=== PATIENT | female | born 1985 | race Caucasian/White ===

== ENCOUNTER 2016-12-19 08:48 | Emergency (ER) | payer MEDICAID ==
[2016-12-19 08:59] VITALS: BP 145/87
[2016-12-19] MEDS ORDERED: ONDANSETRON HCL INJ/PF 4 MG/2 ML SDV IV ONE ×2 (09:32→09:52)
[2016-12-19] MEDS ORDERED: NORMAL SALINE 1000 ML 1,000 ML IV ONE ×2 (09:32→09:47)
--- NOTE | 2016-12-19 09:44 | ER Document Report ---
ED GI/ - General Chief Complaint: Fever Stated Complaint: SIDE PAIN Time seen by provider: 09:44 Mode of Arrival: Ambulatory Information source: Patient Notes: 31 yo female diabetic with bilateral low back pain and dysuria. Thinks she has a kidney infection. No n/v/d. No vaginal discharge. TRAVEL OUTSIDE OF THE [place] IN LAST 30 DAYS: No - Related Data Allergies/Adverse Reactions: No Known Allergies Allergy (Verified 12/19/16 08:56) Past Medical History - General Information source: Patient - Social History Smoking Status: Current Some Day Smoker Chew tobacco use (# tins/day): No Frequency of alcohol use: Occasional Drug Abuse: Marijuana Family History: DM Patient has suicidal ideation: No Patient has homicidal ideation: No Endocrine Medical History: Reports: Hx Diabetes Mellitus Type 1 Renal/ Medical History: Denies: Hx Peritoneal Dialysis Past Surgical History: Reports: Hx Tonsillectomy - Immunizations Hx Diphtheria, Pertussis, Tetanus Vaccination: Yes Review of Systems - Review of Systems Constitutional: See HPI EENT: No symptoms reported Cardiovascular: No symptoms reported Respiratory: No symptoms reported Gastrointestinal: No symptoms reported Genitourinary: See HPI Female Genitourinary: No symptoms reported Musculoskeletal: No symptoms reported Skin: No symptoms reported Hematologic/Lymphatic: No symptoms reported Neurological/Psychological: No symptoms reported Physical Exam - Vital signs Vitals: Temp Pulse Resp BP Pulse Ox 100.5 F H 107 H 22 H 145/87 H 99 12/19/16 08:58 12/19/16 08:58 12/19/16 08:58 12/19/16 08:58 12/19/16 08:58 Interpretation: Tachycardic, Febrile - General General appearance: Alert In distress: None - HEENT Head: Normocephalic, Atraumatic Eyes: Normal Conjunctiva: Normal Pupils: PERRL Pharynx: Normal Neck: Supple. No: Lymphadenopathy - Respiratory Respiratory status: No respiratory distress Chest status: Nontender Breath sounds: Normal Chest palpation: Normal - Cardiovascular Rhythm: Regular Heart sounds: Normal auscultation Murmur: No - Abdominal Inspection: Normal Distension: No distension Bowel sounds: Normal Tenderness: Nontender. No: Tender Organomegaly: No organomegaly - Back Back: Normal, Nontender. No: CVA tenderness - Extremities General upper extremity: Normal inspection, Nontender, Normal color, Normal ROM , Normal temperature General lower extremity: Normal inspection, Nontender, Normal color, Normal ROM , Normal temperature, Normal weight bearing. No: Herber's sign - Neurological Neuro grossly intact: Yes Cognition: Normal Orientation: AAOx4 [place] Coma Scale Eye Opening: Spontaneous [place] Coma Scale Verbal: Oriented Meli Coma Scale Motor: Obeys Commands Meli Coma Scale Total: 15 Speech: Normal Motor strength normal: LUE, RUE, LLE, RLE Sensory: Normal - Psychological Associated symptoms: Normal affect, Normal mood - Skin Skin Temperature: Warm Skin Moisture: Dry Skin Color: Normal Skin irregularity: negative: Rash Course - Re-evaluation Re-evalutation: 12/19/16 11:[address] sanz, pt can go home. she feels better, IV fluid almost done, urine culture is pending. The wbc is 13, slight shift, urine positive for UTI 12/19/16 12:08 no hx stones or obstructive. She had sx of cystitis last week and did not see anyone for it, progressed to dull aching right flank, feeling sick with fever since saturday. - Vital Signs Vital signs: Temp Pulse Resp BP Pulse Ox 98.4 F 107 H 20 145/87 H 99 12/19/16 12:20 12/19/16 08:58 12/19/16 09:15 12/19/16 08:58 12/19/16 08:58 - Laboratory Result Diagrams: 12/19/16 09:45 12/19/16 09:45 Laboratory results interpreted by me: 12/19/16 12/19/16 12/19/16 09:40 09:45 09:45 WBC 13.3 H Seg Neutrophils % 83.2 H Lymphocytes % 5.8 L Absolute Neutrophils 11.1 H Sodium 132.5 L Chloride 96 L Glucose 278 H POC Glucose AST 13 L Alkaline Phosphatase 143 H Urine Protein 30 H Urine Glucose (UA) >=500 H Urine Ketones 80 H Urine Blood SMALL H Urine Nitrite POSITIVE H Ur Leukocyte Esterase TRACE H 12/19/16 11:58 WBC Seg Neutrophils % Lymphocytes % Absolute Neutrophils Sodium Chloride Glucose POC Glucose 167 H AST Alkaline Phosphatase Urine Protein Urine Glucose (UA) Urine Ketones Urine Blood Urine Nitrite Ur Leukocyte Esterase Discharge - Discharge Clinical Impression: Pyelonephritis Diabetes Qualifiers: Diabetes mellitus type: type 1 Diabetes mellitus complication status: with hyperglycemia Qualified Code(s): E10.65 - Type 1 diabetes mellitus with hyperglycemia Fever Qualifiers: Fever type: unspecified Qualified Code(s): R50.9 - Fever, unspecified Condition: Good Disposition: HOME, SELF-CARE Instructions: Acetaminophen, Pyelonephritis ([facility]), Rocephin ([facility]), Fever ([facility]) , Flank Pain ([facility]), Oral Narcotic Medication ([facility]) Additional Instructions: keep close watch on glucoses today to er if vomiting or feel worse urine culture is pending Prescriptions: Ciprofloxacin HCl [Cipro 500 mg Tablet] 500 mg PO BID #20 tablet Oxycodone HCl/Acetaminophen [Percocet 5-325 mg Tablet] 1 - 2 tab PO ASDIR PRN # 10 tablet PRN Reason: Forms: Parent Work Note Referrals: TAM LOPEZ DO [Primary Care Provider] - Follow up tomorrow
[2016-12-19] MEDS ORDERED: ACETAMINOPHEN 325 MG TABLET PO ONE (09:47)
[2016-12-19] MEDS ORDERED: CEFTRIAXONE 1 GM/D5W RTU 50 ML IV ONE (09:52)
[2016-12-19 10:08] LABS: APPEARANCE,URINE CLEAR; BILIRUBIN,URINE NEGATIVE (NEGATIVE); GLUCOSE, URINE >=500 mg/dL (NEGATIVE); KETONES,URINE 80 mg/dL (NEGATIVE); LEUKOCYTE ESTERASE,URINE TRACE (NEGATIVE); NITRITE,URINE POSITIVE (NEGATIVE); PROTEIN,URINE 30 mg/dL (NEGATIVE); URINE SPECIFIC GRAVITY 1.026; UROBILINOGEN,URINE NEGATIVE mg/dL (<2.0)
[2016-12-19 10:20] LABS: ALANINE AMINOTRANSFERASE 16 U/L (9-52); ALBUMIN 3.8 g/dL (3.5-5.0); ALKALINE PHOSPHATASE 143 U/L (38-126); ANION GAP 11 (5-19); ASPARTATE AMINO TRANSFERASE 13 U/L (14-36); BILIRUBIN,TOTAL 0.5 mg/dL (0.2-1.3); BLOOD UREA NITROGEN 9 mg/dL (7-20); CALCIUM 9.2 mg/dL (8.4-10.2); CARBON DIOXIDE 26 mmol/L (22-30); CHLORIDE 96 mmol/L (98-107); GLUCOSE 278 mg/dL (75-110); SODIUM 132.5 mmol/L (137-145); TOTAL PROTEIN 6.4 g/dL (6.3-8.2)
[2016-12-19 10:23] LABS: ABSOLUTE LYMPHOCYTES (AUTO) 0.8 10^3/uL (0.5-4.7); ABSOLUTE MONOCYTES (AUTO) 1.4 10^3/uL (0.1-1.4); ABSOLUTE NEUT (AUTO) 11.1 10^3/uL (1.7-8.2); BASOPHILS % (AUTO) 0.1 % (0-2); EOSINOPHILS % (AUTO) 0.1 % (0-6); HEMATOCRIT 40.7 % (36.0-47.0); HEMOGLOBIN 13.6 g/dL (12.0-15.5); HGB HCT DIFFERENCE 0.1; LYMPHOCYTES % (AUTO) 5.8 % (13-45); MEAN CORPUSCULAR HEMOGLOBIN 30.1 pg (27.0-33.4); MEAN CORPUSCULAR HGB CONC 33.5 g/dL (32.0-36.0); MEAN CORPUSCULAR VOLUME 90 fl (80-97); MONOCYTES % (AUTO) 10.8 % (3-13); RED BLOOD COUNT 4.53 10^6/uL (3.72-5.28); RED CELL DISTRIBUTION WIDTH 12.7 % (11.5-14.0); SEGMENTED NEUTROPHILS % (AUTO) 83.2 % (42-78); WHITE BLOOD COUNT 13.3 10^3/uL (4.0-10.5)
[2016-12-19] MEDS ORDERED: OXYCODONE HCL IR 5 MG TABLET PO ONE (12:08)
== END 2016-12-19 12:45 | disposition home or self-care (01) ==
LOC: ER 08:48
DX: N12 Tubulo-interstitial nephritis, not specified as acute or chronic (principal); E10.65 Type 1 diabetes mellitus with hyperglycemia; M54.5 Low back pain; R30.0 Dysuria; R50.9 Fever, unspecified; R00.0 Tachycardia, unspecified; F17.200 Nicotine dependence, unspecified, uncomplicated
CPT/HCPCS: 99283; 96361; 96375; 96365; 36415; 87040; 87086; 82962; 85025; 87088; 80053; 81001; 87186; J3490 ×2; J2405; J7030; J0696

== ENCOUNTER 2017-01-22 21:57 | Inpatient (IN) | payer MEDICAID ==
[2017-01-22] MEDS ORDERED: NORMAL SALINE 1000 ML 1,000 ML IV ONE ×2 (22:01→23:46)
[2017-01-22 22:36] LABS: HEMATOCRIT 46.3 % (36.0-47.0); HEMOGLOBIN 14.3 g/dL (12.0-15.5); HGB HCT DIFFERENCE -3.4; MEAN CORPUSCULAR HEMOGLOBIN 29.1 pg (27.0-33.4); MEAN CORPUSCULAR HGB CONC 30.9 g/dL (32.0-36.0); MEAN CORPUSCULAR VOLUME 94 fl (80-97); RED BLOOD COUNT 4.93 10^6/uL (3.72-5.28); RED CELL DISTRIBUTION WIDTH 13.6 % (11.5-14.0); WHITE BLOOD COUNT 28.9 10^3/uL (4.0-10.5)
[2017-01-22 22:51] LABS: BASOPHILS % (MANUAL) 0 % (0-2); EOSINOPHILS % (MANUAL) 0 % (0-6); LYMPHOCYTES % (MANUAL) 5 % (13-45); TOTAL CELLS COUNTED 100
[2017-01-22 22:52] LABS: RBC MORPHOLOGY COMMENT NORMO-CYTIC/CHROMIC
[2017-01-22 23:36] LABS: AMORPHOUS SEDIMENT,URINE TRACE /HPF; APPEARANCE,URINE SLIGHTLY-CLOUDY; BILIRUBIN,URINE NEGATIVE (NEGATIVE); GLUCOSE, URINE >=500 mg/dL (NEGATIVE); KETONES,URINE 80 mg/dL (NEGATIVE); LEUKOCYTE ESTERASE,URINE NEGATIVE (NEGATIVE); NITRITE,URINE NEGATIVE (NEGATIVE); PROTEIN,URINE 30 mg/dL (NEGATIVE); URINE SPECIFIC GRAVITY 1.018; UROBILINOGEN,URINE NEGATIVE mg/dL (<2.0)
[2017-01-22 23:44] LABS: ALANINE AMINOTRANSFERASE 33 U/L (9-52); ALBUMIN 4.7 g/dL (3.5-5.0); ALKALINE PHOSPHATASE 150 U/L (38-126); ASPARTATE AMINO TRANSFERASE 20 U/L (14-36); BILIRUBIN,TOTAL 0.7 mg/dL (0.2-1.3); BLOOD UREA NITROGEN 23 mg/dL (7-20); CALCIUM 9.8 mg/dL (8.4-10.2); CHLORIDE 105 mmol/L (98-107); CREATININE RESULT 1.04 mg/dL (0.52-1.25); SODIUM 134.9 mmol/L (137-145); TOTAL PROTEIN 7.5 g/dL (6.3-8.2)
[2017-01-22] MEDS ORDERED: DEXTROSE 40% GEL 15 GM TUBE PO PRN ×2 (23:47)
[2017-01-22] MEDS ORDERED: GLUCAGON,HUMAN RECOMB 1 MG INJ IM PRN (23:47)
[2017-01-22] MEDS ORDERED: NORMAL SALINE 100 ML with INSULIN REGULAR, HUMAN 100 UNIT IV PRN ×2 (23:47)
[2017-01-22] MEDS ORDERED: DEXTROSE 50%-WATER 25 GM/50 ML DISP.SYRIN IV PRN ×2 (23:47)
[2017-01-22 23:59] LABS: POTASSIUM 6.9 mmol/L (3.6-5.0)
[2017-01-23] LABS: CARBON DIOXIDE < 5 mmol/L (22-30); GLUCOSE 519 mg/dL (75-110)
[2017-01-23] MEDS ORDERED: INSULIN REG, HUMAN 100 UNIT/ML 3 ML VIAL (PYX) ONE (00:10)
[2017-01-23] MEDS ORDERED: SODIUM BICARBONATE 8.4% INJ 50 MEQ/50 ML DISP.SYRIN IV ONE (00:19)
--- NOTE | 2017-01-23 00:53 | ER Document Report ---
ED General - General Chief Complaint: High Blood Sugar Stated Complaint: POSSIBLE HIGH BLOOD SUGAR Notes: Patient is a 31-year-old female presents for complaint of possible DKA. Patient says that she never picked up her NovoLog 7030 insulin. She says she ran out on Saturday. She also has regular insulin but has not been using it as prescribed. She's had low vomiting. Patient's mother was called by the patient 's children because she looked unwell. Patient's mother got to her she is very lethargic and called a wants her brother here. Mother says that the patient resides been living with her boyfriend. She says she's been unable to keep a close eye on the patient to make sure that she's been taking her insulin. She' s been in DKA before. This was 2 years ago. Patient denies any recent fevers or infections. She has some abdominal pain. No diarrhea. TRAVEL OUTSIDE OF THE [place] IN LAST 30 DAYS: No - Related Data Allergies/Adverse Reactions: No Known Allergies Allergy (Verified 12/19/16 08:56) Past Medical History - Social History Smoking Status: Current Every Day Smoker Chew tobacco use (# tins/day): No Frequency of alcohol use: Occasional Drug Abuse: None Family History: Reviewed & Not Pertinent, DM Patient has suicidal ideation: No Patient has homicidal ideation: No - Past Medical History Cardiac Medical History: Denies: Hx Heart Attack, Hx Hypertension Neurological Medical History: Denies: Hx Cerebrovascular Accident, Hx Seizures Endocrine Medical History: Reports: Hx Diabetes Mellitus Type 1 Renal/ Medical History: Denies: Hx Peritoneal Dialysis GI Medical History: Denies: Hx Hepatitis, Hx Hiatal Hernia, Hx Ulcer Psychiatric Medical History: Denies: Hx Depression Infectious Medical History: Denies: Hx Hepatitis Past Surgical History: Reports: Hx Tonsillectomy. Denies: Hx Mastectomy, Hx Open Heart Surgery, Hx Pacemaker - Immunizations Hx Diphtheria, Pertussis, Tetanus Vaccination: Yes Review of Systems - Review of Systems Notes: My Normal Review Basic REVIEW OF SYSTEMS: CONSTITUTIONAL : Denies fever, chills, or sweats. Denies recent illness. EENT: Denies eye, ear, throat, or mouth pain or symptoms. Denies nasal or sinus congestion. CARDIOVASCULAR: Denies chest pain. RESPIRATORY: Denies cough, cold, or chest congestion. Denies shortness of breath, difficulty breathing, or wheezing. GASTROINTESTINAL: Some abdominal pain. Vomiting.. Denies constipation. Last BM: GENITOURINARY: Denies difficulty urinating, painful urination, burning, frequency, or blood in urine. MUSCULOSKELETAL: Denies neck or back pain or joint pain or swelling. SKIN: Denies rash or skin lesions. NEUROLOGICAL: Denies altered mental status or loss of consciousness. Denies headache. Denies weakness or paralysis or loss of use of either side. Denies problems with gait or speech. Denies sensory or motor loss. ALL OTHER SYSTEMS REVIEWED AND NEGATIVE. Physical Exam - Vital signs Vitals: Resp Pulse Ox 27 H 100 01/22/17 23:21 01/22/17 23:21 - Notes Notes: General Appearance: Well nourished, alert, cooperative, moderate acute distress , no obvious discomfort. Lethargic. Vitals: reviewed, See vital signs table. Head: no swelling or tenderness to the head Eyes: PERRL, EOMI, Conjuctiva clear Mouth: No decreasd moisture Neck: Supple, no neck tenderness, No thyromegaly Lungs: No wheezing, No rales, No rhonci, No accessory muscle use, good air exchange bilaterally. Kussmal type respirations. Heart: Slightly tachycardic rate, Regular rythm, No murmur, no rub Abdomen: Normal BS, soft, No rigidity, mild diffuse abdominal tenderness, No guarding, no rebound, no abdominal masses, no organomegaly Extremities: strength 5/5 in all extremities, good pulses in all extremities, no swelling or tenderness in the extremities, no edema. Skin: warm, dry, appropriate color, no rash Neuro: speech clear, oriented x 3, , responds appropriately to questions. Patient is somewhat weak pain. She is able answer most questions. No focal neurologic deficits. Course - Re-evaluation Re-evalutation: 01/23/17 02:14 Patient is more awake and alert. She is able to answer questions about difficulty now. Have ordered a repeat BMP. She's had 2 half liters of fluid so far. I will place her on maintenance drip. I spoke with the hospitalist who agrees to admit the patient. Patient will be closely monitored until admitted. Dictation of this chart was performed using voice recognition software; therefore, there may be some unintended grammatical errors. - Vital Signs Vital signs: Temp Pulse Resp BP Pulse Ox 98.5 F 82 25 H 133/67 H 100 01/23/17 00:00 01/22/17 23:42 01/23/17 00:01 01/23/17 00:01 01/23/17 02:29 - Laboratory Result Diagrams: 01/22/17 22:24 01/22/17 23:20 Laboratory results interpreted by me: 01/22/17 01/22/17 01/22/17 22:24 23:05 23:20 WBC 28.9 H MCHC 30.9 L Seg Neuts % (Manual) 95 H Lymphocytes % (Manual) 5 L Monocytes % (Manual) 0 L Abs Neuts (Manual) 27.5 H Abs Monocytes (Manual) 0.0 L Sodium 134.9 L Potassium 6.9 H* Carbon Dioxide < 5 L* BUN 23 H Glucose 519 H* POC Glucose Alkaline Phosphatase 150 H Urine Protein 30 H Urine Glucose (UA) >=500 H Urine Ketones 80 H Urine Blood SMALL H 01/22/17 01/23/17 23:51 01:47 WBC MCHC Seg Neuts % (Manual) Lymphocytes % (Manual) Monocytes % (Manual) Abs Neuts (Manual) Abs Monocytes (Manual) Sodium Potassium Carbon Dioxide BUN Glucose POC Glucose 441 H* 413 H* Alkaline Phosphatase Urine Protein Urine Glucose (UA) Urine Ketones Urine Blood Critical Care Note - Critical Care Note Total time excluding time spent on procedures (mins): 40 Comments: Critical care time for this patient not including time spent on procedures proximal and 40 minutes due to frequent reevaluations and management of blood sugar and acidosis. Discharge - Discharge Clinical Impression: DKA (diabetic ketoacidoses) Qualifiers: Diabetes mellitus type: type 1 Diabetes mellitus complication detail: without coma Qualified Code(s): E10.10 - Type 1 diabetes mellitus with ketoacidosis without coma Disposition: ADMITTED INPATIENT Unit Admitted: ICU
[2017-01-23] MEDS ORDERED: NORMAL SALINE 1000 ML 1,000 ML IV ONE (02:02)
[2017-01-23] MEDS ORDERED: DEXTROSE 50%-WATER 25 GM/50 ML DISP.SYRIN IV PRN ×2 (02:13)
[2017-01-23] MEDS ORDERED: GLUCAGON,HUMAN RECOMB 1 MG INJ IM PRN ×2 (02:13→18:52)
[2017-01-23] MEDS ORDERED: IPRATROPIUM/ALBUTEROL 0.5-2.5 MG/3 ML AMPUL NEB PRN (02:13)
[2017-01-23] MEDS ORDERED: DEXTROSE 40% GEL 15 GM TUBE PO PRN ×3 (02:13→18:52)
[2017-01-23] MEDS ORDERED: ONDANSETRON HCL INJ/PF 4 MG/2 ML SDV IV PRN (02:13)
[2017-01-23] MEDS ORDERED: MAGNESIUM HYDROXIDE SUSP 30 ML UDCUP PO PRN (02:13)
[2017-01-23 02:48] LABS: VENOUS BLOOD HCO3 6.9 mmol/L (20-32); VENOUS BLOOD PCO2 25.1 mmHg (35-63)
[2017-01-23 03:01] LABS: BLOOD UREA NITROGEN 22 mg/dL (7-20); CALCIUM 9.1 mg/dL (8.4-10.2); CHLORIDE 111 mmol/L (98-107); CREATININE RESULT 1.08 mg/dL (0.52-1.25); GLUCOSE 383 mg/dL (75-110); SODIUM 140.2 mmol/L (137-145)
[2017-01-23 03:03] LABS: ANION GAP 24 (5-19); CARBON DIOXIDE 5 mmol/L (22-30)
[2017-01-23 03:04] LABS: VENOUS BLOOD PH 7.06 (7.30-7.42)
[2017-01-23 03:11] LABS: POTASSIUM 5.3 mmol/L (3.6-5.0)
--- NOTE | 2017-01-23 03:48 | PDOC H&P ---
History of Present Illness Admission Date/PCP: 01/23/17 02:26 Patient complains of: Abdominal pain and nausea History of Present Illness: SEAN FELIPE is a 31 year old female with a past history of diabetes, chronic pain and neuropathy. Been her usual state of health until approximately 48 hours prior to presentation with complaints of polyuria polydipsia, uncontrolled blood sugars, unable to eat secondary to nausea. Patient has 4 days without insulin for unclear reasons patient is unable to elaborate as she is obtunded. In the emergency room she's found to have severe diabetic ketoacidosis with a undetectable bicarbonate. She started on IV insulin and IV fluids referred to the hospitalist for admission Past Medical History Cardiac Medical History: Reports: None Denies: Myocardial Infarction, Hypertension Pulmonary Medical History: Reports: None EENT Medical History: Reports: None Neurological Medical History: Reports: Other - Neuropathy worse of the right hand Denies: Seizures Endocrine Medical History: Reports: Diabetes Mellitus Type 1 Renal/ Medical History: Reports: None Malignancy Medical History: Reports: None GI Medical History: Reports: None Denies: Hepatitis, Hiatal Hernia Musculoskeltal Medical History: Reports: None Psychiatric Medical History: Reports: None Denies: Depression Hematology: Denies: Anemia, Sickle Cell Disease Past Surgical History Past Surgical History: Reports: Tonsillectomy Denies: Amputation, Mastectomy, Pacemaker Social History Information Source: Relative Lives with: Family Smoking Status: Current Every Day Smoker Frequency of Alcohol Use: Occasional Drugs: Marijuana Hx Prescription Drug Abuse: No - Advance Directive Resuscitation Status: Full Code Family History Family History: DM Parental Family History Reviewed: Yes Children Family History Reviewed: Yes Sibling(s) Family History Reviewed.: Yes Medication/Allergy Home Medications: Insulin NPH Hum/Reg Insulin Hm [Humulin 70/30 Kwikpen] 36 unit SQ QAM 01/07/16 Insulin NPH Hum/Reg Insulin Hm [Humulin 70/30 Kwikpen] 40 units SQ QHS 01/07/16 Insulin Regular, Human [Novolin R (Reg) Insulin 100 unit/mL] 10 unit SUBCUT MEALS 01/07/16 Comb No.42/Folic Acid [Prena1 Chew Tablet] 1.4 mg PO DAILY 04/02/16 NPH, Human Insulin Isophane [Humulin N (NPH) Insulin 100 unit/mL] 18 unit SUBCUT QAM #0 unit 04/04/16 NPH, Human Insulin Isophane [Humulin N (NPH) Insulin 100 unit/mL] 20 unit SUBCUT QHS #0 unit 04/04/16 Cephalexin Monohydrate [Keflex 500 mg Capsule] 500 mg PO QID #20 capsule Metoclopramide HCl [Reglan] 5 mg PO Q6 #30 tablet 07/17/16 Tramadol HCl [Ultram 50 mg Tablet] 50 mg PO ASDIR PRN #20 tablet 07/17/16 Ciprofloxacin HCl [Cipro 500 mg Tablet] 500 mg PO BID #20 tablet 12/19/16 Oxycodone HCl/Acetaminophen [Percocet 5-325 mg Tablet] 1 - 2 tab PO ASDIR PRN # 10 tablet 12/19/16 Allergies/Adverse Reactions: No Known Allergies Allergy (Verified 12/19/16 08:56) Review of Systems ROS unobtainable: Due to mental status Physical Exam Vital Signs: Temp Pulse Resp BP Pulse Ox 98.5 F 82 25 H 133/67 H 100 01/23/17 00:00 01/22/17 23:42 01/23/17 00:01 01/23/17 00:01 01/23/17 02:29 General appearance: PRESENT: disheveled, severe distress, well-developed, well- nourished Head exam: PRESENT: atraumatic, normocephalic Eye exam: PRESENT: conjunctiva pink, EOMI, PERRLA. ABSENT: scleral icterus Ear exam: PRESENT: normal external ear exam Mouth exam: PRESENT: dry mucosa. ABSENT: laceration, moist, neck supple Teeth exam: ABSENT: dental caries, dental tenderness Neck exam: ABSENT: carotid bruit, JVD, lymphadenopathy, thyromegaly Respiratory exam: PRESENT: clear to auscultation black, tachypnea. ABSENT: rales , rhonchi, wheezes Cardiovascular exam: PRESENT: RRR. ABSENT: diastolic murmur, rubs, systolic murmur Pulses: PRESENT: normal dorsalis pedis pul Vascular exam: PRESENT: normal capillary refill GI/Abdominal exam: PRESENT: normal bowel sounds, soft. ABSENT: distended, guarding, mass, organolmegaly, rebound, tenderness Rectal exam: PRESENT: deferred Extremities exam: PRESENT: full ROM, other - Left third finger with laceration and erythema no exudate. ABSENT: calf tenderness, clubbing, pedal edema Neurological exam: PRESENT: altered, CN II-XII grossly intact. ABSENT: motor sensory deficit Psychiatric exam: PRESENT: appropriate affect, normal mood. ABSENT: homicidal ideation, suicidal ideation Skin exam: PRESENT: dry, other - 1 cm laceration to the right third finger without exudate. ABSENT: cyanosis, rash Results Laboratory Results: 01/23/17 02:39 01/23/17 01/23/17 02:39 02:39 VBG pH 7.06 L* VBG pCO2 25.1 L VBG HCO3 6.9 L VBG Base Excess -22.0 Sodium 140.2 Potassium 5.3 H D Chloride 111 H Carbon Dioxide 5 L* Anion Gap 24 H BUN 22 H Creatinine 1.08 Est GFR ( Amer) > 60 Est GFR (Non-Af Amer) 59 L Glucose 383 H Calcium 9.1 Assessment & Plan - Diagnosis (1) DKA (diabetic ketoacidoses) Qualifiers: Diabetes mellitus type: type 1 Diabetes mellitus complication detail: without coma Qualified Code(s): E10.10 - Type 1 diabetes mellitus with ketoacidosis without coma Is this a current diagnosis for this admission?: YesPlan: IV insulin, IV fluid, electrolyte repletion reevaluation of chemistry every 4 hours and education (2) Hyperkalemia Is this a current diagnosis for this admission?: YesPlan: Reevaluation of chemistry every 4 hours (3) Laceration Is this a current diagnosis for this admission?: YesPlan: Bactroban an observation - Time Time Spent: 50 to 70 Minutes
[2017-01-23] MEDS: NORMAL SALINE 1000 ML 1,000 ML IV SCH ×2 (04:58→07:06)
[2017-01-23] MEDS: HEPARIN SOD (PORCINE) 5,000 UNIT/ML 1 ML SYRINGE SUBCUT SCH ×3 (06:12→21:14)
[2017-01-23 07:59] LABS: ANION GAP 16 (5-19); BLOOD UREA NITROGEN 19 mg/dL (7-20); CARBON DIOXIDE 11 mmol/L (22-30); CHLORIDE 115 mmol/L (98-107); GLUCOSE 197 mg/dL (75-110); POTASSIUM 4.5 mmol/L (3.6-5.0)
[2017-01-23] MEDS: POTASSI CL 20 MEQ/D5-1/2NS 1L 1,000 ML IV PRN ×3 (08:21→16:35)
[2017-01-23] MEDS: DOCUSATE SODIUM 100 MG CAPSULE PO SCH ×2 (10:39→17:07)
[2017-01-23 12:26] LABS: ANION GAP 9 (5-19); BLOOD UREA NITROGEN 17 mg/dL (7-20); CALCIUM 9.2 mg/dL (8.4-10.2); CARBON DIOXIDE 17 mmol/L (22-30); CHLORIDE 113 mmol/L (98-107); CREATININE RESULT 0.84 mg/dL (0.52-1.25); GLUCOSE 215 mg/dL (75-110); POTASSIUM 4.3 mmol/L (3.6-5.0); SODIUM 139.1 mmol/L (137-145)
[2017-01-23] MEDS: NORMAL SALINE 100 ML with INSULIN REGULAR, HUMAN 100 UNIT IV PRN ×2 (15:06)
[2017-01-23 16:05] LABS: BLOOD UREA NITROGEN 15 mg/dL (7-20); CALCIUM 9.2 mg/dL (8.4-10.2); CARBON DIOXIDE 18 mmol/L (22-30); CHLORIDE 113 mmol/L (98-107); CREATININE RESULT 0.74 mg/dL (0.52-1.25); GLUCOSE 212 mg/dL (75-110); POTASSIUM 4.3 mmol/L (3.6-5.0); SODIUM 139.1 mmol/L (137-145)
[2017-01-23 16:06] LABS: ANION GAP 8 (5-19)
[2017-01-23] MEDS ORDERED: INSULIN REGULAR SQ SCH (18:00)
[2017-01-23] MEDS ORDERED: INSULIN ISOPHANE SQ SCH (18:00)
[2017-01-23] MEDS ORDERED: HUM INSULIN NPH/REG INSULIN HM 100 UNIT/1 ML 3 ML SUBCUT ONE ×2 (18:30)
[2017-01-23] MEDS ORDERED: DEXTROSE 50%-WATER SYRINGE 25 GM/50 ML DOSE IV PRN (18:52)
[2017-01-23] MEDS ORDERED: DEXTROSE 40% GEL 15 GM TUBE X 2 PO PRN (18:52)
[2017-01-23] MEDS ORDERED: DEXTROSE 50%-WATER SYRINGE 12.5 GM/25 ML DOSE IV PRN (18:52)
[2017-01-23] MEDS: INSULIN LISPRO 100 UNIT/ML 3 ML VIAL SUBCUT PRN ×2 (19:03→20:16)
[2017-01-23 19:56] LABS: ANION GAP 7 (5-19); BLOOD UREA NITROGEN 12 mg/dL (7-20); CALCIUM 9.2 mg/dL (8.4-10.2); CARBON DIOXIDE 17 mmol/L (22-30); CHLORIDE 114 mmol/L (98-107); CREATININE RESULT 0.73 mg/dL (0.52-1.25); GLUCOSE 169 mg/dL (75-110); POTASSIUM 3.9 mmol/L (3.6-5.0); SODIUM 138.2 mmol/L (137-145)
--- NOTE | 2017-01-23 19:58 | PDOC PROGRESS REPORT ---
Subjective Progress Note for:: 01/23/17 Subjective:: Patient arousable but lethargic when I see her. Her mother is present for interview. Mother reports that she's not taken her insulin for several days and had the flu. Physical Exam Vital Signs: Temp Pulse Resp BP Pulse Ox 99.1 F 82 17 127/75 H 100 01/23/17 07:08 01/22/17 23:42 01/23/17 09:01 01/23/17 09:01 01/23/17 09:01 Exam: General: Lethargic, no acute respiratory distress HEENT: AT/NC, PERRL, oropharynx is moist, pink, no scleral icterus, no conjunctival injection Neck: No JVD, trachea midline Chest: Clear to auscultation bilaterally, no wheezes rhonchi or rales CV: Regular rate and rhythm, normal S1 and S2, no murmur, rub, or gallop Abdomen: Soft, nontender to palpation, nondistended, active bowel sounds; no rebound, rigidity, or guarding Extremities: No cyanosis, clubbing or edema Neuro: Moves all extremities, grossly intact Results Laboratory Results: 01/23/17 07:32 01/23/17 01/23/17 01/23/17 02:39 02:39 07:32 VBG pH 7.06 L* VBG pCO2 25.1 L VBG HCO3 6.9 L VBG Base Excess -22.0 Sodium 140.2 142.0 Potassium 5.3 H D 4.5 Chloride 111 H 115 H Carbon Dioxide 5 L* 11 L Anion Gap 24 H 16 BUN 22 H 19 Creatinine 1.08 0.90 Est GFR ( Amer) > 60 > 60 Est GFR (Non-Af Amer) 59 L > 60 Glucose 383 H 197 H Calcium 9.1 9.0 Assessment & Plan - Diagnosis (1) DKA (diabetic ketoacidoses) Qualifiers: Diabetes mellitus type: type 1 Diabetes mellitus complication detail: without coma Qualified Code(s): E10.10 - Type 1 diabetes mellitus with ketoacidosis without coma Is this a current diagnosis for this admission?: YesPlan: We'll continue patient on protocol for DKA. Continued every 4 hour BMPs and hourly Accu-Cheks. - Time Time Spent with patient: 15-24 minutes Medications reviewed and adjusted accordingly: Yes Anticipated discharge: Home Within: within 48 hours
[2017-01-23] MEDS: ACETAMINOPHEN 325 MG TABLET PO PRN (20:31)
[2017-01-23] MEDS: NORMAL SALINE 1000 ML 1,000 ML IV PRN (21:15)
[2017-01-24 00:03] LABS: ANION GAP 11 (5-19); BLOOD UREA NITROGEN 10 mg/dL (7-20); CALCIUM 9.1 mg/dL (8.4-10.2); CARBON DIOXIDE 16 mmol/L (22-30); CHLORIDE 112 mmol/L (98-107); CREATININE RESULT 0.62 mg/dL (0.52-1.25); GLUCOSE 160 mg/dL (75-110); SODIUM 139.1 mmol/L (137-145)
[2017-01-24] MEDS: NORMAL SALINE 1000 ML 1,000 ML IV PRN ×3 (04:03→13:29)
[2017-01-24 04:04] LABS: ANION GAP 14 (5-19); BLOOD UREA NITROGEN 10 mg/dL (7-20); CALCIUM 8.6 mg/dL (8.4-10.2); CARBON DIOXIDE 12 mmol/L (22-30); CHLORIDE 110 mmol/L (98-107); CREATININE RESULT 0.58 mg/dL (0.52-1.25); GLUCOSE 292 mg/dL (75-110); SODIUM 136.4 mmol/L (137-145)
[2017-01-24] MEDS: HEPARIN SOD (PORCINE) 5,000 UNIT/ML 1 ML SYRINGE SUBCUT SCH ×3 (05:17→22:51)
[2017-01-24] MEDS ORDERED: HUM INSULIN NPH/REG INSULIN HM 100 UNIT/1 ML 3 ML SUBCUT SCH (07:00)
[2017-01-24] MEDS ORDERED: NORMAL SALINE 100 ML with INSULIN REGULAR, HUMAN 100 UNIT IV PRN ×2 (07:19)
[2017-01-24 07:27] LABS: ABSOLUTE LYMPHOCYTES (AUTO) 1.4 10^3/uL (0.5-4.7); ABSOLUTE MONOCYTES (AUTO) 0.8 10^3/uL (0.1-1.4); ABSOLUTE NEUT (AUTO) 17.6 10^3/uL (1.7-8.2); BASOPHILS % (AUTO) 0.2 % (0-2); EOSINOPHILS % (AUTO) 0.1 % (0-6); HEMATOCRIT 41.5 % (36.0-47.0); HEMOGLOBIN 13.4 g/dL (12.0-15.5); HGB HCT DIFFERENCE -1.3; MEAN CORPUSCULAR HEMOGLOBIN 29.3 pg (27.0-33.4); MEAN CORPUSCULAR HGB CONC 32.3 g/dL (32.0-36.0); MEAN CORPUSCULAR VOLUME 91 fl (80-97); MONOCYTES % (AUTO) 4.2 % (3-13); RED BLOOD COUNT 4.58 10^6/uL (3.72-5.28); RED CELL DISTRIBUTION WIDTH 13.3 % (11.5-14.0); SEGMENTED NEUTROPHILS % (AUTO) 88.5 % (42-78); WHITE BLOOD COUNT 19.9 10^3/uL (4.0-10.5)
[2017-01-24] MEDS: INSULIN LISPRO 100 UNIT/ML 3 ML VIAL SUBCUT PRN ×3 (07:43→18:48)
[2017-01-24 07:49] LABS: ANION GAP 18 (5-19); BLOOD UREA NITROGEN 10 mg/dL (7-20); CALCIUM 8.9 mg/dL (8.4-10.2); CARBON DIOXIDE 11 mmol/L (22-30); CHLORIDE 107 mmol/L (98-107); CREATININE RESULT 0.62 mg/dL (0.52-1.25); GLUCOSE 394 mg/dL (75-110); POTASSIUM 4.4 mmol/L (3.6-5.0); SODIUM 136.3 mmol/L (137-145)
[2017-01-24] MEDS: DOCUSATE SODIUM 100 MG CAPSULE PO SCH ×2 (09:24→17:31)
[2017-01-24] MEDS: ACETAMINOPHEN 325 MG TABLET PO PRN ×2 (09:28→15:48)
[2017-01-24 12:30] LABS: ANION GAP 10 (5-19); BLOOD UREA NITROGEN 9 mg/dL (7-20); CALCIUM 8.9 mg/dL (8.4-10.2); CARBON DIOXIDE 18 mmol/L (22-30); CHLORIDE 111 mmol/L (98-107); CREATININE RESULT 0.54 mg/dL (0.52-1.25); GLUCOSE 199 mg/dL (75-110); POTASSIUM 3.7 mmol/L (3.6-5.0); SODIUM 138.8 mmol/L (137-145)
[2017-01-24] MEDS: NORMAL SALINE 100 ML with INSULIN REGULAR, HUMAN 100 UNIT IV PRN ×2 (14:32)
--- NOTE | 2017-01-24 14:41 | PDOC PROGRESS REPORT ---
Subjective Progress Note for:: 01/24/17 Subjective:: Patient reports she's feeling much better. Patient reported prior to admission she was on an antibiotic for kidney infection. She reports that she had her finger infected and was on clindamycin. She denied any diarrhea. She reports her children have been ill. In general she reports just noncompliance with her insulin regimen not getting nearly as many shots that she was supposed to. She reports disliking being on 7030 which she has been on since and preferred Lantus. Transition patient to Lantus. Patient denies chest pain, shortness of breath, abdominal pain, nausea, vomiting , fevers, chills, diarrhea, constipation, headache, new onset weakness. Physical Exam Vital Signs: Temp Pulse Resp BP Pulse Ox 98.5 F 76 16 123/81 100 01/24/17 11:28 01/24/17 11:28 01/24/17 11:28 01/24/17 11:28 01/24/17 11:28 Intake & Output 01/23/17 01/24/17 01/25/17 06:59 06:59 06:59 Intake Total 3957 Balance 3957 Weight 66.2 kg Exam: General: Awake alert and oriented x3, no acute respiratory distress HEENT: AT/NC, PERRL, EOMI, oropharynx is moist, pink, no scleral icterus, no conjunctival injection Neck: No JVD, trachea midline Chest: Clear to auscultation bilaterally, no wheezes rhonchi or rales CV: Regular rate and rhythm, normal S1 and S2, no murmur, rub, or gallop Abdomen: Soft, nontender to palpation, nondistended, active bowel sounds; no rebound, rigidity, or guarding Extremities: No cyanosis, clubbing or edema Neuro: Cranial nerves II through XII are grossly intact without focal deficits; awake alert and oriented x3 Psych: Normal mood and affect Results Laboratory Results: 01/24/17 07:19 01/24/17 11:55 01/23/17 01/23/17 01/23/17 15:18 18:50 23:19 WBC RBC Hgb Hct MCV MCH MCHC RDW Plt Count Seg Neutrophils % Lymphocytes % Monocytes % Eosinophils % Basophils % Absolute Neutrophils Absolute Lymphocytes Absolute Monocytes Absolute Eosinophils Absolute Basophils Sodium 139.1 138.2 139.1 Potassium 4.3 3.9 4.0 Chloride 113 H 114 H 112 H Carbon Dioxide 18 L 17 L 16 L Anion Gap 8 7 11 BUN 15 12 10 Creatinine 0.74 0.73 0.62 Est GFR ( Amer) > 60 > 60 > 60 Est GFR (Non-Af Amer) > 60 > 60 > 60 Glucose 212 H 169 H 160 H Calcium 9.2 9.2 9.1 01/24/17 01/24/17 01/24/17 03:21 07:19 07:19 WBC 19.9 H RBC 4.58 Hgb 13.4 Hct 41.5 MCV 91 MCH 29.3 MCHC 32.3 RDW 13.3 Plt Count 233 Seg Neutrophils % 88.5 H Lymphocytes % 7.0 L Monocytes % 4.2 Eosinophils % 0.1 Basophils % 0.2 Absolute Neutrophils 17.6 H Absolute Lymphocytes 1.4 Absolute Monocytes 0.8 Absolute Eosinophils 0.0 Absolute Basophils 0.0 Sodium 136.4 L 136.3 L Potassium 4.0 4.4 Chloride 110 H 107 Carbon Dioxide 12 L 11 L Anion Gap 14 18 BUN 10 10 Creatinine 0.58 0.62 Est GFR ( Amer) > 60 > 60 Est GFR (Non-Af Amer) > 60 > 60 Glucose 292 H 394 H Calcium 8.6 8.9 01/24/17 11:55 WBC RBC Hgb Hct MCV MCH MCHC RDW Plt Count Seg Neutrophils % Lymphocytes % Monocytes % Eosinophils % Basophils % Absolute Neutrophils Absolute Lymphocytes Absolute Monocytes Absolute Eosinophils Absolute Basophils Sodium 138.8 Potassium 3.7 Chloride 111 H Carbon Dioxide 18 L Anion Gap 10 BUN 9 Creatinine 0.54 Est GFR ( Amer) > 60 Est GFR (Non-Af Amer) > 60 Glucose 199 H Calcium 8.9 Assessment & Plan - Diagnosis (1) DKA (diabetic ketoacidoses) Qualifiers: Diabetes mellitus type: type 1 Diabetes mellitus complication detail: without coma Qualified Code(s): E10.10 - Type 1 diabetes mellitus with ketoacidosis without coma Is this a current diagnosis for this admission?: YesPlan: Patient unsuccessfully transitioned yesterday. Patient apparently was taking double the amount of 7030 was listed on her pharmacy sheet. Will reinitiate patient on insulin drip and continue BMPs every 4 hours. Patient still appears to be quite soundly dehydrated. Secondary to noncompliance. (2) Medical non-compliance Is this a current diagnosis for this admission?: YesPlan: Patient reports medical noncompliance. Will restart patient on Lantus as this may improve her overall compliance. Long-term consequences of diabetes were discussed with this patient including loss of vision, early heart disease, stroke, vasculopathy, kidney failure including dialysis, and loss of limbs. Patient verbalized understanding. (3) Laceration Is this a current diagnosis for this admission?: YesPlan: We'll place bacitracin and bandage. At this time does not appear to be infected but will monitor for any worsening symptoms. (4) GERD (gastroesophageal reflux disease) Qualifiers: Esophagitis presence: without esophagitis Qualified Code(s): K21.9 - Gastro-esophageal reflux disease without esophagitis Is this a current diagnosis for this admission?: YesPlan: Pepcid (5) Type 1 diabetes mellitus Qualifiers: Qualified Code(s): E10.9 - Type 1 diabetes mellitus without complications Is this a current diagnosis for this admission?: Yes (6) Full code status Is this a current diagnosis for this admission?: Yes - Time Critical Time spent with patient: 25-34 minutes Medications reviewed and adjusted accordingly: Yes Within: within 24 hours
[2017-01-24 15:47] LABS: ANION GAP 9 (5-19); BLOOD UREA NITROGEN 9 mg/dL (7-20); CALCIUM 9.3 mg/dL (8.4-10.2); CARBON DIOXIDE 23 mmol/L (22-30); CHLORIDE 108 mmol/L (98-107); CREATININE RESULT 0.59 mg/dL (0.52-1.25); GLUCOSE 123 mg/dL (75-110); POTASSIUM 3.5 mmol/L (3.6-5.0); SODIUM 140.1 mmol/L (137-145)
[2017-01-24] MEDS ORDERED: DEXTROSE 5%-1/2 NORMAL SALINE 1,000 ML IV PRN (15:47)
[2017-01-24 17:20] LABS: APPEARANCE,URINE CLEAR; BILIRUBIN,URINE NEGATIVE (NEGATIVE); GLUCOSE, URINE NEGATIVE (NEGATIVE); KETONES,URINE NEGATIVE (NEGATIVE); LEUKOCYTE ESTERASE,URINE NEGATIVE (NEGATIVE); NITRITE,URINE NEGATIVE (NEGATIVE); PROTEIN,URINE NEGATIVE (NEGATIVE); URINE SPECIFIC GRAVITY 1.003; UROBILINOGEN,URINE NEGATIVE mg/dL (<2.0)
[2017-01-24] MEDS: BACITRACIN ZINC OINTMENT 15 GM TP SCH (17:31)
[2017-01-24] MEDS ORDERED: BENZOCAINE/MENTHOL SORE THROAT LOZENGE BUCCAL PRN (17:42)
[2017-01-24] MEDS ORDERED: TRAMADOL HCL 50 MG TABLET PO PRN (17:43)
[2017-01-24] MEDS ORDERED: GABAPENTIN 100 MG CAPSULE PO ONE (17:43)
[2017-01-24] MEDS ORDERED: INSULIN GLARGINE,HUM.REC.ANLOG 1,000 UNIT/10 ML UNIT SUBCUT ONE (17:44)
[2017-01-24 19:42] LABS: ANION GAP 10 (5-19); BLOOD UREA NITROGEN 8 mg/dL (7-20); CALCIUM 9.2 mg/dL (8.4-10.2); CARBON DIOXIDE 22 mmol/L (22-30); CHLORIDE 107 mmol/L (98-107); CREATININE RESULT 0.71 mg/dL (0.52-1.25); GLUCOSE 189 mg/dL (75-110); POTASSIUM 3.8 mmol/L (3.6-5.0); SODIUM 139.1 mmol/L (137-145)
[2017-01-24] MEDS: GABAPENTIN 100 MG CAPSULE PO SCH (22:50)
[2017-01-24] MEDS ORDERED: FLUTICASONE NASAL SPRAY 50 MCG/SPRY 120 SPRAY/16 GM NASL SCH (23:30)
[2017-01-24 23:47] LABS: ANION GAP 8 (5-19); BLOOD UREA NITROGEN 9 mg/dL (7-20); CALCIUM 9.4 mg/dL (8.4-10.2); CARBON DIOXIDE 26 mmol/L (22-30); CHLORIDE 103 mmol/L (98-107); CREATININE RESULT 0.74 mg/dL (0.52-1.25); GLUCOSE 221 mg/dL (75-110); POTASSIUM 3.9 mmol/L (3.6-5.0); SODIUM 136.8 mmol/L (137-145)
[2017-01-24] MEDS ORDERED: FLUTICASONE NASAL SPRAY 50 MCG/SPRY 120 SPRAY/16 GM ONE (23:51)
[2017-01-25 03:57] LABS: ANION GAP 8 (5-19); BLOOD UREA NITROGEN 11 mg/dL (7-20); CALCIUM 8.9 mg/dL (8.4-10.2); CARBON DIOXIDE 25 mmol/L (22-30); CHLORIDE 102 mmol/L (98-107); CREATININE RESULT 0.55 mg/dL (0.52-1.25); GLUCOSE 246 mg/dL (75-110); POTASSIUM 3.7 mmol/L (3.6-5.0); SODIUM 134.9 mmol/L (137-145)
[2017-01-25 05:26] LABS: ABSOLUTE BASOPHILS # (AUTO) 0.1 10^3/uL (0.0-0.2); ABSOLUTE EOSINOPHILS # (AUTO) 0.1 10^3/uL (0.0-0.6); ABSOLUTE LYMPHOCYTES (AUTO) 2.6 10^3/uL (0.5-4.7); ABSOLUTE MONOCYTES (AUTO) 0.8 10^3/uL (0.1-1.4); ABSOLUTE NEUT (AUTO) 6.8 10^3/uL (1.7-8.2); BASOPHILS % (AUTO) 0.8 % (0-2); EOSINOPHILS % (AUTO) 1.1 % (0-6); HEMATOCRIT 37.8 % (36.0-47.0); HEMOGLOBIN 12.8 g/dL (12.0-15.5); HGB HCT DIFFERENCE 0.6; LYMPHOCYTES % (AUTO) 24.8 % (13-45); MEAN CORPUSCULAR HEMOGLOBIN 29.3 pg (27.0-33.4); MEAN CORPUSCULAR HGB CONC 33.9 g/dL (32.0-36.0); MONOCYTES % (AUTO) 7.4 % (3-13); RED BLOOD COUNT 4.38 10^6/uL (3.72-5.28); RED CELL DISTRIBUTION WIDTH 12.9 % (11.5-14.0); SEGMENTED NEUTROPHILS % (AUTO) 65.9 % (42-78); WHITE BLOOD COUNT 10.4 10^3/uL (4.0-10.5)
[2017-01-25 05:42] LABS: ANION GAP 8 (5-19); BLOOD UREA NITROGEN 9 mg/dL (7-20); CARBON DIOXIDE 24 mmol/L (22-30); CHLORIDE 103 mmol/L (98-107); CREATININE RESULT 0.49 mg/dL (0.52-1.25); GLUCOSE 193 mg/dL (75-110); POTASSIUM 3.6 mmol/L (3.6-5.0); SODIUM 134.6 mmol/L (137-145)
[2017-01-25 05:43] LABS: MEAN CORPUSCULAR VOLUME 86 fl (80-97)
[2017-01-25] MEDS: INSULIN LISPRO 100 UNIT/ML 3 ML VIAL SUBCUT PRN ×2 (06:41→11:02)
[2017-01-25] MEDS: GABAPENTIN 100 MG CAPSULE PO SCH (06:41)
[2017-01-25] MEDS: HEPARIN SOD (PORCINE) 5,000 UNIT/ML 1 ML SYRINGE SUBCUT SCH (06:43)
[2017-01-25 08:51] LABS: FREE T3 4.14 pg/mL (2.77-5.27)
[2017-01-25] MEDS: BACITRACIN ZINC OINTMENT 15 GM TP SCH (09:24)
[2017-01-25] MEDS: DOCUSATE SODIUM 100 MG CAPSULE PO SCH (09:26)
[2017-01-25] MEDS ORDERED: INSULIN GLARGINE,HUM.REC.ANLOG 1,000 UNIT/10 ML UNIT SUBCUT ONE (11:00)
[2017-01-25 11:27] VITALS: BP 121/84
--- NOTE | 2017-01-25 18:36 | PDOC DISCHARGE SUMMARY ---
General - Admit/Disc Date/PCP Admission Date/Primary Care Provider: 01/23/17 02:13 Discharge Date: 01/25/17 - Discharge Diagnosis (1) DKA (diabetic ketoacidoses) Is this a current diagnosis for this admission?: Yes (2) Medical non-compliance Is this a current diagnosis for this admission?: Yes (3) Laceration Is this a current diagnosis for this admission?: Yes (4) GERD (gastroesophageal reflux disease) Is this a current diagnosis for this admission?: Yes (5) Type 1 diabetes mellitus Is this a current diagnosis for this admission?: Yes (6) Full code status Is this a current diagnosis for this admission?: Yes - Additional Information Resuscitation Status: Full Code Discharge Diet: Diabetic Discharge Activity: Activity As Tolerated, Balance Activity w/Rest Home Medications: Insulin Aspart [Novolog Flexpen] 0 units SQ .PERSLIDINGSCALE 01/23/17 Insulin Aspart [Novolog Flexpen] 5 units SQ MEALSHS 01/23/17 Pnv No.115/Iron Fumarate/FA [ 19 Chewable Tablet] 1 tab PO DAILY Bacitracin Zinc [Bacitracin Oint 15 gm] 1 applic TP BID #1 tube 01/25/17 Gabapentin [Neurontin 100 mg Capsule] 100 mg PO Q8 #90 capsule 01/25/17 Insulin Glargine,Hum.rec.anlog [Lantus Solostar] 10 unit SQ QAM #1 ml 01/25/17 Insulin Glargine,Hum.rec.anlog [Lantus Solostar] 40 unit SQ QHS #1 ml 01/25/17 Pen Needle, Diabetic [Pen Needle] 1 each ASDIR PRN #1 dis.needle 01/25/17 History of Present Illness History of Present Illness: SEAN FELIPE is a 31 year old female with a past history of diabetes, chronic pain and neuropathy. Been her usual state of health until approximately 48 hours prior to presentation with complaints of polyuria polydipsia, uncontrolled blood sugars, unable to eat secondary to nausea. Patient has 4 days without insulin for unclear reasons patient is unable to elaborate as she is obtunded. In the emergency room she's found to have severe diabetic ketoacidosis with a undetectable bicarbonate. She started on IV insulin and IV fluids referred to the hospitalist for admission Hospital Course Hospital Course: Patient was able to close Quickly but her acidosis likely time. Patient was initially crossed over, but eventually had a small relapse and required being placed on insulin drip again. At this time, patient reported that she normally did not take 7030 insulin, but was placed on this during her . Patient wanted to switch back to Lantus and patient was accommodated with easy transition. Patient also complained of neuropathy in her hands and was started on Neurontin 100 mg by mouth 3 times a day with good results. Patient was advised strongly to follow-up with endocrinology and an appointment was made for her prior to discharge. Patient was also advised of the long-term consequences of her diabetes mellitus uncontrolled including heart disease, cerebrovascular disease, ESRD, loss of limb. Patient verbalized understanding and questions were answered to the best of my ability. Physical Exam Vital Signs: Temp Pulse Resp BP Pulse Ox 98.0 F 66 16 121/84 100 01/25/17 11:25 01/25/17 11:25 01/25/17 11:25 01/25/17 11:25 01/25/17 11:25 Intake & Output 01/24/17 01/25/17 01/26/17 06:59 06:59 06:59 Intake Total 3957 5716 Output Total 400 Balance 3957 5316 Weight 66.2 kg 67.7 kg Exam: General: Awake alert and oriented x3, no acute respiratory distress HEENT: AT/NC, PERRL, EOMI, oropharynx is moist, pink, no scleral icterus, no conjunctival injection Neck: No JVD, trachea midline Chest: Clear to auscultation bilaterally, no wheezes rhonchi or rales CV: Regular rate and rhythm, normal S1 and S2, no murmur, rub, or gallop Abdomen: Soft, nontender to palpation, nondistended, active bowel sounds; no rebound, rigidity, or guarding Extremities: No cyanosis, clubbing or edema Neuro: Cranial nerves II through XII are grossly intact without focal deficits; awake alert and orientedx3 Psych: Normal mood and affect Results Laboratory Results: 01/25/17 05:12 01/25/17 05:12 01/24/17 01/24/17 01/24/17 15:19 15:19 19:05 WBC RBC Hgb Hct MCV MCH MCHC RDW Plt Count Seg Neutrophils % Lymphocytes % Monocytes % Eosinophils % Basophils % Absolute Neutrophils Absolute Lymphocytes Absolute Monocytes Absolute Eosinophils Absolute Basophils Sodium 139.1 Potassium 3.8 Chloride 107 Carbon Dioxide 22 Anion Gap 10 BUN 8 Creatinine 0.71 Est GFR ( Amer) > 60 Est GFR (Non-Af Amer) > 60 Glucose 189 H Calcium 9.2 Vitamin B12 > 1000.0 H TSH 0.34 L Free T4 Free T3 pg/mL 01/24/17 01/25/17 01/25/17 23:20 03:18 03:18 WBC Cancelled RBC Cancelled Hgb Cancelled Hct Cancelled MCV Cancelled MCH Cancelled MCHC Cancelled RDW Cancelled Plt Count Cancelled Seg Neutrophils % Cancelled Lymphocytes % Cancelled Monocytes % Cancelled Eosinophils % Cancelled Basophils % Cancelled Absolute Neutrophils Cancelled Absolute Lymphocytes Cancelled Absolute Monocytes Cancelled Absolute Eosinophils Cancelled Absolute Basophils Cancelled Sodium 136.8 L 134.9 L Potassium 3.9 3.7 Chloride 103 102 Carbon Dioxide 26 25 Anion Gap 8 8 BUN 9 11 Creatinine 0.74 0.55 Est GFR ( Amer) > 60 > 60 Est GFR (Non-Af Amer) > 60 > 60 Glucose 221 H 246 H Calcium 9.4 8.9 Vitamin B12 TSH Free T4 Free T3 pg/mL 01/25/17 01/25/17 01/25/17 05:12 05:12 05:12 WBC 10.4 RBC 4.38 Hgb 12.8 Hct 37.8 MCV 86 D MCH 29.3 MCHC 33.9 RDW 12.9 Plt Count 195 Seg Neutrophils % 65.9 Lymphocytes % 24.8 Monocytes % 7.4 Eosinophils % 1.1 Basophils % 0.8 Absolute Neutrophils 6.8 Absolute Lymphocytes 2.6 Absolute Monocytes 0.8 Absolute Eosinophils 0.1 Absolute Basophils 0.1 Sodium 134.6 L Potassium 3.6 Chloride 103 Carbon Dioxide 24 Anion Gap 8 BUN 9 Creatinine 0.49 L Est GFR ( Amer) > 60 Est GFR (Non-Af Amer) > 60 Glucose 193 H Calcium 9.0 Vitamin B12 TSH Free T4 1.16 Free T3 pg/mL 4.14 01/24/17 16:56 Clean Catch Midstream Urine Culture - Final Group B Beta Streptococcus Qualifiers PATEINT BEING DISCHARGED WITH ANY OF THE FOLLOWING DIAGNOSIS?: No Plan Time Spent: Less than 30 Minutes
== END 2017-01-25 13:01 | disposition home or self-care (01) | DRG 639 ==
LOC: ER 21:57 → EH 01-23 02:13 → UNDOADMIN 01-23 02:26 → EH 01-23 02:26 → 3W 01-23 14:40
PROVIDERS: ADMIT Internal Medicine; ATTEND Internal Medicine
PROC: 3E0F73Z Introduction of Anti-inflammatory into Respiratory Tract, Via Natural or Artificial Opening (ICD-10-PCS; principal; 2017-01-23)
DX: E10.10 Type 1 diabetes mellitus with ketoacidosis without coma (principal); K21.9 Gastro-esophageal reflux disease without esophagitis; G89.29 Other chronic pain; B95.1 Streptococcus, group B, as the cause of diseases classified elsewhere; F17.210 Nicotine dependence, cigarettes, uncomplicated; E87.5 Hyperkalemia; T14.8 Other injury of unspecified body region; X58.XXXA Exposure to other specified factors, initial encounter; E10.40 Type 1 diabetes mellitus with diabetic neuropathy, unspecified; Z91.14 Patient's other noncompliance with medication regimen; Z79.4 Long term (current) use of insulin; Z79.899 Other long term (current) drug therapy; Z83.3 Family history of diabetes mellitus
CPT/HCPCS: 36415; 80048; 80053; 81001; 82607; 82803; 82962; 83036; 84439; 84443; 84481; 84703; 85025; 87086; 87088; 96361; 96374; 99291; J1644; J1815; J3480; J3490; J7030

== ENCOUNTER 2017-06-18 15:24 | Emergency (ER) | payer MEDICAID ==
[2017-06-18 15:32] VITALS: BP 122/79
== END 2017-06-18 16:07 | disposition left against medical advice (07) ==
LOC: ER 15:24
DX: Z53.21 Procedure and treatment not carried out due to patient leaving prior to being seen by health care provider (principal)

== ENCOUNTER 2017-06-18 18:35 | Emergency (ER) | payer SELFPAY ==
[2017-06-18] MEDS ORDERED: NORMAL SALINE 1000 ML 1,000 ML IV PRN (18:56)
[2017-06-18] MEDS ORDERED: AMPICILLIN SOD/SULBACTAM 3 GM VIAL IV ONE (18:56)
--- NOTE | 2017-06-18 18:59 | ER Document Report ---
ED Medical Screen (RME) - General Chief Complaint: Hand Pain Stated Complaint: FINGER PAIN Time Seen by Provider: 06/18/17 18:55 Notes: Patient states she has had 4 days of swelling to her right index finger. The only known injury is she occasionally will use this finger to check her blood glucose. She states she has had excessive weakness and has been sleeping more than usual the last several days. TRAVEL OUTSIDE OF THE [place] IN LAST 30 DAYS: No - Related Data Allergies/Adverse Reactions: No Known Allergies Allergy (Verified 06/18/17 15:28) Past Medical History - Social History Frequency of alcohol use: None Drug Abuse: Marijuana - Past Medical History Cardiac Medical History: Denies: Hx Heart Attack, Hx Hypertension Neurological Medical History: Denies: Hx Cerebrovascular Accident, Hx Seizures Endocrine Medical History: Reports: Hx Diabetes Mellitus Type 1 Renal/ Medical History: Denies: Hx Peritoneal Dialysis GI Medical History: Denies: Hx Hepatitis, Hx Hiatal Hernia, Hx Ulcer Psychiatric Medical History: Denies: Hx Depression Infectious Medical History: Denies: Hx Hepatitis Past Surgical History: Reports: Hx Tonsillectomy. Denies: Hx Mastectomy, Hx Open Heart Surgery, Hx Pacemaker - Immunizations Hx Diphtheria, Pertussis, Tetanus Vaccination: Yes Physical Exam - Vital signs Vitals: Temp Pulse BP Pulse Ox 98.5 F 97 142/97 H 100 06/18/17 18:47 06/18/17 18:47 06/18/17 18:47 06/18/17 18:47 Course - Vital Signs Vital signs: Temp Pulse Resp BP Pulse Ox 98.5 F 97 142/97 H 100 06/18/17 18:47 06/18/17 18:47 06/18/17 18:47 06/18/17 18:47
--- NOTE | 2017-06-18 19:48 | RADIOLOGY REPORT (SQ) ---
EXAM DESCRIPTION: HAND RIGHT 3 VIEWS COMPLETED DATE/TIME: 06/18/2017 7:39 pm REASON FOR STUDY: hand pain/swelling COMPARISON: None. EXAM PARAMETERS: NUMBER OF VIEWS: Three views. TECHNIQUE: AP, lateral and oblique radiographic images acquired of the right hand. LIMITATIONS: None. FINDINGS: MINERALIZATION: Normal. BONES: No acute fracture or dislocation. No worrisome bone lesions. JOINTS: No effusions. SOFT TISSUES: No soft tissue swelling. No foreign body. OTHER: No other significant finding. IMPRESSION: NEGATIVE STUDY OF THE RIGHT HAND. NO RADIOGRAPHIC EVIDENCE OF ACUTE INJURY. TECHNICAL DOCUMENTATION: JOB ID: [id number] [employer]- All Rights Reserved
[2017-06-18 19:49] LABS: ABSOLUTE BASOPHILS # (AUTO) 0.1 10^3/uL (0.0-0.2); ABSOLUTE EOSINOPHILS # (AUTO) 0.1 10^3/uL (0.0-0.6); ABSOLUTE LYMPHOCYTES (AUTO) 1.8 10^3/uL (0.5-4.7); ABSOLUTE MONOCYTES (AUTO) 0.6 10^3/uL (0.1-1.4); ABSOLUTE NEUT (AUTO) 6.1 10^3/uL (1.7-8.2); BASOPHILS % (AUTO) 0.6 % (0-2); EOSINOPHILS % (AUTO) 0.7 % (0-6); HEMATOCRIT 41.9 % (36.0-47.0); HEMOGLOBIN 14.1 g/dL (12.0-15.5); HGB HCT DIFFERENCE 0.4; LYMPHOCYTES % (AUTO) 20.7 % (13-45); MEAN CORPUSCULAR HGB CONC 33.6 g/dL (32.0-36.0); MEAN CORPUSCULAR VOLUME 92 fl (80-97); MONOCYTES % (AUTO) 6.8 % (3-13); RED BLOOD COUNT 4.55 10^6/uL (3.72-5.28); RED CELL DISTRIBUTION WIDTH 13.5 % (11.5-14.0); SEGMENTED NEUTROPHILS % (AUTO) 71.2 % (42-78); WHITE BLOOD COUNT 8.5 10^3/uL (4.0-10.5)
[2017-06-18 20:09] LABS: ALANINE AMINOTRANSFERASE 29 U/L (9-52); ALBUMIN 3.9 g/dL (3.5-5.0); ALKALINE PHOSPHATASE 195 U/L (38-126); ANION GAP 12 (5-19); ASPARTATE AMINO TRANSFERASE 20 U/L (14-36); BILIRUBIN,DIRECT 0.3 mg/dL (0.0-0.4); BILIRUBIN,TOTAL 0.3 mg/dL (0.2-1.3); BLOOD UREA NITROGEN 18 mg/dL (7-20); CALCIUM 9.4 mg/dL (8.4-10.2); CARBON DIOXIDE 26 mmol/L (22-30); CHLORIDE 95 mmol/L (98-107); CREATININE RESULT 0.62 mg/dL (0.52-1.25); POTASSIUM 5.2 mmol/L (3.6-5.0); SODIUM 132.5 mmol/L (137-145); TOTAL PROTEIN 6.5 g/dL (6.3-8.2)
[2017-06-18 20:19] LABS: GLUCOSE 495 mg/dL (75-110)
--- NOTE | 2017-06-18 21:12 | ER Document Report ---
ED Hand/Wrist Injury - General Mode of Arrival: Ambulatory Information source: Patient TRAVEL OUTSIDE OF THE [place] IN LAST 30 DAYS: No <PRAFUL STEINER - Last Filed: 06/18/17 21:44> <RITCHIE BOYCE - Last Filed: 06/18/17 23:05> - General Chief Complaint: Hand Pain Stated Complaint: FINGER PAIN Time Seen by Provider: 06/18/17 18:55 Notes: Patient is a 31 female that presents to the emergency department today with complaints of right index finger tip pain/swelling. Patient states that she pricks her finger to check her blood sugar daily but she has not noticed anything that could have bit her. (PRAFUL STEINER) - Related Data Allergies/Adverse Reactions: No Known Allergies Allergy (Verified 06/18/17 15:28) Past Medical History - General Information source: Patient - Social History Smoking Status: Current Every Day Smoker Cigarette use (# per day): Yes Frequency of alcohol use: None Drug Abuse: Marijuana Lives with: Family Family History: Reviewed & Not Pertinent, DM Endocrine Medical History: Reports: Hx Diabetes Mellitus Type 1 Past Surgical History: Reports: Hx Tonsillectomy - Immunizations Hx Diphtheria, Pertussis, Tetanus Vaccination: Yes <PRAFUL STEINER - Last Filed: 06/18/17 21:44> Review of Systems - Review of Systems Constitutional: No symptoms reported EENT: No symptoms reported Cardiovascular: No symptoms reported Respiratory: No symptoms reported Gastrointestinal: No symptoms reported Genitourinary: No symptoms reported Female Genitourinary: No symptoms reported Musculoskeletal: See HPI, Other - right index finger pain Skin: No symptoms reported Hematologic/Lymphatic: No symptoms reported Neurological/Psychological: No symptoms reported -: Yes All other systems reviewed and negative <PRAFUL STEINER - Last Filed: 06/18/17 21:44> Physical Exam <PRAFUL STEINER - Last Filed: 06/18/17 21:44> <RITCHIE BOYCE - Last Filed: 06/18/17 23:05> - Vital signs Vitals: Temp Pulse BP Pulse Ox 98.5 F 97 142/97 H 100 06/18/17 18:47 06/18/17 18:47 06/18/17 18:47 06/18/17 18:47 - Notes Notes: Physical Exam: General: Alert, appears well. HEENT: Normocephalic. Atraumatic. PERRL. Extraocular movements intact. Oropharynx clear. Neck: Supple. Non-tender. Respiratory: No respiratory distress. Clear and equal breath sounds bilaterally. Cardiovascular: Regular rate and rhythm. Abdominal: Normal Inspection. Non-tender. No distension. Normal Bowel Sounds. Back: Non-tender. No deformity or step off. Extremities: Moves all four extremities. Upper extremities: Swelling and tenderness with palpation to right index distal phalanx. Tenderness with palpation without fluctuance. Able to flex/extend finger without difficulty. Lower extremities: Normal inspection. No edema. Normal ROM. Neurological: Normal cognition. AAOx4. Normal speech. Psychological: Normal affect. Normal Mood. Skin: Warm. Dry. Normal color. (PRAFUL STEINER) Course - Laboratory Result Diagrams: 06/18/17 19:30 06/18/17 19:30 <PRAFUL STEINER - Last Filed: 06/18/17 21:44> - Laboratory Result Diagrams: 06/18/17 19:30 06/18/17 19:30 - Diagnostic Test Radiology reviewed: Reports reviewed <RITCHIE BOYCE - Last Filed: 06/18/17 23:05> - Re-evaluation Re-evalutation: 06/18/17 23:04 Patient presents with hyperglycemia and an infection of her right index finger which is her dominant hand. Patient with nothing drainable. I have incised it with a needle and there is no purulent discharge. Concerning for falling but has not come to ahead. Patient states that her blood sugars been running high at home because she is under a lot of stress. Patient is able to flex and extend her finger without difficulty. I recommended that she be admitted but she does not want to be and would like to go home. Patient has been given ampicillin IV here. She will be discharged home with doxycycline. Patient is to return tomorrow for wound reevaluation. Understands and agrees with this plan. Blood sugar is down to 37 after fluids. Patient understands and agrees with plan. She is stable at this time for discharge and is to return immediately if she has any worsening or concerning symptoms. (RITCHIE BOYCE) - Vital Signs Vital signs: Temp Pulse Resp BP Pulse Ox 98.1 F 88 18 112/78 98 06/18/17 22:55 06/18/17 22:55 06/18/17 22:55 06/18/17 22:55 06/18/17 22:55 - Laboratory Laboratory results interpreted by me: 06/18/17 06/18/17 19:30 22:07 Sodium 132.5 L Potassium 5.2 H Chloride 95 L Glucose 495 H* POC Glucose 237 H Alkaline Phosphatase 195 H Discharge <PRAFUL STEINER - Last Filed: 06/18/17 21:44> <RITCHIE BOYCE - Last Filed: 06/18/17 23:05> - Discharge Clinical Impression: Infected finger Diabetes mellitus with hyperglycemia Qualifiers: Diabetes mellitus type: other specified (including REGGIE) Diabetes mellitus custodial insulin use: with custodial use Qualified Code(s): E13.65 - Other specified diabetes mellitus with hyperglycemia; Z79.4 - termite control representative (current) use of insulin Condition: Stable Disposition: HOME, SELF-CARE Instructions: Cellulitis ([facility]), Hyperglycemia ([facility]) Additional Instructions: Please return within 24-48 hours for a reevaluation of your finger. Prescriptions: Doxycycline Hyclate 100 mg PO BID #28 capsule Oxycodone HCl/Acetaminophen [Percocet 5-325 mg Tablet] 1 - 2 tab PO Q4H PRN #15 tablet PRN Reason: Scribe Attestation: 06/18/17 23:05 I personally performed the services described in the documentation, reviewed and edited the documentation which was dictated to the scribe in my presence, and it accurately records my words and actions. (RITCHIE BOYCE) Scribe Documentation - Scribe Written by Avelino:: Avelino Albrecht, 06/18/2017 2150 acting as scribe for :: Lillian <PRAFUL STEINER - Last Filed: 06/18/17 21:44>
[2017-06-18] MEDS ORDERED: HYDROCODONE/ACETAMINOPHEN 5-325 MG 6 TAB/DSPK PO PRN (22:31)
[2017-06-18] MEDS ORDERED: ONDANSETRON ODT 4 MG TAB (6 TAB/DSPK) PO PRN (22:31)
[2017-06-18] MEDS ORDERED: MORPHINE SULFATE 10 MG/ML INJ IV ONE (22:31)
[2017-06-18 22:56] VITALS: BP 112/78
== END 2017-06-18 22:55 | disposition home or self-care (01) ==
LOC: ER 18:35
DX: L08.9 Local infection of the skin and subcutaneous tissue, unspecified (principal); F17.210 Nicotine dependence, cigarettes, uncomplicated; E13.65 Other specified diabetes mellitus with hyperglycemia; Z79.4 Long term (current) use of insulin; M79.641 Pain in right hand
CPT/HCPCS: 99284; 96375; 96365; 36415; 82962; 85025; 80053; 73130; J0295; J2270; J7030

== ENCOUNTER 2017-06-20 14:44 | Emergency (ER) | payer SELFPAY ==
--- NOTE | 2017-06-20 15:43 | ER Document Report ---
ED Extremity Problem, Upper - General Chief Complaint: Hand Swelling Stated Complaint: RIGHT FINGER PAIN Time Seen by Provider: 06/20/17 15:21 Mode of Arrival: Ambulatory Information source: Patient Notes: 10-year-old female presents to ED for tightness in her right index finger. She states she was here several days ago and was seen by the doctor and sent home with a prescription for doxycycline which she states she cannot afford. She states she has not taken any antibiotics and the finger is feeling much better. She says that she doctor with some Epsom salt with a plan and removed a lot of drainage and the finger does not hurt at this time. She is a diabetic. TRAVEL OUTSIDE OF THE [place] IN LAST 30 DAYS: No - HPI Patient complains to provider of: Other - Right index finger Onset: Other - 2 Days ago Recent injury: No Quality of pain: No pain Pain Level: Denies Context: Other - cellulitis Associated symptoms: None Exacerbated by: Nothing Relieved by: Nothing Similar symptoms previously: Yes Recently seen / treated by doctor: Yes - Related Data Allergies/Adverse Reactions: No Known Allergies Allergy (Verified 06/20/17 15:00) Past Medical History - General Information source: Patient - Social History Smoking Status: Current Every Day Smoker Cigarette use (# per day): Yes Frequency of alcohol use: None Drug Abuse: Marijuana Lives with: Family Family History: Reviewed & Not Pertinent, DM Patient has suicidal ideation: No Patient has homicidal ideation: No - Past Medical History Cardiac Medical History: Reports: None Pulmonary Medical History: Reports: None EENT Medical History: Reports: None Neurological Medical History: Reports: None Endocrine Medical History: Reports: Hx Diabetes Mellitus Type 1 Renal/ Medical History: Reports: None Malignancy Medical History: Reports: None GI Medical History: Reports: None Musculoskeltal Medical History: Reports None Skin Medical History: Reports Hx Cellulitis Psychiatric Medical History: Reports: None Traumatic Medical History: Reports: None Infectious Medical History: Reports: None Past Surgical History: Reports: Hx Tonsillectomy - Immunizations Hx Diphtheria, Pertussis, Tetanus Vaccination: Yes Review of Systems - Review of Systems Constitutional: No symptoms reported EENT: No symptoms reported Cardiovascular: No symptoms reported Respiratory: No symptoms reported Gastrointestinal: No symptoms reported Genitourinary: No symptoms reported Female Genitourinary: No symptoms reported Musculoskeletal: Other - right index finger swelling no longer painful Skin: No symptoms reported Hematologic/Lymphatic: No symptoms reported Neurological/Psychological: No symptoms reported Physical Exam - Vital signs Vitals: Temp Pulse Resp BP Pulse Ox 98.6 F 86 20 142/102 H 98 06/20/17 15:00 06/20/17 15:00 06/20/17 15:00 06/20/17 15:00 06/20/17 15:00 Interpretation: Normal - General General appearance: Appears well, Alert - HEENT Head: Normocephalic, Atraumatic Eyes: Normal Pupils: PERRL - Respiratory Respiratory status: No respiratory distress Chest status: Nontender Breath sounds: Normal Chest palpation: Normal - Cardiovascular Rhythm: Regular Heart sounds: Normal auscultation Murmur: No - Abdominal Inspection: Normal Distension: No distension Bowel sounds: Normal Tenderness: Nontender Organomegaly: No organomegaly - Back Back: Normal, Nontender - Extremities General upper extremity: Nontender, Normal color, Normal temperature General lower extremity: Normal inspection, Nontender, Normal color, Normal ROM , Normal temperature, Normal weight bearing. No: Herber's sign Hand: Nontender, No evidence of human bite, No evidence of FB, Swelling. No: Tender - Finger is no longer tender after she soaked it in Epsom salt then poked it with a needle and a lot of pus came out today. - Neurological Neuro grossly intact: Yes Cognition: Normal Orientation: AAOx4 [place] Coma Scale Eye Opening: Spontaneous Meli Coma Scale Verbal: Oriented Meli Coma Scale Motor: Obeys Commands [place] Coma Scale Total: 15 Speech: Normal Motor strength normal: LUE, RUE, LLE, RLE Sensory: Normal - Psychological Associated symptoms: Normal affect, Normal mood - Skin Skin Temperature: Warm Skin Moisture: Dry Skin Color: Normal Course - Re-evaluation Re-evalutation: 06/20/17 23:[address] Snyder in a few days ago. She came over and examined the finger and stated the patient definitely needed to be put on antibiotics since the patient has not filled her prescription due to she states that she could not afford the doxycycline. Patient was given a prescription for Keflex and Bactrim. - Vital Signs Vital signs: Temp Pulse Resp BP Pulse Ox 98.6 F 86 20 144/96 H 98 06/20/17 15:00 06/20/17 15:00 06/20/17 15:00 06/20/17 15:02 06/20/17 15:00 Discharge - Discharge Clinical Impression: Infected finger Condition: Stable Disposition: HOME, SELF-CARE Instructions: Family Physicians / Practices Additional Instructions: CELLULITIS: You have an infection of your skin and underlying soft tissues called cellulitis. This is due to bacteria, which can enter through any break in the skin, or even through an irritated hair follicle. Untreated, cellulitis will usually worsen. Antibiotics are required. Usually, warm packs or warm soaks, and elevation of the infected area are recommended. You should start getting better within 24 to 36 hours. Most infections respond quickly to the right medication. Follow-up care is important, however, to check for abscess (boil) formation, unsuspected foreign body, or resistant infection. If you develop fever, chills, or if the area of infection is becoming rapidly more swollen or painful, call the doctor at once. TRIMETHOPRIM-SULFA: You have been given a prescription for trimethoprim-sulfa (TMS, Septra, Bactrim). This is a combination antibiotic of the sulfa class, often used for urinary tract infections, middle ear infections, bronchitis, shigella intestinal infection, and Pneumocystis pneumonia. TMS is usually well-tolerated. Occasional side effects include nausea and decreased appetite. Septra is not recommended for infants less than two months of age. Do not take this medication if you have experienced severe side effects or allergy to sulfa medicine. You should stop this medicine at once and contact your physician if you develop any rash, joint pain, shortness of breath, bruising, or jaundice ( yellow color in the skin), or if you develop any other new or unusual symptoms. Cephalexin The antibiotic you've been prescribed is a member of the cephalosporin class. This type of antibiotic covers a wide variety of infections, including those of the skin, lungs, and urinary tract. It's useful for staph infections. This antibiotic is slightly similar to the penicillin family. In rare cases , a person who is allergic to penicillin will also be allergic to this medication. If you have had a severe allergic reaction to penicillin, and have not taken this antibiotic since that time, notify your doctor. Antibiotics which cover many germs ("broad spectrum" antibiotics) are more likely to cause diarrhea or "yeast" infections. Women prone to vaginal yeast problems may suffer an attack after taking this antibiotic. In infants, oral thrush (white spots "stuck" on the cheek) or yeast diaper rash may result. See your doctor if these problems occur. Call at once if you develop itching, hives , shortness of breath, or lightheadedness. Epsom Salt Soaks Soak the wound area in a container of warm epsom salt water. If you can't get the wound area into a bucket or dixon, use a folded towel soaked in the epsom salt solution and apply to the area. Use clean hot tap water (about the temperature of a very warm bath), mixing in about one (1) teaspoon for every pint of water. Two gallon --> 16 teaspoons Epsom Salts One gallon --> 8 teaspoons Epsom Salts Two quarts --> 4 teaspoons Epsom Salts One quart --> 2 teaspoons Epsom Salts Soak the wound for about 20 minutes while gently moving it around in the water. Repeat this four (4) times a day. FOLLOW-UP CARE: If you have been referred to a physician for follow-up care, call the physician s office for an appointment as you were instructed or within the next two days. If you experience worsening or a significant change in your symptoms, notify the physician immediately or return to the Emergency Department at any time for re-evaluation. Prescriptions: Cephalexin Monohydrate [Keflex 500 mg Capsule] 500 mg PO QID #20 capsule Sulfamethoxazole/Trimethoprim [Septra-Ds 800-160 mg Tablet] 1 tab PO BID #20 tablet Forms: Elevated Blood Pressure Referrals: TAM LOPEZ DO [Primary Care Provider] - Follow up as needed
[2017-06-20 15:45] VITALS: BP 144/96
== END 2017-06-20 15:59 | disposition home or self-care (01) ==
LOC: ER 14:44
DX: L08.9 Local infection of the skin and subcutaneous tissue, unspecified (principal); T36.4X6A Underdosing of tetracyclines, initial encounter; Z91.120 Patient's intentional underdosing of medication regimen due to financial hardship; Z91.14 Patient's other noncompliance with medication regimen; E10.9 Type 1 diabetes mellitus without complications; F17.210 Nicotine dependence, cigarettes, uncomplicated
CPT/HCPCS: 99283

== ENCOUNTER 2017-07-17 07:46 | Inpatient (IN) | payer SELFPAY ==
--- NOTE | 2017-07-17 08:30 | ER Document Report ---
ED Blood Sugar Problem <MIRNATAMMY - Last Filed: 07/17/17 11:42> - General Mode of Arrival: Ambulatory Information source: Patient TRAVEL OUTSIDE OF THE [place] IN LAST 30 DAYS: No <PRAFUL STEINER - Last Filed: 07/17/17 12:15> - General Chief Complaint: High Blood Sugar Stated Complaint: NAUSEA,VOMITING Time Seen by Provider: 07/17/17 08:12 Notes: Patient is a 31-year-old female who presents to the emergency department today with complaints of nausea and vomiting. According to EMS, the patient was difficult to arouse on scene and she is still difficult to arouse here. According to EMS, the patient used methamphetamine yesterday. History is limited secondary to the patient's level of responsiveness. (PRAFUL STEINER) - Related Data Allergies/Adverse Reactions: No Known Allergies Allergy (Verified 06/20/17 15:00) Home Medications: Current Home Medications Insulin Aspart [Novolog Flexpen] 5 units SQ AC 07/17/17 [History] Insulin Glargine,Hum.rec.anlog [Lantus Solostar] 40 units SQ QHS 07/17/17 [ History] Past Medical History - General Information source: Patient - Social History Smoking Status: Never Smoker Cigarette use (# per day): No Frequency of alcohol use: None Drug Abuse: None Lives with: Family Family History: Reviewed & Not Pertinent, DM Endocrine Medical History: Reports: Hx Diabetes Mellitus Type 1 Skin Medical History: Reports Hx Cellulitis Past Surgical History: Reports: Hx Tonsillectomy - Immunizations Hx Diphtheria, Pertussis, Tetanus Vaccination: Yes <PRAFUL STEINER - Last Filed: 07/17/17 12:15> Review of Systems - Review of Systems -: Yes ROS unobtainable due to patient's medical condition <PRAFUL STEINER - Last Filed: 07/17/17 12:15> Physical Exam - Vital signs Interpretation: Normal - General General appearance: Unresponsive - minimally responsive to noxious stimuli, Other - ketone odors on breath - HEENT Head: Normocephalic, Atraumatic Eyes: Other Pupils: PERRL - small, reactive - Respiratory Respiratory status: Tachypnea Breath sounds: Normal Chest palpation: Normal - Cardiovascular Rhythm: Regular Heart sounds: Normal auscultation Murmur: No - Abdominal Inspection: Normal Distension: No distension Bowel sounds: Normal Tenderness: Nontender Organomegaly: No organomegaly - Back Back: Normal, Nontender - Extremities General upper extremity: Normal inspection, Normal ROM. No: Edema General lower extremity: Normal inspection, Normal ROM. No: Edema - Neurological Cognition: Other - minimally responsive to noxious stimuli Meli Coma Scale Eye Opening: To Voice Meli Coma Scale Verbal: Confused [place] Coma Scale Motor: Localizes to Pain [place] Coma Scale Total: 12 - Psychological Associated symptoms: Normal affect, Normal mood - Skin Skin Temperature: Warm Skin Moisture: Dry Skin Color: Normal <PRAFUL STEINER - Last Filed: 07/17/17 12:15> - Vital signs Vitals: Temp Resp BP Pulse Ox 98.1 F 17 124/77 97 07/17/17 08:03 07/17/17 08:03 07/17/17 08:03 07/17/17 08:03 Course - Laboratory Result Diagrams: 07/17/17 08:09 07/17/17 08:09 - EKG Interpretation by Ar EKG shows normal: Sinus rhythm, Coleridge, Intervals, QRS Complexes, ST-T Waves Rate: Normal - 82 Rhythm: NSR - Consults Dr. [place] Time consulted: 10:40 Consulted provider: will come to ER - IMCU admit <TAMMY BRADLEY - Last Filed: 07/17/17 11:42> - Laboratory Result Diagrams: 07/17/17 08:09 07/17/17 08:09 <PRAFUL STEINER - Last Filed: 07/17/17 12:15> - Vital Signs Vital signs: Temp Pulse Resp BP Pulse Ox 98.1 F 22 H 126/90 H 100 07/17/17 08:03 07/17/17 12:01 07/17/17 12:00 07/17/17 12:01 - Laboratory Laboratory results interpreted by ny: 07/17/17 07/17/17 07/17/17 08:07 08:09 08:09 WBC 25.6 H MCHC 31.9 L RDW 14.3 H Seg Neuts % (Manual) 91 H Lymphocytes % (Manual) 4 L Abs Neuts (Manual) 23.3 H VBG pH VBG HCO3 Potassium 5.7 H Carbon Dioxide 6 L* Anion Gap 31 H BUN 21 H Glucose 570 H* POC Glucose 478 H* Magnesium 2.4 H Direct Bilirubin 0.6 H Alkaline Phosphatase 242 H Urine Glucose (UA) Urine Ketones 07/17/17 07/17/17 07/17/17 09:05 10:21 11:20 WBC MCHC RDW Seg Neuts % (Manual) Lymphocytes % (Manual) Abs Neuts (Manual) VBG pH 6.93 L* VBG HCO3 7.3 L Potassium Carbon Dioxide Anion Gap BUN Glucose POC Glucose 412 H* Magnesium Direct Bilirubin Alkaline Phosphatase Urine Glucose (UA) >=500 H Urine Ketones 80 H 07/17/17 11:28 WBC MCHC RDW Seg Neuts % (Manual) Lymphocytes % (Manual) Abs Neuts (Manual) VBG pH VBG HCO3 Potassium Carbon Dioxide Anion Gap BUN Glucose POC Glucose 337 H Magnesium Direct Bilirubin Alkaline Phosphatase Urine Glucose (UA) Urine Ketones Critical Care Note - Critical Care Note Total time excluding time spent on procedures (mins): 35 <TAMMY BRADLEY - Last Filed: 07/17/17 11:42> Discharge - Discharge Admitting Provider: Hospitalist Unit Admitted: IMCU <TAMMY BRADLEY - Last Filed: 07/17/17 11:42> <PRAFUL STEINER - Last Filed: 07/17/17 12:15> - Discharge Clinical Impression: Hyperglycemia due to type 1 diabetes mellitus, Methamphetamine abuse Diabetic ketoacidosis associated with type 1 diabetes mellitus Qualifiers: Diabetes mellitus complication detail: without coma Qualified Code(s): E10.10 - Type 1 diabetes mellitus with ketoacidosis without coma Condition: Fair Disposition: ADMITTED INPATIENT Scribe Attestation: 07/17/17 11:42 I personally performed the services described in the documentation, reviewed and edited the documentation which was dictated to the scribe in my presence, and it accurately records my words and actions. (TAMMY BRADLEY) Scribe Documentation - Scribe Written by Avelino:: Avelino Albrecht, 07/17/2017 0841 acting as scribe for :: Mirna <PRAFUL STEINER - Last Filed: 07/17/17 12:15>
[2017-07-17] MEDS ORDERED: INSULIN REG, HUMAN 100 UNIT/ML 3 ML VIAL (PYX) IV ONE (08:31)
[2017-07-17] MEDS: NORMAL SALINE 1000 ML 1,000 ML IV PRN ×2 (08:44→08:45)
[2017-07-17 08:52] LABS: ALANINE AMINOTRANSFERASE 29 U/L (9-52); ALBUMIN 4.6 g/dL (3.5-5.0); ALKALINE PHOSPHATASE 242 U/L (38-126); ASPARTATE AMINO TRANSFERASE 21 U/L (14-36); BILIRUBIN,DIRECT 0.6 mg/dL (0.0-0.4); BILIRUBIN,TOTAL 0.6 mg/dL (0.2-1.3); BLOOD UREA NITROGEN 21 mg/dL (7-20); CALCIUM 9.8 mg/dL (8.4-10.2); CHLORIDE 103 mmol/L (98-107); CREATINE KINASE 48 U/L (30-135); CREATININE RESULT 1.04 mg/dL (0.52-1.25); MAGNESIUM 2.4 mg/dL (1.6-2.3); POTASSIUM 5.7 mmol/L (3.6-5.0); SODIUM 139.7 mmol/L (137-145)
[2017-07-17 08:55] LABS: HEMATOCRIT 46.4 % (36.0-47.0); HEMOGLOBIN 14.8 g/dL (12.0-15.5); MEAN CORPUSCULAR HEMOGLOBIN 30.2 pg (27.0-33.4); MEAN CORPUSCULAR HGB CONC 31.9 g/dL (32.0-36.0); MEAN CORPUSCULAR VOLUME 95 fl (80-97); RED BLOOD COUNT 4.89 10^6/uL (3.72-5.28); RED CELL DISTRIBUTION WIDTH 14.3 % (11.5-14.0); WHITE BLOOD COUNT 25.6 10^3/uL (4.0-10.5)
[2017-07-17 08:57] LABS: TOTAL PROTEIN 7.1 g/dL (6.3-8.2)
[2017-07-17 09:01] LABS: BASOPHILS % (MANUAL) 0 % (0-2); EOSINOPHILS % (MANUAL) 0 % (0-6); LYMPHOCYTES % (MANUAL) 4 % (13-45); PLATELET CLUMPS PRESENT; TOTAL CELLS COUNTED 100; TOXIC GRANULATION SLIGHT; TOXIC VACUOLATION PRESENT
[2017-07-17 09:02] LABS: POLYCHROMASIA SLIGHT
[2017-07-17 09:26] LABS: APPEARANCE,URINE CLEAR; BILIRUBIN,URINE NEGATIVE (NEGATIVE); GLUCOSE, URINE >=500 mg/dL (NEGATIVE); KETONES,URINE 80 mg/dL (NEGATIVE); LEUKOCYTE ESTERASE,URINE NEGATIVE (NEGATIVE); NITRITE,URINE NEGATIVE (NEGATIVE); PROTEIN,URINE NEGATIVE (NEGATIVE); URINE SPECIFIC GRAVITY 1.023; UROBILINOGEN,URINE NEGATIVE mg/dL (<2.0)
[2017-07-17 09:47] LABS: ANION GAP 31 (5-19); GLUCOSE 570 mg/dL (75-110)
[2017-07-17 09:48] LABS: CARBON DIOXIDE 6 mmol/L (22-30)
[2017-07-17 09:54] LABS: URINE BARBITURATES SCREEN NEGATIVE; URINE METHADONE SCREEN NEGATIVE; URINE OPIATES LOW NEGATIVE; URINE PHENCYCLIDINE SCREEN NEGATIVE
[2017-07-17] MEDS ORDERED: ONDANSETRON HCL INJ/PF 4 MG/2 ML SDV IV ONE (10:46)
[2017-07-17] MEDS ORDERED: NORMAL SALINE 1000 ML 1,000 ML IV ONE (10:48)
[2017-07-17 11:30] LABS: VENOUS BLOOD BASE EXCESS -24.6 mmol/L; VENOUS BLOOD HCO3 7.3 mmol/L (20-32); VENOUS BLOOD PCO2 35.3 mmHg (35-63)
[2017-07-17 11:32] LABS: VENOUS BLOOD PH 6.93 (7.30-7.42)
[2017-07-17] MEDS ORDERED: ACETAMINOPHEN 325 MG TABLET PO PRN (11:49)
[2017-07-17] MEDS ORDERED: DEXTROSE 50%-WATER 25 GM/50 ML DISP.SYRIN IV PRN ×4 (11:49→12:04)
[2017-07-17] MEDS ORDERED: NORMAL SALINE 1000 ML 1,000 ML IV PRN (11:49)
[2017-07-17] MEDS ORDERED: GLUCAGON,HUMAN RECOMB 1 MG INJ IM PRN ×2 (11:49→12:04)
[2017-07-17] MEDS ORDERED: DEXTROSE 40% GEL 15 GM TUBE PO PRN ×4 (11:49→12:04)
[2017-07-17] MEDS ORDERED: ONDANSETRON HCL INJ/PF 4 MG/2 ML SDV IV PRN (11:49)
[2017-07-17] MEDS ORDERED: PROMETHAZINE HCL INJ 25 MG/1 ML VIAL IV PRN (11:49)
[2017-07-17] MEDS ORDERED: NORMAL SALINE 100 ML with INSULIN REGULAR, HUMAN 100 UNIT IV PRN ×2 (12:04)
[2017-07-17 12:52] LABS: BLOOD UREA NITROGEN 17 mg/dL (7-20); CALCIUM 8.3 mg/dL (8.4-10.2); CHLORIDE 117 mmol/L (98-107); CREATININE RESULT 0.79 mg/dL (0.52-1.25); GLUCOSE 256 mg/dL (75-110); POTASSIUM 4.8 mmol/L (3.6-5.0); SODIUM 146.5 mmol/L (137-145)
[2017-07-17 13:14] LABS: CARBON DIOXIDE 6 mmol/L (22-30)
[2017-07-17 16:17] LABS: MAGNESIUM 2.1 mg/dL (1.6-2.3); PHOSPHORUS 3.3 mg/dL (2.5-4.5)
[2017-07-17 16:28] LABS: BLOOD UREA NITROGEN 15 mg/dL (7-20); CALCIUM 8.6 mg/dL (8.4-10.2); CHLORIDE 117 mmol/L (98-107); CREATININE RESULT 0.73 mg/dL (0.52-1.25); GLUCOSE 197 mg/dL (75-110)
[2017-07-17 16:40] LABS: SODIUM 143.8 mmol/L (137-145)
[2017-07-17 16:41] LABS: ANION GAP 20 (5-19)
[2017-07-17 16:44] LABS: CARBON DIOXIDE 7 mmol/L (22-30)
[2017-07-17] MEDS: DEXTROSE 5%-1/2 NORMAL SALINE 1,000 ML IV PRN (17:00)
[2017-07-17] MEDS ORDERED: DEXTROSE 5%-WATER 1000 ML 1,000 ML with SODIUM BICARBONATE 50 MEQ IV PRN ×2 (17:00)
--- NOTE | 2017-07-17 19:27 | PDOC H&P ---
History of Present Illness Admission Date/PCP: 07/17/17 11:49 Unknown Patient complains of: Vomiting and not feeling well History of Present Illness: SEAN FELIPE is a 31 year old female presents with vomiting and not feeling well 2 days. History is given to me per patient's mother. Patient is not wanting to speak at this time. Patient was apparently doing well until yesterday where she started with vomiting and not feeling well. Patient has a history of type 1 diabetes chronic pain and neuropathy. Patient also has a history of substance abuse. The ED patient was found to have a white count of 25,000 and a pH of 6.93 bicarb of 7.3 her blood glucose was 478 and her anion gap was not reportable. Patient was started on insulin drip in the ED and the hospitalist was called for admission and management of patient's DKA. Past Medical History Cardiac Medical History: Denies: Myocardial Infarction, Hypertension Neurological Medical History: Denies: Seizures Endocrine Medical History: Reports: Diabetes Mellitus Type 1 GI Medical History: Denies: Hepatitis, Hiatal Hernia Psychiatric Medical History: Denies: Depression Hematology: Denies: Anemia, Sickle Cell Disease Past Surgical History Past Surgical History: Reports: Tonsillectomy Denies: Amputation, Mastectomy, Pacemaker Social History Lives with: Family Smoking Status: Current Some Day Smoker Frequency of Alcohol Use: Occasional Hx Recreational Drug Use: Yes Drugs: Marijuana, Methadone, Other - amphetamines Hx Prescription Drug Abuse: No - Advance Directive Resuscitation Status: Full Code Family History Family History: Reviewed & Not Pertinent, DM Parental Family History Reviewed: No Children Family History Reviewed: No Sibling(s) Family History Reviewed.: No Medication/Allergy Home Medications: Insulin Aspart [Novolog Flexpen] 5 units SQ AC 07/17/17 Insulin Glargine,Hum.rec.anlog [Lantus Solostar] 40 units SQ QHS 07/17/17 Allergies/Adverse Reactions: No Known Allergies Allergy (Verified 06/20/17 15:00) Review of Systems ROS unobtainable: Due to mental status Physical Exam Vital Signs: Temp Pulse Resp BP Pulse Ox 99.3 F 97 18 116/66 99 07/17/17 15:36 07/17/17 15:36 07/17/17 15:36 07/17/17 15:36 07/17/17 15:36 Intake & Output 07/16/17 07/17/17 07/18/17 06:59 06:59 06:59 Output Total 1200 Balance -1200 Results Laboratory Results: 07/17/17 16:00 07/17/17 07/17/17 07/17/17 12:22 16:00 16:00 Sodium 146.5 H 143.8 Cancelled Potassium 4.8 5.0 Cancelled Chloride 117 H 117 H Cancelled Carbon Dioxide 6 L* 7 L* Cancelled Anion Gap Not Reportable 20 H Cancelled BUN 17 15 Cancelled Creatinine 0.79 0.73 Cancelled Est GFR ( Amer) > 60 > 60 Cancelled Est GFR (Non-Af Amer) > 60 > 60 Cancelled Glucose 256 H 197 H Cancelled Calcium 8.3 L 8.6 Cancelled Phosphorus 3.3 Magnesium 2.1 Assessment & Plan - Diagnosis (1) Diabetic ketoacidosis associated with type 1 diabetes mellitus Qualifiers: Diabetes mellitus complication detail: without coma Qualified Code(s): E10.10 - Type 1 diabetes mellitus with ketoacidosis without coma Is this a current diagnosis for this admission?: Yes Plan: She is on insulin GTT. anion gap is undetectable. Will continue with serial Chem-7's until anion gap is closed. She is also on a bicarb drip for her acidosis pH of 6.93. (2) Methamphetamine abuse Plan: Patient is more awake alert will student counsellor patient on cessation of methamphetamine abuse. (3) Hyperkalemia Plan: The due to dehydration however patient is likely to become hypokalemic while receiving insulin. Will monitor potassium levels. (4) Leukocytosis Qualifiers: Leukocytosis type: leukemoid reaction Qualified Code(s): D72.823 - Leukemoid reaction Is this a current diagnosis for this admission?: Yes Plan: Is mostly reactive due to her DKA. However infection is being ruled out with UA urine culture and blood culture. Has no obvious signs of infection. Will repeat CBC in the morning. - Time Time Spent: 30 to 50 Minutes Medications reviewed and adjusted accordingly: Yes Anticipated discharge: Home Within: within 48 hours - Plan Summary Plan Summary: She requires close monitoring for her DKA. Patient is currently on insulin and bicarb drip.
--- NOTE | 2017-07-17 19:49 | EKG REPORT ---
SEVERITY:- NORMAL ECG - SINUS RHYTHM : Confirmed by: David Wells MD 17-Jul-2017 19:48:46
[2017-07-17 21:10] LABS: ANION GAP 15 (5-19); BLOOD UREA NITROGEN 14 mg/dL (7-20); CALCIUM 8.9 mg/dL (8.4-10.2); CARBON DIOXIDE 14 mmol/L (22-30); CHLORIDE 114 mmol/L (98-107); GLUCOSE 140 mg/dL (75-110); MAGNESIUM 2.1 mg/dL (1.6-2.3); PHOSPHORUS 2.9 mg/dL (2.5-4.5); POTASSIUM 4.4 mmol/L (3.6-5.0); SODIUM 143.2 mmol/L (137-145)
[2017-07-17] MEDS: PANTOPRAZOLE SODIUM 40 MG VIAL IV SCH (21:55)
[2017-07-18 00:58] LABS: ANION GAP 12 (5-19); BLOOD UREA NITROGEN 14 mg/dL (7-20); CALCIUM 9.2 mg/dL (8.4-10.2); CARBON DIOXIDE 14 mmol/L (22-30); CHLORIDE 116 mmol/L (98-107); CREATININE RESULT 0.63 mg/dL (0.52-1.25); GLUCOSE 100 mg/dL (75-110); PHOSPHORUS 3.1 mg/dL (2.5-4.5); POTASSIUM 3.9 mmol/L (3.6-5.0); SODIUM 142.2 mmol/L (137-145)
[2017-07-18] MEDS ORDERED: RINGERS SOLUTION,LACTATED 1,000 ML IV PRN (01:25)
[2017-07-18] MEDS ORDERED: POTASSI CL 20 MEQ/50 ML RIDER 20 MEQ/50 ML RTUPB IV ONE (01:25)
[2017-07-18 04:21] LABS: ABSOLUTE BASOPHILS # (AUTO) 0.1 10^3/uL (0.0-0.2); ABSOLUTE LYMPHOCYTES (AUTO) 1.9 10^3/uL (0.5-4.7); ABSOLUTE NEUT (AUTO) 9.4 10^3/uL (1.7-8.2); BASOPHILS % (AUTO) 1.1 % (0-2); EOSINOPHILS % (AUTO) 0.1 % (0-6); HEMATOCRIT 39.7 % (36.0-47.0); HEMOGLOBIN 13.2 g/dL (12.0-15.5); HGB HCT DIFFERENCE -0.1; LYMPHOCYTES % (AUTO) 15.4 % (13-45); MEAN CORPUSCULAR HEMOGLOBIN 30.6 pg (27.0-33.4); MEAN CORPUSCULAR HGB CONC 33.3 g/dL (32.0-36.0); MEAN CORPUSCULAR VOLUME 92 fl (80-97); RED BLOOD COUNT 4.32 10^6/uL (3.72-5.28); RED CELL DISTRIBUTION WIDTH 13.6 % (11.5-14.0); SEGMENTED NEUTROPHILS % (AUTO) 75.4 % (42-78); WHITE BLOOD COUNT 12.5 10^3/uL (4.0-10.5)
[2017-07-18 04:42] LABS: ANION GAP 16 (5-19); BLOOD UREA NITROGEN 13 mg/dL (7-20); CALCIUM 8.8 mg/dL (8.4-10.2); CARBON DIOXIDE 14 mmol/L (22-30); CHLORIDE 109 mmol/L (98-107); CREATININE RESULT 0.66 mg/dL (0.52-1.25); GLUCOSE 205 mg/dL (75-110); MAGNESIUM 1.9 mg/dL (1.6-2.3); SODIUM 139.4 mmol/L (137-145)
[2017-07-18] MEDS: DEXTROSE 5%-1/2 NORMAL SALINE 1,000 ML IV PRN (05:45)
[2017-07-18] MEDS ORDERED: (PENDING PHARMACY ID) (Insulin Aspart [Novolog Flexpen] 5 UNITS) SQ SCH (08:00)
[2017-07-18 09:12] LABS: ANION GAP 7 (5-19); BLOOD UREA NITROGEN 11 mg/dL (7-20); CALCIUM 8.7 mg/dL (8.4-10.2); CARBON DIOXIDE 19 mmol/L (22-30); CHLORIDE 112 mmol/L (98-107); CREATININE RESULT 0.52 mg/dL (0.52-1.25); GLUCOSE 169 mg/dL (75-110); POTASSIUM 3.8 mmol/L (3.6-5.0); SODIUM 137.5 mmol/L (137-145)
[2017-07-18] MEDS: ENOXAPARIN SODIUM INJ 40 MG/0.4 ML DISP.SYRIN SUBCUT SCH (09:50)
[2017-07-18] MEDS: PANTOPRAZOLE SODIUM 40 MG VIAL IV SCH ×2 (09:50→23:02)
[2017-07-18] MEDS ORDERED: PROMETHAZINE HCL INJ 25 MG/1 ML VIAL IV PRN (10:00)
[2017-07-18] MEDS ORDERED: ONDANSETRON HCL INJ/PF 4 MG/2 ML SDV IV PRN (10:00)
[2017-07-18] MEDS ORDERED: INSULIN LISPRO 100 UNIT/ML 3 ML VIAL SUBCUT SCH ×2 (11:00→16:00)
[2017-07-18] MEDS: NORMAL SALINE 1000 ML 1,000 ML IV PRN (12:41)
[2017-07-18] MEDS: INSULIN LISPRO 100 UNIT/ML 3 ML VIAL SUBCUT SCH ×2 (13:10→17:15)
[2017-07-18] MEDS ORDERED: INSULIN LISPRO 100 UNIT/ML 3 ML VIAL SUBCUT PRN (13:37)
[2017-07-18 14:59] LABS: ANION GAP 15 (5-19); BLOOD UREA NITROGEN 10 mg/dL (7-20); CALCIUM 8.7 mg/dL (8.4-10.2); CARBON DIOXIDE 15 mmol/L (22-30); CHLORIDE 105 mmol/L (98-107); CREATININE RESULT 0.63 mg/dL (0.52-1.25); GLUCOSE 325 mg/dL (75-110); POTASSIUM 3.9 mmol/L (3.6-5.0); SODIUM 134.9 mmol/L (137-145)
[2017-07-18] MEDS: INSULIN LISPRO 100 UNIT/ML 3 ML VIAL SUBCUT PRN ×2 (17:15→23:01)
[2017-07-18] MEDS ORDERED: NYSTATIN 500000 UNIT/5 ML UDCUP PO SCH (18:00)
[2017-07-18] MEDS: NYSTATIN 500000 UNIT/5 ML UDCUP PO SCH (18:10)
[2017-07-18 19:27] LABS: ANION GAP 12 (5-19); BLOOD UREA NITROGEN 9 mg/dL (7-20); CALCIUM 8.7 mg/dL (8.4-10.2); CARBON DIOXIDE 17 mmol/L (22-30); CHLORIDE 107 mmol/L (98-107); CREATININE RESULT 0.57 mg/dL (0.52-1.25); GLUCOSE 219 mg/dL (75-110); POTASSIUM 3.7 mmol/L (3.6-5.0); SODIUM 135.8 mmol/L (137-145)
--- NOTE | 2017-07-18 20:51 | PDOC PROGRESS REPORT ---
Subjective Progress Note for:: 07/18/17 Subjective:: Patient lying in bed and not very interactive. Mother states that patient complains of throat pain. Patient not cooperative with physical examination. Patient off insulin drip since this morning and is eating. Patient is no longer having any vomiting. Physical Exam Vital Signs: Temp Pulse Resp BP Pulse Ox 98.6 F 80 12 120/81 100 07/18/17 15:36 07/18/17 15:36 07/18/17 15:36 07/18/17 15:36 07/18/17 15:36 Intake & Output 07/17/17 07/18/17 07/19/17 06:59 06:59 06:59 Intake Total 1498 1558 Output Total 2800 1180 Balance -1302 378 Weight 63.5 kg General appearance: PRESENT: no acute distress. ABSENT: cooperative Head exam: PRESENT: normocephalic Mouth exam: PRESENT: moist Respiratory exam: PRESENT: clear to auscultation black Cardiovascular exam: PRESENT: RRR GI/Abdominal exam: PRESENT: normal bowel sounds, soft. ABSENT: tenderness Extremities exam: ABSENT: pedal edema Results Laboratory Results: 07/18/17 03:54 07/18/17 18:45 07/17/17 07/17/17 07/18/17 16:00 20:35 00:35 WBC RBC Hgb Hct MCV MCH MCHC RDW Plt Count Seg Neutrophils % Lymphocytes % Monocytes % Eosinophils % Basophils % Absolute Neutrophils Absolute Lymphocytes Absolute Monocytes Absolute Eosinophils Absolute Basophils Sodium 143.2 142.2 Potassium 4.4 3.9 Chloride 114 H 116 H Carbon Dioxide 14 L 14 L Anion Gap 15 12 BUN 14 14 Creatinine 0.70 0.63 Est GFR ( Amer) > 60 > 60 Est GFR (Non-Af Amer) > 60 > 60 Glucose 140 H 100 Calcium 8.9 9.2 Phosphorus 2.9 3.1 Magnesium 2.1 2.0 Serum HCG, Qual NEGATIVE 07/18/17 07/18/17 07/18/17 03:54 03:54 08:19 WBC 12.5 H RBC 4.32 Hgb 13.2 Hct 39.7 MCV 92 MCH 30.6 MCHC 33.3 RDW 13.6 Plt Count 240 Seg Neutrophils % 75.4 Lymphocytes % 15.4 Monocytes % 8.0 Eosinophils % 0.1 Basophils % 1.1 Absolute Neutrophils 9.4 H Absolute Lymphocytes 1.9 Absolute Monocytes 1.0 Absolute Eosinophils 0.0 Absolute Basophils 0.1 Sodium 139.4 137.5 Potassium 4.0 3.8 Chloride 109 H 112 H Carbon Dioxide 14 L 19 L Anion Gap 16 7 BUN 13 11 Creatinine 0.66 0.52 Est GFR ( Amer) > 60 > 60 Est GFR (Non-Af Amer) > 60 > 60 Glucose 205 H 169 H Calcium 8.8 8.7 Phosphorus 3.0 Magnesium 1.9 Serum HCG, Qual 07/18/17 07/18/17 14:25 18:45 WBC RBC Hgb Hct MCV MCH MCHC RDW Plt Count Seg Neutrophils % Lymphocytes % Monocytes % Eosinophils % Basophils % Absolute Neutrophils Absolute Lymphocytes Absolute Monocytes Absolute Eosinophils Absolute Basophils Sodium 134.9 L 135.8 L Potassium 3.9 3.7 Chloride 105 107 Carbon Dioxide 15 L 17 L Anion Gap 15 12 BUN 10 9 Creatinine 0.63 0.57 Est GFR ( Amer) > 60 > 60 Est GFR (Non-Af Amer) > 60 > 60 Glucose 325 H 219 H Calcium 8.7 8.7 Phosphorus Magnesium Serum HCG, Qual Assessment & Plan - Diagnosis (1) Diabetic ketoacidosis associated with type 1 diabetes mellitus Qualifiers: Diabetes mellitus complication detail: without coma Qualified Code(s): E10.10 - Type 1 diabetes mellitus with ketoacidosis without coma Is this a current diagnosis for this admission?: Yes Plan: Patient last significantly improved this morning. Patient is no longer on insulin drip. Now on subcutaneous insulin home doses along with sliding scale. Patient tolerating p.o. (2) Methamphetamine abuse Plan: Will counselor aide patient on cessation of substance abuse as this may be resulting in neglect and appropriate treatment of her condition (3) Hyperkalemia Plan: Resolved (4) Leukocytosis Qualifiers: Leukocytosis type: leukemoid reaction Qualified Code(s): D72.823 - Leukemoid reaction Is this a current diagnosis for this admission?: Yes Plan: Is mostly reactive due to her DKA. Resolved. (5) Throat pain Is this a current diagnosis for this admission?: Yes Plan: Patient no longer has tonsils however patient may have candidal esophagitis due to poorly controlled diabetes. Will start patient on oral nystatin. - Time Time Spent with patient: Less than 15 minutes Anticipated discharge: Home Within: within 48 hours - The patient is improved. Patient should be able to go home within the next day or so.
[2017-07-18] MEDS ORDERED: INSULIN GLARGINE,HUM.REC.ANLOG 300 UNIT/3 ML INSULN.PEN SUBCUT SCH (22:00)
[2017-07-18 23:03] LABS: ANION GAP 12 (5-19); BLOOD UREA NITROGEN 9 mg/dL (7-20); CALCIUM 8.9 mg/dL (8.4-10.2); CARBON DIOXIDE 17 mmol/L (22-30); CHLORIDE 105 mmol/L (98-107); CREATININE RESULT 0.58 mg/dL (0.52-1.25); GLUCOSE 273 mg/dL (75-110); POTASSIUM 3.8 mmol/L (3.6-5.0); SODIUM 134.1 mmol/L (137-145)
[2017-07-19] MEDS: NYSTATIN 500000 UNIT/5 ML UDCUP PO SCH ×5 (00:54→23:57)
[2017-07-19 02:58] LABS: ANION GAP 17 (5-19); BLOOD UREA NITROGEN 12 mg/dL (7-20); CARBON DIOXIDE 14 mmol/L (22-30); CHLORIDE 103 mmol/L (98-107); CREATININE RESULT 0.63 mg/dL (0.52-1.25); POTASSIUM 4.2 mmol/L (3.6-5.0); SODIUM 133.8 mmol/L (137-145)
[2017-07-19 03:05] LABS: GLUCOSE 412 mg/dL (75-110)
[2017-07-19] MEDS: NORMAL SALINE 1000 ML 1,000 ML IV PRN ×2 (03:59→23:57)
[2017-07-19] MEDS ORDERED: INSULIN LISPRO 100 UNIT/ML 3 ML VIAL SUBCUT ONE (05:00)
[2017-07-19 07:30] LABS: ANION GAP 18 (5-19); BLOOD UREA NITROGEN 11 mg/dL (7-20); CALCIUM 8.8 mg/dL (8.4-10.2); CARBON DIOXIDE 12 mmol/L (22-30); CHLORIDE 104 mmol/L (98-107); CREATININE RESULT 0.64 mg/dL (0.52-1.25); GLUCOSE 359 mg/dL (75-110); POTASSIUM 4.1 mmol/L (3.6-5.0); SODIUM 134.4 mmol/L (137-145)
[2017-07-19] MEDS: INSULIN LISPRO 100 UNIT/ML 3 ML VIAL SUBCUT SCH ×3 (07:49→18:36)
[2017-07-19] MEDS: INSULIN LISPRO 100 UNIT/ML 3 ML VIAL SUBCUT PRN ×4 (07:49→21:32)
[2017-07-19] MEDS: ENOXAPARIN SODIUM INJ 40 MG/0.4 ML DISP.SYRIN SUBCUT SCH (09:33)
[2017-07-19] MEDS: PANTOPRAZOLE SODIUM 40 MG VIAL IV SCH ×2 (09:33→21:26)
[2017-07-19 11:14] LABS: ANION GAP 11 (5-19); BLOOD UREA NITROGEN 11 mg/dL (7-20); CALCIUM 8.8 mg/dL (8.4-10.2); CARBON DIOXIDE 19 mmol/L (22-30); CHLORIDE 105 mmol/L (98-107); CREATININE RESULT 0.52 mg/dL (0.52-1.25); GLUCOSE 259 mg/dL (75-110); POTASSIUM 3.6 mmol/L (3.6-5.0); SODIUM 134.8 mmol/L (137-145)
[2017-07-19 15:27] LABS: ANION GAP 9 (5-19); BLOOD UREA NITROGEN 11 mg/dL (7-20); CALCIUM 8.6 mg/dL (8.4-10.2); CARBON DIOXIDE 23 mmol/L (22-30); CHLORIDE 103 mmol/L (98-107); CREATININE RESULT 0.63 mg/dL (0.52-1.25); GLUCOSE 215 mg/dL (75-110); POTASSIUM 3.8 mmol/L (3.6-5.0); SODIUM 134.8 mmol/L (137-145)
--- NOTE | 2017-07-19 19:30 | PDOC PROGRESS REPORT ---
Subjective Progress Note for:: 07/19/17 Subjective:: This is a follow-up visit for DKA. The patient expresses concern for still having a Rivero catheter. I requested that she wait until I could see her and determine why she had the Rivero catheter placed. However the patient insisted that it be removed. Patient advocate was called and the catheter ultimately was removed. By the time I saw the patient, she had no complaints and was glad that the Rivero catheter was out. She tells me that it was placed because she was unconscious when she was first found. She says that she had a urinary output of approximately 100 mL at the time Rivero catheter was taken out. She denies any chest pain or shortness of breath. Her blood sugars have ranged between 203 100 today. She states that she usually takes Lantus 30 twice a day. She is not sure if she has enough medications at home. She states she got busy with going back to school and the hospital and possible daily life and mismanaged her diabetes. Physical Exam Vital Signs: Temp Pulse Resp BP Pulse Ox 98.9 F 75 14 111/73 100 07/19/17 17:31 07/19/17 18:51 07/19/17 17:31 07/19/17 17:31 07/19/17 17:31 Intake & Output 07/18/17 07/19/17 07/20/17 06:59 06:59 06:59 Intake Total 1498 3838 1700 Output Total 2800 4680 4000 Balance -1302 -842 -2300 Weight 63.5 kg 66.5 kg GENERAL: This is a well-developed well-nourished appearing white female resting in bed currently in no acute distress. HEART: Regular rate and rhythm. No murmurs, rubs or gallops. LUNGS: Clear to auscultation bilaterally with equal rise and fall of the chest. ABDOMEN: Soft, nontender, nondistended with normoactive bowel sounds EXTREMETIES: No clubbing, cyanosis or edema. 2+ peripheral pulses bilaterally. NEURO: Awake, alert and oriented 3. Cranial nerves II through XII are grossly intact. Results Laboratory Results: 07/18/17 03:54 07/18/17 07/18/17 07/19/17 18:45 22:35 02:30 Sodium 135.8 L 134.1 L 133.8 L Potassium 3.7 3.8 4.2 Chloride 107 105 103 Carbon Dioxide 17 L 17 L 14 L Anion Gap 12 12 17 BUN 9 9 12 Creatinine 0.57 0.58 0.63 Est GFR ( Amer) > 60 > 60 > 60 Est GFR (Non-Af Amer) > 60 > 60 > 60 Glucose 219 H 273 H 412 H* Calcium 8.7 8.9 9.0 07/19/17 07/19/17 07/19/17 06:44 10:36 14:42 Sodium 134.4 L 134.8 L 134.8 L Potassium 4.1 3.6 3.8 Chloride 104 105 103 Carbon Dioxide 12 L 19 L 23 Anion Gap 18 11 9 BUN 11 11 11 Creatinine 0.64 0.52 0.63 Est GFR ( Amer) > 60 > 60 > 60 Est GFR (Non-Af Amer) > 60 > 60 > 60 Glucose 359 H 259 H 215 H Calcium 8.8 8.8 8.6 Assessment & Plan - Diagnosis (1) Diabetic ketoacidosis associated with type 1 diabetes mellitus Qualifiers: Diabetes mellitus complication detail: without coma Qualified Code(s): E10.10 - Type 1 diabetes mellitus with ketoacidosis without coma Is this a current diagnosis for this admission?: Yes Plan: The patient's anionic gap is closed. Her blood sugars are ranging between 200- 300 with the average at around 260. She is currently on Lantus 40 units nightly with sliding scale insulin and 5 units at mealtime. She is usually on Lantus 30 twice daily at home. The pharmacy, however, have verified that it is 40 nightly. Because of her elevated hemoglobin A1c and elevated blood sugars, the patient has required an additional 25 units of insulin in the last 24 hours. Therefore I am going to increase her Lantus to 50 units. Hemoglobin A1c was 10. The patient used to follow with an net finisher but no longer does. Dr. Wing her primary care physician follows with her. We will try and obtain a follow-up appointment with him for next week. (4) Leukocytosis Qualifiers: Leukocytosis type: leukemoid reaction Qualified Code(s): D72.823 - Leukemoid reaction Is this a current diagnosis for this admission?: Yes Plan: This is likely secondary to volume contraction and is already gone down to 12. Repeat in the morning. At this point in time I do not detect any signs or symptoms of infection. (5) Hyperkalemia Plan: Secondary to DKA. Resolved and replaced. - Time Time Spent with patient: 25-34 minutes - Inpatient Certification Medical Necessity: Need Close Monitoring Due to Risk of Patient Decompensation
[2017-07-19] MEDS ORDERED: INSULIN GLARGINE,HUM.REC.ANLOG 300 UNIT/3 ML INSULN.PEN SUBCUT SCH (22:00)
[2017-07-20] MEDS: NYSTATIN 500000 UNIT/5 ML UDCUP PO SCH ×2 (05:12→12:16)
[2017-07-20 05:58] LABS: ABSOLUTE BASOPHILS # (AUTO) 0.1 10^3/uL (0.0-0.2); ABSOLUTE EOSINOPHILS # (AUTO) 0.1 10^3/uL (0.0-0.6); ABSOLUTE LYMPHOCYTES (AUTO) 2.3 10^3/uL (0.5-4.7); ABSOLUTE MONOCYTES (AUTO) 0.5 10^3/uL (0.1-1.4); ABSOLUTE NEUT (AUTO) 2.7 10^3/uL (1.7-8.2); EOSINOPHILS % (AUTO) 1.1 % (0-6); HEMATOCRIT 34.7 % (36.0-47.0); HEMOGLOBIN 11.7 g/dL (12.0-15.5); HGB HCT DIFFERENCE 0.4; LYMPHOCYTES % (AUTO) 40.7 % (13-45); MEAN CORPUSCULAR HEMOGLOBIN 30.3 pg (27.0-33.4); MEAN CORPUSCULAR HGB CONC 33.7 g/dL (32.0-36.0); MEAN CORPUSCULAR VOLUME 90 fl (80-97); MONOCYTES % (AUTO) 9.8 % (3-13); RED BLOOD COUNT 3.86 10^6/uL (3.72-5.28); RED CELL DISTRIBUTION WIDTH 12.9 % (11.5-14.0); SEGMENTED NEUTROPHILS % (AUTO) 47.4 % (42-78); WHITE BLOOD COUNT 5.6 10^3/uL (4.0-10.5)
[2017-07-20 06:17] LABS: ANION GAP 8 (5-19); BLOOD UREA NITROGEN 13 mg/dL (7-20); CARBON DIOXIDE 29 mmol/L (22-30); CHLORIDE 102 mmol/L (98-107); CREATININE RESULT 0.52 mg/dL (0.52-1.25); GLUCOSE 154 mg/dL (75-110); MAGNESIUM 1.7 mg/dL (1.6-2.3); POTASSIUM 3.3 mmol/L (3.6-5.0); SODIUM 138.7 mmol/L (137-145)
[2017-07-20] MEDS: INSULIN LISPRO 100 UNIT/ML 3 ML VIAL SUBCUT PRN ×2 (08:22→12:16)
[2017-07-20] MEDS: INSULIN LISPRO 100 UNIT/ML 3 ML VIAL SUBCUT SCH ×2 (08:24→12:15)
[2017-07-20] MEDS: PANTOPRAZOLE SODIUM 40 MG VIAL IV SCH (09:28)
[2017-07-20] MEDS: ENOXAPARIN SODIUM INJ 40 MG/0.4 ML DISP.SYRIN SUBCUT SCH (09:30)
[2017-07-20] MEDS ORDERED: POTASSI CL 20 MEQ/50 ML RIDER 20 MEQ/50 ML RTUPB IV ONE (10:45)
--- NOTE | 2017-07-20 11:32 | PDOC DISCHARGE SUMMARY ---
General - Admit/Disc Date/PCP Admission Date/Primary Care Provider: 07/17/17 11:49 Discharge Date: 07/20/17 - Discharge Diagnosis (1) Diabetic ketoacidosis associated with type 1 diabetes mellitus Is this a current diagnosis for this admission?: Yes Summary: Resolved. Her new regimen will include Lantus 50 units nightly along with 5 units of regular insulin before meals. The patient was advised to take her insulin pen home with her from the hospital. Prescription for insulin pen and regular insulin was also given. She will need to follow with Dr. Wing as an outpatient. We have scheduled her appointment for 05 August. (2) Methamphetamine abuse Summary: Cessation is advised. (3) Medical non-compliance Summary: Patient was encouraged to take her medicines as prescribed. Although she mentioned that she had been on twice daily dosing of Lantus, I decided to keep her at daily dosing for better compliance. (4) Leukocytosis Is this a current diagnosis for this admission?: Yes Summary: Resolved with treatment of her DKA and hydration. (5) Hyperkalemia Summary: Resolved with treatment of DKA. - Additional Information Resuscitation Status: Full Code Home Medications: Insulin Aspart [Novolog Flexpen] 5 units SQ AC #100 ml 07/20/17 Insulin Glargine,Hum.rec.anlog [Lantus Insulin 100 Unit/mL] 50 unit SUBCUT QHS # 1 insuln.pen 07/20/17 History of Present Illness History of Present Illness: HPI as per admitting physician: Patient complains of: Vomiting and not feeling well History of Present Illness: SEAN FELIPE is a 31 year old female presents with vomiting and not feeling well 2 days. History is given to me per patient's mother. Patient is not wanting to speak at this time. Patient was apparently doing well until yesterday where she started with vomiting and not feeling well. Patient has a history of type 1 diabetes chronic pain and neuropathy. Patient also has a history of substance abuse. The ED patient was found to have a white count of 25,000 and a pH of 6.93 bicarb of 7.3 her blood glucose was 478 and her anion gap was not reportable. Patient was started on insulin drip in the ED and the hospitalist was called for admission and management of patient's DKA. Hospital Course Hospital Course: Patient was admitted to the hospital and started on an insulin drip. Her pH at the time of admission was 6.6. She was found to have leukocytosis as well as hyperkalemia. This is due to the underlying DKA and hemoconcentration. These things conditions resolved with treatment of her DKA. She had an anion gap. Her gap eventually closed and the patient was transitioned off of the insulin drip to subcu insulin. Her blood sugars continue to remain elevated. Initially Lantus was started at 40 units nightly along with mealtime insulin sliding scale insulin. Based on her numbers her Lantus was increased to 50 units nightly with continuation of sliding scale insulin 5 units at mealtime. The patient's blood sugars seem to do much better with this and the plan is to discharge her on this regimen. I believe she has a follow-up appointment with Dr. Wing on the . The patient is stable and ready for discharge. Physical Exam Vital Signs: Temp Pulse Resp BP Pulse Ox 98.9 F 70 14 121/83 100 07/20/17 08:20 07/20/17 08:20 07/20/17 08:20 07/20/17 08:20 07/20/17 08:20 Intake & Output 07/19/17 07/20/17 07/21/17 06:59 06:59 06:59 Intake Total 3838 4362 Output Total 4680 4000 Balance -842 362 Weight 66.5 kg 64 kg GENERAL: This is a well-developed well-nourished appearing white female resting in bed in the prone position currently in no acute distress. HEART: Regular rate and rhythm. No murmurs, rubs or gallops. LUNGS: Clear to auscultation bilaterally with equal rise and fall of the chest. ABDOMEN: Non-distended EXTREMETIES: No clubbing, cyanosis or edema. 2+ peripheral pulses bilaterally. NEURO: Awake, alert and oriented 3. Speech is fluent Results Laboratory Results: 07/20/17 05:50 07/20/17 05:50 07/19/17 07/19/17 07/19/17 10:36 14:42 18:35 WBC RBC Hgb Hct MCV MCH MCHC RDW Plt Count Seg Neutrophils % Lymphocytes % Monocytes % Eosinophils % Basophils % Absolute Neutrophils Absolute Lymphocytes Absolute Monocytes Absolute Eosinophils Absolute Basophils Sodium 134.8 L 134.8 L Cancelled Potassium 3.6 3.8 Cancelled Chloride 105 103 Cancelled Carbon Dioxide 19 L 23 Cancelled Anion Gap 11 9 Cancelled BUN 11 11 Cancelled Creatinine 0.52 0.63 Cancelled Est GFR ( Amer) > 60 > 60 Cancelled Est GFR (Non-Af Amer) > 60 > 60 Cancelled Glucose 259 H 215 H Cancelled Calcium 8.8 8.6 Cancelled Magnesium 07/20/17 07/20/17 05:50 05:50 WBC 5.6 RBC 3.86 Hgb 11.7 L Hct 34.7 L MCV 90 MCH 30.3 MCHC 33.7 RDW 12.9 Plt Count 182 Seg Neutrophils % 47.4 Lymphocytes % 40.7 Monocytes % 9.8 Eosinophils % 1.1 Basophils % 1.0 Absolute Neutrophils 2.7 Absolute Lymphocytes 2.3 Absolute Monocytes 0.5 Absolute Eosinophils 0.1 Absolute Basophils 0.1 Sodium 138.7 Potassium 3.3 L Chloride 102 Carbon Dioxide 29 Anion Gap 8 BUN 13 Creatinine 0.52 Est GFR ( Amer) > 60 Est GFR (Non-Af Amer) > 60 Glucose 154 H Calcium 9.0 Magnesium 1.7 Qualifiers PATEINT BEING DISCHARGED WITH ANY OF THE FOLLOWING DIAGNOSIS?: No Plan Time Spent: Less than 30 Minutes
[2017-07-20 12:58] VITALS: BP 131/81
== END 2017-07-20 13:58 | disposition home or self-care (01) | DRG 639 ==
LOC: ER 07:46 → EH 10:56 → UNDOADMIN 10:56 → EH 11:49 → 3W 13:56
DX: E10.10 Type 1 diabetes mellitus with ketoacidosis without coma (principal); F15.10 Other stimulant abuse, uncomplicated; E87.5 Hyperkalemia; G89.29 Other chronic pain; E10.40 Type 1 diabetes mellitus with diabetic neuropathy, unspecified; R07.0 Pain in throat; D72.823 Leukemoid reaction; Z53.29 Procedure and treatment not carried out because of patient's decision for other reasons; Z91.19 Patient's noncompliance with other medical treatment and regimen; Z87.891 Personal history of nicotine dependence; Z79.4 Long term (current) use of insulin; Z83.3 Family history of diabetes mellitus
CPT/HCPCS: 36415; 51702; 80048; 80053; 80307; 81001; 82550; 82803; 82962; 83036; 83735; 84100; 84484; 84703; 85025; 87040; 93005; 93010; 99291; J1650; J1815; J2405; J3480; J3490; J7030; J7060; J7120; S0164

== ENCOUNTER 2017-08-07 19:06 | Emergency (ER) | payer SELFPAY ==
[2017-08-07] MEDS ORDERED: RINGERS SOLUTION,LACTATED 2,000 ML IV ONE (19:52)
--- NOTE | 2017-08-07 20:18 | ER Document Report ---
ED General - General Chief Complaint: High Blood Sugar Stated Complaint: POSSIBLE HIGH BLOOD SUGAR Time Seen by Provider: 08/07/17 19:51 Notes: Patient is a 31-year-old female with a past medical history of type 1 insulin- dependent diabetes who presents with hyperglycemia, generalized fatigue and polyuria and polydipsia for the past 3 days that she ran out of her insulin. Patient states that she does not have access her insulin due to running out of it and being off of insurance. States she has no current ability to obtain insulin for the foreseeable future but is currently working on a reapplication of Medicaid. Patient has been a diabetic ketoacidosis twice in the past 12 months. She denies any localized infectious symptoms, chest pain, shortness of breath headache or neck pain. Nothing improves or worsens her symptoms. States this feels identical to when she has had diabetic ketoacidosis in the past. TRAVEL OUTSIDE OF THE [place] IN LAST 30 DAYS: No - Related Data Allergies/Adverse Reactions: No Known Allergies Allergy (Verified 08/07/17 19:17) Past Medical History - General Information source: Patient - Social History Smoking Status: Never Smoker Frequency of alcohol use: Occasional Drug Abuse: Methamphetamine Family History: Reviewed & Not Pertinent, DM - Past Medical History Cardiac Medical History: Denies: Hx Heart Attack, Hx Hypertension Neurological Medical History: Denies: Hx Cerebrovascular Accident, Hx Seizures Endocrine Medical History: Reports: Hx Diabetes Mellitus Type 1 Renal/ Medical History: Denies: Hx Peritoneal Dialysis GI Medical History: Denies: Hx Hepatitis, Hx Hiatal Hernia, Hx Ulcer Skin Medical History: Reports Hx Cellulitis Psychiatric Medical History: Denies: Hx Depression Infectious Medical History: Denies: Hx Hepatitis Past Surgical History: Reports: Hx Tonsillectomy. Denies: Hx Mastectomy, Hx Open Heart Surgery, Hx Pacemaker - Immunizations Hx Diphtheria, Pertussis, Tetanus Vaccination: Yes Review of Systems - Review of Systems Notes: Constitutional: Negative for fever. HENT: Negative for sore throat. Eyes: Negative for visual changes. Cardiovascular: Negative for chest pain. Respiratory: Negative for shortness of breath. Gastrointestinal: Negative for abdominal pain, vomiting or diarrhea. Genitourinary: Negative for dysuria. Musculoskeletal: Negative for back pain. Skin: Negative for rash. Neurological: Negative for headaches, weakness or numbness. 10 point ROS negative except as marked above and in HPI. Physical Exam - Vital signs Vitals: Temp Pulse Resp BP Pulse Ox 98.9 F 72 20 124/69 100 08/07/17 19:17 08/07/17 19:17 08/07/17 19:17 08/07/17 19:17 08/07/17 19:17 Interpretation: Normal Notes: PHYSICAL EXAMINATION: GENERAL: Somewhat lethargic but no acute distress HEAD: Atraumatic, normocephalic. EYES: Pupils equal round and reactive to light, extraocular movements intact, sclera anicteric, conjunctiva are normal. ENT: nares patent, oropharynx clear without exudates. Moderately dry mucous membranes. NECK: Normal range of motion, supple without lymphadenopathy LUNGS: Breath sounds clear to auscultation bilaterally and equal. No wheezes rales or rhonchi. HEART: Regular rate and rhythm without murmurs ABDOMEN: Soft, nontender, normoactive bowel sounds. No guarding, no rebound. No masses appreciated. EXTREMITIES: Normal range of motion, no pitting or edema. No cyanosis. NEUROLOGICAL: No focal neurological deficits. Moves all extremities spontaneously and on command. PSYCH: Normal mood, normal affect. SKIN: Warm, Dry, normal turgor, no rashes or lesions noted.0 Course - Re-evaluation Re-evalutation: 08/07/17 20:17 Patient presents lethargic, obviously dehydrated on examination, but in no acute distress. She has type 1 insulin-dependent diabetic and has not had her insulin for 3 days due to lack of insurance. She denies any obvious triggers other than noncompliance. Will proceed with IV hydration started with 2 L of lactated Ringer's, obtain laboratories to evaluate for a probability of diabetic ketoacidosis, place the patient on cardiac rehabilitation program director, and continue to reassess frequently. 08/07/17 21:50 Laboratories show hyperglycemia without evidence of acute diabetic ketoacidosis. However, patient has no access to insulin as an outpatient. I have discussed with the hospitalist who agrees that there is no acute indication for admission to the hospital that patient will obviously require her insulin as an outpatient. She will therefore remain in the emergency department tonight. I have placed her on insulin sliding scale protocol and given an additional 10 units of IV insulin bolus now. A regular diet has been ordered for her and she will be continued on oral fluids as she is ready received a full 2 L of IV fluids. I have also requested a basic metabolic panel to be rechecked in the morning. Social work and discharge planning consultation is been placed. 08/08/17 03:21 Patient's blood sugar has normalized. She has tolerated oral intake. She is stable for discharge after social work consultation - Vital Signs Vital signs: Temp Pulse Resp BP Pulse Ox 98.9 F 72 14 124/69 100 08/07/17 19:17 08/07/17 19:17 08/08/17 02:00 08/07/17 19:17 08/08/17 02:00 - Laboratory Result Diagrams: 08/07/17 20:45 08/07/17 20:45 Laboratory results interpreted by me: 08/07/17 08/07/17 08/08/17 20:45 20:45 02:06 Sodium 129.0 L Chloride 97 L BUN 24 H Glucose 536 H* POC Glucose 183 H Hemoglobin A1c % 10.4 H Discharge - Discharge Clinical Impression: Hyperglycemia, Hyperglycemia due to type 1 diabetes mellitus, Medical non- compliance Condition: Stable Disposition: HOME, SELF-CARE Additional Instructions: You need to followup urgently with your primary care doctor as your blood sugars were dangerously high today. You did not have any evidence of a dangerous condition associated with these blood sugars at this time. However, it is very important that you get your blood sugars under control. Please take all of your medications exactly as directed. You should avoid foods that are high in carbohydrates and sugary foods. It is critical that you regain access to Medicaid as soon as possible so that you have your lifesaving insulin. Please return to emergency department immediately if you develop weakness, persistent vomiting, confusion, or any other symptoms that are concerning to you. Referrals: TAM LOPEZ DO [Primary Care Provider] - Follow up as needed
[2017-08-07 21:12] LABS: ABSOLUTE BASOPHILS # (AUTO) 0.1 10^3/uL (0.0-0.2); ABSOLUTE EOSINOPHILS # (AUTO) 0.1 10^3/uL (0.0-0.6); ABSOLUTE LYMPHOCYTES (AUTO) 2.6 10^3/uL (0.5-4.7); ABSOLUTE MONOCYTES (AUTO) 0.5 10^3/uL (0.1-1.4); ABSOLUTE NEUT (AUTO) 6.5 10^3/uL (1.7-8.2); BASOPHILS % (AUTO) 0.6 % (0-2); HEMOGLOBIN 13.1 g/dL (12.0-15.5); HGB HCT DIFFERENCE 0.3; LYMPHOCYTES % (AUTO) 26.4 % (13-45); MEAN CORPUSCULAR HEMOGLOBIN 30.5 pg (27.0-33.4); MEAN CORPUSCULAR HGB CONC 33.5 g/dL (32.0-36.0); MEAN CORPUSCULAR VOLUME 91 fl (80-97); MONOCYTES % (AUTO) 5.6 % (3-13); RED BLOOD COUNT 4.29 10^6/uL (3.72-5.28); RED CELL DISTRIBUTION WIDTH 13.8 % (11.5-14.0); SEGMENTED NEUTROPHILS % (AUTO) 66.4 % (42-78); WHITE BLOOD COUNT 9.8 10^3/uL (4.0-10.5)
[2017-08-07 21:17] LABS: VENOUS BLOOD BASE EXCESS -2.6 mmol/L; VENOUS BLOOD HCO3 22.8 mmol/L (20-32); VENOUS BLOOD PCO2 41.6 mmHg (35-63); VENOUS BLOOD PH 7.36 (7.30-7.42)
[2017-08-07 21:33] LABS: ANION GAP 10 (5-19); BLOOD UREA NITROGEN 24 mg/dL (7-20); CALCIUM 8.9 mg/dL (8.4-10.2); CARBON DIOXIDE 22 mmol/L (22-30); CHLORIDE 97 mmol/L (98-107); CREATININE RESULT 0.64 mg/dL (0.52-1.25); POTASSIUM 4.5 mmol/L (3.6-5.0)
[2017-08-07 21:48] LABS: GLUCOSE 536 mg/dL (75-110)
[2017-08-07] MEDS ORDERED: INSULIN REG, HUMAN 100 UNIT/ML 3 ML VIAL (PYX) IV ONE (21:51)
[2017-08-07] MEDS ORDERED: POTASSI CL 20 MEQ/50 ML RIDER 20 MEQ/50 ML RTUPB IV ONE (21:51)
[2017-08-07] MEDS ORDERED: DEXTROSE 40% GEL 15 GM TUBE PO PRN ×2 (22:05)
[2017-08-07] MEDS ORDERED: INSULIN REG, HUMAN 100 UNIT/ML 3 ML VIAL (PYX) SUBCUT PRN (22:05)
[2017-08-07] MEDS ORDERED: GLUCAGON,HUMAN RECOMB 1 MG INJ IM PRN (22:05)
[2017-08-07] MEDS ORDERED: DEXTROSE 50%-WATER 25 GM/50 ML DISP.SYRIN IV PRN ×2 (22:05)
[2017-08-08 06:31] LABS: ANION GAP 8 (5-19); BLOOD UREA NITROGEN 14 mg/dL (7-20); CALCIUM 8.9 mg/dL (8.4-10.2); CARBON DIOXIDE 21 mmol/L (22-30); CHLORIDE 105 mmol/L (98-107); CREATININE RESULT 0.53 mg/dL (0.52-1.25); GLUCOSE 287 mg/dL (75-110); POTASSIUM 4.6 mmol/L (3.6-5.0); SODIUM 133.9 mmol/L (137-145)
[2017-08-08 10:14] VITALS: BP 135/79
== END 2017-08-08 10:10 | disposition home or self-care (01) ==
LOC: ER 19:06
DX: E10.65 Type 1 diabetes mellitus with hyperglycemia (principal); T38.3X6A Underdosing of insulin and oral hypoglycemic [antidiabetic] drugs, initial encounter; Z91.120 Patient's intentional underdosing of medication regimen due to financial hardship; E86.0 Dehydration
CPT/HCPCS: 99283; 96365; 36415; 82962; 84703; 85025; 80048; 83036; 82803; J1815; J7120

== ENCOUNTER 2017-08-18 17:53 | Emergency (ER) | payer SELFPAY ==
[2017-08-18] MEDS ORDERED: MORPHINE SULFATE 10 MG/ML INJ IM ONE (18:16)
[2017-08-18] MEDS ORDERED: DIPHENHYDRAMINE HCL 50 MG/ML VIAL IM ONE (18:16)
--- NOTE | 2017-08-18 18:16 | ER Document Report ---
ED Skin Rash/Insect Bite/Abscs - General Mode of Arrival: Ambulatory Information source: Patient TRAVEL OUTSIDE OF THE [place] IN LAST 30 DAYS: No - General Chief Complaint: Abscess Stated Complaint: ABSCESS/BUTTOCK AREA Time Seen by Provider: 08/18/17 18:09 Notes: Patient is a 31-year-old female who presents to the emergency department today with complaints of an abscess on her upper buttock. Patient states she has had this for around 3 days and it has progressively been getting larger and more painful. Patient states it hurts when she sits down. Patient is a type I diabetic. Patient states her sugars have been running higher than normal recently because she has not had her long-acting insulin. Patient states she filled a prescription today for her long-acting insulin. (PRAFUL STEINER) - Related Data Allergies/Adverse Reactions: No Known Allergies Allergy (Verified 08/18/17 17:57) Past Medical History - General Information source: Patient - Social History Smoking Status: Never Smoker Cigarette use (# per day): No Frequency of alcohol use: None Drug Abuse: None Family History: Reviewed & Not Pertinent, DM Endocrine Medical History: Reports: Hx Diabetes Mellitus Type 1 Skin Medical History: Reports Hx Cellulitis Past Surgical History: Reports: Hx Tonsillectomy - Immunizations Hx Diphtheria, Pertussis, Tetanus Vaccination: Yes Review of Systems - Review of Systems Constitutional: No symptoms reported EENT: No symptoms reported Cardiovascular: No symptoms reported Respiratory: No symptoms reported Gastrointestinal: No symptoms reported Genitourinary: No symptoms reported Female Genitourinary: No symptoms reported Musculoskeletal: No symptoms reported Skin: See HPI, Other - abscess to buttock Hematologic/Lymphatic: No symptoms reported Neurological/Psychological: No symptoms reported -: Yes All other systems reviewed and negative Physical Exam - Vital signs Interpretation: Normal - General General appearance: Appears well, Alert - HEENT Head: Normocephalic, Atraumatic Eyes: Normal Pupils: PERRL - Respiratory Respiratory status: No respiratory distress Chest status: Nontender Breath sounds: Normal Chest palpation: Normal - Cardiovascular Rhythm: Regular Heart sounds: Normal auscultation Murmur: No - Abdominal Inspection: Normal Distension: No distension Bowel sounds: Normal Tenderness: Nontender Organomegaly: No organomegaly - Back Back: Normal, Nontender - Extremities General upper extremity: Normal inspection, Normal ROM. No: Edema General lower extremity: Normal inspection, Normal ROM. No: Edema - Neurological Neuro grossly intact: Yes Cognition: Normal Orientation: AAOx4 [place] Coma Scale Eye Opening: Spontaneous Meli Coma Scale Verbal: Oriented Meli Coma Scale Motor: Obeys Commands [place] Coma Scale Total: 15 Speech: Normal - Psychological Associated symptoms: Normal affect, Normal mood - Skin Skin Temperature: Warm Skin Moisture: Dry Skin Color: Normal - Vital signs Vitals: Temp Pulse Resp BP Pulse Ox 98.2 F 101 H 18 136/90 H 98 08/18/17 17:58 08/18/17 17:58 08/18/17 17:58 08/18/17 17:58 08/18/17 17:58 - Skin Notes: Pointing abscess to the upper right gluteal cleft. Area is exquisitely tender with palpation. (PRAFUL STEINER) - Vital Signs Vital signs: Temp Pulse Resp BP Pulse Ox 98.2 F 101 H 18 136/90 H 98 08/18/17 17:58 10 17:58 08/18/17 17:58 08/18/17 17:58 08/18/17 17:58 Discharge - Discharge Clinical Impression: Abscess of buttock, right Condition: Stable Disposition: HOME, SELF-CARE Additional Instructions: Abscess: You have an abscess (boil). This a pus-forming infection, usually due to staph. Some boils may be left to drain on their own, but most require lancing. From the time the tender lump first appears, it may be three or four days before the abscess is ready to pete. Local heat and rest help at this stage of treatment. An antibiotic may prevent spread of the infection. Once the abscess is opened, packing may be placed into it. This is done so pus is not sealed inside by premature closure of the cavity. The packing will be removed at your follow-up visit or you may be advised to remove it yourself at home. Sometimes this packing must be replaced a few times during healing. The wound will heal with surprisingly little scar. Depending on the size and location of an abscess, healing can take one to four weeks. You may shower and wash the area around the incision site two or three times a day. Antibiotics may be prescribed, but are usually not necessary after an abscess has been drained. If you develop fever, chilling, worsening pain, or increasing swelling in the area, call the doctor or return immediately. TAKE THE MEDICATION PRESCRIBED. REMOVE THE PACKING ON SATURDAY. PROBE THE WOUND WITH Q-TIPS DIPPED IN PEROXIDE FREQUENTLY TO PREVENT THE WOUND FROM CLOSING. SOAK IN WARM WATER. FOLLOW UP WITH YOUR DOCTOR THIS WEEK FOR RECHECK. RETURN TO THE EMERGENCY ROOM IF ANY NEW OR WORSENING SYMPTOMS. Prescriptions: Oxycodone HCl/Acetaminophen [Percocet 5-325 mg Tablet] 1 - 2 tab PO ASDIR PRN # 15 tablet PRN Reason: Sulfamethoxazole/Trimethoprim [Bactrim Ds Tablet] 2 tab PO BID #28 tablet Referrals: TAM LOPEZ DO [Primary Care Provider] - Follow up in 3-5 days Melissaibpallavi Attestation: 08/18/17 19:42 I personally performed the services described in the documentation, reviewed and edited the documentation which was dictated to the scribe in my presence, and it accurately records my words and actions. (TAMMY BRADLEY) Scribe Documentation - Scribe Written by Avelino:: Avelino Albrecht, 08/18/2017 190 acting as scribe for :: Kylee
[2017-08-18] MEDS ORDERED: SULFAMETHOXAZOLE/TRIMETHOPRIM 800-160 MG TABLET PO ONE (18:17)
[2017-08-18] MEDS ORDERED: LIDOCAINE 1% INJ-PF (10 MG/ML) 30 ML SDV INJ ONE (18:17)
[2017-08-18] MEDS ORDERED: FENTANYL CITRATE INJ/PF 100 MCG/2 ML AMPUL IM ONE (18:26)
[2017-08-18 19:53] VITALS: BP 106/81
== END 2017-08-18 19:55 | disposition home or self-care (01) ==
LOC: ER 17:53
DX: L02.31 Cutaneous abscess of buttock (principal); E10.9 Type 1 diabetes mellitus without complications; Z79.4 Long term (current) use of insulin
CPT/HCPCS: 99282; 96372; 87070; 87205; 87075; 87077; 87186; J1200; J3010; J3490

== ENCOUNTER 2018-04-07 16:43 | Inpatient (IN) | payer MEDICAID ==
[2018-04-07] MEDS ORDERED: NORMAL SALINE 1000 ML 1,000 ML IV ONE (17:20)
--- NOTE | 2018-04-07 17:22 | ER Document Report ---
ED Medical Screen (RME) - General Chief Complaint: High Blood Sugar Stated Complaint: BLOOD SUGAR PROBLEMS Time Seen by Provider: 04/07/18 17:17 Mode of Arrival: Wheelchair Information source: Patient Notes: 32-year-old female who is quite drowsy upon arrival presents by EMS for not feeling well patient has not been taking her insulin as prescribed for the past few days blood sugar was 309 prior to arrival Patient not answering questions appropriately wheeled directly to room 18 I have greeted and performed a rapid initial assessment of this patient. A comprehensive ED assessment and evaluation of the patient, analysis of test results and completion of the medical decision making process will be conducted by additional ED providers. PHYSICAL EXAMINATION: GENERAL: Patient is quite drowsy HEAD: Atraumatic, normocephalic. EYES: Pupils equal round extraocular movements intact, conjunctiva are normal. ENT: Nares patent NECK: Normal range of motion LUNGS: No respiratory distress Musculoskeletal: Normal range of motion NEUROLOGICAL: Patient not speaking unless stimulated SKIN: Warm, Dry, normal turgor, no rashes or lesions noted. TRAVEL OUTSIDE OF THE [place] IN LAST 30 DAYS: No - Related Data Allergies/Adverse Reactions: No Known Allergies Allergy (Verified 04/07/18 16:44) Past Medical History - Past Medical History Cardiac Medical History: Denies: Hx Heart Attack, Hx Hypertension Neurological Medical History: Denies: Hx Cerebrovascular Accident, Hx Seizures Endocrine Medical History: Reports: Hx Diabetes Mellitus Type 1 Renal/ Medical History: Denies: Hx Peritoneal Dialysis GI Medical History: Denies: Hx Hepatitis, Hx Hiatal Hernia, Hx Ulcer Skin Medical History: Reports Hx Cellulitis Psychiatric Medical History: Denies: Hx Depression Infectious Medical History: Denies: Hx Hepatitis Past Surgical History: Reports: Hx Tonsillectomy. Denies: Hx Mastectomy, Hx Open Heart Surgery, Hx Pacemaker - Immunizations Hx Diphtheria, Pertussis, Tetanus Vaccination: Yes Physical Exam - Vital signs Vitals: Temp Pulse Resp BP Pulse Ox 97.7 F 73 16 143/94 H 100 04/07/18 16:52 04/07/18 16:52 04/07/18 16:52 04/07/18 16:52 04/07/18 16:52 Course - Vital Signs Vital signs: Temp Pulse Resp BP Pulse Ox 97.7 F 73 16 143/94 H 100 04/07/18 16:52 04/07/18 16:52 04/07/18 16:52 04/07/18 16:52 04/07/18 16:52
[2018-04-07] MEDS ORDERED: RINGERS SOLUTION,LACTATED 1,000 ML IV PRN (17:23)
--- NOTE | 2018-04-07 17:24 | ER Document Report ---
ED General - General Mode of Arrival: Wheelchair TRAVEL OUTSIDE OF THE [place] IN LAST 30 DAYS: No <BROOKLYN RINCON - Last Filed: 04/07/18 22:21> <THERON DESHPANDE - Last Filed: 04/07/18 22:22> - General Chief Complaint: High Blood Sugar Stated Complaint: BLOOD SUGAR PROBLEMS Time Seen by Provider: 04/07/18 17:17 Notes: Patient is a 32 year old female with Type 1 diabetes and a history of DKA presents to the emergency department via EMS complaining of general malaise and stating she believes she is in DKA. At bedside patient is very sluggish and only reports nausea, vomiting and diaphoresis. Patient states her blood sugar has been in the 300s the last few days and further states she is unable to take her insulin due to not being able to afford it. Patient denies taking any other medications or recent sunburns. EMS recorded a blood sugar of 309 prior to arrival to the emergency department. (BROOKLYN RINCON) - Related Data Allergies/Adverse Reactions: No Known Allergies Allergy (Verified 04/07/18 16:44) Past Medical History - General Information source: Patient - Social History Smoking Status: Current Every Day Smoker Cigarette use (# per day): Yes Chew tobacco use (# tins/day): No Smoking Education Provided: No Frequency of alcohol use: Social Drug Abuse: Methamphetamine Family History: Reviewed & Not Pertinent, DM Endocrine Medical History: Reports: Hx Diabetes Mellitus Type 1 Skin Medical History: Reports Hx Cellulitis Past Surgical History: Reports: Hx Tonsillectomy - Immunizations Hx Diphtheria, Pertussis, Tetanus Vaccination: Yes <BROOKLYN RINCON - Last Filed: 04/07/18 22:21> Review of Systems - Review of Systems Constitutional: See HPI, Diaphoresis EENT: No symptoms reported Cardiovascular: No symptoms reported Respiratory: No symptoms reported Gastrointestinal: See HPI, Nausea, Vomiting Genitourinary: No symptoms reported Female Genitourinary: No symptoms reported Musculoskeletal: No symptoms reported Skin: No symptoms reported Hematologic/Lymphatic: No symptoms reported Neurological/Psychological: No symptoms reported -: Yes All other systems reviewed and negative <BROOKLYN RINCON - Last Filed: 04/07/18 22:21> Physical Exam <BROOKLYN RINCON - Last Filed: 04/07/18 22:21> <THERON DESHPANDE - Last Filed: 04/07/18 22:22> - Vital signs Vitals: Temp Pulse Resp BP Pulse Ox 97.7 F 73 16 143/94 H 100 04/07/18 16:52 04/07/18 16:52 04/07/18 16:52 04/07/18 16:52 04/07/18 16:52 - Notes Notes: GENERAL: Somnolent, able to stand out of wheel chair and get into bed without difficulty. Diaphoretic. HEAD: Normocephalic, atraumatic. EYES: Pupils equal, round, and reactive to light. Extraocular movements intact. ENT: Dry mucous membranes. NECK: Full range of motion. Supple. Trachea midline. LUNGS: Clear to auscultation bilaterally, no wheezes, rales, or rhonchi. No respiratory distress. HEART: Regular rate and rhythm. No murmurs, gallops, or rubs. ABDOMEN: Soft, not tender to palpation. No guarding, rigidity or rebound. Non- distended. Bowel sounds present in all 4 quadrants. EXTREMITIES: Moves all 4 extremities spontaneously. Dorsalis pedis pulses strong bilaterally. Upper legs flushed bilaterally, lower legs mottled bilaterally. NEUROLOGICAL: Somnolent. PSYCH: Normal affect, normal mood. SKIN: Flushed. Feet cold. (BROOKLYN RINCON) Course - Laboratory Result Diagrams: 04/07/18 17:36 04/07/18 21:35 <BROOKLYN RINCON - Last Filed: 04/07/18 22:21> - Laboratory Result Diagrams: 04/07/18 17:36 04/07/18 21:35 <THERON DESHPANDE - Last Filed: 04/07/18 22:22> - Vital Signs Vital signs: Temp Pulse Resp BP Pulse Ox 98.8 F 73 15 120/67 100 04/07/18 21:55 04/07/18 16:52 04/07/18 22:01 04/07/18 22:01 04/07/18 22:01 - Laboratory Laboratory results interpreted by me: 04/07/18 04/07/18 04/07/18 17:23 17:36 17:39 WBC 16.7 H Seg Neutrophils % 79.2 H Lymphocytes % 12.3 L Absolute Neutrophils 13.2 H Carbonic Acid ABG pH ABG pCO2 ABG pO2 ABG HCO3 ABG Total CO2 ABG O2 Saturation VBG pCO2 22.7 L VBG HCO3 11.0 L Sodium Carbon Dioxide BUN Glucose POC Glucose 296 H Calcium AST Total Protein Albumin Urine Protein Urine Glucose (UA) Urine Ketones Urine Blood 04/07/18 04/07/18 04/07/18 17:39 17:55 18:15 WBC Seg Neutrophils % Lymphocytes % Absolute Neutrophils Carbonic Acid 0.62 L ABG pH 7.31 L ABG pCO2 20.5 L* ABG pO2 124.4 H ABG HCO3 10.0 L ABG Total CO2 10.7 L ABG O2 Saturation 98.3 H VBG pCO2 VBG HCO3 Sodium 134.9 L Carbon Dioxide 17 L BUN 24 H Glucose 261 H POC Glucose Calcium 8.1 L AST 55 H Total Protein 5.8 L Albumin 3.3 L Urine Protein 30 H Urine Glucose (UA) >=500 H Urine Ketones 80 H Urine Blood SMALL H 04/07/18 20:49 WBC Seg Neutrophils % Lymphocytes % Absolute Neutrophils Carbonic Acid ABG pH ABG pCO2 ABG pO2 ABG HCO3 ABG Total CO2 ABG O2 Saturation VBG pCO2 VBG HCO3 Sodium Carbon Dioxide BUN Glucose POC Glucose 211 H Calcium AST Total Protein Albumin Urine Protein Urine Glucose (UA) Urine Ketones Urine Blood Critical Care Note - Critical Care Note Total time excluding time spent on procedures (mins): 45 <THERON DESHPANDE - Last Filed: 04/07/18 22:22> Discharge <BROOKLYN RINCON - Last Filed: 04/07/18 22:21> - Discharge Admitting Provider: [facility] Unit Admitted: [facility] <THERON DESHPANDE - Last Filed: 04/07/18 22:22> - Discharge Clinical Impression: Diabetic ketoacidosis associated with type 1 diabetes mellitus Qualifiers: Diabetes mellitus complication detail: without coma Qualified Code(s): E10.10 - Type 1 diabetes mellitus with ketoacidosis without coma Leukocytosis Qualifiers: Leukocytosis type: unspecified Qualified Code(s): D72.829 - Elevated white blood cell count, unspecified Condition: Serious Disposition: ADMITTED INPATIENT Scribe Attestation: 04/07/18 22:22 I personally performed the services described in the documentation, reviewed and edited the documentation which was dictated to the scribe in my presence, and it accurately records my words and actions. (THERON DESHPANDE) Scribe Documentation - Scribe Written by Avelino:: Avelino Kilpatrick, 04/07/2018 17:44 acting as scribe for :: Andressa <BROOKLYN RINCON - Last Filed: 04/07/18 22:21>
[2018-04-07 17:45] LABS: ABSOLUTE BASOPHILS # (AUTO) 0.1 10^3/uL (0.0-0.2); ABSOLUTE LYMPHOCYTES (AUTO) 2.1 10^3/uL (0.5-4.7); ABSOLUTE MONOCYTES (AUTO) 1.3 10^3/uL (0.1-1.4); ABSOLUTE NEUT (AUTO) 13.2 10^3/uL (1.7-8.2); BASOPHILS % (AUTO) 0.8 % (0-2); HEMOGLOBIN 14.8 g/dL (12.0-15.5); LYMPHOCYTES % (AUTO) 12.3 % (13-45); MEAN CORPUSCULAR HEMOGLOBIN 30.5 pg (27.0-33.4); MEAN CORPUSCULAR VOLUME 92 fl (80-97); MONOCYTES % (AUTO) 7.7 % (3-13); PLATELET COUNT 357 10^3/uL (150-450); RED BLOOD COUNT 4.87 10^6/uL (3.72-5.28); RED CELL DISTRIBUTION WIDTH 13.6 % (11.5-14.0); SEGMENTED NEUTROPHILS % (AUTO) 79.2 % (42-78); TOTAL CELLS COUNTED % (AUTO) 100 %; WHITE BLOOD COUNT 16.7 10^3/uL (4.0-10.5)
[2018-04-07 17:50] LABS: VENOUS BLOOD BASE EXCESS -13.2 mmol/L; VENOUS BLOOD PCO2 22.7 mmHg (35-63); VENOUS BLOOD PH 7.3 (7.30-7.42)
[2018-04-07 18:27] LABS: ARTERIAL BLOOD BASE EXCESS -13.7 mmol/L; ARTERIAL BLOOD FIO2 ROOMAIR; ARTERIAL BLOOD H2CO3 0.62 mmol/L (1.05-1.35); ARTERIAL BLOOD O2 SATURATION 98.3 % (94-98); ARTERIAL BLOOD PH 7.31 (7.35-7.45); ARTERIAL BLOOD PO2 124.4 mmHg (80-100); ARTERIAL BLOOD TOTAL CO2 10.7 mmol/L (21-25)
[2018-04-07 18:30] LABS: ARTERIAL BLOOD PCO2 20.5 mmHg (35-45)
[2018-04-07 18:36] LABS: APPEARANCE,URINE CLEAR; BILIRUBIN,URINE NEGATIVE (NEGATIVE); COLOR,URINE YELLOW; GLUCOSE, URINE >=500 mg/dL (NEGATIVE); KETONES,URINE 80 mg/dL (NEGATIVE); LEUKOCYTE ESTERASE,URINE NEGATIVE (NEGATIVE); NITRITE,URINE NEGATIVE (NEGATIVE); PROTEIN,URINE 30 mg/dL (NEGATIVE); URINE SPECIFIC GRAVITY 1.025; UROBILINOGEN,URINE NEGATIVE mg/dL (<2.0)
[2018-04-07 18:44] LABS: ALANINE AMINOTRANSFERASE 28 U/L (9-52); ALBUMIN 3.3 g/dL (3.5-5.0); ALKALINE PHOSPHATASE 96 U/L (38-126); ANION GAP 15 (5-19); ASPARTATE AMINO TRANSFERASE 55 U/L (14-36); BILIRUBIN,DIRECT 0.4 mg/dL (0.0-0.4); BILIRUBIN,TOTAL 0.7 mg/dL (0.2-1.3); BLOOD UREA NITROGEN 24 mg/dL (7-20); CALCIUM 8.1 mg/dL (8.4-10.2); CARBON DIOXIDE 17 mmol/L (22-30); CHLORIDE 103 mmol/L (98-107); GLUCOSE 261 mg/dL (75-110); POTASSIUM 4.6 mmol/L (3.6-5.0); SODIUM 134.9 mmol/L (137-145); TOTAL PROTEIN 5.8 g/dL (6.3-8.2)
[2018-04-07 18:46] LABS: ALCOHOL < 10 mg/dL (NONE DETECTED)
[2018-04-07] MEDS ORDERED: DEXTROSE 50%-WATER 25 GM/50 ML DISP.SYRIN IV PRN ×2 (18:47)
[2018-04-07] MEDS ORDERED: NORMAL SALINE 100 ML with INSULIN REGULAR, HUMAN 100 UNIT IV PRN ×2 (18:47)
[2018-04-07] MEDS ORDERED: GLUCAGON,HUMAN RECOMB 1 MG INJ IM PRN (18:47)
[2018-04-07] MEDS ORDERED: DEXTROSE 40% GEL 15 GM TUBE PO PRN ×2 (18:47)
[2018-04-07 18:51] LABS: URINE AMPHETAMINES SCREEN UNCONFIRMED POSITIVE; URINE BARBITURATES SCREEN NEGATIVE; URINE BENZODIAZEPINES SCREEN NEGATIVE; URINE COCAINE SCREEN NEGATIVE; URINE MARIJUANA (THC) SCREEN UNCONFIRMED POSITIVE; URINE METHADONE SCREEN NEGATIVE; URINE PHENCYCLIDINE SCREEN NEGATIVE
[2018-04-07 19:06] LABS: LIPASE 34.7 U/L (23-300)
[2018-04-07] MEDS ORDERED: INSULIN REG, HUMAN 100 UNIT/ML 3 ML VIAL (PYX) ONE (19:32)
[2018-04-07] MEDS ORDERED: ACETAMINOPHEN 325 MG TABLET PO PRN (20:25)
[2018-04-07] MEDS ORDERED: ONDANSETRON HCL INJ/PF 4 MG/2 ML SDV IV PRN (20:25)
[2018-04-07] MEDS ORDERED: IPRATROPIUM/ALBUTEROL 0.5-2.5 MG/3 ML AMPUL NEB PRN (20:25)
[2018-04-07] MEDS: NORMAL SALINE 1000 ML 1,000 ML IV PRN (20:52)
[2018-04-07] MEDS: HEPARIN SOD (PORCINE) 5,000 UNIT/ML 1 ML SYRINGE SUBCUT SCH (20:52)
[2018-04-07 21:30] LABS: CREATINE KINASE MB 0.87 ng/mL (<4.55); TROPONIN I < 0.012 ng/mL
[2018-04-07] MEDS ORDERED: NALOXONE HCL INJ/PF 0.4 MG/1 ML SDV ONE (21:53)
[2018-04-07] MEDS ORDERED: NALOXONE HCL INJ/PF 0.4 MG/1 ML SDV IV ONE (21:53)
[2018-04-07 22:05] LABS: ANION GAP 11 (5-19); BLOOD UREA NITROGEN 20 mg/dL (7-20); CALCIUM 8.5 mg/dL (8.4-10.2); CARBON DIOXIDE 18 mmol/L (22-30); CHLORIDE 107 mmol/L (98-107); CREATINE KINASE 26 U/L (30-135); GLUCOSE 201 mg/dL (75-110); SODIUM 135.5 mmol/L (137-145)
--- NOTE | 2018-04-07 22:29 | EKG REPORT ---
SEVERITY:- BORDERLINE ECG - SINUS RHYTHM BORDERLINE T ABNORMALITIES, ANT-LAT LEADS : Confirmed by: Aldo Patino 07-Apr-2018 22:28:02
[2018-04-07] MEDS ORDERED: PHOSPHORUS #1 250 MG TABLET PO ONE (22:30)
[2018-04-08] MEDS ORDERED: INSULIN GLARGINE,HUM.REC.ANLOG 300 UNIT/3 ML INSULN.PEN SUBCUT ONE (01:00)
[2018-04-08] MEDS: NORMAL SALINE 1000 ML 1,000 ML IV PRN (01:09)
[2018-04-08] MEDS ORDERED: INSULIN LISPRO 100 UNIT/ML 3 ML VIAL SUBCUT PRN (01:15)
[2018-04-08 03:35] LABS: ABSOLUTE BASOPHILS # (AUTO) 0.1 10^3/uL (0.0-0.2); ABSOLUTE LYMPHOCYTES (AUTO) 3.5 10^3/uL (0.5-4.7); ABSOLUTE MONOCYTES (AUTO) 0.8 10^3/uL (0.1-1.4); ABSOLUTE NEUT (AUTO) 5.8 10^3/uL (1.7-8.2); BASOPHILS % (AUTO) 0.8 % (0-2); EOSINOPHILS % (AUTO) 0.3 % (0-6); HEMATOCRIT 38.2 % (36.0-47.0); LYMPHOCYTES % (AUTO) 33.7 % (13-45); MEAN CORPUSCULAR HEMOGLOBIN 29.8 pg (27.0-33.4); MEAN CORPUSCULAR HGB CONC 33.3 g/dL (32.0-36.0); MEAN CORPUSCULAR VOLUME 89 fl (80-97); MONOCYTES % (AUTO) 8.2 % (3-13); PLATELET COUNT 245 10^3/uL (150-450); RED BLOOD COUNT 4.27 10^6/uL (3.72-5.28); RED CELL DISTRIBUTION WIDTH 13.6 % (11.5-14.0); TOTAL CELLS COUNTED % (AUTO) 100 %; WHITE BLOOD COUNT 10.2 10^3/uL (4.0-10.5)
[2018-04-08 03:36] LABS: HEMOGLOBIN 12.7 g/dL (12.0-15.5)
[2018-04-08 03:44] LABS: ANION GAP 10 (5-19); BLOOD UREA NITROGEN 19 mg/dL (7-20); CALCIUM 8.2 mg/dL (8.4-10.2); CARBON DIOXIDE 20 mmol/L (22-30); CHLORIDE 110 mmol/L (98-107); GLUCOSE 120 mg/dL (75-110); POTASSIUM 3.8 mmol/L (3.6-5.0); SODIUM 140.4 mmol/L (137-145)
[2018-04-08] MEDS ORDERED: POTASSIUM CHLORIDE 10 MEQ TABLET.SA PO ONE (04:13)
--- NOTE | 2018-04-08 04:19 | PDOC H&P ---
History of Present Illness Admission Date/PCP: 04/07/18 21:26 Patient complains of: Nausea and hyperglycemia History of Present Illness: SEAN FELIPE is a 32 year old female with a history of insulin-dependent diabetes and polysubstance abuse. Patient presents with 12 hours of uncontrolled blood sugar developing nausea and abdominal discomfort prompting evaluation emergency room where she is found to have a metabolic acidosis with ketonuria. She is also appearing acutely intoxicated with sedative, urine toxicology positive for amphetamine and marijuana. She started on lactated Ringer's and insulin and referred to the hospitalist for admission. Patient is uncooperative with exam or history Past Medical History Cardiac Medical History: Denies: Myocardial Infarction, Hypertension Neurological Medical History: Denies: Seizures Endocrine Medical History: Reports: Diabetes Mellitus Type 1 GI Medical History: Denies: Hepatitis, Hiatal Hernia Psychiatric Medical History: Reports: Substance Abuse Denies: Depression Hematology: Denies: Anemia, Sickle Cell Disease Past Surgical History Past Surgical History: Reports: Tonsillectomy Denies: Amputation, Mastectomy, Pacemaker Social History Information Source: Patient, COUNTS INCLUDE 234 BEDS AT THE [facility] Records Smoking Status: Current Every Day Smoker Frequency of Alcohol Use: Social Hx Recreational Drug Use: Yes Drugs: Marijuana, Other Hx Prescription Drug Abuse: No - Advance Directive Resuscitation Status: Full Code Family History Family History: DM Parental Family History Reviewed: Yes Children Family History Reviewed: Yes Sibling(s) Family History Reviewed.: Yes Medication/Allergy Home Medications: Insulin Aspart [Novolog Flexpen] 5 units SQ AC #100 ml 07/20/17 Insulin Glargine,Hum.rec.anlog [Lantus Insulin 100 Unit/mL] 50 unit SUBCUT QHS # 1 insuln.pen 07/20/17 Oxycodone HCl/Acetaminophen [Percocet 5-325 mg Tablet] 1 - 2 tab PO ASDIR PRN # 15 tablet 08/18/17 Sulfamethoxazole/Trimethoprim [Bactrim Ds Tablet] 2 tab PO BID #28 tablet Allergies/Adverse Reactions: No Known Allergies Allergy (Verified 04/07/18 16:44) Review of Systems Constitutional: ABSENT: chills, fever(s), headache(s), weight gain, weight loss Eyes: ABSENT: visual disturbances Ears: ABSENT: hearing changes Cardiovascular: ABSENT: chest pain, dyspnea on exertion, edema, orthropnea, palpitations Respiratory: ABSENT: cough, hemoptysis Gastrointestinal: ABSENT: abdominal pain, constipation, diarrhea, hematemesis, hematochezia, nausea, vomiting Genitourinary: ABSENT: dysuria, hematuria Musculoskeletal: ABSENT: joint swelling Integumentary: ABSENT: rash, wounds Neurological: ABSENT: abnormal gait, abnormal speech, confusion, dizziness, focal weakness, syncope Psychiatric: ABSENT: anxiety, depression, homidical ideation, suicidal ideation Endocrine: ABSENT: cold intolerance, heat intolerance, polydipsia, polyuria Hematologic/Lymphatic: ABSENT: easy bleeding, easy bruising Physical Exam Vital Signs: Temp Pulse Resp BP Pulse Ox 98.2 F 91 20 119/72 98 04/08/18 00:16 04/08/18 02:00 04/08/18 00:16 04/08/18 00:16 04/08/18 00:16 Intake & Output 04/06/18 04/07/18 04/08/18 11:59 11:59 11:59 Intake Total 0 Output Total 0 Balance 0 Weight 62.1 kg General appearance: PRESENT: disheveled, mild distress, thin. ABSENT: cooperative Head exam: PRESENT: atraumatic, normocephalic Eye exam: PRESENT: conjunctiva pink, EOMI, PERRLA. ABSENT: scleral icterus Ear exam: PRESENT: normal external ear exam Mouth exam: PRESENT: dry mucosa. ABSENT: laceration Neck exam: ABSENT: carotid bruit, JVD, lymphadenopathy, thyromegaly Respiratory exam: PRESENT: clear to auscultation black, tachypnea. ABSENT: rales , rhonchi, wheezes Cardiovascular exam: PRESENT: RRR. ABSENT: diastolic murmur, rubs, systolic murmur Pulses: PRESENT: normal dorsalis pedis pul Vascular exam: PRESENT: normal capillary refill GI/Abdominal exam: PRESENT: normal bowel sounds, soft. ABSENT: distended, guarding, mass, organolmegaly, rebound, tenderness Rectal exam: PRESENT: deferred Extremities exam: PRESENT: full ROM. ABSENT: calf tenderness, clubbing, pedal edema Neurological exam: PRESENT: alert, awake, oriented to person, oriented to place , oriented to situation, CN II-XII grossly intact. ABSENT: motor sensory deficit Psychiatric exam: PRESENT: flat affect, unusual affect Skin exam: PRESENT: dry, intact, warm. ABSENT: cyanosis, rash Results Laboratory Results: 04/08/18 03:20 04/08/18 03:20 04/07/18 04/08/18 04/08/18 21:35 03:20 03:20 WBC 10.2 RBC 4.27 Hgb 12.7 D Hct 38.2 MCV 89 MCH 29.8 MCHC 33.3 RDW 13.6 Plt Count 245 Seg Neutrophils % 57.0 Lymphocytes % 33.7 Monocytes % 8.2 Eosinophils % 0.3 Basophils % 0.8 Absolute Neutrophils 5.8 Absolute Lymphocytes 3.5 Absolute Monocytes 0.8 Absolute Eosinophils 0.0 Absolute Basophils 0.1 Sodium 135.5 L 140.4 Potassium 4.0 3.8 Chloride 107 110 H Carbon Dioxide 18 L 20 L Anion Gap 11 10 BUN 20 19 Creatinine 0.57 0.52 Est GFR ( Amer) > 60 > 60 Est GFR (Non-Af Amer) > 60 > 60 Glucose 201 H 120 H Calcium 8.5 8.2 L Phosphorus 2.0 L Magnesium 1.8 04/07/18 21:35 Creatine Kinase 26 L Assessment & Plan - Diagnosis (1) Diabetic ketoacidosis associated with type 1 diabetes mellitus Qualifiers: Diabetes mellitus complication detail: without coma Qualified Code(s): E10.10 - Type 1 diabetes mellitus with ketoacidosis without coma Is this a current diagnosis for this admission?: Yes Plan: Diabetic ketoacidosis patient has had some degree of polyuria polydipsia with nausea and uncontrolled hyperglycemia with supporting labs. Patient will receive IV fluids IV insulin serial chemistries every 6 hours for evaluation for electrolyte repletion. Continued evaluation for underlying cause if not found Patient will require diabetic education and consideration of mental health evaluation. (2) Polysubstance abuse Is this a current diagnosis for this admission?: Yes Plan: Education and supportive care - Time Time Spent: 30 to 50 Minutes - Inpatient Certification Medical Necessity: Need Close Monitoring Due to Risk of Patient Decompensation
[2018-04-08] MEDS: HEPARIN SOD (PORCINE) 5,000 UNIT/ML 1 ML SYRINGE SUBCUT SCH ×2 (05:21→14:47)
[2018-04-08] MEDS: PHOSPHORUS #1 250 MG TABLET PO SCH ×2 (05:22→13:00)
[2018-04-08 10:29] LABS: ANION GAP 9 (5-19); BLOOD UREA NITROGEN 18 mg/dL (7-20); CALCIUM 8.4 mg/dL (8.4-10.2); CARBON DIOXIDE 21 mmol/L (22-30); CHLORIDE 109 mmol/L (98-107); GLUCOSE 133 mg/dL (75-110); SODIUM 138.8 mmol/L (137-145)
[2018-04-08] MEDS: INSULIN LISPRO 100 UNIT/ML 3 ML VIAL SUBCUT SCH ×3 (10:33→16:56)
--- NOTE | 2018-04-08 11:44 | PDOC DISCHARGE SUMMARY ---
General - Admit/Disc Date/PCP Admission Date/Primary Care Provider: 04/07/18 21:26 Dr Wing Discharge Date: 04/08/18 - Additional Information Resuscitation Status: Full Code Discharge Diet: Diabetic Discharge Activity: Activity As Tolerated Home Medications: Insulin Aspart [Novolog Flexpen] 5 units SQ AC #100 ml 07/20/17 Insulin Glargine,Hum.rec.anlog [Lantus Insulin 100 Unit/mL] 50 unit SUBCUT QHS # 1 insuln.pen 07/20/17 History of Present Illness Patient complains of: nausea abdominal discomfort History of Present Illness: SEAN FELIPE is a 32 year old female with a history of insulin-dependent diabetes and polysubstance abuse. Patient presents with 12 hours of uncontrolled blood sugar developing nausea and abdominal discomfort prompting evaluation emergency room where she is found to have a metabolic acidosis with ketonuria. She is also appearing acutely intoxicated with sedative, urine toxicology positive for amphetamine and marijuana. She started on lactated Ringer's and insulin and referred to the hospitalist for admission. Patient is uncooperative with exam or history Hospital Course Hospital Course: 1 ketoacidosis Patient's was hydrated Insulin drip was given When reevaluated around noon time patient has no metabolic acidosis She is hemodynamically stable And her glucose is 133 She is tolerating a diet Patient will resume prior home regimen prior to discharge 04/08/18 09:30 Sodium 138.8 Potassium 4.0 Chloride 109 H Carbon Dioxide 21 L BUN 18 Creatinine 0.48 L Glucose 133 H 2 polysubstance abuse Patient states it is recreational 04/07/18 18:15 Ur Amphetamines Screen UNCONFIRMED POSITIVE U Marijuana (THC) Screen UNCONFIRMED POSITIVE Physical Exam Vital Signs: Temp Pulse Resp BP Pulse Ox 98.3 F 79 16 115/70 100 04/08/18 07:10 04/08/18 08:45 04/08/18 08:45 04/08/18 07:10 04/08/18 08:45 Intake & Output 04/07/18 04/08/18 04/09/18 00:59 00:59 00:59 Intake Total 0 480 Output Total 0 700 Balance 0 -220 Weight 62.1 kg 63.6 kg General appearance: PRESENT: no acute distress, well-developed, well-nourished Head exam: PRESENT: atraumatic, normocephalic Eye exam: PRESENT: conjunctiva pink, EOMI, PERRLA. ABSENT: scleral icterus Ear exam: PRESENT: normal external ear exam Mouth exam: PRESENT: moist, tongue midline Neck exam: ABSENT: carotid bruit, JVD, lymphadenopathy, thyromegaly Respiratory exam: PRESENT: clear to auscultation black. ABSENT: rales, rhonchi, wheezes Cardiovascular exam: PRESENT: RRR. ABSENT: diastolic murmur, rubs, systolic murmur Pulses: PRESENT: normal dorsalis pedis pul Vascular exam: PRESENT: normal capillary refill GI/Abdominal exam: PRESENT: normal bowel sounds, soft. ABSENT: distended, guarding, mass, organolmegaly, rebound, tenderness Rectal exam: PRESENT: deferred Extremities exam: PRESENT: full ROM. ABSENT: calf tenderness, clubbing, pedal edema Neurological exam: PRESENT: alert, awake, oriented to person, oriented to place , oriented to time, oriented to situation, CN II-XII grossly intact. ABSENT: motor sensory deficit Psychiatric exam: PRESENT: appropriate affect, normal mood. ABSENT: homicidal ideation, suicidal ideation Skin exam: PRESENT: dry, intact, warm. ABSENT: cyanosis, rash Results Laboratory Results: 04/08/18 03:20 04/08/18 09:30 04/07/18 04/08/18 04/08/18 21:35 03:20 03:20 WBC 10.2 RBC 4.27 Hgb 12.7 D Hct 38.2 MCV 89 MCH 29.8 MCHC 33.3 RDW 13.6 Plt Count 245 Seg Neutrophils % 57.0 Lymphocytes % 33.7 Monocytes % 8.2 Eosinophils % 0.3 Basophils % 0.8 Absolute Neutrophils 5.8 Absolute Lymphocytes 3.5 Absolute Monocytes 0.8 Absolute Eosinophils 0.0 Absolute Basophils 0.1 Sodium 135.5 L 140.4 Potassium 4.0 3.8 Chloride 107 110 H Carbon Dioxide 18 L 20 L Anion Gap 11 10 BUN 20 19 Creatinine 0.57 0.52 Est GFR ( Amer) > 60 > 60 Est GFR (Non-Af Amer) > 60 > 60 Glucose 201 H 120 H Calcium 8.5 8.2 L Phosphorus 2.0 L Magnesium 1.8 04/08/18 09:30 WBC RBC Hgb Hct MCV MCH MCHC RDW Plt Count Seg Neutrophils % Lymphocytes % Monocytes % Eosinophils % Basophils % Absolute Neutrophils Absolute Lymphocytes Absolute Monocytes Absolute Eosinophils Absolute Basophils Sodium 138.8 Potassium 4.0 Chloride 109 H Carbon Dioxide 21 L Anion Gap 9 BUN 18 Creatinine 0.48 L Est GFR ( Amer) > 60 Est GFR (Non-Af Amer) > 60 Glucose 133 H Calcium 8.4 Phosphorus Magnesium 04/07/18 21:35 Creatine Kinase 26 L Qualifiers - * PATIENT BEING DISCHARGED WITH ANY OF THE FOLLOWING DIAGNOSIS: No Plan Discharge Plan: Patient will be discharged home with her mother She is to resume her prior insulin regimen Follow-up with Dr. Wing in the week time Patient was advised to avoid drugs Time Spent: Greater than 30 Minutes
[2018-04-08 12:10] VITALS: BP 122/71
[2018-04-08 16:15] LABS: ANION GAP 6 (5-19); BLOOD UREA NITROGEN 18 mg/dL (7-20); CALCIUM 8.3 mg/dL (8.4-10.2); CARBON DIOXIDE 27 mmol/L (22-30); CHLORIDE 104 mmol/L (98-107); GLUCOSE 238 mg/dL (75-110); POTASSIUM 3.8 mmol/L (3.6-5.0); SODIUM 137.1 mmol/L (137-145)
[2018-04-08] MEDS ORDERED: INSULIN GLARGINE,HUM.REC.ANLOG 300 UNIT/3 ML INSULN.PEN SUBCUT SCH (22:00)
== END 2018-04-08 16:35 | disposition home or self-care (01) | DRG 639 ==
LOC: ER 16:43 → EH 21:26 → 3W 22:39
PROVIDERS: ADMIT Internal Medicine; ATTEND Internal Medicine
DX: E10.10 Type 1 diabetes mellitus with ketoacidosis without coma (principal); I10 Essential (primary) hypertension; F15.129 Other stimulant abuse with intoxication, unspecified; F17.200 Nicotine dependence, unspecified, uncomplicated; F12.129 Cannabis abuse with intoxication, unspecified; F17.210 Nicotine dependence, cigarettes, uncomplicated; Z79.4 Long term (current) use of insulin; Z83.3 Family history of diabetes mellitus
CPT/HCPCS: 36415; 36600; 51701; 80048; 80053; 80307; 81001; 81025; 82550; 82553; 82803; 82962; 83036; 83690; 83735; 84100; 84484; 85025; 93005; 93010; 96360; 99291; J1644; J1815; J2310; J7030; J7120

== ENCOUNTER 2018-04-28 08:46 | Inpatient (IN) | payer MEDICAID ==
[2018-04-28] MEDS ORDERED: NORMAL SALINE 1000 ML 1,000 ML IV ONE (08:58)
[2018-04-28] MEDS ORDERED: INSULIN REG, HUMAN 100 UNIT/ML 3 ML VIAL (PYX) IV ONE (09:06)
--- NOTE | 2018-04-28 09:11 | ER Document Report ---
ED General - General Chief Complaint: High Blood Sugar Stated Complaint: BLOOD SUGAR PROBLEMS Mode of Arrival: Medic Information source: Patient TRAVEL OUTSIDE OF THE [place] IN LAST 30 DAYS: No - HPI Notes: 32-year-old female with a past medical history of diabetes type 1 and polysubstance abuse presents to the ED for complaints of polydipsia via EMS with a blood sugar of over 600. Patient takes Lantus and NovoLog, states she has been out of her medication, states she did not her prescription because she "lost the paper script the last time I was here". Patient states she has not had anything to eat patient [place] her [place]. Patient also reports she has had what she thinks is a UTI , started taking oral Bactrim 5 days ago. Patient is alert and responsive however she reports she is "very thirsty". Denies fevers, chills, chest pain, palpitations, blurred vision, double vision, loss of vision, speech changes, LH , dizziness, syncope,wheezing, ST, URI, neck pain, weakness, bowel or bladder dysfunction, saddle anesthesia, numbness or tingling in bilateral upper or lower extremities equally, muscle paralysis, weakness in bilateral upper or lower extremities equally or rash. Denies IV drug use. - Related Data Allergies/Adverse Reactions: No Known Allergies Allergy (Verified 04/28/18 09:09) Past Medical History - General Information source: Patient, Emergency Med Personnel, [facility] Records - Social History Smoking Status: Never Smoker Family History: Reviewed & Not Pertinent, DM - Past Medical History Cardiac Medical History: Denies: Hx Heart Attack, Hx Hypertension Neurological Medical History: Denies: Hx Cerebrovascular Accident, Hx Seizures Endocrine Medical History: Reports: Hx Diabetes Mellitus Type 1 Renal/ Medical History: Denies: Hx Peritoneal Dialysis GI Medical History: Denies: Hx Hepatitis, Hx Hiatal Hernia, Hx Ulcer Skin Medical History: Reports Hx Cellulitis Psychiatric Medical History: Denies: Hx Depression Infectious Medical History: Denies: Hx Hepatitis Past Surgical History: Reports: Hx Tonsillectomy. Denies: Hx Mastectomy, Hx Open Heart Surgery, Hx Pacemaker - Immunizations Hx Diphtheria, Pertussis, Tetanus Vaccination: Yes Review of Systems - Review of Systems Constitutional: See HPI EENT: See HPI Cardiovascular: No symptoms reported Respiratory: See HPI Gastrointestinal: No symptoms reported Genitourinary: See HPI Female Genitourinary: No symptoms reported Musculoskeletal: No symptoms reported Skin: No symptoms reported Hematologic/Lymphatic: No symptoms reported Neurological/Psychological: See HPI Physical Exam - Vital signs Vitals: Resp BP Pulse Ox 13 121/55 L 100 04/28/18 08:57 04/28/18 08:57 04/28/18 08:57 - Notes Notes: PHYSICAL EXAMINATION: GENERAL: acutely ill-appearing, well-nourished and in no mild distress. HEAD: Atraumatic, normocephalic. EYES: Pupils equal round and reactive to light, extraocular movements intact, conjunctiva are normal. ENT: Nares patent, oropharynx clear without exudates. Dry mucous membranes. NECK: Normal range of motion, supple without lymphadenopathy LUNGS: Breath sounds clear to auscultation bilaterally and equal. No wheezes rales or rhonchi. HEART: Sinus tachycardia regula rhythm without murmurs ABDOMEN: Soft, nontender, nondistended abdomen. No guarding, no rebound. No masses appreciated. Female : deferred Musculoskeletal: Normal range of motion, no pitting or edema. No cyanosis. NEUROLOGICAL: awake, somnolent, alert to surroundings when spoken to moving extremities passively. PSYCH: Normal mood, normal affect. SKIN: Warm, Dry, normal turgor, no rashes or lesions noted. Course - Re-evaluation Re-evalutation: 04/28/18 17:45 32-year-old female who is type I diabetic DKA with a blood glucose of 725, potassium of 6.7 in metabolic acidosis. Leukocytosis of 28 versus is likely reactive. Patient given 2 L of fluid, given sodium bicarbonate, calcium gluconate for hyperkalemia, cardiac enzymes negative. EKG shows tachycardia, no STEMI. Urinalysis shows ketones, hematuria with glucose. Also 10 units of insulin, then placed on a patient placed on insulin drip per protocol with Accu- Cheks hourly. drug screen was negative. Chest x-ray negative for any acute findings. Discussed pertinent clinical, laboratory and diagnostic findings with hospitalist, Dr. Alexandre Lew, at 11:15 for DKA without coma as well as hyperkalemia, will admit on hospitalist service to the intermediate medical care unit. potassium did normalize at 5.0 after repeat CMP after medications. All questions and concerns answered by this provider by patient. Patient verbalized understanding of plan of care to be admitted. - Vital Signs Vital signs: Temp Pulse Resp BP Pulse Ox 99.1 F 86 18 124/70 100 04/28/18 17:13 04/28/18 17:13 04/28/18 17:13 04/28/18 17:13 04/28/18 17:13 - Laboratory Result Diagrams: 04/28/18 09:58 04/28/18 16:10 Laboratory results interpreted by me: 04/28/18 04/28/18 04/28/18 08:10 09:41 09:58 WBC MCHC RDW Plt Count Seg Neuts % (Manual) Band Neutrophils % Lymphocytes % (Manual) Monocytes % (Manual) Abs Neuts (Manual) VBG pH VBG pCO2 VBG HCO3 Sodium Potassium 6.7 H* Chloride 92 L Carbon Dioxide 5 L* Anion Gap 42 H BUN 31 H Creatinine 1.29 H Est GFR ( Amer) 58 L Est GFR (Non-Af Amer) 48 L Glucose 725 H* POC Glucose Lactic Acid 3.5 H Calcium 10.6 H Alkaline Phosphatase 232 H Urine Glucose (UA) >=500 H Urine Ketones 80 H Urine Blood SMALL H 04/28/18 04/28/18 04/28/18 09:58 09:58 11:25 WBC 28.2 H MCHC 31.4 L RDW 14.3 H Plt Count 544 H Seg Neuts % (Manual) 85 H Band Neutrophils % 2 L Lymphocytes % (Manual) 11 L Monocytes % (Manual) 2 L Abs Neuts (Manual) 24.5 H VBG pH 6.91 L* VBG pCO2 31.5 L VBG HCO3 6.1 L Sodium 145.6 H Potassium 5.3 H D Chloride 111 H Carbon Dioxide 7 L* Anion Gap 28 H BUN 26 H Creatinine Est GFR ( Amer) Est GFR (Non-Af Amer) Glucose 507 H* POC Glucose Lactic Acid Calcium Alkaline Phosphatase Urine Glucose (UA) Urine Ketones Urine Blood 04/28/18 11:25 WBC MCHC RDW Plt Count Seg Neuts % (Manual) Band Neutrophils % Lymphocytes % (Manual) Monocytes % (Manual) Abs Neuts (Manual) VBG pH VBG pCO2 VBG HCO3 Sodium Potassium Chloride Carbon Dioxide Anion Gap BUN Creatinine Est GFR ( Amer) Est GFR (Non-Af Amer) Glucose POC Glucose 534 H* Lactic Acid Calcium Alkaline Phosphatase Urine Glucose (UA) Urine Ketones Urine Blood Discharge - Discharge Clinical Impression: DKA (diabetic ketoacidoses), Hyperkalemia, Hyperglycemia due to type 1 diabetes mellitus Condition: Good Disposition: ADMITTED INPATIENT Admitting Provider: Hospitalist - Dr. Alexandre Lew Unit Admitted: [facility]
[2018-04-28 09:34] LABS: ALANINE AMINOTRANSFERASE 23 U/L (9-52); ALBUMIN 4.4 g/dL (3.5-5.0); ALKALINE PHOSPHATASE 232 U/L (38-126); ASPARTATE AMINO TRANSFERASE 20 U/L (14-36); BILIRUBIN,DIRECT 0.4 mg/dL (0.0-0.4); BILIRUBIN,TOTAL 0.4 mg/dL (0.2-1.3); BLOOD UREA NITROGEN 31 mg/dL (7-20); CALCIUM 10.6 mg/dL (8.4-10.2); CHLORIDE 92 mmol/L (98-107); TOTAL PROTEIN 7.5 g/dL (6.3-8.2)
[2018-04-28 09:38] LABS: SODIUM 139.1 mmol/L (137-145)
[2018-04-28 09:44] LABS: ANION GAP 42 (5-19)
[2018-04-28] MEDS: NORMAL SALINE 1000 ML 1,000 ML IV PRN ×5 (09:45→19:01)
[2018-04-28 09:49] LABS: CARBON DIOXIDE 5 mmol/L (22-30); POTASSIUM 6.7 mmol/L (3.6-5.0)
[2018-04-28] MEDS ORDERED: SODIUM BICARBONATE 4.2% INJ (2.5 MEQ/5 ML) VIAL INJ ONE (09:50)
[2018-04-28] MEDS ORDERED: SODIUM POLYSTYRENE SULFONATE 15 GM/60 ML PO ONE (09:52)
[2018-04-28] MEDS ORDERED: NORMAL SALINE 100 ML with INSULIN REGULAR, HUMAN 100 UNIT IV PRN ×4 (09:54→12:01)
[2018-04-28 10:03] LABS: GLUCOSE 725 mg/dL (75-110)
[2018-04-28 10:04] LABS: APPEARANCE,URINE CLEAR; BILIRUBIN,URINE NEGATIVE (NEGATIVE); COLOR,URINE STRAW; GLUCOSE, URINE >=500 mg/dL (NEGATIVE); KETONES,URINE 80 mg/dL (NEGATIVE); LEUKOCYTE ESTERASE,URINE NEGATIVE (NEGATIVE); NITRITE,URINE NEGATIVE (NEGATIVE); PROTEIN,URINE NEGATIVE (NEGATIVE); URINE SPECIFIC GRAVITY 1.016; UROBILINOGEN,URINE NEGATIVE mg/dL (<2.0)
[2018-04-28] MEDS ORDERED: CALCIUM GLUCONATE 1000 MG/10 ML INJ IV ONE (10:05)
--- NOTE | 2018-04-28 10:11 | RADIOLOGY REPORT (SQ) ---
EXAM DESCRIPTION: CHEST SINGLE VIEW COMPLETED DATE/TIME: 04/28/2018 10:03 am REASON FOR STUDY: hyperglycemia COMPARISON: 07/02/2015 EXAM PARAMETERS: NUMBER OF VIEWS: One view. TECHNIQUE: Single frontal radiographic view of the chest acquired. RADIATION DOSE: NA LIMITATIONS: None. FINDINGS: LUNGS AND PLEURA: No opacities, masses or pneumothorax. No pleural effusion. MEDIASTINUM AND HILAR STRUCTURES: No masses. Contour normal. HEART AND VASCULAR STRUCTURES: Heart normal in size. Normal vasculature. BONES: No acute findings. HARDWARE: None in the chest. OTHER: No other significant finding. IMPRESSION: 1 No significant interval changes since the prior examination dated 07/02/2015. No acute findings. TECHNICAL DOCUMENTATION: JOB ID: [id number] [employer]- All Rights Reserved Reading location - IP/workstation name: [email or web address]
[2018-04-28 10:18] LABS: URINE AMPHETAMINES SCREEN NEGATIVE; URINE BARBITURATES SCREEN NEGATIVE; URINE BENZODIAZEPINES SCREEN NEGATIVE; URINE COCAINE SCREEN NEGATIVE; URINE MARIJUANA (THC) SCREEN NEGATIVE; URINE METHADONE SCREEN NEGATIVE; URINE PHENCYCLIDINE SCREEN NEGATIVE
[2018-04-28 10:19] LABS: HEMATOCRIT 40.9 % (36.0-47.0); HEMOGLOBIN 12.8 g/dL (12.0-15.5); MEAN CORPUSCULAR HEMOGLOBIN 29.6 pg (27.0-33.4); MEAN CORPUSCULAR HGB CONC 31.4 g/dL (32.0-36.0); PLATELET COUNT 544 10^3/uL (150-450); RED BLOOD COUNT 4.34 10^6/uL (3.72-5.28); RED CELL DISTRIBUTION WIDTH 14.3 % (11.5-14.0); WHITE BLOOD COUNT 28.2 10^3/uL (4.0-10.5)
[2018-04-28 10:21] LABS: VENOUS BLOOD HCO3 6.1 mmol/L (20-32); VENOUS BLOOD PCO2 31.5 mmHg (35-63)
[2018-04-28 10:23] LABS: MEAN CORPUSCULAR VOLUME 94 fl (80-97)
[2018-04-28 10:28] LABS: VENOUS BLOOD PH 6.91 (7.30-7.42)
[2018-04-28] MEDS ORDERED: INSULIN REG, HUMAN 100 UNIT/ML 3 ML VIAL (PYX) ONE (10:31)
[2018-04-28 10:38] LABS: ABSOLUTE LYMPHOCYTES# (MANUAL) 3.1 10^3/uL (0.5-4.7); ABSOLUTE MONOCYTES # (MANUAL) 0.6 10^3/uL (0.1-1.4); ABSOLUTE NEUTROPHILS# (MANUAL) 24.5 10^3/uL (1.7-8.2); BAND NEUTROPHILS % (MANUAL) 2 % (3-5); BASOPHILS % (MANUAL) 0 % (0-2); EOSINOPHILS % (MANUAL) 0 % (0-6); LYMPHOCYTES % (MANUAL) 11 % (13-45); MONOCYTES % (MANUAL) 2 % (3-13); SEGMENTED NEUTROPHILS % (MAN) 85 % (42-78); TOTAL CELLS COUNTED 100
[2018-04-28 10:40] LABS: BURR CELLS 2+; PLATELET COMMENT INCREASED; POIKILOCYTOSIS 2+
[2018-04-28] MEDS ORDERED: SODIUM BICARBONATE 8.4% INJ 50 MEQ/50 ML DISP.SYRIN IV ONE (11:00)
[2018-04-28] MEDS ORDERED: ONDANSETRON HCL INJ/PF 4 MG/2 ML SDV IV PRN (11:56)
[2018-04-28] MEDS ORDERED: DEXTROSE 50%-WATER 25 GM/50 ML DISP.SYRIN IV PRN ×2 (12:01)
[2018-04-28] MEDS ORDERED: GLUCAGON,HUMAN RECOMB 1 MG INJ IM PRN (12:01)
[2018-04-28] MEDS ORDERED: DEXTROSE 40% GEL 15 GM TUBE PO PRN ×2 (12:01)
[2018-04-28 12:04] LABS: BLOOD UREA NITROGEN 26 mg/dL (7-20); CALCIUM 9.4 mg/dL (8.4-10.2); CHLORIDE 111 mmol/L (98-107)
[2018-04-28] MEDS ORDERED: HYDRALAZINE HCL INJ/PF 20 MG/1 ML SDV IV PRN (12:08)
[2018-04-28 12:11] LABS: SODIUM 145.6 mmol/L (137-145)
[2018-04-28 12:12] LABS: ANION GAP 28 (5-19)
[2018-04-28 12:15] LABS: CARBON DIOXIDE 7 mmol/L (22-30); GLUCOSE 507 mg/dL (75-110)
[2018-04-28 12:16] LABS: POTASSIUM 5.3 mmol/L (3.6-5.0)
--- NOTE | 2018-04-28 15:38 | EKG REPORT ---
SEVERITY:- OTHERWISE NORMAL ECG - SINUS TACHYCARDIA : Confirmed by: Lisette Arellano MD 28-Apr-2018 15:37:45
[2018-04-28 16:43] LABS: ALBUMIN 3.5 g/dL (3.5-5.0); BLOOD UREA NITROGEN 20 mg/dL (7-20); GLUCOSE 305 mg/dL (75-110); PHOSPHORUS 3.1 mg/dL (2.5-4.5)
[2018-04-28 16:48] LABS: CARBON DIOXIDE 11 mmol/L (22-30); CHLORIDE 113 mmol/L (98-107); SODIUM 145.2 mmol/L (137-145)
[2018-04-28 17:02] LABS: ANION GAP 21 (5-19)
[2018-04-28] MEDS ORDERED: PIPERACILLIN/TAZOBACTAM 3.375 GM VIAL IV SCH (19:45)
[2018-04-28 20:21] LABS: ANION GAP 15 (5-19); BLOOD UREA NITROGEN 18 mg/dL (7-20); CALCIUM 8.8 mg/dL (8.4-10.2); CARBON DIOXIDE 16 mmol/L (22-30); CHLORIDE 113 mmol/L (98-107); GLUCOSE 256 mg/dL (75-110); POTASSIUM 4.6 mmol/L (3.6-5.0); SODIUM 143.9 mmol/L (137-145)
[2018-04-28] MEDS: PIPERACILLIN SODIUM/TAZOBACTAM 3.375 GM in NORMAL SALINE 100 ML IV SCH (21:27)
[2018-04-29] MEDS ORDERED: INSULIN GLARGINE,HUM.REC.ANLOG 300 UNIT/3 ML INSULN.PEN SUBCUT ONE ×2 (00:30→00:43)
[2018-04-29] MEDS: DEXTROSE 5%-1/2 NORMAL SALINE 1,000 ML IV PRN ×2 (00:39→06:19)
[2018-04-29 01:09] LABS: ANION GAP 10 (5-19); BLOOD UREA NITROGEN 17 mg/dL (7-20); CALCIUM 8.9 mg/dL (8.4-10.2); CARBON DIOXIDE 19 mmol/L (22-30); CHLORIDE 114 mmol/L (98-107); GLUCOSE 76 mg/dL (75-110); POTASSIUM 4.3 mmol/L (3.6-5.0); SODIUM 142.7 mmol/L (137-145)
[2018-04-29] MEDS: PIPERACILLIN SODIUM/TAZOBACTAM 3.375 GM in NORMAL SALINE 100 ML IV SCH ×4 (03:20→21:39)
[2018-04-29 07:30] LABS: HEMATOCRIT 34.6 % (36.0-47.0); HEMOGLOBIN 11.3 g/dL (12.0-15.5); MEAN CORPUSCULAR HGB CONC 32.7 g/dL (32.0-36.0); PLATELET COUNT 422 10^3/uL (150-450); RED BLOOD COUNT 3.91 10^6/uL (3.72-5.28); RED CELL DISTRIBUTION WIDTH 13.9 % (11.5-14.0); WHITE BLOOD COUNT 14.3 10^3/uL (4.0-10.5)
[2018-04-29 07:31] LABS: ANION GAP 12 (5-19); BLOOD UREA NITROGEN 15 mg/dL (7-20); CALCIUM 8.5 mg/dL (8.4-10.2); CARBON DIOXIDE 17 mmol/L (22-30); CHLORIDE 109 mmol/L (98-107); GLUCOSE 329 mg/dL (75-110); POTASSIUM 4.3 mmol/L (3.6-5.0); SODIUM 138.1 mmol/L (137-145)
[2018-04-29 08:31] LABS: MEAN CORPUSCULAR VOLUME 89 fl (80-97)
[2018-04-29] MEDS: INSULIN LISPRO 100 UNIT/ML 3 ML VIAL SUBCUT PRN ×4 (08:39→21:39)
[2018-04-29 08:55] LABS: ABSOLUTE LYMPHOCYTES# (MANUAL) 1.6 10^3/uL (0.5-4.7); ABSOLUTE NEUTROPHILS# (MANUAL) 11.7 10^3/uL (1.7-8.2); BASOPHILS % (MANUAL) 0 % (0-2); EOSINOPHILS % (MANUAL) 0 % (0-6); LYMPHOCYTES % (MANUAL) 11 % (13-45); METAMYELOCYTES % (MANUAL) 1 % (0); MONOCYTES % (MANUAL) 7 % (3-13); SEGMENTED NEUTROPHILS % (MAN) 81 % (42-78); TOTAL CELLS COUNTED 100
[2018-04-29 08:56] LABS: OVALOCYTES 1+; PLATELET COMMENT ADEQUATE; POIKILOCYTOSIS 1+
[2018-04-29] MEDS: INSULIN LISPRO 100 UNIT/ML 3 ML VIAL SUBCUT SCH (16:08)
[2018-04-29] MEDS: INSULIN GLARGINE,HUM.REC.ANLOG 1,000 UNIT/10 ML UNIT SUBCUT SCH (17:42)
[2018-04-29] MEDS ORDERED: INSULIN GLARGINE,HUM.REC.ANLOG 1,000 UNIT/10 ML UNIT SUBCUT SCH (18:00)
[2018-04-29] MEDS: ACETAMINOPHEN 325 MG TABLET PO PRN (22:22)
--- NOTE | 2018-04-29 23:58 | PDOC PROGRESS REPORT ---
Subjective Progress Note for:: 04/29/18 Subjective:: SEAN FELIPE is a 32 year old female with PMH of polysubstance abuse, and DM admiting to not taking her insulin therapy at home due to running out. Presented in DKA, and has been subq insulin converted. Continue to titrate insulin dosing. Clinically she is improving with possible d/c tomorrow. Reason For Visit: DKA Physical Exam Vital Signs: Temp Pulse Resp BP Pulse Ox 99.2 F 86 16 105/65 98 04/29/18 19:48 04/29/18 19:48 04/29/18 19:48 04/29/18 19:48 04/29/18 19:48 Intake & Output 04/28/18 04/29/18 04/30/18 06:59 06:59 06:59 Intake Total 2950 896 Output Total 800 2700 Balance 2150 -1804 Weight 61.9 kg General appearance: PRESENT: no acute distress, mild distress Head exam: PRESENT: atraumatic, normocephalic Eye exam: PRESENT: EOMI, PERRLA Ear exam: PRESENT: normal external ear exam. ABSENT: drainage Mouth exam: PRESENT: moist, neck supple Throat exam: ABSENT: tonsillar erythema, tonsillar exudate Neck exam: ABSENT: meningismus, tenderness Respiratory exam: ABSENT: rales, rhonchi, wheezes Cardiovascular exam: PRESENT: RRR, +S1, +S2 Pulses: PRESENT: normal radial pulses, normal dorsalis pedis pul Vascular exam: PRESENT: normal capillary refill. ABSENT: pallor GI/Abdominal exam: PRESENT: normal bowel sounds, soft. ABSENT: rigid Extremities exam: ABSENT: calf tenderness, joint swelling Musculoskeletal exam: PRESENT: full ROM. ABSENT: ambulatory Neurological exam: PRESENT: alert, oriented to person, oriented to place, oriented to time Psychiatric exam: ABSENT: agitated, anxious Focused psych exam: ABSENT: delusional, paranoid Skin exam: PRESENT: normal color. ABSENT: dry, pallor Results Laboratory Results: 04/29/18 06:12 04/29/18 06:12 04/29/18 04/29/18 04/29/18 00:32 06:12 06:12 WBC 14.3 H RBC 3.91 Hgb 11.3 L Hct 34.6 L MCV 89 D MCH 29.0 MCHC 32.7 RDW 13.9 Plt Count 422 Seg Neutrophils % Not Reportable Lymphocytes % Not Reportable Monocytes % Not Reportable Eosinophils % Not Reportable Basophils % Not Reportable Absolute Neutrophils Not Reportable Absolute Lymphocytes Not Reportable Absolute Monocytes Not Reportable Absolute Eosinophils Not Reportable Absolute Basophils Not Reportable Sodium 142.7 138.1 Potassium 4.3 4.3 Chloride 114 H 109 H Carbon Dioxide 19 L 17 L Anion Gap 10 12 BUN 17 15 Creatinine 0.59 0.69 Est GFR ( Amer) > 60 > 60 Est GFR (Non-Af Amer) > 60 > 60 Glucose 76 329 H Calcium 8.9 8.5 Magnesium 1.8 Impressions: Chest X-Ray 04/28/18 09:05 IMPRESSION: 1 No significant interval changes since the prior examination dated 07/02/2015. No acute findings. Assessment & Plan - Diagnosis (1) DKA (diabetic ketoacidoses) Qualifiers: Diabetes mellitus type: type 1 Is this a current diagnosis for this admission?: Yes Plan: converted to subq insulin overnight. uncontroled BS this AM. d/c IVF with D5W. will titrate long acting and short acting insulins, continue DM diet. (2) Hyperglycemia due to type 1 diabetes mellitus Is this a current diagnosis for this admission?: Yes Plan: continue insulin per above (3) Hyperkalemia Is this a current diagnosis for this admission?: Yes Plan: resolved (4) GERD (gastroesophageal reflux disease) Qualifiers: Esophagitis presence: without esophagitis Qualified Code(s): K21.9 - Gastro -esophageal reflux disease without esophagitis Is this a current diagnosis for this admission?: Yes Plan: continue current medications (5) Leukocytosis Qualifiers: Leukocytosis type: unspecified Qualified Code(s): D72.829 - Elevated white blood cell count, unspecified Is this a current diagnosis for this admission?: Yes Plan: improving with DKA treatment. also described urinary symptoms, possible UTI, continue IV Zosyn - Time Time Spent with patient: 15-24 minutes - Inpatient Certification I certify that my determination is in accordance with my understanding of Medicare's requirements for reasonable and necessary INPATIENT services [42 CFR 412.3e].: Yes Medical Necessity: Need Close Monitoring Due to Risk of Patient Decompensation
[2018-04-30] MEDS: PIPERACILLIN SODIUM/TAZOBACTAM 3.375 GM in NORMAL SALINE 100 ML IV SCH ×4 (03:39→21:27)
[2018-04-30 05:21] LABS: HEMATOCRIT 32.3 % (36.0-47.0); MEAN CORPUSCULAR HEMOGLOBIN 29.6 pg (27.0-33.4); MEAN CORPUSCULAR HGB CONC 33.9 g/dL (32.0-36.0); MEAN CORPUSCULAR VOLUME 87 fl (80-97); PLATELET COUNT 367 10^3/uL (150-450); RED CELL DISTRIBUTION WIDTH 13.8 % (11.5-14.0); WHITE BLOOD COUNT 9.8 10^3/uL (4.0-10.5)
[2018-04-30 05:44] LABS: ALBUMIN 2.4 g/dL (3.5-5.0); BLOOD UREA NITROGEN 12 mg/dL (7-20); CALCIUM 8.3 mg/dL (8.4-10.2); CHLORIDE 103 mmol/L (98-107); GLUCOSE 261 mg/dL (75-110); PHOSPHORUS 2.3 mg/dL (2.5-4.5); POTASSIUM 3.4 mmol/L (3.6-5.0); SODIUM 139.3 mmol/L (137-145)
[2018-04-30 05:53] LABS: ANION GAP 7 (5-19)
[2018-04-30 05:57] LABS: CARBON DIOXIDE 29 mmol/L (22-30)
[2018-04-30] MEDS ORDERED: POTASSIUM CHLORIDE 10 MEQ CAPSULE.ER PO ONE (09:00)
[2018-04-30] MEDS ORDERED: PHOSPHORUS #1 250 MG TABLET PO ONE (09:00)
[2018-04-30] MEDS: INSULIN LISPRO 100 UNIT/ML 3 ML VIAL SUBCUT PRN ×4 (09:16→22:45)
[2018-04-30] MEDS: INSULIN GLARGINE,HUM.REC.ANLOG 1,000 UNIT/10 ML UNIT SUBCUT SCH ×2 (09:16→17:48)
[2018-04-30] MEDS: INSULIN LISPRO 100 UNIT/ML 3 ML VIAL SUBCUT SCH ×3 (09:16→16:27)
--- NOTE | 2018-04-30 09:32 | PDOC H&P ---
History of Present Illness Admission Date/PCP: 04/28/18 11:58 TAM LOPEZ DO Patient complains of: lethargy, elevated blood sugar History of Present Illness: SEAN FELIPE is a 32 year old female with PMH of polysubstance abuse, and DM admiting to not taking her insulin therapy at home. BS was 787, Bicarb was 5, and anion gap of 28. Patient was given a 10 unit shot in the ED, and started on IV insulin infusion. She was lethargic, but oriented x3 on exam. No focal deficits. Elevated Leukocytosis to 28. UA was not consistent with UTI. CXR is clear without any acute cardiopulmonary process. Blood cultures taken and pending at present. Patient will be continued on IV insulin infusion at present. Basic metabolic panels will be ordered every 6 hours. Will be continued on IV fluids support and 150 cc/h of normal saline. Patient was given 2800 cc in bolus fluid support in the ED. Patient was also noted to have hyperkalemia with a potassium of 6.7, treated with sodium bicarbonate and calcium gluconate in the ED. We will monitor his potassium level. Past Medical History Medical History: Other - Polysubstance abuse history Cardiac Medical History: Denies: Myocardial Infarction, Hypertension Neurological Medical History: Denies: Seizures Endocrine Medical History: Reports: Diabetes Mellitus Type 1 GI Medical History: Denies: Hepatitis, Hiatal Hernia Psychiatric Medical History: Denies: Depression Hematology: Denies: Anemia, Sickle Cell Disease Past Surgical History Past Surgical History: Reports: Tonsillectomy Denies: Amputation, Mastectomy, Pacemaker Social History Smoking Status: Current Some Day Smoker - Describes occasional/social smoking. Frequency of Alcohol Use: Social Amount of Alcoholic Beverages Per Day: Describes 3-4 drinks socially. Hx Recreational Drug Use: Yes Drugs: Marijuana, Other Hx Prescription Drug Abuse: No Family History Family History: DM, Other - Mother described as an asthmatic, father had hepatitis C Parental Family History Reviewed: Yes Children Family History Reviewed: No Sibling(s) Family History Reviewed.: No Medication/Allergy Home Medications: Insulin Aspart [Novolog Flexpen] 0 units SQ .PERSLIDINGSCALE 04/28/18 Insulin Glargine,Hum.rec.anlog [Lantus Solostar] 50 units SQ QHS 04/28/18 Allergies/Adverse Reactions: No Known Allergies Allergy (Verified 04/28/18 09:09) Review of Systems Constitutional: PRESENT: fatigue. ABSENT: chills, fever(s) Eyes: ABSENT: visual disturbances Ears: ABSENT: hearing changes Nose, Mouth, and Throat: ABSENT: headache(s), mouth pain Cardiovascular: ABSENT: chest pain, edema Gastrointestinal: ABSENT: abdominal pain, diarrhea Genitourinary: ABSENT: dysuria Musculoskeletal: ABSENT: deformity, joint swelling Integumentary: ABSENT: diaphoresis, lesions Neurological: ABSENT: frequent falls, numbness Psychiatric: ABSENT: anxiety, hallucinations Endocrine: ABSENT: cold intolerance, heat intolerance Hematologic/Lymphatic: ABSENT: easy bruising, lymphadenopathy Physical Exam Vital Signs: Temp Pulse Resp BP Pulse Ox 99.1 F 86 18 124/70 100 04/28/18 17:13 04/28/18 17:13 04/28/18 17:13 04/28/18 17:13 04/28/18 17:13 Intake & Output 04/27/18 04/28/18 04/29/18 06:59 06:59 06:59 Intake Total 320 Balance 320 Weight 58.7 kg General appearance: PRESENT: mild distress, thin Head exam: PRESENT: atraumatic, normocephalic Eye exam: PRESENT: EOMI, PERRLA Ear exam: PRESENT: normal external ear exam. ABSENT: drainage Mouth exam: PRESENT: moist, neck supple Throat exam: ABSENT: tonsillar erythema, tonsillar exudate Neck exam: PRESENT: full ROM. ABSENT: JVD Respiratory exam: ABSENT: rales, rhonchi, wheezes Cardiovascular exam: PRESENT: RRR, +S1, +S2. ABSENT: rubs Vascular exam: PRESENT: normal capillary refill. ABSENT: pallor GI/Abdominal exam: PRESENT: normal bowel sounds, soft. ABSENT: rigid Neurological exam: PRESENT: altered, oriented to person, oriented to place, oriented to time, CN II-XII grossly intact, other - Lethargic, altered mentation overall. Psychiatric exam: ABSENT: agitated, anxious Focused psych exam: ABSENT: delusional, paranoid Skin exam: PRESENT: normal color. ABSENT: mottled, warm Results Laboratory Results: 04/28/18 16:10 04/28/18 04/28/18 13:55 16:10 Sodium 145.2 H Potassium 5.0 Chloride 113 H Carbon Dioxide 11 L Anion Gap 21 H BUN 20 Creatinine 0.72 Est GFR ( Amer) > 60 Est GFR (Non-Af Amer) > 60 Glucose 305 H Lactic Acid 2.3 H Calcium 9.0 Phosphorus 3.1 Albumin 3.5 Impressions: Chest X-Ray 04/28/18 09:05 IMPRESSION: 1 No significant interval changes since the prior examination dated 07/02/2015. No acute findings. Assessment & Plan - Diagnosis (1) DKA (diabetic ketoacidoses) Qualifiers: Diabetes mellitus type: type 1 Is this a current diagnosis for this admission?: Yes Plan: Continue IV insulin infusion, continue IV normal saline fluid at 150 cc/h. Check A1C. Continue repeat BMP approximately every 6 hours. Will hold on subcu conversion until likely tomorrow, after patient's anion gap has improved. Patient will need significant reeducation given her insulin noncompliance. Will remain n.p.o. at present. (2) Hyperglycemia due to type 1 diabetes mellitus Is this a current diagnosis for this admission?: Yes Plan: Please see the above instructions. (3) Hyperkalemia Is this a current diagnosis for this admission?: Yes Plan: Patient was given sodium bicarbonate treatment, insulin treatment, and calcium gluconate in the ED. Repeat potassium level was showing improvement. Will q. 6 hour monitor anion gap and potassium. A new IV fluid support with normal saline. (4) GERD (gastroesophageal reflux disease) Qualifiers: Esophagitis presence: without esophagitis Qualified Code(s): K21.9 - Gastro -esophageal reflux disease without esophagitis Is this a current diagnosis for this admission?: Yes Plan: We will give pantoprazole (5) Leukocytosis Qualifiers: Leukocytosis type: unspecified Qualified Code(s): D72.829 - Elevated white blood cell count, unspecified Is this a current diagnosis for this admission?: Yes Plan: Unclear if this is all a stress response/demargination. UA was not consistent with urinary tract infection. Chest x-ray was not consistent with any acute cardiopulmonary process. Given patient's lethargy and her limited airway protection noted on exam and the risk for aspiration pneumonia, will empirically start IV Zosyn, and drawing blood cultures 2 at present. (6) Polysubstance abuse Is this a current diagnosis for this admission?: Yes Plan: Patient has a history of polysubstance abuse including marijuana and methamphetamine use. Will check Drug screen now. - Time Time Spent: 30 to 50 Minutes - Inpatient Certification I certify that my determination is in accordance with my understanding of Medicare's requirements for reasonable and necessary INPATIENT services [42 CFR 412.3e].: Yes Medical Necessity: Need Close Monitoring Due to Risk of Patient Decompensation - Plan Summary Plan Summary: inpatient status needed for supportive care at present. Continue IV insulin infusion.
[2018-04-30] MEDS: IBUPROFEN 600 MG TABLET PO PRN ×2 (10:51→21:34)
[2018-04-30] MEDS: PHOSPHORUS #1 250 MG TABLET PO SCH (16:29)
--- NOTE | 2018-04-30 18:27 | PDOC PROGRESS REPORT ---
Subjective Progress Note for:: 04/30/18 Subjective:: SEAN FELIPE is a 32 year old female with PMH of polysubstance abuse, and DM admiting to not taking her insulin therapy at home due to running out. She presented in DKA, and has has been treated with some insulin and clinically improved. Blood cultures are growing E. coli. Denies fever or chills at this time, no nausea vomiting, no chest pain or shortness of breath or palpitations. Reason For Visit: DKA Physical Exam Vital Signs: Temp Pulse Resp BP Pulse Ox 98.9 F 75 16 105/62 100 04/30/18 14:50 04/30/18 14:50 04/30/18 14:50 04/30/18 14:50 04/30/18 14:50 Intake & Output 04/29/18 04/30/18 05/01/18 06:59 06:59 06:59 Intake Total 2950 2756 1875 Output Total 800 2700 2700 Balance 2150 56 -825 Weight 61.9 kg 63.3 kg GENERAL: Well-developed, no acute distress HEENT: Normocephalic/atraumatic NECK supple, no JVD CARDIOVASCULAR: RRR, normal S1-S2 LUNGS: CTA bilaterally ABDOMEN: Soft, NT, NL bowel sounds EXTREMITIES: No edema, clubbing, cyanosis NEUROLOGICAL: Alert, oriented x 3, nonfocal Results Laboratory Results: 04/30/18 04:54 04/30/18 04:54 04/30/18 04/30/18 04:54 04:54 WBC 9.8 RBC 3.70 L Hgb 11.0 L Hct 32.3 L MCV 87 MCH 29.6 MCHC 33.9 RDW 13.8 Plt Count 367 Sodium 139.3 Potassium 3.4 L Chloride 103 Carbon Dioxide 29 D Anion Gap 7 BUN 12 Creatinine 0.55 Est GFR ( Amer) > 60 Est GFR (Non-Af Amer) > 60 Glucose 261 H Calcium 8.3 L Phosphorus 2.3 L Albumin 2.4 L Impressions: Chest X-Ray 04/28/18 09:05 IMPRESSION: 1 No significant interval changes since the prior examination dated 07/02/2015. No acute findings. Assessment & Plan - Plan Summary Plan Summary: (1) DKA (diabetic ketoacidoses) Qualifiers: Diabetes mellitus type: type 1 Is this a current diagnosis for this admission?: Yes Plan: converted to subq insulin. Continue to adjust insulin. (2) Hyperglycemia due to type 1 diabetes mellitus Is this a current diagnosis for this admission?: Yes Plan: continue insulin per above (3) Hyperkalemia Is this a current diagnosis for this admission?: Yes Plan: resolved (4) GERD (gastroesophageal reflux disease) Qualifiers: Esophagitis presence: without esophagitis Qualified Code(s): K21.9 - Gastro -esophageal reflux disease without esophagitis Is this a current diagnosis for this admission?: Yes Plan: continue current medications (5) bacteremia, suspected UTI, and leukocytosis Qualifiers: Leukocytosis type: unspecified Qualified Code(s): D72.829 - Elevated white blood cell count, unspecified Is this a current diagnosis for this admission?: Yes Plan: improving with DKA treatment. also described urinary symptoms, possible UTI, continue IV Zosyn Recheck blood cultures.
[2018-05-01] MEDS: PIPERACILLIN SODIUM/TAZOBACTAM 3.375 GM in NORMAL SALINE 100 ML IV SCH ×4 (03:08→21:38)
[2018-05-01 05:07] LABS: ABSOLUTE EOSINOPHILS # (AUTO) 0.1 10^3/uL (0.0-0.6); ABSOLUTE LYMPHOCYTES (AUTO) 2.7 10^3/uL (0.5-4.7); ABSOLUTE MONOCYTES (AUTO) 0.5 10^3/uL (0.1-1.4); ABSOLUTE NEUT (AUTO) 3.4 10^3/uL (1.7-8.2); BASOPHILS % (AUTO) 0.3 % (0-2); EOSINOPHILS % (AUTO) 1.1 % (0-6); HEMATOCRIT 32.5 % (36.0-47.0); MEAN CORPUSCULAR HEMOGLOBIN 29.5 pg (27.0-33.4); MEAN CORPUSCULAR HGB CONC 33.7 g/dL (32.0-36.0); MEAN CORPUSCULAR VOLUME 88 fl (80-97); MONOCYTES % (AUTO) 7.6 % (3-13); PLATELET COUNT 340 10^3/uL (150-450); RED BLOOD COUNT 3.71 10^6/uL (3.72-5.28); RED CELL DISTRIBUTION WIDTH 13.7 % (11.5-14.0); TOTAL CELLS COUNTED % (AUTO) 100 %; WHITE BLOOD COUNT 6.7 10^3/uL (4.0-10.5)
[2018-05-01 05:26] LABS: ANION GAP 8 (5-19); BLOOD UREA NITROGEN 13 mg/dL (7-20); CALCIUM 9.1 mg/dL (8.4-10.2); CARBON DIOXIDE 30 mmol/L (22-30); CHLORIDE 101 mmol/L (98-107); GLUCOSE 377 mg/dL (75-110); SODIUM 138.7 mmol/L (137-145)
[2018-05-01] MEDS: INSULIN LISPRO 100 UNIT/ML 3 ML VIAL SUBCUT SCH ×3 (08:26→16:52)
[2018-05-01] MEDS: INSULIN GLARGINE,HUM.REC.ANLOG 1,000 UNIT/10 ML UNIT SUBCUT SCH ×2 (08:26→16:52)
[2018-05-01] MEDS: INSULIN LISPRO 100 UNIT/ML 3 ML VIAL SUBCUT PRN ×4 (08:26→22:24)
[2018-05-01] MEDS: PHOSPHORUS #1 250 MG TABLET PO SCH ×2 (08:30→16:53)
[2018-05-01] MEDS: ACETAMINOPHEN 325 MG TABLET PO PRN (08:41)
[2018-05-01] MEDS ORDERED: HYDROXYZINE PAMOATE 25 MG CAPSULE PO PRN (12:17)
--- NOTE | 2018-05-01 18:44 | PDOC PROGRESS REPORT ---
Subjective Progress Note for:: 05/01/18 Subjective:: SEAN FELIPE is a 32 year old female with PMH of polysubstance abuse, and DM admiting to not taking her insulin therapy at home due to running out. She presented in DKA, and has has been treated with some insulin and clinically improved. Blood cultures are growing E. coli sensitive to Zosyn. Denies fever or chills at this time, no nausea vomiting, no chest pain or shortness of breath or palpitations. Repeat blood cultures done and result pending. Reason For Visit: DKA Physical Exam Vital Signs: Temp Pulse Resp BP Pulse Ox 98.0 F 83 18 148/101 H 100 05/01/18 11:34 05/01/18 13:53 05/01/18 11:34 05/01/18 11:34 05/01/18 11:34 Intake & Output 04/30/18 05/01/18 05/02/18 06:59 06:59 06:59 Intake Total 2756 2579 3767 Output Total 2700 Balance 56 2579 3767 Weight 63.3 kg 62.6 kg GENERAL: Well-developed, no acute distress HEENT: Normocephalic/atraumatic NECK supple, no JVD CARDIOVASCULAR: RRR, normal S1-S2 LUNGS: CTA bilaterally ABDOMEN: Soft, NT, NL bowel sounds EXTREMITIES: No edema, clubbing, cyanosis NEUROLOGICAL: Alert, oriented x 3, nonfocal Results Laboratory Results: 05/01/18 04:37 05/01/18 04:37 05/01/18 05/01/18 04:37 04:37 WBC 6.7 RBC 3.71 L Hgb 11.0 L Hct 32.5 L MCV 88 MCH 29.5 MCHC 33.7 RDW 13.7 Plt Count 340 Seg Neutrophils % 51.0 Lymphocytes % 40.0 Monocytes % 7.6 Eosinophils % 1.1 Basophils % 0.3 Absolute Neutrophils 3.4 Absolute Lymphocytes 2.7 Absolute Monocytes 0.5 Absolute Eosinophils 0.1 Absolute Basophils 0.0 Sodium 138.7 Potassium 4.0 Chloride 101 Carbon Dioxide 30 Anion Gap 8 BUN 13 Creatinine 0.55 Est GFR ( Amer) > 60 Est GFR (Non-Af Amer) > 60 Glucose 377 H Calcium 9.1 Impressions: Chest X-Ray 04/28/18 09:05 IMPRESSION: 1 No significant interval changes since the prior examination dated 07/02/2015. No acute findings. Assessment & Plan - Plan Summary Plan Summary: (1) DKA (diabetic ketoacidoses) Qualifiers: Diabetes mellitus type: type 1 Is this a current diagnosis for this admission?: Yes Plan: converted to subq insulin. Continue to adjust insulin. Patient uses Lantus 50 units nightly at home and 7 units before meals She is not very compliant with diet restriction he had a hospital (2) Hyperglycemia due to type 1 diabetes mellitus Is this a current diagnosis for this admission?: Yes Plan: continue insulin per above (3) Hyperkalemia Is this a current diagnosis for this admission?: Yes Plan: resolved (4) GERD (gastroesophageal reflux disease) Qualifiers: Esophagitis presence: without esophagitis Qualified Code(s): K21.9 - Gastro -esophageal reflux disease without esophagitis Is this a current diagnosis for this admission?: Yes Plan: continue current medications (5) bacteremia likely secondary to UTI, leukocytosis Qualifiers: Leukocytosis type: unspecified Qualified Code(s): D72.829 - Elevated white blood cell count, unspecified Is this a current diagnosis for this admission?: Yes Plan: improving with DKA treatment. also described urinary symptoms, possible UTI, continue IV Zosyn Follow-up repeat blood culture results. Patient can likely be discharged home o in a.m. n p.o. antibiotics for 2 additional weeks if repeat blood cultures negative.
[2018-05-02] MEDS: PIPERACILLIN SODIUM/TAZOBACTAM 3.375 GM in NORMAL SALINE 100 ML IV SCH (03:50)
[2018-05-02] MEDS: PHOSPHORUS #1 250 MG TABLET PO SCH (08:04)
[2018-05-02] MEDS: INSULIN LISPRO 100 UNIT/ML 3 ML VIAL SUBCUT PRN (08:04)
[2018-05-02] MEDS: INSULIN LISPRO 100 UNIT/ML 3 ML VIAL SUBCUT SCH (08:04)
--- NOTE | 2018-05-02 09:25 | PDOC DISCHARGE SUMMARY ---
General - Admit/Disc Date/PCP Admission Date/Primary Care Provider: 04/28/18 11:58 TAM LOPEZ, Discharge Date: 05/02/18 - Discharge Diagnosis (1) DKA (diabetic ketoacidoses) Is this a current diagnosis for this admission?: Yes (2) Hyperkalemia Is this a current diagnosis for this admission?: Yes (4) GERD (gastroesophageal reflux disease) Is this a current diagnosis for this admission?: Yes - Additional Information Resuscitation Status: Full Code Discharge Diet: Diabetic Discharge Activity: Activity As Tolerated, Balance Activity w/Rest Prescriptions: Cefuroxime Axetil [Ceftin 500 mg Tablet] 500 mg PO Q12 #20 tablet Fluconazole [Diflucan] 150 mg PO DAILY #5 tablet Home Medications: Insulin Aspart [Novolog Flexpen] 0 units SQ .PERSLIDINGSCALE 04/28/18 Insulin Glargine,Hum.rec.anlog [Lantus Solostar] 50 units SQ QHS 04/28/18 Acetaminophen [Tylenol 325 mg Tablet] 650 mg PO Q4HP PRN tablet 05/02/18 Cefuroxime Axetil [Ceftin 500 mg Tablet] 500 mg PO Q12 #20 tablet 05/02/18 Fluconazole [Diflucan] 150 mg PO DAILY #5 tablet 05/02/18 History of Present Illness History of Present Illness: SEAN FELIPE is a 32 year old female with PMH of polysubstance abuse, and DM admiting to not taking her insulin therapy at home. BS was 787, Bicarb was 5, and anion gap of 28. Patient was given a 10 unit shot in the ED, and started on IV insulin infusion. She was lethargic, but oriented x3 on exam. No focal deficits. Elevated Leukocytosis to 28. UA was not consistent with UTI. CXR is clear without any acute cardiopulmonary process. Blood cultures taken and pending at present. Patient will be continued on IV insulin infusion at present. Basic metabolic panels will be ordered every 6 hours. Will be continued on IV fluids support and 150 cc/h of normal saline. Patient was given 2800 cc in bolus fluid support in the ED. Patient was also noted to have hyperkalemia with a potassium of 6.7, treated with sodium bicarbonate and calcium gluconate in the ED. We will monitor her potassium level Hospital Course Hospital Course: . Patient was admitted to [facility] on telemetry. She was started on IV insulin. Her anion gap eventually closed. She was started on a diabetic diet. Her acidosis resolved. She discontinued on IV broad-spectrum antibiotics. 1 out of 2 blood cultures grew gram-negative rods. This later grew out eschericia coli. Urinalysis had only shown a small amount of blood. She was having her menstrual period. Repeat blood cultures were negative. She will be continued on antibiotic coverage for a total 14 days. She was transitioned to oral Ceftin. Today she feels well. She is back on her normal dose of Lantus. She is ready for discharge home. She will follow-up within the next week with her primary care provider. Physical Exam Vital Signs: Temp Pulse Resp BP Pulse Ox 97.7 F 67 18 97/70 L 100 05/02/18 04:00 05/02/18 07:00 05/02/18 04:00 05/02/18 04:00 05/02/18 04:00 Intake & Output 05/01/18 05/02/18 05/03/18 06:59 06:59 06:59 Intake Total 2579 4617 Balance 2579 4617 Weight 62.6 kg 63.7 kg General appearance: PRESENT: no acute distress, well-developed, well-nourished Head exam: PRESENT: atraumatic, normocephalic Eye exam: PRESENT: conjunctiva pink, EOMI, PERRLA. ABSENT: scleral icterus Ear exam: PRESENT: normal external ear exam Mouth exam: PRESENT: moist, tongue midline Neck exam: ABSENT: carotid bruit, JVD, lymphadenopathy, thyromegaly Respiratory exam: PRESENT: clear to auscultation black. ABSENT: rales, rhonchi, wheezes Cardiovascular exam: PRESENT: RRR. ABSENT: diastolic murmur, rubs, systolic murmur Pulses: PRESENT: normal dorsalis pedis pul Vascular exam: PRESENT: normal capillary refill GI/Abdominal exam: PRESENT: normal bowel sounds, soft. ABSENT: distended, guarding, mass, organolmegaly, rebound, tenderness Rectal exam: PRESENT: deferred Extremities exam: PRESENT: full ROM. ABSENT: calf tenderness, clubbing, pedal edema Neurological exam: PRESENT: alert, awake, oriented to person, oriented to place , oriented to time, oriented to situation, CN II-XII grossly intact. ABSENT: motor sensory deficit Psychiatric exam: PRESENT: appropriate affect, normal mood. ABSENT: homicidal ideation, suicidal ideation Skin exam: PRESENT: dry - candidiasis between fingers and toes, rash, warm Results Laboratory Results: 05/01/18 04:37 05/01/18 04:37 Impressions: Chest X-Ray 04/28/18 09:05 IMPRESSION: 1 No significant interval changes since the prior examination dated 07/02/2015. No acute findings. Qualifiers - * PATIENT BEING DISCHARGED WITH ANY OF THE FOLLOWING DIAGNOSIS: No Plan Discharge Plan: Home Time Spent: Less than 30 Minutes
[2018-05-02 09:37] VITALS: BP 122/88
[2018-05-02] MEDS ORDERED: INSULIN GLARGINE,HUM.REC.ANLOG 1,000 UNIT/10 ML UNIT SUBCUT SCH (10:00)
[2018-05-02] MEDS ORDERED: CEFUROXIME 500 MG TABLET PO SCH (10:00)
== END 2018-05-02 09:50 | disposition home or self-care (01) | DRG 638 ==
LOC: ER 08:46 → EH 11:58 → 3W 17:04
PROVIDERS: ADMIT Internal Medicine; ATTEND Internal Medicine
DX: E10.10 Type 1 diabetes mellitus with ketoacidosis without coma (principal); R78.81 Bacteremia; T38.3X6A Underdosing of insulin and oral hypoglycemic [antidiabetic] drugs, initial encounter; E87.5 Hyperkalemia; K21.9 Gastro-esophageal reflux disease without esophagitis; F17.200 Nicotine dependence, unspecified, uncomplicated; B96.20 Unspecified Escherichia coli [E. coli] as the cause of diseases classified elsewhere; D72.829 Elevated white blood cell count, unspecified; Z79.4 Long term (current) use of insulin; Z83.3 Family history of diabetes mellitus; Z84.89 Family history of other specified conditions; Z86.59 Personal history of other mental and behavioral disorders; Z91.138 Patient's unintentional underdosing of medication regimen for other reason
CPT/HCPCS: 36415; 71045; 80048; 80053; 80069; 80307; 81001; 82803; 82962; 83036; 83605; 83735; 84702; 85025; 85027; 87040; 87077; 87186; 93005; 93010; 96361; 96374; 99285; J0610; J1815; J2543; J3490; J7030

== ENCOUNTER 2018-06-06 10:04 | Inpatient (IN) | payer MEDICAID ==
[2018-06-06] MEDS ORDERED: INSULIN REG, HUMAN 100 UNIT/ML 3 ML VIAL (PYX) IV ONE (10:24)
--- NOTE | 2018-06-06 10:26 | ER Document Report ---
ED Medical Screen (RME) - General Chief Complaint: High Blood Sugar Stated Complaint: BLOOD SUGAR Time Seen by Provider: 06/06/18 10:22 Notes: 32 years old female with type 1 diabetes on insulin, Humalog and Lantus, did not take her Lantus last night. Last night sugar was 370, woke up this morning generally weak and tired general malaise. Checked her sugar it was 360. Denies any fever chills denies any headache. But nauseous and vomited a few times. Denies any diarrhea. Denies any dysuria frequency urgency. Denies any drug abuse. TRAVEL OUTSIDE OF THE [place] IN LAST 30 DAYS: No - Related Data Allergies/Adverse Reactions: No Known Allergies Allergy (Verified 06/06/18 10:16) Past Medical History - Past Medical History Cardiac Medical History: Denies: Hx Heart Attack, Hx Hypertension Neurological Medical History: Denies: Hx Cerebrovascular Accident, Hx Seizures Endocrine Medical History: Reports: Hx Diabetes Mellitus Type 1 Renal/ Medical History: Denies: Hx Peritoneal Dialysis GI Medical History: Denies: Hx Hepatitis, Hx Hiatal Hernia, Hx Ulcer Skin Medical History: Reports Hx Cellulitis Psychiatric Medical History: Denies: Hx Depression Infectious Medical History: Denies: Hx Hepatitis Past Surgical History: Reports: Hx Tonsillectomy. Denies: Hx Mastectomy, Hx Open Heart Surgery, Hx Pacemaker - Immunizations Hx Diphtheria, Pertussis, Tetanus Vaccination: Yes Physical Exam - Vital signs Vitals: Temp Pulse Resp BP Pulse Ox 97.7 F 84 24 H 121/71 99 06/06/18 10:08 06/06/18 10:08 06/06/18 10:08 06/06/18 10:08 06/06/18 10:08 Course - Vital Signs Vital signs: Temp Pulse Resp BP Pulse Ox 97.7 F 84 24 H 121/71 99 06/06/18 10:08 06/06/18 10:08 06/06/18 10:08 06/06/18 10:08 06/06/18 10:08 Doctor's Discharge - Discharge Referrals: TAM LOPEZ DO [Primary Care Provider] - Follow up as needed
[2018-06-06] MEDS ORDERED: PROCHLORPERAZINE EDISYLATE INJ 10 MG/2 ML VIAL IM ONE (10:31)
[2018-06-06] MEDS ORDERED: NORMAL SALINE 1000 ML 1,000 ML IV ONE (10:53)
[2018-06-06 11:01] LABS: VENOUS BLOOD HCO3 9.6 mmol/L (20-32); VENOUS BLOOD PCO2 31.7 mmHg (35-63)
[2018-06-06 11:02] LABS: ABSOLUTE LYMPHOCYTES (AUTO) 1.8 10^3/uL (0.5-4.7); ABSOLUTE MONOCYTES (AUTO) 0.4 10^3/uL (0.1-1.4); ABSOLUTE NEUT (AUTO) 12.8 10^3/uL (1.7-8.2); BASOPHILS % (AUTO) 0.3 % (0-2); EOSINOPHILS % (AUTO) 0.1 % (0-6); HEMATOCRIT 46.5 % (36.0-47.0); HEMOGLOBIN 14.9 g/dL (12.0-15.5); LYMPHOCYTES % (AUTO) 11.8 % (13-45); MEAN CORPUSCULAR HEMOGLOBIN 29.1 pg (27.0-33.4); MEAN CORPUSCULAR VOLUME 91 fl (80-97); MONOCYTES % (AUTO) 2.5 % (3-13); PLATELET COUNT 411 10^3/uL (150-450); RED BLOOD COUNT 5.11 10^6/uL (3.72-5.28); RED CELL DISTRIBUTION WIDTH 15.1 % (11.5-14.0); SEGMENTED NEUTROPHILS % (AUTO) 85.3 % (42-78); TOTAL CELLS COUNTED % (AUTO) 100 %
--- NOTE | 2018-06-06 11:03 | ER Document Report ---
ED Blood Sugar Problem - General Chief Complaint: High Blood Sugar Stated Complaint: BLOOD SUGAR Time Seen by Provider: 06/06/18 10:22 Notes: 32-year-old female patient emergency department for hyperglycemia. Patient thinks that she is in DKA. History of type 1 diabetes. Noncompliance. Does smoke. Does drink alcohol. States that she is under a lot of stress recently. Has been vomiting all day yesterday and today. Daughter states that she has not taken any of her insulin and has been eating a lot of "carbs". TRAVEL OUTSIDE OF THE [place] IN LAST 30 DAYS: No - HPI Onset: Yesterday Onset/Duration: Sudden, Worse Quality of pain: No pain Severity: Moderate Associated symptoms: Fruity breath, Nausea, Vomiting Similar symptoms previously: Yes Recently seen / treated by doctor: No - Related Data Allergies/Adverse Reactions: No Known Allergies Allergy (Verified 06/06/18 10:16) Past Medical History - General Information source: Patient - Social History Smoking Status: Current Some Day Smoker Cigarette use (# per day): Yes Chew tobacco use (# tins/day): No Frequency of alcohol use: None Drug Abuse: Marijuana Lives with: Family Family History: DM, Other - Mother described as an asthmatic, father had hepatitis C Patient has suicidal ideation: No Patient has homicidal ideation: No - Past Medical History Cardiac Medical History: Denies: Hx Heart Attack, Hx Hypertension Neurological Medical History: Denies: Hx Cerebrovascular Accident, Hx Seizures Endocrine Medical History: Reports: Hx Diabetes Mellitus Type 1 Renal/ Medical History: Denies: Hx Peritoneal Dialysis GI Medical History: Reports: Hx Gastroesophageal Reflux Disease. Denies: Hx Hepatitis, Hx Hiatal Hernia, Hx Ulcer Skin Medical History: Reports Hx Cellulitis Psychiatric Medical History: Denies: Hx Depression Infectious Medical History: Denies: Hx Hepatitis Past Surgical History: Reports: Hx Tonsillectomy. Denies: Hx Mastectomy, Hx Open Heart Surgery, Hx Pacemaker - Immunizations Hx Diphtheria, Pertussis, Tetanus Vaccination: Yes Review of Systems - Review of Systems Constitutional: Malaise, Weakness. denies: Fever EENT: denies: Double vision, Difficulty swallowing, Mouth pain Cardiovascular: denies: Chest pain, Palpitations, Heart racing Respiratory: denies: Cough, Hurts to breathe, Short of breath Gastrointestinal: Abdominal pain, Nausea, Vomiting. denies: Diarrhea Genitourinary: denies: Burning, Dysuria, Discharge Female Genitourinary: denies: , Vaginal discharge, Vaginal odor Musculoskeletal: denies: Back pain, Joint pain, Muscle pain Skin: denies: Change in color, Dryness, Lesions, Lumps, Rash Hematologic/Lymphatic: denies: Anemia, Blood clots, Easy bleeding, Easy bruising Neurological/Psychological: denies: Confusion, Weakness, Numbness Physical Exam - Vital signs Vitals: Temp Pulse Resp BP Pulse Ox 97.7 F 84 24 H 121/71 99 06/06/18 10:08 06/06/18 10:08 06/06/18 10:08 06/06/18 10:08 06/06/18 10:08 Interpretation: Normal - Notes Notes: Strong smell of ketones on her breath - General General appearance: Appears well, Alert - HEENT Head: Normocephalic, Atraumatic Eyes: Normal Pupils: PERRL Mucous membranes: Dry - Respiratory Respiratory status: Tachypnea Chest status: Nontender Breath sounds: Normal Chest palpation: Normal - Cardiovascular Rhythm: Regular Heart sounds: Normal auscultation Murmur: No - Abdominal Inspection: Normal Distension: No distension Bowel sounds: Normal Tenderness: Nontender Organomegaly: No organomegaly - Back Back: Normal, Nontender - Extremities General upper extremity: Normal inspection, Nontender, Normal color, Normal ROM , Normal temperature General lower extremity: Normal inspection, Nontender, Normal color, Normal ROM , Normal temperature, Normal weight bearing. No: Herber's sign - Neurological Neuro grossly intact: Yes Cognition: Normal Orientation: AAOx4 [place] Coma Scale Eye Opening: Spontaneous Meli Coma Scale Verbal: Oriented Meli Coma Scale Motor: Obeys Commands Meli Coma Scale Total: 15 Speech: Normal Motor strength normal: LUE, RUE, LLE, RLE Sensory: Normal - Psychological Associated symptoms: Normal affect, Normal mood - Skin Skin Temperature: Warm Skin Moisture: Dry Skin Color: Normal Course - Re-evaluation Re-evalutation: 06/06/18 11:55 Patient with strong smell of ketones on breath. Obvious DKA with pH is 7.1 on blood sugar 435. Insulin fluids given at triage. Nausea medicine given at triage. Patient resting comfortably at this time. Will place on insulin for admission at this time. - Vital Signs Vital signs: Temp Pulse Resp BP Pulse Ox 97.7 F 84 24 H 121/71 99 06/06/18 10:08 06/06/18 10:08 06/06/18 10:08 06/06/18 10:08 06/06/18 10:08 - Laboratory Result Diagrams: 06/06/18 10:40 06/06/18 10:40 Laboratory results interpreted by me: 06/06/18 06/06/18 06/06/18 10:09 10:40 10:40 WBC 15.0 H RDW 15.1 H Seg Neutrophils % 85.3 H Lymphocytes % 11.8 L Monocytes % 2.5 L Absolute Neutrophils 12.8 H VBG pH VBG pCO2 VBG HCO3 Sodium 135.2 L Potassium 5.5 H Carbon Dioxide 9 L* Anion Gap 27 H Glucose 435 H* POC Glucose 391 H Alkaline Phosphatase 171 H 06/06/18 10:40 WBC RDW Seg Neutrophils % Lymphocytes % Monocytes % Absolute Neutrophils VBG pH 7.10 L* VBG pCO2 31.7 L VBG HCO3 9.6 L Sodium Potassium Carbon Dioxide Anion Gap Glucose POC Glucose Alkaline Phosphatase Critical Care Note - Critical Care Note Total time excluding time spent on procedures (mins): 35 Comments: Metabolic emergency, acidosis, hyperglycemia, consultation with specialists Discharge - Discharge Clinical Impression: DKA, type 1 Qualifiers: Diabetes mellitus complication detail: without coma Qualified Code(s): E10.10 - Type 1 diabetes mellitus with ketoacidosis without coma Condition: Good Disposition: ADMITTED INPATIENT Admitting Provider: Hospitalist - [facility] Unit Admitted: [facility] Referrals: TAM LOPEZ DO [Primary Care Provider] - Follow up as needed
[2018-06-06 11:09] LABS: VENOUS BLOOD PH 7.1 (7.30-7.42)
[2018-06-06 11:21] LABS: ALANINE AMINOTRANSFERASE 26 U/L (9-52); ALBUMIN 4.5 g/dL (3.5-5.0); ALKALINE PHOSPHATASE 171 U/L (38-126); ASPARTATE AMINO TRANSFERASE 18 U/L (14-36); BILIRUBIN,DIRECT 0.4 mg/dL (0.0-0.4); BILIRUBIN,TOTAL 0.8 mg/dL (0.2-1.3); BLOOD UREA NITROGEN 16 mg/dL (7-20); CALCIUM 10.1 mg/dL (8.4-10.2); POTASSIUM 5.5 mmol/L (3.6-5.0); TOTAL PROTEIN 7.7 g/dL (6.3-8.2)
[2018-06-06 11:26] LABS: CHLORIDE 99 mmol/L (98-107); SODIUM 135.2 mmol/L (137-145)
[2018-06-06 11:31] LABS: ANION GAP 27 (5-19)
[2018-06-06 11:33] LABS: GLUCOSE 435 mg/dL (75-110)
[2018-06-06 11:34] LABS: CARBON DIOXIDE 9 mmol/L (22-30)
[2018-06-06] MEDS ORDERED: ACETAMINOPHEN 325 MG TABLET PO PRN (12:08)
[2018-06-06] MEDS ORDERED: IPRATROPIUM/ALBUTEROL 0.5-2.5 MG/3 ML AMPUL NEB PRN (12:08)
[2018-06-06] MEDS ORDERED: MAGNESIUM HYDROXIDE SUSP 30 ML UDCUP PO PRN (12:08)
[2018-06-06] MEDS ORDERED: OXYCODONE-ACETAMINOPHEN 5-325 MG TABLET PO PRN (12:08)
[2018-06-06] MEDS ORDERED: TEMAZEPAM 15 MG CAPSULE PO PRN (12:08)
[2018-06-06] MEDS ORDERED: ONDANSETRON HCL INJ/PF 4 MG/2 ML SDV IV PRN (12:08)
[2018-06-06] MEDS ORDERED: DEXTROSE 50%-WATER 25 GM/50 ML DISP.SYRIN IV PRN ×2 (12:15)
[2018-06-06] MEDS ORDERED: GLUCAGON,HUMAN RECOMB 1 MG INJ IM PRN (12:15)
[2018-06-06] MEDS ORDERED: NORMAL SALINE 100 ML with INSULIN REGULAR, HUMAN 100 UNIT IV PRN ×2 (12:15)
[2018-06-06] MEDS ORDERED: DEXTROSE 40% GEL 15 GM TUBE PO PRN ×2 (12:15)
[2018-06-06] MEDS ORDERED: INSULIN REG, HUMAN 100 UNIT/ML 3 ML VIAL (PYX) ONE (12:53)
[2018-06-06] MEDS: NORMAL SALINE 1000 ML 1,000 ML IV PRN ×2 (12:58→20:02)
--- NOTE | 2018-06-06 16:41 | PDOC H&P ---
History of Present Illness Admission Date/PCP: 06/06/18 12:36 TAM LOPEZ DO Patient complains of: Elevated blood sugar as well as nausea and vomiting History of Present Illness: SEAN FELIPE is a 32 year old female Patient presents to emergency room with elevated blood sugar. She has a history of type 1 diabetes mellitus and she is also noncompliant. Please note most of the history is obtained from the chart as patient was sleeping and her daughter who was at the bedside was unable to give me much history. Daughter states that her mother has been under a lot of stress and has not taken any insulin and has been eating a lot of carbs. She was found to be acidotic in the emergency room with a pH of 7.1 and a blood sugar of 435 and an anion gap of 27. Patient is been admitted for diabetic ketoacidosis with aggressive fluid hydration as well as intravenous insulin. Past Medical History Cardiac Medical History: Denies: Myocardial Infarction, Hypertension Neurological Medical History: Denies: Seizures Endocrine Medical History: Reports: Diabetes Mellitus Type 1 GI Medical History: Reports: Gastroesophageal Reflux Disease Denies: Hepatitis, Hiatal Hernia Psychiatric Medical History: Denies: Depression Hematology: Denies: Anemia, Sickle Cell Disease Past Surgical History Past Surgical History: Reports: Tonsillectomy Denies: Amputation, Mastectomy, Pacemaker Social History Lives with: Family Smoking Status: Current Some Day Smoker Frequency of Alcohol Use: Social Hx Recreational Drug Use: Yes Drugs: Marijuana, Other Hx Prescription Drug Abuse: No - Advance Directive Resuscitation Status: Full Code Family History Family History: DM, Other - Mother described as an asthmatic, father had hepatitis C Parental Family History Reviewed: Yes Children Family History Reviewed: Yes Sibling(s) Family History Reviewed.: Yes Medication/Allergy Home Medications: RX: Insulin Aspart [Novolog Flexpen] 0 units SQ ACHS MDD 100 UNITS 04/28/18 RX: Insulin Glargine,Hum.rec.anlog [Lantus Solostar] 40 units SQ QHS 04/28/18 Insulin Aspart [Novolog Flexpen] 7 unit SUBCUT AC MDD 100 UNITS 06/06/18 Allergies/Adverse Reactions: No Known Allergies Allergy (Verified 06/06/18 12:56) Review of Systems All systems: reviewed and no additional remarkable complaints except as stated Physical Exam Vital Signs: Temp Pulse Resp BP Pulse Ox 98.6 F 85 16 113/64 100 06/06/18 16:06 07/27/18 16:06 06/06/18 16:06 06/06/18 16:06 06/06/18 16:06 Intake & Output 06/05/18 06/06/18 06/07/18 06:59 06:59 06:59 Intake Total 14 Balance 14 Weight 61.9 kg General appearance: PRESENT: no acute distress, thin Head exam: PRESENT: atraumatic Eye exam: PRESENT: conjunctiva pink, EOMI, PERRLA. ABSENT: scleral icterus Cardiovascular exam: PRESENT: RRR, +S1, +S2 Pulses: PRESENT: normal dorsalis pedis pul GI/Abdominal exam: PRESENT: normal bowel sounds, soft. ABSENT: distended, guarding, mass, organolmegaly, rebound, tenderness Rectal exam: PRESENT: deferred Musculoskeletal exam: PRESENT: ambulatory, full ROM Neurological exam: PRESENT: other - sleeping but easily arousable Results Laboratory Results: 06/06/18 10:40 06/06/18 10:40 MCV 91 fl (80-97) 06/06/18 10:40 MCH 29.1 pg (27.0-33.4) 06/06/18 10:40 MCHC 32.0 g/dL (32.0-36.0) 06/06/18 10:40 RDW 15.1 % (11.5-14.0) H 06/06/18 10:40 Seg Neutrophils % 85.3 % (42-78) H 06/06/18 10:40 Lymphocytes % 11.8 % (13-45) L 06/06/18 10:40 Monocytes % 2.5 % (3-13) L 06/06/18 10:40 Eosinophils % 0.1 % (0-6) 06/06/18 10:40 Basophils % 0.3 % (0-2) 06/06/18 10:40 Absolute Neutrophils 12.8 10^3/uL (1.7-8.2) H 06/06/18 10:40 Absolute Lymphocytes 1.8 10^3/uL (0.5-4.7) 06/06/18 10:40 Absolute Monocytes 0.4 10^3/uL (0.1-1.4) 06/06/18 10:40 Absolute Eosinophils 0.0 10^3/uL (0.0-0.6) 06/06/18 10:40 Absolute Basophils 0.0 10^3/uL (0.0-0.2) 06/06/18 10:40 VBG pH 7.10 (7.30-7.42) L* 06/06/18 10:40 VBG pCO2 31.7 mmHg (35-63) L 06/06/18 10:40 VBG HCO3 9.6 mmol/L (20-32) L 06/06/18 10:40 VBG Base Excess -19.0 mmol/L 06/06/18 10:40 Chloride 99 mmol/L (98-107) 06/06/18 10:40 Carbon Dioxide 9 mmol/L (22-30) L* 06/06/18 10:40 Anion Gap 27 (5-19) H 06/06/18 10:40 Est GFR ( Amer) > 60 (>60) 06/06/18 10:40 Est GFR (Non-Af Amer) > 60 (>60) 06/06/18 10:40 Glucose 435 mg/dL (75-110) H* 06/06/18 10:40 Calcium 10.1 mg/dL (8.4-10.2) 06/06/18 10:40 Total Bilirubin 0.8 mg/dL (0.2-1.3) 06/06/18 10:40 AST 18 U/L (14-36) 06/06/18 10:40 ALT 26 U/L (9-52) 06/06/18 10:40 Alkaline Phosphatase 171 U/L (38-126) H 06/06/18 10:40 Total Protein 7.7 g/dL (6.3-8.2) 06/06/18 10:40 Albumin 4.5 g/dL (3.5-5.0) 06/06/18 10:40 06/06/18 10:40 Troponin I < 0.012 Assessment & Plan - Diagnosis (1) DKA, type 1 Qualifiers: Diabetes mellitus complication detail: without coma Qualified Code(s): E10.10 - Type 1 diabetes mellitus with ketoacidosis without coma Is this a current diagnosis for this admission?: Yes Plan: IV fluids, IV insulin and reinforcement of need to be compliant with medications - Time Time Spent: 30 to 50 Minutes Medications reviewed and adjusted accordingly: Yes Anticipated discharge: Home Within: within 48 hours - Inpatient Certification Based on my medical assessment, after consideration of the patient's comorbidities, presenting symptoms, or acuity I expect that the services needed warrant INPATIENT care.: Yes Medical Necessity: Need Close Monitoring Due to Risk of Patient Decompensation, Risk of Complication if Not Cared For in Hospital, Risk of Diagnosis Which Will Require Inpatient Eval/Care/Monitoring
[2018-06-06 18:00] LABS: ANION GAP 18 (5-19); BLOOD UREA NITROGEN 14 mg/dL (7-20); CARBON DIOXIDE 12 mmol/L (22-30); CHLORIDE 106 mmol/L (98-107); GLUCOSE 179 mg/dL (75-110); POTASSIUM 4.7 mmol/L (3.6-5.0); SODIUM 136.3 mmol/L (137-145)
[2018-06-06 21:15] LABS: ARTERIAL BLOOD BASE EXCESS -5.5 mmol/L; ARTERIAL BLOOD H2CO3 1.04 mmol/L (1.05-1.35); ARTERIAL BLOOD O2 SATURATION 97.4 % (94-98); ARTERIAL BLOOD PCO2 34.4 mmHg (35-45); ARTERIAL BLOOD PH 7.36 (7.35-7.45); ARTERIAL BLOOD TOTAL CO2 20.1 mmol/L (21-25)
[2018-06-06 21:16] LABS: ARTERIAL BLOOD FIO2 ROOM AIR
[2018-06-06 21:39] LABS: ANION GAP 11 (5-19); BLOOD UREA NITROGEN 14 mg/dL (7-20); CALCIUM 8.9 mg/dL (8.4-10.2); CARBON DIOXIDE 18 mmol/L (22-30); CHLORIDE 107 mmol/L (98-107); GLUCOSE 138 mg/dL (75-110); POTASSIUM 3.9 mmol/L (3.6-5.0); SODIUM 136.1 mmol/L (137-145)
[2018-06-07] MEDS ORDERED: DEXTROSE 40% GEL 15 GM TUBE PO PRN (00:05)
[2018-06-07] MEDS ORDERED: DEXTROSE 50%-WATER SYRINGE 25 GM/50 ML DOSE IV PRN (00:05)
[2018-06-07] MEDS ORDERED: DEXTROSE 50%-WATER SYRINGE 12.5 GM/25 ML DOSE IV PRN (00:05)
[2018-06-07] MEDS ORDERED: DEXTROSE 40% GEL 15 GM TUBE X 2 PO PRN (00:05)
[2018-06-07] MEDS ORDERED: GLUCAGON,HUMAN RECOMB 1 MG INJ IM PRN (00:05)
[2018-06-07] MEDS ORDERED: INSULIN GLARGINE,HUM.REC.ANLOG 1,000 UNIT/10 ML UNIT SUBCUT ONE (00:15)
[2018-06-07 00:32] LABS: APPEARANCE,URINE SLIGHTLY-CLOUDY; BILIRUBIN,URINE NEGATIVE (NEGATIVE); COLOR,URINE YELLOW; GLUCOSE, URINE >=500 mg/dL (NEGATIVE); KETONES,URINE 80 mg/dL (NEGATIVE); LEUKOCYTE ESTERASE,URINE NEGATIVE (NEGATIVE); NITRITE,URINE NEGATIVE (NEGATIVE); PROTEIN,URINE NEGATIVE (NEGATIVE); URINE SPECIFIC GRAVITY 1.008; UROBILINOGEN,URINE NEGATIVE mg/dL (<2.0)
[2018-06-07 00:45] LABS: URINE AMPHETAMINES SCREEN NEGATIVE; URINE BARBITURATES SCREEN NEGATIVE; URINE BENZODIAZEPINES SCREEN NEGATIVE; URINE COCAINE SCREEN NEGATIVE; URINE METHADONE SCREEN NEGATIVE; URINE PHENCYCLIDINE SCREEN NEGATIVE
[2018-06-07 00:50] LABS: URINE MARIJUANA (THC) SCREEN UNCONFIRMED POSITIVE
[2018-06-07 01:33] LABS: ANION GAP 12 (5-19); BLOOD UREA NITROGEN 14 mg/dL (7-20); CALCIUM 8.8 mg/dL (8.4-10.2); CARBON DIOXIDE 15 mmol/L (22-30); CHLORIDE 108 mmol/L (98-107); GLUCOSE 182 mg/dL (75-110); POTASSIUM 4.3 mmol/L (3.6-5.0); SODIUM 134.7 mmol/L (137-145)
[2018-06-07] MEDS: INSULIN LISPRO 100 UNIT/ML 3 ML VIAL SUBCUT PRN ×3 (02:14→13:21)
[2018-06-07] MEDS: NORMAL SALINE 1000 ML 1,000 ML IV PRN (04:23)
[2018-06-07 05:29] LABS: HEMATOCRIT 39.1 % (36.0-47.0); HEMOGLOBIN 12.9 g/dL (12.0-15.5); MEAN CORPUSCULAR HEMOGLOBIN 29.1 pg (27.0-33.4); MEAN CORPUSCULAR VOLUME 88 fl (80-97); PLATELET COUNT 255 10^3/uL (150-450); RED BLOOD COUNT 4.43 10^6/uL (3.72-5.28); RED CELL DISTRIBUTION WIDTH 14.9 % (11.5-14.0); WHITE BLOOD COUNT 8.6 10^3/uL (4.0-10.5)
[2018-06-07 05:50] LABS: ANION GAP 13 (5-19); BLOOD UREA NITROGEN 16 mg/dL (7-20); CALCIUM 8.8 mg/dL (8.4-10.2); CARBON DIOXIDE 16 mmol/L (22-30); CHLORIDE 109 mmol/L (98-107); GLUCOSE 204 mg/dL (75-110); POTASSIUM 4.2 mmol/L (3.6-5.0); SODIUM 138.3 mmol/L (137-145)
[2018-06-07] MEDS ORDERED: LANSOPRAZOLE 30 MG TAB.RAP.DR PO SCH (06:00)
[2018-06-07] MEDS ORDERED: ENOXAPARIN SODIUM INJ 40 MG/0.4 ML DISP.SYRIN SUBCUT SCH (10:00)
[2018-06-07] MEDS ORDERED: INSULIN LISPRO 100 UNIT/ML 3 ML VIAL SUBCUT ONE (13:30)
[2018-06-07 14:10] VITALS: BP 116/73
--- NOTE | 2018-06-07 14:54 | PDOC PROGRESS REPORT ---
Subjective Progress Note for:: 06/07/18 Reason For Visit: DKA Physical Exam Vital Signs: Temp Pulse Resp BP Pulse Ox 97.9 F 62 16 94/57 L 100 06/07/18 08:03 06/07/18 08:35 06/07/18 08:35 06/07/18 08:03 06/07/18 08:35 Intake & Output 06/06/18 06/07/18 06/08/18 06:59 06:59 06:59 Intake Total 2544 Balance 2544 Weight 64.1 kg General appearance: PRESENT: no acute distress, well-developed, well-nourished Head exam: PRESENT: atraumatic, normocephalic Eye exam: PRESENT: conjunctiva pink, EOMI, PERRLA. ABSENT: scleral icterus Ear exam: PRESENT: normal external ear exam Mouth exam: PRESENT: moist, tongue midline Neck exam: ABSENT: carotid bruit, JVD, lymphadenopathy, thyromegaly Respiratory exam: PRESENT: clear to auscultation black. ABSENT: rales, rhonchi, wheezes Cardiovascular exam: PRESENT: RRR. ABSENT: diastolic murmur, rubs, systolic murmur Pulses: PRESENT: normal dorsalis pedis pul Vascular exam: PRESENT: normal capillary refill GI/Abdominal exam: PRESENT: normal bowel sounds, soft. ABSENT: distended, guarding, mass, organolmegaly, rebound, tenderness Rectal exam: PRESENT: deferred Extremities exam: PRESENT: full ROM. ABSENT: calf tenderness, clubbing, pedal edema Neurological exam: PRESENT: alert, awake, oriented to person, oriented to place , oriented to time, oriented to situation, CN II-XII grossly intact. ABSENT: motor sensory deficit Psychiatric exam: PRESENT: appropriate affect, normal mood. ABSENT: homicidal ideation, suicidal ideation Skin exam: PRESENT: dry, intact, warm. ABSENT: cyanosis, rash Results Laboratory Results: 06/07/18 04:54 06/07/18 04:54 06/06/18 06/06/18 06/06/18 17:23 21:00 21:13 WBC RBC Hgb Hct MCV MCH MCHC RDW Plt Count Carbonic Acid 1.04 L HCO3/H2CO3 Ratio 18:1 ABG pH 7.36 ABG pCO2 34.4 L ABG pO2 100.0 ABG HCO3 19.0 L ABG O2 Saturation 97.4 ABG Base Excess -5.5 FiO2 ROOM AIR Sodium 136.3 L 136.1 L Potassium 4.7 3.9 Chloride 106 107 Carbon Dioxide 12 L 18 L Anion Gap 18 11 BUN 14 14 Creatinine 0.63 0.63 Est GFR ( Amer) > 60 > 60 Est GFR (Non-Af Amer) > 60 > 60 Glucose 179 H 138 H Calcium 9.0 8.9 Urine Color Urine Appearance Urine pH Ur Specific [place] Urine Protein Urine Glucose (UA) Urine Ketones Urine Blood Urine Nitrite Ur Leukocyte Esterase Urine WBC (Auto) 06/07/18 06/07/18 06/07/18 00:05 01:05 04:54 WBC 8.6 RBC 4.43 Hgb 12.9 Hct 39.1 MCV 88 MCH 29.1 MCHC 33.0 RDW 14.9 H Plt Count 255 Carbonic Acid HCO3/H2CO3 Ratio ABG pH ABG pCO2 ABG pO2 ABG HCO3 ABG O2 Saturation ABG Base Excess FiO2 Sodium 134.7 L Potassium 4.3 Chloride 108 H Carbon Dioxide 15 L Anion Gap 12 BUN 14 Creatinine 0.60 Est GFR ( Amer) > 60 Est GFR (Non-Af Amer) > 60 Glucose 182 H Calcium 8.8 Urine Color YELLOW Urine Appearance SLIGHTLY-CLOUDY Urine pH 5.0 Ur Specific [place] 1.008 Urine Protein NEGATIVE Urine Glucose (UA) >=500 H Urine Ketones 80 H Urine Blood NEGATIVE Urine Nitrite NEGATIVE Ur Leukocyte Esterase NEGATIVE Urine WBC (Auto) 2 06/07/18 04:54 WBC RBC Hgb Hct MCV MCH MCHC RDW Plt Count Carbonic Acid HCO3/H2CO3 Ratio ABG pH ABG pCO2 ABG pO2 ABG HCO3 ABG O2 Saturation ABG Base Excess FiO2 Sodium 138.3 Potassium 4.2 Chloride 109 H Carbon Dioxide 16 L Anion Gap 13 BUN 16 Creatinine 0.59 Est GFR ( Amer) > 60 Est GFR (Non-Af Amer) > 60 Glucose 204 H Calcium 8.8 Urine Color Urine Appearance Urine pH Ur Specific [place] Urine Protein Urine Glucose (UA) Urine Ketones Urine Blood Urine Nitrite Ur Leukocyte Esterase Urine WBC (Auto) Assessment & Plan - Diagnosis (1) DKA, type 1 Qualifiers: Diabetes mellitus complication detail: without coma Qualified Code(s): E10.10 - Type 1 diabetes mellitus with ketoacidosis without coma Is this a current diagnosis for this admission?: Yes Plan: DKA has resolved though still acidotic. Will give fluids and start on her [place] Insulin Hope to dc in am if remain stable - Time Time Spent with patient: 15-24 minutes Medications reviewed and adjusted accordingly: Yes Anticipated discharge: Home Within: within 24 hours - Inpatient Certification Based on my medical assessment, after consideration of the patient's comorbidities, presenting symptoms, or acuity I expect that the services needed warrant INPATIENT care.: Yes Medical Necessity: Need Close Monitoring Due to Risk of Patient Decompensation, Need For IV Fluids
[2018-06-07] MEDS ORDERED: INSULIN LISPRO 100 UNIT/ML 3 ML VIAL SUBCUT SCH ×2 (16:00)
--- NOTE | 2018-06-07 18:08 | PDOC DISCHARGE SUMMARY ---
General - Admit/Disc Date/PCP Admission Date/Primary Care Provider: 06/06/18 12:36 TAM JESSICADO Discharge Date: 06/07/18 - Discharge Diagnosis (1) DKA, type 1 Is this a current diagnosis for this admission?: Yes - Additional Information Resuscitation Status: Full Code Home Medications: Insulin Aspart [Novolog Flexpen] 0 units SQ ACHS MDD 100 UNITS 04/28/18 Insulin Glargine,Hum.rec.anlog [Lantus Solostar] 40 units SQ QHS 04/28/18 Insulin Aspart [Novolog Flexpen] 7 unit SUBCUT AC MDD 100 UNITS 06/06/18 History of Present Illness History of Present Illness: SEAN FELIPE is a 32 year old female Patient presents to emergency room with elevated blood sugar. She has a history of type 1 diabetes mellitus and she is also noncompliant. Please note most of the history is obtained from the chart as patient was sleeping and her daughter who was at the bedside was unable to give me much history. Daughter states that her mother has been under a lot of stress and has not taken any insulin and has been eating a lot of carbs. She was found to be acidotic in the emergency room with a pH of 7.1 and a blood sugar of 435 and an anion gap of 27. Patient is been admitted for diabetic ketoacidosis with aggressive fluid hydration as well as intravenous insulin. Hospital Course Hospital Course: Patient was treated for DKA and she improved. She however was still acidotic and needed further inpatient management. Patient decided to sign out AMA prior to completing her treatment. Physical Exam Vital Signs: Temp Pulse Resp BP Pulse Ox 98.0 F 71 16 116/73 100 06/07/18 11:16 06/07/18 11:16 06/07/18 11:16 06/07/18 11:16 06/07/18 11:16 Intake & Output 06/06/18 06/07/18 06/08/18 06:59 06:59 06:59 Intake Total 2544 695 Balance 2544 695 Weight 64.1 kg General appearance: PRESENT: no acute distress, well-developed, well-nourished Head exam: PRESENT: atraumatic, normocephalic Eye exam: PRESENT: conjunctiva pink, EOMI, PERRLA. ABSENT: scleral icterus Ear exam: PRESENT: normal external ear exam Mouth exam: PRESENT: moist, tongue midline Neck exam: ABSENT: carotid bruit, JVD, lymphadenopathy, thyromegaly Respiratory exam: PRESENT: clear to auscultation black. ABSENT: rales, rhonchi, wheezes Cardiovascular exam: PRESENT: RRR. ABSENT: diastolic murmur, rubs, systolic murmur Pulses: PRESENT: normal dorsalis pedis pul Vascular exam: PRESENT: normal capillary refill GI/Abdominal exam: PRESENT: normal bowel sounds, soft. ABSENT: distended, guarding, mass, organolmegaly, rebound, tenderness Rectal exam: PRESENT: deferred Extremities exam: PRESENT: full ROM. ABSENT: calf tenderness, clubbing, pedal edema Neurological exam: PRESENT: alert, awake, oriented to person, oriented to place , oriented to time, oriented to situation, CN II-XII grossly intact. ABSENT: motor sensory deficit Psychiatric exam: PRESENT: appropriate affect, normal mood. ABSENT: homicidal ideation, suicidal ideation Skin exam: PRESENT: dry, intact, warm. ABSENT: cyanosis, rash Results Laboratory Results: 06/07/18 04:54 06/07/18 04:54 06/06/18 06/06/18 06/06/18 17:23 21:00 21:13 WBC RBC Hgb Hct MCV MCH MCHC RDW Plt Count Carbonic Acid 1.04 L HCO3/H2CO3 Ratio 18:1 ABG pH 7.36 ABG pCO2 34.4 L ABG pO2 100.0 ABG HCO3 19.0 L ABG O2 Saturation 97.4 ABG Base Excess -5.5 FiO2 ROOM AIR Sodium 136.3 L 136.1 L Potassium 4.7 3.9 Chloride 106 107 Carbon Dioxide 12 L 18 L Anion Gap 18 11 BUN 14 14 Creatinine 0.63 0.63 Est GFR ( Amer) > 60 > 60 Est GFR (Non-Af Amer) > 60 > 60 Glucose 179 H 138 H Calcium 9.0 8.9 Urine Color Urine Appearance Urine pH Ur Specific [place] Urine Protein Urine Glucose (UA) Urine Ketones Urine Blood Urine Nitrite Ur Leukocyte Esterase Urine WBC (Auto) 06/07/18 06/07/18 06/07/18 00:05 01:05 04:54 WBC 8.6 RBC 4.43 Hgb 12.9 Hct 39.1 MCV 88 MCH 29.1 MCHC 33.0 RDW 14.9 H Plt Count 255 Carbonic Acid HCO3/H2CO3 Ratio ABG pH ABG pCO2 ABG pO2 ABG HCO3 ABG O2 Saturation ABG Base Excess FiO2 Sodium 134.7 L Potassium 4.3 Chloride 108 H Carbon Dioxide 15 L Anion Gap 12 BUN 14 Creatinine 0.60 Est GFR ( Amer) > 60 Est GFR (Non-Af Amer) > 60 Glucose 182 H Calcium 8.8 Urine Color YELLOW Urine Appearance SLIGHTLY-CLOUDY Urine pH 5.0 Ur Specific [place] 1.008 Urine Protein NEGATIVE Urine Glucose (UA) >=500 H Urine Ketones 80 H Urine Blood NEGATIVE Urine Nitrite NEGATIVE Ur Leukocyte Esterase NEGATIVE Urine WBC (Auto) 2 06/07/18 04:54 WBC RBC Hgb Hct MCV MCH MCHC RDW Plt Count Carbonic Acid HCO3/H2CO3 Ratio ABG pH ABG pCO2 ABG pO2 ABG HCO3 ABG O2 Saturation ABG Base Excess FiO2 Sodium 138.3 Potassium 4.2 Chloride 109 H Carbon Dioxide 16 L Anion Gap 13 BUN 16 Creatinine 0.59 Est GFR ( Amer) > 60 Est GFR (Non-Af Amer) > 60 Glucose 204 H Calcium 8.8 Urine Color Urine Appearance Urine pH Ur Specific [place] Urine Protein Urine Glucose (UA) Urine Ketones Urine Blood Urine Nitrite Ur Leukocyte Esterase Urine WBC (Auto) Qualifiers - * PATIENT BEING DISCHARGED WITH ANY OF THE FOLLOWING DIAGNOSIS: No Plan Time Spent: Less than 30 Minutes
[2018-06-07] MEDS ORDERED: INSULIN GLARGINE,HUM.REC.ANLOG 300 UNIT/3 ML INSULN.PEN SUBCUT SCH ×2 (22:00)
== END 2018-06-07 16:45 | disposition left against medical advice (07) | DRG 639 ==
LOC: ER 10:04 → EH 12:36 → 3W 14:19
PROVIDERS: ADMIT Internal Medicine; ATTEND Internal Medicine
PROC: 3E0F73Z Introduction of Anti-inflammatory into Respiratory Tract, Via Natural or Artificial Opening (ICD-10-PCS; principal; 2018-06-06)
DX: E10.10 Type 1 diabetes mellitus with ketoacidosis without coma (principal); K21.9 Gastro-esophageal reflux disease without esophagitis; F17.210 Nicotine dependence, cigarettes, uncomplicated; Z91.19 Patient's noncompliance with other medical treatment and regimen; Z83.3 Family history of diabetes mellitus; Z82.5 Family history of asthma and other chronic lower respiratory diseases; Z84.89 Family history of other specified conditions; Z79.4 Long term (current) use of insulin
CPT/HCPCS: 36415; 36600; 80048; 80053; 80307; 81001; 81025; 82010; 82803; 82962; 84484; 85025; 85027; 96360; 96361; 96372; 99291; J0780; J1815; J7030

== ENCOUNTER 2018-06-28 14:02 | Inpatient (IN) | payer MEDICAID ==
[2018-06-28] MEDS ORDERED: NORMAL SALINE 1000 ML 1,000 ML IV ONE (14:23)
[2018-06-28] MEDS ORDERED: KETOROLAC TROMETHAMINE INJ/PF 30 MG/1 ML SDV IV ONE (14:44)
[2018-06-28] MEDS ORDERED: ONDANSETRON HCL INJ/PF 4 MG/2 ML SDV IV ONE (14:44)
--- NOTE | 2018-06-28 14:45 | ER Document Report ---
ED General - General Mode of Arrival: Ambulatory Information source: Patient TRAVEL OUTSIDE OF THE [place] IN LAST 30 DAYS: No <BROOKLYN RINCON - Last Filed: 06/28/18 21:54> <THERON DESHPANDE - Last Filed: 06/28/18 21:54> - General Chief Complaint: High Blood Sugar Stated Complaint: PAIN ALL OVER Time Seen by Provider: 06/28/18 14:22 Notes: Patient is a 32 year old female with diabetes and a history of DKA presents to the emergency department complaining of vomiting and possibly being in DKA. Patient states she has been vomiting for the last 2-3 days and has not had her long acting insulin in a long time further stating she she has been unable to pay for it. During the interview, patient randomly yells and complains of nipple pain. She also complains of a headache and heartburn. She states her current symptoms of headache and vomiting are similar to her previous episodes of DKA. (BROOKLYN RINCON) - Related Data Allergies/Adverse Reactions: No Known Allergies Allergy (Verified 06/28/18 14:03) Past Medical History - General Information source: Patient - Social History Smoking Status: Current Every Day Smoker Cigarette use (# per day): Yes Chew tobacco use (# tins/day): No Smoking Education Provided: No Frequency of alcohol use: Social Family History: DM, Other - Mother described as an asthmatic, father had hepatitis C Endocrine Medical History: Reports: Hx Diabetes Mellitus Type 1 GI Medical History: Reports: Hx Gastroesophageal Reflux Disease Skin Medical History: Reports Hx Cellulitis Past Surgical History: Reports: Hx Tonsillectomy - Immunizations Hx Diphtheria, Pertussis, Tetanus Vaccination: Yes <BROOKLYN RINCON - Last Filed: 06/28/18 21:54> Review of Systems - Review of Systems Constitutional: No symptoms reported EENT: No symptoms reported Cardiovascular: No symptoms reported Respiratory: No symptoms reported Gastrointestinal: See HPI, Vomiting Genitourinary: No symptoms reported Female Genitourinary: No symptoms reported Musculoskeletal: See HPI Skin: No symptoms reported Hematologic/Lymphatic: No symptoms reported Neurological/Psychological: No symptoms reported -: Yes All other systems reviewed and negative <BROOKLYN RINCON - Last Filed: 06/28/18 21:54> Physical Exam <BROOKLYN RINCON - Last Filed: 06/28/18 21:54> <THERON DESHPANDE - Last Filed: 06/28/18 21:54> - Vital signs Vitals: Temp Pulse Resp BP Pulse Ox 98.0 F 83 18 127/68 H 100 06/28/18 14:16 06/28/18 14:16 06/28/18 14:16 06/28/18 14:16 06/28/18 14:16 - Notes Notes: GENERAL: Appears uncomfortable. Moaning and writhing in bed initially then becomes somewhat subdued. HEAD: Normocephalic, atraumatic. EYES: Pupils equal, round, and reactive to light. Extraocular movements intact. ENT: Oral mucosa moist, tongue midline. NECK: Full range of motion. Supple. Trachea midline. LUNGS: Clear to auscultation bilaterally, no wheezes, rales, or rhonchi. No respiratory distress. HEART: Regular rate and rhythm. No murmurs, gallops, or rubs. ABDOMEN: Soft, epigastric tenderness to palpation. Non-distended. Bowel sounds present in all 4 quadrants. EXTREMITIES: Moves all 4 extremities spontaneously. No edema, radial and dorsalis pedis pulses 2/4 bilaterally. No cyanosis. NEUROLOGICAL: Alert and oriented x3. Normal speech. PSYCH: intermittently agitated then cooperative. SKIN: Warm, dry, normal turgor. No rashes or lesions noted. (BROOKLYN RINCON) Course - Laboratory Result Diagrams: 06/28/18 15:07 06/28/18 20:09 <BROOKLYN RINCON - Last Filed: 06/28/18 21:54> - Laboratory Result Diagrams: 06/28/18 15:07 06/28/18 20:09 <THERON DESHPANDE - Last Filed: 06/28/18 21:54> - Re-evaluation Re-evalutation: 06/28/18 16:07 Patient smells of ketones, is intermittently sleepy and then completely oriented. Complains of pain in her nipples as well as a headache, states this happens every time she has DKA. Patient does have a markedly leukocytosis at 27.3, no source for infection at this time, venous blood gas shows a pH of 6.93 , chemistries show elevated potassium at 6.6 which is being treated with albuterol, calcium gluconate, insulin and bicarb, there is some renal failure with a BUN of 24 and creatinine 1.47, CO2 is undetectable, glucose is elevated 640, insulin drip has been started, test is negative, alcohol level is undetectable. EKG shows some peaked T waves but no QRS widening. Patient was discussed with Dr. Knapp from the hospitalist service who agrees to admit the patient to her service in the ICU. (THERON DESHPANDE) - Vital Signs Vital signs: Temp Pulse Resp BP Pulse Ox 99.6 F 99 16 121/71 100 06/28/18 19:50 06/28/18 18:39 06/28/18 18:39 06/28/18 18:39 06/28/18 18:39 - Laboratory Laboratory results interpreted by me: 06/28/18 06/28/18 06/28/18 15:07 15:07 15:07 WBC 27.3 H Hct 48.6 H MCHC 30.3 L RDW 16.4 H Seg Neuts % (Manual) 86 H Lymphocytes % (Manual) 10 L Monocytes % (Manual) 2 L Metamyelocytes % 1 H Abs Neuts (Manual) 23.8 H Abs Basophils (Manual) 0.3 H VBG pH 6.93 L* VBG pCO2 27.3 L VBG HCO3 5.6 L Potassium 6.6 H* Carbon Dioxide < 5 L* BUN 24 H Creatinine 1.47 H Est GFR ( Amer) 50 L Est GFR (Non-Af Amer) 41 L Glucose 640 H* Alkaline Phosphatase 188 H Total Protein 8.3 H Albumin 5.2 H - EKG Interpretation by Me Additional EKG results interpreted by me: 06/28/18 16:08 EKG shows sinus rhythm at a rate of 90, normal axis, normal intervals, no ST segment elevations or depressions, no T-wave inversions, somewhat peaked T waves are noted per my interpretation. (THERON DESHPANDE) Critical Care Note - Critical Care Note Total time excluding time spent on procedures (mins): 45 <THERON DESHPANDE - Last Filed: 06/28/18 21:54> Discharge <BROOKLYN RINCON - Last Filed: 06/28/18 21:54> - Discharge Admitting Provider: Hospitalist - Ra Unit Admitted: ICU <THERON DESHPANDE - Last Filed: 06/28/18 21:54> - Discharge Clinical Impression: Diabetic ketoacidosis associated with type 1 diabetes mellitus Qualifiers: Diabetes mellitus complication detail: with coma Qualified Code(s): E10.11 - Type 1 diabetes mellitus with ketoacidosis with coma Leukocytosis Qualifiers: Leukocytosis type: unspecified Qualified Code(s): D72.829 - Elevated white blood cell count, unspecified Condition: Critical Disposition: ADMITTED INPATIENT Scribe Attestation: 06/28/18 21:54 I personally performed the services described in the documentation, reviewed and edited the documentation which was dictated to the scribe in my presence, and it accurately records my words and actions. (THERON DESHPANDE) Scribe Documentation - Scribe Written by Avelino:: Avelino Kilpatrick, 06/28/2018 15:06 acting as scribe for :: Andressa <BROOKLYN RINCON - Last Filed: 06/28/18 21:54>
[2018-06-28 15:24] LABS: VENOUS BLOOD BASE EXCESS -26.1 mmol/L; VENOUS BLOOD HCO3 5.6 mmol/L (20-32); VENOUS BLOOD PCO2 27.3 mmHg (35-63)
[2018-06-28 15:33] LABS: HEMATOCRIT 48.6 % (36.0-47.0); HEMOGLOBIN 14.7 g/dL (12.0-15.5); MEAN CORPUSCULAR HEMOGLOBIN 29.1 pg (27.0-33.4); MEAN CORPUSCULAR HGB CONC 30.3 g/dL (32.0-36.0); PLATELET COUNT 394 10^3/uL (150-450); RED BLOOD COUNT 5.05 10^6/uL (3.72-5.28); RED CELL DISTRIBUTION WIDTH 16.4 % (11.5-14.0); WHITE BLOOD COUNT 27.3 10^3/uL (4.0-10.5)
[2018-06-28 15:34] LABS: VENOUS BLOOD PH 6.93 (7.30-7.42)
[2018-06-28] MEDS ORDERED: DEXTROSE 5%-WATER 1000 ML 1,000 ML with SODIUM BICARBONATE 150 MEQ IV PRN ×2 (15:35)
[2018-06-28] MEDS ORDERED: INSULIN REG, HUMAN 100 UNIT/ML 3 ML VIAL (PYX) IV ONE (15:36)
[2018-06-28 15:39] LABS: ALANINE AMINOTRANSFERASE 28 U/L (9-52); ALBUMIN 5.2 g/dL (3.5-5.0); ALKALINE PHOSPHATASE 188 U/L (38-126); ASPARTATE AMINO TRANSFERASE 29 U/L (14-36); BILIRUBIN,DIRECT 0.4 mg/dL (0.0-0.4); BILIRUBIN,TOTAL 0.4 mg/dL (0.2-1.3); BLOOD UREA NITROGEN 24 mg/dL (7-20); CALCIUM 10.2 mg/dL (8.4-10.2); CHLORIDE 98 mmol/L (98-107); TOTAL PROTEIN 8.3 g/dL (6.3-8.2)
[2018-06-28] MEDS ORDERED: SODIUM BICARBONATE 8.4% INJ 50 MEQ/50 ML DISP.SYRIN ONE (15:50)
[2018-06-28 15:52] LABS: MEAN CORPUSCULAR VOLUME 96 fl (80-97)
[2018-06-28 15:56] LABS: ABSOLUTE LYMPHOCYTES# (MANUAL) 2.7 10^3/uL (0.5-4.7); ABSOLUTE MONOCYTES # (MANUAL) 0.5 10^3/uL (0.1-1.4); ABSOLUTE NEUTROPHILS# (MANUAL) 23.8 10^3/uL (1.7-8.2); BASOPHILS % (MANUAL) 1 % (0-2); EOSINOPHILS % (MANUAL) 0 % (0-6); LYMPHOCYTES % (MANUAL) 10 % (13-45); METAMYELOCYTES % (MANUAL) 1 % (0); MONOCYTES % (MANUAL) 2 % (3-13); SEGMENTED NEUTROPHILS % (MAN) 86 % (42-78); TOTAL CELLS COUNTED 100
[2018-06-28 15:57] LABS: ALCOHOL < 10 mg/dL (NONE DETECTED); ANISOCYTOSIS 1+; PLATELET CLUMPS PRESENT; PLATELET COMMENT ADEQUATE
[2018-06-28 15:59] LABS: GLUCOSE 640 mg/dL (75-110); POTASSIUM 6.6 mmol/L (3.6-5.0)
[2018-06-28 16:00] LABS: CARBON DIOXIDE < 5 mmol/L (22-30)
[2018-06-28] MEDS ORDERED: ALBUTEROL SULFATE 0.083% NEB 2.5 MG/3 ML AMPUL NEB ONE (16:01)
[2018-06-28] MEDS ORDERED: SODIUM BICARBONATE 8.4% INJ 50 MEQ/50 ML DISP.SYRIN IV ONE (16:01)
[2018-06-28] MEDS ORDERED: CALCIUM GLUCONATE 1000 MG/10 ML INJ IV ONE (16:01)
[2018-06-28] MEDS ORDERED: DEXTROSE 50%-WATER 25 GM/50 ML DISP.SYRIN IV PRN ×2 (17:12)
[2018-06-28] MEDS ORDERED: DEXTROSE 40% GEL 15 GM TUBE PO PRN ×3 (17:12→17:49)
[2018-06-28] MEDS ORDERED: PROMETHAZINE HCL INJ 25 MG/1 ML VIAL IV PRN (17:12)
[2018-06-28] MEDS ORDERED: NORMAL SALINE 1000 ML 1,000 ML IV PRN ×2 (17:12→21:09)
[2018-06-28] MEDS ORDERED: GLUCAGON,HUMAN RECOMB 1 MG INJ SUBCUT PRN (17:12)
[2018-06-28] MEDS ORDERED: ACETAMINOPHEN 325 MG TABLET PO PRN (17:12)
--- NOTE | 2018-06-28 17:14 | EKG REPORT ---
SEVERITY:- BORDERLINE ECG - SINUS RHYTHM DIFFUSE NONSPECIFIC ST-CHANGES : Confirmed by: David Wells MD 28-Jun-2018 17:13:42
--- NOTE | 2018-06-28 17:36 | PDOC H&P ---
History of Present Illness Admission Date/PCP: 06/28/18 16:17 TAM LOPEZ DO Patient complains of: This patient presents to the emergency room with nausea vomiting she was found to be very acidotic with a pH of 6.9 and bicarbonate of 5.6 and blood sugar of 600. History of Present Illness: SEAN FELIPE is a 32 year old female This patient presents to the emergency room with nausea vomiting she was found to be very acidotic with a pH of 6.9 and bicarbonate of 5.6 and blood sugar of 600. Patient was actually pretty altered and was unable to provide any information for me. It appears that she had been confused and was trying to crawl out of bed in the emergency room. Patient is actually known to me has had admitted her in May and she signed out AGAINST MEDICAL ADVICE basically for DKA also. She does appear to be any worse shape but it appears she has not used insulin since at least June 07 when she left the hospital. She apparently also had been drinking as per the records Past Medical History Cardiac Medical History: Denies: Myocardial Infarction, Hypertension Neurological Medical History: Denies: Seizures Endocrine Medical History: Reports: Diabetes Mellitus Type 1 GI Medical History: Reports: Gastroesophageal Reflux Disease Denies: Hepatitis, Hiatal Hernia Psychiatric Medical History: Denies: Depression Hematology: Denies: Anemia, Sickle Cell Disease Past Surgical History Past Surgical History: Reports: Tonsillectomy Denies: Amputation, Mastectomy, Pacemaker Social History Information Source: [facility] Records Smoking Status: Current Every Day Smoker Frequency of Alcohol Use: Social Hx Recreational Drug Use: Yes Drugs: Marijuana, Other Hx Prescription Drug Abuse: No - Advance Directive Resuscitation Status: Full Code Family History Family History: DM, Other - Mother described as an asthmatic, father had hepatitis C Parental Family History Reviewed: No - Patient is unable to provide any history Children Family History Reviewed: No Sibling(s) Family History Reviewed.: No Medication/Allergy Home Medications: Insulin Aspart [Novolog Flexpen] 0 units SQ ACHS MDD 100 UNITS 04/28/18 Insulin Glargine,Hum.rec.anlog [Lantus Solostar] 40 units SQ QHS 04/28/18 Insulin Aspart [Novolog Flexpen] 7 unit SUBCUT AC MDD 100 UNITS 06/06/18 Allergies/Adverse Reactions: No Known Allergies Allergy (Verified 06/28/18 14:03) Review of Systems ROS unobtainable: Due to mental status Physical Exam Vital Signs: Temp Pulse Resp BP Pulse Ox 98.0 F 83 12 114/45 L 99 06/28/18 14:16 06/28/18 14:16 06/28/18 17:01 06/28/18 17:01 06/28/18 16:01 General appearance: PRESENT: no acute distress, other - Lethargic though arousable Head exam: PRESENT: atraumatic Mouth exam: PRESENT: dry mucosa Respiratory exam: PRESENT: clear to auscultation black. ABSENT: rales, rhonchi, wheezes Cardiovascular exam: PRESENT: RRR. ABSENT: diastolic murmur, rubs, systolic murmur Pulses: PRESENT: normal dorsalis pedis pul GI/Abdominal exam: PRESENT: normal bowel sounds, soft. ABSENT: distended, guarding, mass, organolmegaly, rebound, tenderness Rectal exam: PRESENT: deferred Extremities exam: PRESENT: full ROM. ABSENT: calf tenderness, clubbing, pedal edema Neurological exam: PRESENT: altered, other - Unable to evaluate due to mental status Psychiatric exam: PRESENT: other - Unable to evaluate Skin exam: PRESENT: mottled - Lower extremity Results Laboratory Results: 06/28/18 15:07 06/28/18 15:07 MCV 96 fl (80-97) D 06/28/18 15:07 MCH 29.1 pg (27.0-33.4) 06/28/18 15:07 MCHC 30.3 g/dL (32.0-36.0) L 06/28/18 15:07 RDW 16.4 % (11.5-14.0) H 06/28/18 15:07 Seg Neutrophils % Not Reportable 06/28/18 15:07 Lymphocytes % Not Reportable 06/28/18 15:07 Monocytes % Not Reportable 06/28/18 15:07 Eosinophils % Not Reportable 06/28/18 15:07 Basophils % Not Reportable 06/28/18 15:07 Absolute Neutrophils Not Reportable 06/28/18 15:07 Absolute Lymphocytes Not Reportable 06/28/18 15:07 Absolute Monocytes Not Reportable 06/28/18 15:07 Absolute Eosinophils Not Reportable 06/28/18 15:07 Absolute Basophils Not Reportable 06/28/18 15:07 VBG pH 6.93 (7.30-7.42) L* 06/28/18 15:07 VBG pCO2 27.3 mmHg (35-63) L 06/28/18 15:07 VBG HCO3 5.6 mmol/L (20-32) L 06/28/18 15:07 VBG Base Excess -26.1 mmol/L 06/28/18 15:07 Chloride 98 mmol/L (98-107) 06/28/18 15:07 Carbon Dioxide < 5 mmol/L (22-30) L* 06/28/18 15:07 Anion Gap Not Reportable 06/28/18 15:07 Est GFR ( Amer) 50 (>60) L 06/28/18 15:07 Est GFR (Non-Af Amer) 41 (>60) L 06/28/18 15:07 Glucose 640 mg/dL (75-110) H* 06/28/18 15:07 Calcium 10.2 mg/dL (8.4-10.2) 06/28/18 15:07 Total Bilirubin 0.4 mg/dL (0.2-1.3) 06/28/18 15:07 AST 29 U/L (14-36) 06/28/18 15:07 ALT 28 U/L (9-52) 06/28/18 15:07 Alkaline Phosphatase 188 U/L (38-126) H 06/28/18 15:07 Total Protein 8.3 g/dL (6.3-8.2) H 06/28/18 15:07 Albumin 5.2 g/dL (3.5-5.0) H 06/28/18 15:07 Serum HCG, Qual NEGATIVE (NEGATIVE) 06/28/18 15:07 Assessment & Plan - Diagnosis (1) Diabetic ketoacidosis associated with type 1 diabetes mellitus Qualifiers: Diabetes mellitus complication detail: with coma Qualified Code(s): E10.11 - Type 1 diabetes mellitus with ketoacidosis with coma Is this a current diagnosis for this admission?: Yes Plan: Patient is very acidotic as well as with numerous electrolyte imbalances including hypokalemia. Her pH is less than 6.9 with a bicarbonate of 5. She will be admitted to the intensive care unit and placed on insulin drip which was started in the emergency room. She is also on bicarbonate drip. This should be mixed in normal saline and hopefully once blood sugar is improved acidosis will improve. (2) Hyperkalemia Is this a current diagnosis for this admission?: Yes Plan: Secondary to lack of insulin. She has received bicarbonate as well as calcium gluconate and albuterol and of course insulin in the emergency room. We will repeat BMP in a few hours. Her EKG also shows peaked T waves consistent with a hyperkalemia (3) Leukocytosis Qualifiers: Leukocytosis type: unspecified Qualified Code(s): D72.829 - Elevated white blood cell count, unspecified Is this a current diagnosis for this admission?: Yes Plan: This may be reactive however due to the pretty high level I will start on empiric antibiotics. A chest x-ray shows no evidence of any acute infection and urinalysis is still pending. Will follow up on repeat CBC in a.m. (4) Noncompliance w/medication treatment due to intermit use of medication Is this a current diagnosis for this admission?: Yes Plan: Patient has a history of noncompliance. She signed out AGAINST MEDICAL ADVICE on June 07 and it looks like she has not used any insulin at least not as prescribed since then. Patient will benefit from psychiatric evaluation once stable - Time Time Spent: 50 to 70 Minutes Medications reviewed and adjusted accordingly: Yes Anticipated discharge: Home Within: within 72 hours - Inpatient Certification Based on my medical assessment, after consideration of the patient's comorbidities, presenting symptoms, or acuity I expect that the services needed warrant INPATIENT care.: Yes Medical Necessity: Need Close Monitoring Due to Risk of Patient Decompensation, Need For IV Fluids, Risk of Complication if Not Cared For in Hospital
[2018-06-28] MEDS ORDERED: NORMAL SALINE IV PRN ×2 (17:38)
[2018-06-28] MEDS ORDERED: SODIUM BICARBONATE IV PRN ×2 (17:38)
[2018-06-28] MEDS ORDERED: DEXTROSE 50%-WATER SYRINGE 12.5 GM/25 ML DOSE IV PRN (17:49)
[2018-06-28] MEDS ORDERED: GLUCAGON,HUMAN RECOMB 1 MG INJ IM PRN (17:49)
[2018-06-28] MEDS ORDERED: DEXTROSE 40% GEL 15 GM TUBE X 2 PO PRN (17:49)
[2018-06-28] MEDS ORDERED: DEXTROSE 50%-WATER SYRINGE 25 GM/50 ML DOSE IV PRN (17:49)
[2018-06-28] MEDS ORDERED: CEFTRIAXONE 1 GM/D5W RTU 1 GM/50 ML RTUPB IV ONE (18:00)
[2018-06-28 18:05] LABS: APPEARANCE,URINE CLEAR; BILIRUBIN,URINE NEGATIVE (NEGATIVE); COLOR,URINE YELLOW; GLUCOSE, URINE >=500 mg/dL (NEGATIVE); KETONES,URINE 80 mg/dL (NEGATIVE); LEUKOCYTE ESTERASE,URINE NEGATIVE (NEGATIVE); NITRITE,URINE NEGATIVE (NEGATIVE); PROTEIN,URINE 30 mg/dL (NEGATIVE); URINE SPECIFIC GRAVITY 1.017; UROBILINOGEN,URINE NEGATIVE mg/dL (<2.0)
[2018-06-28 18:26] LABS: URINE BARBITURATES SCREEN NEGATIVE; URINE BENZODIAZEPINES SCREEN NEGATIVE; URINE COCAINE SCREEN NEGATIVE; URINE MARIJUANA (THC) SCREEN NEGATIVE; URINE METHADONE SCREEN NEGATIVE; URINE PHENCYCLIDINE SCREEN NEGATIVE
[2018-06-28] MEDS: INSULIN, REGULAR 100 UNIT/100 ML NORMAL SALINE IV PRN ×2 (18:30)
[2018-06-28] MEDS ORDERED: CEFTRIAXONE INJ 500 MG VIAL ONE (18:37)
[2018-06-28 19:09] LABS: URINE AMPHETAMINES SCREEN UNCONFIRMED POSITIVE
[2018-06-28 20:37] LABS: BLOOD UREA NITROGEN 24 mg/dL (7-20); CALCIUM 9.3 mg/dL (8.4-10.2); CHLORIDE 102 mmol/L (98-107); SODIUM 142.3 mmol/L (137-145)
[2018-06-28 20:46] LABS: ANION GAP 34 (5-19); CARBON DIOXIDE 6 mmol/L (22-30); GLUCOSE 509 mg/dL (75-110); POTASSIUM 5.1 mmol/L (3.6-5.0)
[2018-06-28] MEDS: FAMOTIDINE INJ/PF 20 MG/2 ML SDV IV SCH (21:26)
[2018-06-29] MEDS: POTASSI CL 20 MEQ/D5-1/2NS 1L 1000 ML IV PRN ×3 (00:42→08:16)
[2018-06-29 01:20] LABS: ANION GAP 18 (5-19); BLOOD UREA NITROGEN 25 mg/dL (7-20); CALCIUM 9.1 mg/dL (8.4-10.2); CARBON DIOXIDE 15 mmol/L (22-30); CHLORIDE 110 mmol/L (98-107); GLUCOSE 206 mg/dL (75-110); POTASSIUM 4.2 mmol/L (3.6-5.0); SODIUM 143.4 mmol/L (137-145)
[2018-06-29] MEDS ORDERED: INSULIN REG, HUMAN 100 UNIT/ML 3 ML VIAL (PYX) ONE ×2 (03:28→03:37)
[2018-06-29] MEDS: INSULIN, REGULAR 100 UNIT/100 ML NORMAL SALINE IV PRN ×2 (03:31)
[2018-06-29 05:14] LABS: HEMOGLOBIN 12.7 g/dL (12.0-15.5); MEAN CORPUSCULAR HEMOGLOBIN 29.1 pg (27.0-33.4); MEAN CORPUSCULAR HGB CONC 33.3 g/dL (32.0-36.0); PLATELET COUNT 309 10^3/uL (150-450); RED BLOOD COUNT 4.36 10^6/uL (3.72-5.28); RED CELL DISTRIBUTION WIDTH 15.4 % (11.5-14.0); WHITE BLOOD COUNT 19.5 10^3/uL (4.0-10.5)
[2018-06-29 05:22] LABS: MEAN CORPUSCULAR VOLUME 87 fl (80-97)
[2018-06-29 05:42] LABS: ABSOLUTE LYMPHOCYTES# (MANUAL) 3.5 10^3/uL (0.5-4.7); ABSOLUTE MONOCYTES # (MANUAL) 0.8 10^3/uL (0.1-1.4); ABSOLUTE NEUTROPHILS# (MANUAL) 15.2 10^3/uL (1.7-8.2); BASOPHILS % (MANUAL) 0 % (0-2); EOSINOPHILS % (MANUAL) 0 % (0-6); LYMPHOCYTES % (MANUAL) 18 % (13-45); MONOCYTES % (MANUAL) 4 % (3-13); SEGMENTED NEUTROPHILS % (MAN) 78 % (42-78); TOTAL CELLS COUNTED 100
[2018-06-29 05:43] LABS: ANISOCYTOSIS 1+; PLATELET COMMENT ADEQUATE; POLYCHROMASIA 1+
[2018-06-29 08:34] LABS: ANION GAP 16 (5-19); BLOOD UREA NITROGEN 24 mg/dL (7-20); CALCIUM 8.3 mg/dL (8.4-10.2); CARBON DIOXIDE 18 mmol/L (22-30); CHLORIDE 109 mmol/L (98-107); GLUCOSE 153 mg/dL (75-110); POTASSIUM 4.2 mmol/L (3.6-5.0); SODIUM 142.6 mmol/L (137-145)
[2018-06-29] MEDS: ENOXAPARIN SODIUM INJ 40 MG/0.4 ML DISP.SYRIN SUBCUT SCH (09:05)
[2018-06-29] MEDS: FAMOTIDINE INJ/PF 20 MG/2 ML SDV IV SCH ×2 (09:05→22:05)
[2018-06-29] MEDS ORDERED: CEFTRIAXONE 1 GM/D5W RTU 1 GM/50 ML RTUPB IV SCH (10:00)
[2018-06-29 10:18] LABS: ANION GAP 12 (5-19); BLOOD UREA NITROGEN 23 mg/dL (7-20); CALCIUM 8.9 mg/dL (8.4-10.2); CARBON DIOXIDE 21 mmol/L (22-30); CHLORIDE 111 mmol/L (98-107); GLUCOSE 102 mg/dL (75-110); POTASSIUM 4.1 mmol/L (3.6-5.0); SODIUM 143.6 mmol/L (137-145)
--- NOTE | 2018-06-29 10:38 | PDOC PROGRESS REPORT ---
Subjective Progress Note for:: 06/29/18 Subjective:: Admitted with DKA and noncompliance with medical management. She is doing better today with her glucose much better controlled. Acidosis is improved and anion gap is closed. Hyperkalemia has also resolved. Will make changes to her insulin regimen and IV fluids. Please see orders for further details Reason For Visit: DKA,SEVERE ACIDOSIS Physical Exam Vital Signs: Temp Pulse Resp BP Pulse Ox 98.6 F 87 18 111/75 99 06/29/18 08:00 06/29/18 08:00 06/29/18 08:00 06/29/18 08:00 06/29/18 08:00 Intake & Output 06/28/18 06/29/18 06/30/18 06:59 06:59 06:59 Intake Total 1964 1045 Output Total 1500 75 Balance 464 970 Weight 60.3 kg General appearance: PRESENT: no acute distress, well-nourished, other - Somewhat uncooperative Head exam: PRESENT: atraumatic, normocephalic Eye exam: PRESENT: conjunctiva pink, EOMI, PERRLA. ABSENT: scleral icterus Ear exam: PRESENT: normal external ear exam Mouth exam: PRESENT: dry mucosa, tongue midline Neck exam: ABSENT: carotid bruit, JVD, lymphadenopathy, thyromegaly Respiratory exam: PRESENT: clear to auscultation black. ABSENT: rales, rhonchi, wheezes Cardiovascular exam: PRESENT: RRR. ABSENT: diastolic murmur, rubs, systolic murmur Pulses: PRESENT: normal dorsalis pedis pul Vascular exam: PRESENT: normal capillary refill GI/Abdominal exam: PRESENT: normal bowel sounds, soft. ABSENT: distended, guarding, mass, organolmegaly, rebound, tenderness Rectal exam: PRESENT: deferred Extremities exam: PRESENT: full ROM. ABSENT: calf tenderness, clubbing, pedal edema Neurological exam: PRESENT: alert, awake, oriented to person, oriented to place , oriented to time, oriented to situation. ABSENT: motor sensory deficit Skin exam: PRESENT: dry, intact, warm. ABSENT: cyanosis, rash Results Laboratory Results: 06/29/18 04:51 06/29/18 09:35 06/28/18 06/28/18 06/28/18 17:32 19:30 20:09 WBC RBC Hgb Hct MCV MCH MCHC RDW Plt Count Seg Neutrophils % Lymphocytes % Monocytes % Eosinophils % Basophils % Absolute Neutrophils Absolute Lymphocytes Absolute Monocytes Absolute Eosinophils Absolute Basophils Sodium Cancelled 142.3 Potassium Cancelled 5.1 H D Chloride Cancelled 102 Carbon Dioxide Cancelled 6 L* Anion Gap Cancelled 34 H BUN Cancelled 24 H Creatinine Cancelled 1.16 Est GFR ( Amer) Cancelled > 60 Est GFR (Non-Af Amer) Cancelled 54 L Glucose Cancelled 509 H* Calcium Cancelled 9.3 Urine Color YELLOW Urine Appearance CLEAR Urine pH 5.0 Ur Specific [place] 1.017 Urine Protein 30 H Urine Glucose (UA) >=500 H Urine Ketones 80 H Urine Blood NEGATIVE Urine Nitrite NEGATIVE Ur Leukocyte Esterase NEGATIVE Urine WBC (Auto) 1 Urine RBC (Auto) 0 06/29/18 06/29/18 06/29/18 00:10 00:55 04:51 WBC 19.5 H RBC 4.36 Hgb 12.7 Hct 38.0 MCV 87 D MCH 29.1 MCHC 33.3 RDW 15.4 H Plt Count 309 Seg Neutrophils % Not Reportable Lymphocytes % Not Reportable Monocytes % Not Reportable Eosinophils % Not Reportable Basophils % Not Reportable Absolute Neutrophils Not Reportable Absolute Lymphocytes Not Reportable Absolute Monocytes Not Reportable Absolute Eosinophils Not Reportable Absolute Basophils Not Reportable Sodium Cancelled 143.4 Potassium Cancelled 4.2 Chloride Cancelled 110 H Carbon Dioxide Cancelled 15 L Anion Gap Cancelled 18 BUN Cancelled 25 H Creatinine Cancelled 0.85 Est GFR ( Amer) Cancelled > 60 Est GFR (Non-Af Amer) Cancelled > 60 Glucose Cancelled 206 H Calcium Cancelled 9.1 Urine Color Urine Appearance Urine pH Ur Specific [place] Urine Protein Urine Glucose (UA) Urine Ketones Urine Blood Urine Nitrite Ur Leukocyte Esterase Urine WBC (Auto) Urine RBC (Auto) 06/29/18 06/29/18 04:51 09:35 WBC RBC Hgb Hct MCV MCH MCHC RDW Plt Count Seg Neutrophils % Lymphocytes % Monocytes % Eosinophils % Basophils % Absolute Neutrophils Absolute Lymphocytes Absolute Monocytes Absolute Eosinophils Absolute Basophils Sodium 142.6 143.6 Potassium 4.2 4.1 Chloride 109 H 111 H Carbon Dioxide 18 L 21 L Anion Gap 16 12 BUN 24 H 23 H Creatinine 0.65 0.68 Est GFR ( Amer) > 60 > 60 Est GFR (Non-Af Amer) > 60 > 60 Glucose 153 H 102 Calcium 8.3 L 8.9 Urine Color Urine Appearance Urine pH Ur Specific [place] Urine Protein Urine Glucose (UA) Urine Ketones Urine Blood Urine Nitrite Ur Leukocyte Esterase Urine WBC (Auto) Urine RBC (Auto) Assessment & Plan - Diagnosis (1) Diabetic ketoacidosis associated with type 1 diabetes mellitus Qualifiers: Diabetes mellitus complication detail: with coma Qualified Code(s): E10.11 - Type 1 diabetes mellitus with ketoacidosis with coma Is this a current diagnosis for this admission?: Yes Plan: Ketosis resolved (2) Hyperkalemia Is this a current diagnosis for this admission?: Yes Plan: Secondary to insulin deficiency resolved (3) Leukocytosis Qualifiers: Leukocytosis type: unspecified Qualified Code(s): D72.829 - Elevated white blood cell count, unspecified Is this a current diagnosis for this admission?: Yes Plan: We will continue with empiric antibiotics (4) Noncompliance w/medication treatment due to intermit use of medication Is this a current diagnosis for this admission?: Yes (5) Methamphetamine abuse Is this a current diagnosis for this admission?: Yes - Time Time Spent with patient: 15-24 minutes Medications reviewed and adjusted accordingly: Yes Anticipated discharge: Home Within: within 48 hours - Inpatient Certification Based on my medical assessment, after consideration of the patient's comorbidities, presenting symptoms, or acuity I expect that the services needed warrant INPATIENT care.: Yes Medical Necessity: Need Close Monitoring Due to Risk of Patient Decompensation, Need For IV Fluids
[2018-06-29] MEDS ORDERED: INSULIN GLARGINE,HUM.REC.ANLOG 1,000 UNIT/10 ML UNIT SUBCUT ONE ×2 (11:30→18:00)
[2018-06-29] MEDS: CEFTRIAXONE SODIUM 1,000 MG in NORMAL SALINE 50 ML IV SCH (11:36)
[2018-06-29 15:01] LABS: ANION GAP 13 (5-19); BLOOD UREA NITROGEN 18 mg/dL (7-20); CALCIUM 8.7 mg/dL (8.4-10.2); CARBON DIOXIDE 17 mmol/L (22-30); CHLORIDE 108 mmol/L (98-107); GLUCOSE 198 mg/dL (75-110); POTASSIUM 4.8 mmol/L (3.6-5.0); SODIUM 138.4 mmol/L (137-145)
[2018-06-29] MEDS: INSULIN LISPRO 100 UNIT/ML 3 ML VIAL SUBCUT PRN ×2 (15:46→17:31)
[2018-06-29] MEDS ORDERED: NORMAL SALINE 1000 ML 1,000 ML IV PRN (16:25)
[2018-06-29 17:50] LABS: ANION GAP 14 (5-19); BLOOD UREA NITROGEN 16 mg/dL (7-20); CALCIUM 8.1 mg/dL (8.4-10.2); CARBON DIOXIDE 15 mmol/L (22-30); CHLORIDE 105 mmol/L (98-107); POTASSIUM 4.6 mmol/L (3.6-5.0)
[2018-06-29] MEDS ORDERED: INSULIN LISPRO 100 UNIT/ML 3 ML VIAL SUBCUT ONE (18:00)
[2018-06-29 18:07] LABS: GLUCOSE 471 mg/dL (75-110)
[2018-06-29] MEDS ORDERED: INSULIN GLARGINE,HUM.REC.ANLOG 1,000 UNIT/10 ML UNIT SUBCUT SCH ×2 (22:00)
[2018-06-30] MEDS: NORMAL SALINE 1000 ML 1,000 ML IV PRN ×4 (01:13→23:32)
[2018-06-30 04:15] LABS: ABSOLUTE BASOPHILS # (AUTO) 0.1 10^3/uL (0.0-0.2); ABSOLUTE LYMPHOCYTES (AUTO) 3.8 10^3/uL (0.5-4.7); ABSOLUTE MONOCYTES (AUTO) 0.7 10^3/uL (0.1-1.4); ABSOLUTE NEUT (AUTO) 8.3 10^3/uL (1.7-8.2); EOSINOPHILS % (AUTO) 0.3 % (0-6); HEMATOCRIT 35.7 % (36.0-47.0); HEMOGLOBIN 11.7 g/dL (12.0-15.5); LYMPHOCYTES % (AUTO) 29.2 % (13-45); MEAN CORPUSCULAR HEMOGLOBIN 29.1 pg (27.0-33.4); MEAN CORPUSCULAR HGB CONC 32.8 g/dL (32.0-36.0); MEAN CORPUSCULAR VOLUME 89 fl (80-97); MONOCYTES % (AUTO) 5.4 % (3-13); PLATELET COUNT 241 10^3/uL (150-450); RED BLOOD COUNT 4.03 10^6/uL (3.72-5.28); RED CELL DISTRIBUTION WIDTH 15.8 % (11.5-14.0); SEGMENTED NEUTROPHILS % (AUTO) 64.1 % (42-78); TOTAL CELLS COUNTED % (AUTO) 100 %
[2018-06-30 04:39] LABS: ANION GAP 9 (5-19); BLOOD UREA NITROGEN 11 mg/dL (7-20); CALCIUM 8.2 mg/dL (8.4-10.2); CARBON DIOXIDE 21 mmol/L (22-30); CHLORIDE 110 mmol/L (98-107); GLUCOSE 137 mg/dL (75-110); POTASSIUM 3.8 mmol/L (3.6-5.0)
[2018-06-30] MEDS ORDERED: INSULIN LISPRO 100 UNIT/ML 3 ML VIAL SUBCUT SCH (08:00)
[2018-06-30] MEDS ORDERED: INSULIN GLARGINE,HUM.REC.ANLOG 300 UNIT/3 ML INSULN.PEN SUBCUT SCH (10:00)
--- NOTE | 2018-06-30 10:19 | PDOC PROGRESS REPORT ---
Subjective Progress Note for:: 06/30/18 Subjective:: Admitted with DKA and noncompliance with medical management. She is doing better today with her glucose much better controlled. Will start feeding and continue to adjust insulin as tolerated Reason For Visit: DKA,SEVERE ACIDOSIS Physical Exam Vital Signs: Temp Pulse Resp BP Pulse Ox 99.2 F 67 17 109/79 99 06/30/18 04:00 06/30/18 07:00 06/30/18 10:00 06/30/18 08:23 06/30/18 10:00 Intake & Output 06/29/18 06/30/18 07/01/18 06:59 06:59 06:59 Intake Total 1964 1106 Output Total 1500 2470 40 Balance 464 -1364 -40 Weight 60.3 kg 64.5 kg General appearance: PRESENT: no acute distress, well-developed, well-nourished Head exam: PRESENT: atraumatic, normocephalic Eye exam: PRESENT: conjunctiva pink, EOMI, PERRLA. ABSENT: scleral icterus Ear exam: PRESENT: normal external ear exam Mouth exam: PRESENT: moist, tongue midline Neck exam: ABSENT: carotid bruit, JVD, lymphadenopathy, thyromegaly Respiratory exam: PRESENT: clear to auscultation black. ABSENT: rales, rhonchi, wheezes Cardiovascular exam: PRESENT: RRR. ABSENT: diastolic murmur, rubs, systolic murmur Pulses: PRESENT: normal dorsalis pedis pul Vascular exam: PRESENT: normal capillary refill GI/Abdominal exam: PRESENT: normal bowel sounds, soft. ABSENT: distended, guarding, mass, organolmegaly, rebound, tenderness Rectal exam: PRESENT: deferred Extremities exam: PRESENT: full ROM. ABSENT: calf tenderness, clubbing, pedal edema Neurological exam: PRESENT: alert, awake, oriented to person, oriented to place , oriented to time, oriented to situation, CN II-XII grossly intact. ABSENT: motor sensory deficit Psychiatric exam: PRESENT: appropriate affect, normal mood. ABSENT: homicidal ideation, suicidal ideation Skin exam: PRESENT: dry, intact, warm. ABSENT: cyanosis, rash Results Laboratory Results: 06/30/18 04:06 06/30/18 04:06 06/29/18 06/29/18 06/29/18 09:35 14:23 17:18 WBC RBC Hgb Hct MCV MCH MCHC RDW Plt Count Seg Neutrophils % Lymphocytes % Monocytes % Eosinophils % Basophils % Absolute Neutrophils Absolute Lymphocytes Absolute Monocytes Absolute Eosinophils Absolute Basophils Sodium 143.6 138.4 134.0 L Potassium 4.1 4.8 4.6 Chloride 111 H 108 H 105 Carbon Dioxide 21 L 17 L 15 L Anion Gap 12 13 14 BUN 23 H 18 16 Creatinine 0.68 0.66 0.63 Est GFR ( Amer) > 60 > 60 > 60 Est GFR (Non-Af Amer) > 60 > 60 > 60 Glucose 102 198 H 471 H* Calcium 8.9 8.7 8.1 L 06/30/18 06/30/18 04:06 04:06 WBC 13.0 H RBC 4.03 Hgb 11.7 L Hct 35.7 L MCV 89 MCH 29.1 MCHC 32.8 RDW 15.8 H Plt Count 241 Seg Neutrophils % 64.1 Lymphocytes % 29.2 Monocytes % 5.4 Eosinophils % 0.3 Basophils % 1.0 Absolute Neutrophils 8.3 H Absolute Lymphocytes 3.8 Absolute Monocytes 0.7 Absolute Eosinophils 0.0 Absolute Basophils 0.1 Sodium 140.0 Potassium 3.8 Chloride 110 H Carbon Dioxide 21 L Anion Gap 9 BUN 11 Creatinine 0.48 L Est GFR ( Amer) > 60 Est GFR (Non-Af Amer) > 60 Glucose 137 H Calcium 8.2 L Assessment & Plan - Diagnosis (1) Diabetic ketoacidosis associated with type 1 diabetes mellitus Qualifiers: Diabetes mellitus complication detail: with coma Qualified Code(s): E10.11 - Type 1 diabetes mellitus with ketoacidosis with coma Is this a current diagnosis for this admission?: Yes Plan: Still acidotic but will continue with SC insulin (2) Hyperkalemia Is this a current diagnosis for this admission?: Yes Plan: Secondary to insulin deficiency resolved (3) Leukocytosis Qualifiers: Leukocytosis type: unspecified Qualified Code(s): D72.829 - Elevated white blood cell count, unspecified Is this a current diagnosis for this admission?: Yes Plan: Continue empiric Ceftriaxone. Possibly SIRS (4) Noncompliance w/medication treatment due to intermit use of medication Is this a current diagnosis for this admission?: Yes Plan: Counselled (5) Methamphetamine abuse Is this a current diagnosis for this admission?: Yes - Time Time Spent with patient: 15-24 minutes Medications reviewed and adjusted accordingly: Yes Anticipated discharge: Home Within: within 48 hours - Inpatient Certification Based on my medical assessment, after consideration of the patient's comorbidities, presenting symptoms, or acuity I expect that the services needed warrant INPATIENT care.: Yes Medical Necessity: Need For IV Fluids, Risk of Complication if Not Cared For in Hospital
[2018-06-30] MEDS: INSULIN GLARGINE,HUM.REC.ANLOG 300 UNIT/3 ML INSULN.PEN SUBCUT SCH ×2 (10:37→21:56)
[2018-06-30] MEDS: ENOXAPARIN SODIUM INJ 40 MG/0.4 ML DISP.SYRIN SUBCUT SCH (10:38)
[2018-06-30] MEDS: FAMOTIDINE INJ/PF 20 MG/2 ML SDV IV SCH ×2 (10:39→21:57)
[2018-06-30] MEDS: INSULIN LISPRO 100 UNIT/ML 3 ML VIAL SUBCUT SCH ×2 (10:44→17:01)
[2018-06-30] MEDS: CEFTRIAXONE SODIUM 1,000 MG in NORMAL SALINE 50 ML IV SCH (11:29)
[2018-06-30] MEDS: INSULIN LISPRO 100 UNIT/ML 3 ML VIAL SUBCUT PRN ×3 (11:29→21:54)
[2018-06-30] MEDS ORDERED: DIPHENHYDRAMINE HCL 25 MG CAPSULE PO ONE (23:30)
[2018-07-01 06:06] LABS: ABSOLUTE BASOPHILS # (AUTO) 0.1 10^3/uL (0.0-0.2); ABSOLUTE LYMPHOCYTES (AUTO) 2.5 10^3/uL (0.5-4.7); ABSOLUTE MONOCYTES (AUTO) 0.4 10^3/uL (0.1-1.4); ABSOLUTE NEUT (AUTO) 2.5 10^3/uL (1.7-8.2); BASOPHILS % (AUTO) 1.2 % (0-2); EOSINOPHILS % (AUTO) 0.8 % (0-6); HEMATOCRIT 32.9 % (36.0-47.0); MEAN CORPUSCULAR HEMOGLOBIN 29.2 pg (27.0-33.4); MEAN CORPUSCULAR HGB CONC 33.6 g/dL (32.0-36.0); MEAN CORPUSCULAR VOLUME 87 fl (80-97); MONOCYTES % (AUTO) 7.5 % (3-13); PLATELET COUNT 183 10^3/uL (150-450); RED BLOOD COUNT 3.78 10^6/uL (3.72-5.28); RED CELL DISTRIBUTION WIDTH 15.6 % (11.5-14.0); SEGMENTED NEUTROPHILS % (AUTO) 45.5 % (42-78); TOTAL CELLS COUNTED % (AUTO) 100 %; WHITE BLOOD COUNT 5.5 10^3/uL (4.0-10.5)
[2018-07-01 06:24] LABS: ANION GAP 8 (5-19); BLOOD UREA NITROGEN 10 mg/dL (7-20); CALCIUM 8.8 mg/dL (8.4-10.2); CARBON DIOXIDE 27 mmol/L (22-30); CHLORIDE 106 mmol/L (98-107); GLUCOSE 218 mg/dL (75-110); POTASSIUM 3.4 mmol/L (3.6-5.0); SODIUM 141.2 mmol/L (137-145)
[2018-07-01] MEDS ORDERED: POTASSIUM CHLORIDE 10 MEQ CAPSULE.ER PO ONE (07:37)
[2018-07-01] MEDS: INSULIN LISPRO 100 UNIT/ML 3 ML VIAL SUBCUT SCH ×3 (08:29→18:07)
[2018-07-01] MEDS: ENOXAPARIN SODIUM INJ 40 MG/0.4 ML DISP.SYRIN SUBCUT SCH (10:24)
[2018-07-01] MEDS: FAMOTIDINE INJ/PF 20 MG/2 ML SDV IV SCH (10:24)
[2018-07-01] MEDS: INSULIN GLARGINE,HUM.REC.ANLOG 300 UNIT/3 ML INSULN.PEN SUBCUT SCH (10:25)
[2018-07-01] MEDS: NORMAL SALINE 1000 ML 1,000 ML IV PRN (10:37)
[2018-07-01] MEDS: CEFTRIAXONE SODIUM 1,000 MG in NORMAL SALINE 50 ML IV SCH (12:39)
--- NOTE | 2018-07-01 16:08 | PDOC PROGRESS REPORT ---
Subjective Subjective:: Admitted with DKA and noncompliance with medical management. Patient now says she is ready to be compliant with treatment Reason For Visit: DKA,SEVERE ACIDOSIS Physical Exam Vital Signs: Temp Pulse Resp BP Pulse Ox 98.7 F 72 16 119/80 100 07/01/18 11:20 07/01/18 11:20 07/01/18 11:20 07/01/18 11:20 07/01/18 11:20 Intake & Output 06/30/18 07/01/18 07/02/18 06:59 06:59 06:59 Intake Total 1106 4826 1450 Output Total 2470 4500 1100 Balance -1364 326 350 Weight 64.5 kg General appearance: PRESENT: no acute distress, well-developed, well-nourished Head exam: PRESENT: atraumatic, normocephalic Eye exam: PRESENT: conjunctiva pink, EOMI, PERRLA, other - Stye on the left eyelid. ABSENT: scleral icterus Ear exam: PRESENT: normal external ear exam Mouth exam: PRESENT: moist, tongue midline Neck exam: ABSENT: carotid bruit, JVD, lymphadenopathy, thyromegaly Respiratory exam: PRESENT: clear to auscultation black. ABSENT: rales, rhonchi, wheezes Cardiovascular exam: PRESENT: RRR. ABSENT: diastolic murmur, rubs, systolic murmur Pulses: PRESENT: normal dorsalis pedis pul Vascular exam: PRESENT: normal capillary refill GI/Abdominal exam: PRESENT: normal bowel sounds, soft. ABSENT: distended, guarding, mass, organolmegaly, rebound, tenderness Rectal exam: PRESENT: deferred Extremities exam: PRESENT: full ROM. ABSENT: calf tenderness, clubbing, pedal edema Neurological exam: PRESENT: alert, awake, oriented to person, oriented to place , oriented to time, oriented to situation, CN II-XII grossly intact. ABSENT: motor sensory deficit Psychiatric exam: PRESENT: appropriate affect, normal mood. ABSENT: homicidal ideation, suicidal ideation Skin exam: PRESENT: dry, intact, warm. ABSENT: cyanosis, rash Results Laboratory Results: 07/01/18 05:19 07/01/18 05:19 07/01/18 07/01/18 05:19 05:19 WBC 5.5 RBC 3.78 Hgb 11.0 L Hct 32.9 L MCV 87 MCH 29.2 MCHC 33.6 RDW 15.6 H Plt Count 183 Seg Neutrophils % 45.5 Lymphocytes % 45.0 Monocytes % 7.5 Eosinophils % 0.8 Basophils % 1.2 Absolute Neutrophils 2.5 Absolute Lymphocytes 2.5 Absolute Monocytes 0.4 Absolute Eosinophils 0.0 Absolute Basophils 0.1 Sodium 141.2 Potassium 3.4 L Chloride 106 Carbon Dioxide 27 Anion Gap 8 BUN 10 Creatinine 0.48 L Est GFR ( Amer) > 60 Est GFR (Non-Af Amer) > 60 Glucose 218 H Calcium 8.8 Magnesium 1.8 Assessment & Plan - Diagnosis (1) Diabetic ketoacidosis associated with type 1 diabetes mellitus Qualifiers: Diabetes mellitus complication detail: with coma Qualified Code(s): E10.11 - Type 1 diabetes mellitus with ketoacidosis with coma Is this a current diagnosis for this admission?: Yes (2) Hyperkalemia Is this a current diagnosis for this admission?: Yes (3) Leukocytosis Qualifiers: Leukocytosis type: unspecified Qualified Code(s): D72.829 - Elevated white blood cell count, unspecified Is this a current diagnosis for this admission?: Yes (4) Noncompliance w/medication treatment due to intermit use of medication Is this a current diagnosis for this admission?: Yes (5) Methamphetamine abuse Is this a current diagnosis for this admission?: Yes - Time Time Spent with patient: 15-24 minutes Medications reviewed and adjusted accordingly: Yes Anticipated discharge: Home Within: within 24 hours - Inpatient Certification Based on my medical assessment, after consideration of the patient's comorbidities, presenting symptoms, or acuity I expect that the services needed warrant INPATIENT care.: Yes Medical Necessity: Need for IV Antibiotics - Plan Summary Plan Summary: We will adjust insulin for better glycemic control. Patient has been counseled again on the need to be compliant with her medications. We will stop ceftriaxone after tomorrow's dose completing 5 days of treatment although there was no specific infection and her leukocytosis clubbing secondary to SIRS.
[2018-07-01] MEDS: INSULIN LISPRO 100 UNIT/ML 3 ML VIAL SUBCUT PRN ×2 (18:08→21:39)
[2018-07-01] MEDS ORDERED: INSULIN GLARGINE,HUM.REC.ANLOG 300 UNIT/3 ML INSULN.PEN SUBCUT SCH (22:00)
[2018-07-02] MEDS: INSULIN LISPRO 100 UNIT/ML 3 ML VIAL SUBCUT PRN ×2 (04:59→12:44)
[2018-07-02] MEDS: INSULIN GLARGINE,HUM.REC.ANLOG 300 UNIT/3 ML INSULN.PEN SUBCUT SCH ×2 (09:43→12:47)
[2018-07-02] MEDS: INSULIN LISPRO 100 UNIT/ML 3 ML VIAL SUBCUT SCH ×2 (09:43→12:43)
[2018-07-02] MEDS: ENOXAPARIN SODIUM INJ 40 MG/0.4 ML DISP.SYRIN SUBCUT SCH (09:48)
--- NOTE | 2018-07-02 13:20 | PDOC DISCHARGE SUMMARY ---
General - Admit/Disc Date/PCP Admission Date/Primary Care Provider: 06/28/18 16:17 TAM HOFFMANTE, Discharge Date: 07/02/18 - Discharge Diagnosis (1) Diabetic ketoacidosis associated with type 1 diabetes mellitus Is this a current diagnosis for this admission?: Yes (2) Hyperkalemia Is this a current diagnosis for this admission?: Yes (3) Leukocytosis Is this a current diagnosis for this admission?: Yes (4) Noncompliance w/medication treatment due to intermit use of medication Is this a current diagnosis for this admission?: Yes (5) Methamphetamine abuse Is this a current diagnosis for this admission?: Yes - Additional Information Resuscitation Status: Full Code Discharge Diet: Diabetic Discharge Activity: Activity As Tolerated Home Medications: Insulin Aspart [Novolog Flexpen] 0 unit SQ .SLIDING SCALE 06/29/18 Insulin Aspart [Novolog Flexpen] 7 units SQ AC 06/29/18 Insulin Glargine,Hum.rec.anlog [Lantus Insulin 100 Unit/mL] 15 unit SUBCUT Q12 insuln.pen 07/02/18 History of Present Illness History of Present Illness: SEAN FELIPE is a 32 year old female This patient presents to the emergency room with nausea vomiting she was found to be very acidotic with a pH of 6.9 and bicarbonate of 5.6 and blood sugar of 600. Patient was actually pretty altered and was unable to provide any information for me. It appears that she had been confused and was trying to crawl out of bed in the emergency room. Patient is actually known to me has had admitted her in May and she signed out AGAINST MEDICAL ADVICE basically for DKA also. She does appear to be any worse shape but it appears she has not used insulin since at least June 07 when she left the hospital. She apparently also had been drinking as per the records Hospital Course Hospital Course: Patient was initially admitted to the intensive care unit due to her severe acidosis. She was started on insulin drip and received aggressive IV fluids. Her electrolytes were corrected. Was started on empiric antibiotics as her white blood cell count was elevated but there was no clear source of infection. She did receive ceftriaxone for 5 days while in hospital. White count has normalized so this has been discontinued. Patient blood sugar is in controlled and she has been counseled on the need to be compliant with her insulin for her own well-being. With no further interventions been planned patient is been discharged home for outpatient follow-up Physical Exam Vital Signs: Temp Pulse Resp BP Pulse Ox 97.9 F 69 14 109/55 L 100 07/02/18 07:58 07/02/18 07:58 07/02/18 07:58 07/02/18 07:58 07/02/18 07:58 Intake & Output 07/01/18 07/02/18 07/03/18 06:59 06:59 06:59 Intake Total 4826 2850 Output Total 4500 1700 Balance 326 1150 Weight 63 kg General appearance: PRESENT: no acute distress, well-developed, well-nourished Head exam: PRESENT: atraumatic, normocephalic Eye exam: PRESENT: conjunctiva pink, EOMI, PERRLA, other - Left eye stye. ABSENT: scleral icterus Ear exam: PRESENT: normal external ear exam Mouth exam: PRESENT: moist, tongue midline Neck exam: ABSENT: carotid bruit, JVD, lymphadenopathy, thyromegaly Respiratory exam: PRESENT: clear to auscultation black. ABSENT: rales, rhonchi, wheezes Cardiovascular exam: PRESENT: RRR. ABSENT: diastolic murmur, rubs, systolic murmur Pulses: PRESENT: normal dorsalis pedis pul Vascular exam: PRESENT: normal capillary refill GI/Abdominal exam: PRESENT: normal bowel sounds, soft. ABSENT: distended, guarding, mass, organolmegaly, rebound, tenderness Rectal exam: PRESENT: deferred Extremities exam: PRESENT: full ROM. ABSENT: calf tenderness, clubbing, pedal edema Neurological exam: PRESENT: alert, awake, oriented to person, oriented to place , oriented to time, oriented to situation, CN II-XII grossly intact. ABSENT: motor sensory deficit Psychiatric exam: PRESENT: appropriate affect, normal mood. ABSENT: homicidal ideation, suicidal ideation Skin exam: PRESENT: dry, intact, warm. ABSENT: cyanosis, rash Results Laboratory Results: 07/01/18 05:19 07/01/18 05:19 Qualifiers - * PATIENT BEING DISCHARGED WITH ANY OF THE FOLLOWING DIAGNOSIS: No Plan Time Spent: Greater than 30 Minutes
[2018-07-02 13:49] VITALS: BP 116/73
[2018-07-02] MEDS ORDERED: FLUCONAZOLE 100 MG TABLET PO ONE (14:30)
== END 2018-07-02 15:00 | disposition home or self-care (01) | DRG 639 ==
LOC: ER 14:02 → EH 16:17 → ICU 18:22 → 3W 06-30 22:54
PROVIDERS: ADMIT Internal Medicine; ATTEND Internal Medicine
DX: E10.11 Type 1 diabetes mellitus with ketoacidosis with coma (principal); E87.5 Hyperkalemia; K21.9 Gastro-esophageal reflux disease without esophagitis; D72.829 Elevated white blood cell count, unspecified; F15.10 Other stimulant abuse, uncomplicated; F17.210 Nicotine dependence, cigarettes, uncomplicated; Z79.4 Long term (current) use of insulin; Z91.19 Patient's noncompliance with other medical treatment and regimen
CPT/HCPCS: 36415; 80048; 80053; 80307; 81001; 82803; 82962; 83735; 84703; 85025; 93005; 93010; 94640; 96374; 96375; 99291; J0610; J0696; J1650; J1815; J1885; J2405; J2550; J3480; J3490; J7030; J7060; S0028

== ENCOUNTER 2018-08-16 15:49 | Emergency (ER) | payer MEDICAID ==
[2018-08-16] MEDS ORDERED: NORMAL SALINE 1000 ML 1,000 ML IV ONE (16:05)
--- NOTE | 2018-08-16 16:05 | ER Document Report ---
ED Medical Screen (RME) - General Chief Complaint: High Blood Sugar Stated Complaint: BLOOD SUGAR ISSUE Time Seen by Provider: 08/16/18 16:00 Mode of Arrival: Ambulatory Information source: Patient Notes: 32-year-old female with type 1 diabetes presents with bilateral flank pain, dysuria, increased urinary frequency, increased thirst that started 1 day prior to arrival. Patient went to urgent care but when she was found to have a blood glucose of 438 she was advised to come to the emergency department. Patient takes Lantus and NovoLog. I have greeted and performed a rapid initial assessment of this patient. A comprehensive ED assessment and evaluation of the patient, analysis of test results and completion of medical decision making process we will be contacted by additional ED providers. PHYSICAL EXAMINATION: Vital signs reviewed GENERAL: Well-appearing, well-nourished and in no acute distress. LUNGS: No respiratory distress Musculoskeletal: Normal range of motion NEUROLOGICAL: Normal speech, normal gait. PSYCH: Normal mood, normal affect. SKIN: Warm, Dry, normal turgor, no rashes or lesions noted. TRAVEL OUTSIDE OF THE [place] IN LAST 30 DAYS: No - HPI Onset: Yesterday Onset/Duration: Sudden Quality of pain: Achy Associated Symptoms: Body/muscle aches, Dysuria, Nausea, Vomiting Exacerbated by: Denies Relieved by: Denies Similar symptoms previously: Yes Recently seen / treated by doctor: Yes - Related Data Smoking: Non-smoker Frequency of alcohol use: None Drug Abuse: None Allergies/Adverse Reactions: No Known Allergies Allergy (Verified 06/28/18 14:03) Past Medical History - Social History Chew tobacco use (# tins/day): No Frequency of alcohol use: Social Drug Abuse: Marijuana - Past Medical History Cardiac Medical History: Denies: Hx Heart Attack, Hx Hypertension Neurological Medical History: Denies: Hx Cerebrovascular Accident, Hx Seizures Endocrine Medical History: Reports: Hx Diabetes Mellitus Type 1 Renal/ Medical History: Denies: Hx Peritoneal Dialysis GI Medical History: Reports: Hx Gastroesophageal Reflux Disease. Denies: Hx Hepatitis, Hx Hiatal Hernia, Hx Ulcer Skin Medical History: Reports Hx Cellulitis Psychiatric Medical History: Denies: Hx Depression Infectious Medical History: Denies: Hx Hepatitis Past Surgical History: Reports: Hx Tonsillectomy - &adenoids. Denies: Hx Mastectomy, Hx Open Heart Surgery, Hx Pacemaker - Immunizations Hx Diphtheria, Pertussis, Tetanus Vaccination: Yes History of Influenza Vaccine for 08/2017 - 01/2018 Season: Unknown Physical Exam - Vital signs Vitals: Temp Pulse Resp BP Pulse Ox 98.4 F 85 22 H 124/79 97 08/16/18 15:50 08/16/18 15:50 08/16/18 15:50 08/16/18 15:50 08/16/18 15:50 Course - Vital Signs Vital signs: Temp Pulse Resp BP Pulse Ox 98.4 F 85 22 H 124/79 97 08/16/18 15:50 08/16/18 15:50 08/16/18 15:50 08/16/18 15:50 08/16/18 15:50 Doctor's Discharge - Discharge Referrals: TAM LOPEZ DO [Primary Care Provider] - Follow up as needed
[2018-08-16 16:42] LABS: ABSOLUTE BASOPHILS # (AUTO) 0.1 10^3/uL (0.0-0.2); ABSOLUTE LYMPHOCYTES (AUTO) 1.7 10^3/uL (0.5-4.7); ABSOLUTE MONOCYTES (AUTO) 0.9 10^3/uL (0.1-1.4); ABSOLUTE NEUT (AUTO) 8.7 10^3/uL (1.7-8.2); BASOPHILS % (AUTO) 0.7 % (0-2); EOSINOPHILS % (AUTO) 0.4 % (0-6); HEMATOCRIT 41.3 % (36.0-47.0); HEMOGLOBIN 14.1 g/dL (12.0-15.5); LYMPHOCYTES % (AUTO) 14.6 % (13-45); MEAN CORPUSCULAR HEMOGLOBIN 29.5 pg (27.0-33.4); MEAN CORPUSCULAR HGB CONC 34.1 g/dL (32.0-36.0); MEAN CORPUSCULAR VOLUME 86 fl (80-97); MONOCYTES % (AUTO) 8.1 % (3-13); PLATELET COUNT 276 10^3/uL (150-450); RED BLOOD COUNT 4.77 10^6/uL (3.72-5.28); RED CELL DISTRIBUTION WIDTH 14.9 % (11.5-14.0); SEGMENTED NEUTROPHILS % (AUTO) 76.2 % (42-78); TOTAL CELLS COUNTED % (AUTO) 100 %; WHITE BLOOD COUNT 11.4 10^3/uL (4.0-10.5)
[2018-08-16 16:47] LABS: VENOUS BLOOD BASE EXCESS 3.1 mmol/L; VENOUS BLOOD HCO3 28.8 mmol/L (20-32); VENOUS BLOOD PCO2 47.6 mmHg (35-63); VENOUS BLOOD PH 7.4 (7.30-7.42)
--- NOTE | 2018-08-16 16:47 | ER Document Report ---
ED General - General Chief Complaint: High Blood Sugar Stated Complaint: BLOOD SUGAR ISSUE Time Seen by Provider: 08/16/18 16:00 Mode of Arrival: Ambulatory TRAVEL OUTSIDE OF THE [place] IN LAST 30 DAYS: No - HPI Notes: Patient is a 32-year-old female with a history of insulin-dependent diabetes who presents to the ED complaining of possible UTI with urinary burning, urgency , frequency, bilateral flank pain. Patient states that she has had UTIs in the past and believes that this is another one with kidney infection. Patient was told that she had elevated blood glucose at urgent care which sent her here. Patient states that she does not feel like she is in DKA, but rather, her glucose is elevated because of the infection. Patient states that she is able to eat and drink without any difficulties currently, but did have 2 episodes of nausea and vomiting. She is having normal bowel movements. She has not had any vaginal discharge, odor, or bleeding. Patient states that she has no concern with STD or STI does not want tested. Denies drug allergies. Denies any headache, fever, neck pain, changes in vision/speech/mentation/hearing, URI , sore throat, chest pain, palpitations, syncope, cough, shortness of breath, wheeze, dyspnea, abdominal pain, diarrhea, urinary retention, dysuria, hematuria , back pain, loss of control of bowel or bladder, numbness/tingling, saddle anesthesia, muscle paralysis/weakness, or rash. - Related Data Allergies/Adverse Reactions: No Known Allergies Allergy (Verified 06/28/18 14:03) Past Medical History - General Information source: Patient - Social History Smoking Status: Former Smoker Chew tobacco use (# tins/day): No Frequency of alcohol use: Social Drug Abuse: Marijuana Family History: DM, Other - Mother described as an asthmatic, father had hepatitis C Patient has suicidal ideation: No Patient has homicidal ideation: No - Past Medical History Cardiac Medical History: Denies: Hx Heart Attack, Hx Hypertension Neurological Medical History: Denies: Hx Cerebrovascular Accident, Hx Seizures Endocrine Medical History: Reports: Hx Diabetes Mellitus Type 1 Renal/ Medical History: Denies: Hx Peritoneal Dialysis GI Medical History: Reports: Hx Gastroesophageal Reflux Disease. Denies: Hx Hepatitis, Hx Hiatal Hernia, Hx Ulcer Skin Medical History: Reports Hx Cellulitis Psychiatric Medical History: Denies: Hx Depression Infectious Medical History: Denies: Hx Hepatitis Past Surgical History: Reports: Hx Tonsillectomy - &adenoids. Denies: Hx Mastectomy, Hx Open Heart Surgery, Hx Pacemaker - Immunizations Hx Diphtheria, Pertussis, Tetanus Vaccination: Yes Review of Systems - Review of Systems -: Yes All other systems reviewed and negative Physical Exam - Vital signs Vitals: Temp Pulse Resp BP Pulse Ox 98.4 F 85 22 H 124/79 97 08/16/18 15:50 08/16/18 15:50 08/16/18 15:50 08/16/18 15:50 08/16/18 15:50 - Notes Notes: PHYSICAL EXAMINATION: GENERAL: Well-appearing, well-nourished and in no acute distress. Pt was eating turkey from her sandwich upon my entry to the room (needed to eat "because of the nausea") HEAD: Atraumatic, normocephalic. EYES: Pupils equal round and reactive to light, extraocular movements intact, sclera anicteric, conjunctiva are normal. ENT: Nares patent and without discharge. oropharynx clear without exudates. No tonsilar hypertrophy or erythema. Moist mucous membranes. NECK: Normal range of motion, supple without lymphadenopathy LUNGS: Breath sounds clear to auscultation bilaterally and equal. No wheezes rales or rhonchi. HEART: Regular rate and rhythm without murmurs, rubs, gallops. ABDOMEN: Soft, nontender, nondistended abdomen. No guarding, no rebound. No masses appreciated. Normal bowel sounds present. + CVA tenderness bilaterally. Musculoskeletal: FROM to passive/active. Strength 5+/5. Extremities: No cyanosis, clubbing, or edema b/l. Peripheral pulses 2+. Capillary refill less than 3 seconds. NEUROLOGICAL: Normal speech, normal gait. PSYCH: Normal mood, normal affect. SKIN: Warm, Dry, normal turgor, no rashes or lesions noted. Course - Re-evaluation Re-evalutation: 08/16/18 Patient is an afebrile, well-hydrated, 32-year-old female who presents to the ED with an acute UTI and elevated glucose. Vitals are acceptable without any significant tachycardia, tachypnea, or hypoxia. PE is otherwise unremarkable. Patient's abdomen is soft and nontender. See urinalysis results. Urine culture is pending. CBC, CMP, lipase, HCG otherwise acceptable. Patient was given Rocephin IV today. Patient is nontoxic-appearing and is tolerating p.o. without any difficulties. No further labs or imaging warranted at this time. Low suspicion/risk for DKA, HHS, acute appendicitis, bowel obstruction, acute cholecystitis, acute cholangitis, perforated diverticulitis, incarcerated hernia , pancreatitis, perforated ulcer, peritonitis, sepsis, pelvic inflammatory disease, ectopic , tubo-ovarian abscess, ovarian torsion, or other systemic emergent condition at this time. Patient is aware that her condition can change from initial presentation and she needs to monitor symptoms closely and seek medical attention if any acute changes. Rx for keflex. Conservative measures otherwise for symptoms. Recheck with your PCM in 2-3 days. Return to the ED with any worsening/concerning symptoms otherwise as reviewed in discharge. Patient is in agreement. - Vital Signs Vital signs: Temp Pulse Resp BP Pulse Ox 98.4 F 85 22 H 124/79 97 08/16/18 15:50 08/16/18 15:50 08/16/18 15:50 08/16/18 15:50 08/16/18 15:50 - Laboratory Result Diagrams: 08/16/18 16:08 08/16/18 17:47 Laboratory results interpreted by me: 08/16/18 08/16/18 08/16/18 16:08 16:08 17:47 WBC 11.4 H RDW 14.9 H Absolute Neutrophils 8.7 H Sodium 133.9 L Glucose 349 H POC Glucose Alkaline Phosphatase 197 H Total Protein 5.9 L Albumin 3.4 L Urine Glucose (UA) >=500 H Urine Blood SMALL H Urine Nitrite POSITIVE H Urine Urobilinogen 4.0 H Ur Leukocyte Esterase MODERATE H 08/16/18 18:26 WBC RDW Absolute Neutrophils Sodium Glucose POC Glucose 337 H Alkaline Phosphatase Total Protein Albumin Urine Glucose (UA) Urine Blood Urine Nitrite Urine Urobilinogen Ur Leukocyte Esterase Discharge - Discharge Clinical Impression: Acute UTI (urinary tract infection), Elevated glucose Condition: Stable Disposition: HOME, SELF-CARE Instructions: Cephalexin ([facility]), Urinary Tract Infection ([facility]) Additional Instructions: Push fluids (i.e. water, cranberry juice) Proper hygenic technique Keep the skin clean Tylenol/ibuprofen as needed Monitor glucose regularly and maintain a low-carb/sugar diet Take medications as directed F/u with your PCM in 3-5 days for a recheck Consider consult with a Urologist for ongoing/worsening symptoms. Return to the ED with any worsening symptoms and/or development of fever, headache, chest pain, palpitations, syncope, shortness of breath, trouble breathing, abdominal pain, n/v/d, blood in stool/urine, loss of control of bowel /bladder, urinary retention, or other worsening symptoms that are concerning to you. Prescriptions: Cephalexin Monohydrate [Keflex 500 mg Capsule] 500 mg PO TID #21 capsule Fluconazole [Diflucan] 150 mg PO ONCE PRN #1 tablet PRN Reason: Referrals: TAM LOPEZ DO [Primary Care Provider] - Follow up in 3-5 days
[2018-08-16 16:51] LABS: APPEARANCE,URINE SLIGHTLY-CLOUDY; BILIRUBIN,URINE NEGATIVE (NEGATIVE); COLOR,URINE AMBER; GLUCOSE, URINE >=500 mg/dL (NEGATIVE); KETONES,URINE NEGATIVE (NEGATIVE); LEUKOCYTE ESTERASE,URINE MODERATE (NEGATIVE); NITRITE,URINE POSITIVE (NEGATIVE); PROTEIN,URINE NEGATIVE (NEGATIVE); URINE SPECIFIC GRAVITY 1.022
[2018-08-16] MEDS ORDERED: MORPHINE SULFATE 10 MG/ML INJ IV ONE (17:49)
[2018-08-16] MEDS ORDERED: CEFTRIAXONE 1 GM/D5W RTU 1 GM/50 ML RTUPB IV ONE (18:00)
[2018-08-16 18:32] LABS: ALANINE AMINOTRANSFERASE 22 U/L (9-52); ALBUMIN 3.4 g/dL (3.5-5.0); ALKALINE PHOSPHATASE 197 U/L (38-126); ANION GAP 8 (5-19); ASPARTATE AMINO TRANSFERASE 17 U/L (14-36); BILIRUBIN,DIRECT 0.3 mg/dL (0.0-0.4); BILIRUBIN,TOTAL 0.5 mg/dL (0.2-1.3); BLOOD UREA NITROGEN 14 mg/dL (7-20); CARBON DIOXIDE 28 mmol/L (22-30); CHLORIDE 98 mmol/L (98-107); GLUCOSE 349 mg/dL (75-110); POTASSIUM 4.1 mmol/L (3.6-5.0); SODIUM 133.9 mmol/L (137-145); TOTAL PROTEIN 5.9 g/dL (6.3-8.2)
[2018-08-16] MEDS ORDERED: ONDANSETRON ODT 4 MG TAB (6 TAB/ER DISP) PO PRN (18:55)
[2018-08-16 19:19] VITALS: BP 136/81
== END 2018-08-16 19:19 | disposition home or self-care (01) ==
LOC: ER 15:49
DX: N39.0 Urinary tract infection, site not specified (principal); E10.65 Type 1 diabetes mellitus with hyperglycemia; Z79.4 Long term (current) use of insulin; R30.9 Painful micturition, unspecified; R39.15 Urgency of urination; R35.0 Frequency of micturition; R10.9 Unspecified abdominal pain
CPT/HCPCS: 99285; 96361; 96375; 96365; 36415; 87086; 82962; 85025; 81025; 87088; 80053; 81001; 87186; 82803; J2270; J7030; J0696

== ENCOUNTER 2018-10-20 14:53 | Inpatient (IN) | payer SELFPAY ==
--- NOTE | 2018-10-20 15:17 | ER Document Report ---
ED General - General Stated Complaint: WEAKNESS Time Seen by Provider: 10/20/18 15:06 TRAVEL OUTSIDE OF THE [place] IN LAST 30 DAYS: No - HPI Notes: Patient is a 33-year-old female with a history of insulin-dependent diabetic, noncompliant, who presents to the ED complaining of weakness, dry mouth, nausea with intermittent vomiting, and believing that she is in DKA. Patient states that she has been in DKA multiple times in the past which is confirmed through our records. Patient states that she has been out of her insulin for the last 2 -3 days. She denies any drug allergies. Patient states the last few checks of her glucose on her glucometer at home read "high." She has had decreased p.o. intake over the last couple days. She is still urinating. Denies any headache , fever, changes in vision/speech/mentation/hearing, URI, sore throat, chest pain, palpitations, syncope, cough, shortness of breath, wheeze, dyspnea, abdominal pain, diarrhea, urinary retention, dysuria, hematuria, loss of control of bowel or bladder, numbness/tingling, saddle anesthesia, muscle paralysis/weakness, or rash. - Related Data Allergies/Adverse Reactions: No Known Allergies Allergy (Verified 06/28/18 14:03) Past Medical History - Social History Smoking Status: Unknown if Ever Smoked Family History: DM, Other - Mother described as an asthmatic, father had hepatitis C - Past Medical History Cardiac Medical History: Denies: Hx Heart Attack, Hx Hypertension Neurological Medical History: Denies: Hx Cerebrovascular Accident, Hx Seizures Endocrine Medical History: Reports: Hx Diabetes Mellitus Type 1 Renal/ Medical History: Denies: Hx Peritoneal Dialysis GI Medical History: Reports: Hx Gastroesophageal Reflux Disease. Denies: Hx Hepatitis, Hx Hiatal Hernia, Hx Ulcer Skin Medical History: Reports Hx Cellulitis Psychiatric Medical History: Denies: Hx Depression Infectious Medical History: Denies: Hx Hepatitis Past Surgical History: Reports: Hx Tonsillectomy - &adenoids. Denies: Hx Mastectomy, Hx Open Heart Surgery, Hx Pacemaker - Immunizations Hx Diphtheria, Pertussis, Tetanus Vaccination: Yes Review of Systems - Review of Systems -: Yes All other systems reviewed and negative Physical Exam - Vital signs Vitals: Resp BP Pulse Ox 16 131/72 H 100 10/20/18 15:07 10/20/18 15:07 12/10/18 15:07 - Notes Notes: PHYSICAL EXAMINATION: GENERAL: Pt appears somnolent, but A&Ox4. Answers questions appropriately. HEAD: Atraumatic, normocephalic. EYES: Pupils equal round and reactive to light, extraocular movements intact, sclera anicteric, conjunctiva are normal. ENT: EAC clear b/l. TM's intact b/l without erythema, fluid, or perforation. Nares patent and without discharge. oropharynx clear without exudates. No tonsilar hypertrophy or erythema. Dry mucous membranes. No sinus tenderness. NECK: Normal range of motion, supple without lymphadenopathy LUNGS: Breath sounds clear to auscultation bilaterally and equal. No wheezes rales or rhonchi. HEART: Regular rate and rhythm without murmurs, rubs, gallops. ABDOMEN: Soft, nontender, nondistended abdomen. No guarding, no rebound. No masses appreciated. Normal bowel sounds present. No CVA tenderness bilaterally. Musculoskeletal: FROM to passive/active. Strength 5+/5. Extremities: No cyanosis, clubbing, or edema b/l. Peripheral pulses 2+. Capillary refill less than 3 seconds. NEUROLOGICAL: Cranial nerves grossly intact. Normal speech. Normal sensory, motor exams PSYCH: flat affect SKIN: Warm, Dry, normal turgor, no rashes or lesions noted. Course - Re-evaluation Re-evalutation: 10/20/18 15:15 I have a high suspicion for DKA with possible associated hyperkalemia. Labs/EKG /Fluids ordered. 10/20/18 16:52 Patient is found to be in DKA. Vitals are currently acceptable. Patient is not altered and is alert and oriented, somnolent, but arousable. Patient has a 6.93 pH with a 7.7 bicarb. Patient has [place] received 2 L of fluid. She has no significant peak T waves on EKG and potassium is 5.7. I have ordered a 6 unit IV bolus followed by 0.1 unit/kg/hr insulin drip. I have also ordered for a bicarbonate bolus and drip. Dr. Davila, hospitalist, has accepted patient for admit to the ICU. - Vital Signs Vital signs: Temp Pulse Resp BP Pulse Ox 97.7 F 18 124/66 100 10/20/18 15:27 10/20/18 16:20 10/20/18 16:20 10/20/18 16:20 - Laboratory Result Diagrams: 10/20/18 15:14 10/20/18 15:14 Laboratory results interpreted by me: 10/20/18 10/20/18 10/20/18 15:14 15:14 15:14 WBC 26.4 H Hct 50.0 H MCV 98 H MCHC 30.6 L RDW 14.9 H Seg Neuts % (Manual) 88 H Lymphocytes % (Manual) 5 L Abs Neuts (Manual) 23.2 H Abs Monocytes (Manual) 1.8 H VBG pH 6.93 L* VBG HCO3 7.7 L Potassium 5.7 H Chloride 93 L Carbon Dioxide 8 L* Anion Gap 37 H BUN 26 H Est GFR (Non-Af Amer) 54 L Glucose 627 H* Alkaline Phosphatase 213 H Discharge - Discharge Clinical Impression: DKA (diabetic ketoacidoses) Qualifiers: Diabetes mellitus type: type 1 Diabetes mellitus complication detail: without coma Qualified Code(s): E10.10 - Type 1 diabetes mellitus with ketoacidosis without coma Condition: Stable Disposition: ADMITTED INPATIENT Admitting Provider: Hospitalist - Dr. Davila Unit Admitted: ICU Referrals: TMA LOPEZ DO [Primary Care Provider] - Follow up as needed
[2018-10-20 15:29] LABS: HEMOGLOBIN 15.3 g/dL (12.0-15.5); MEAN CORPUSCULAR HGB CONC 30.6 g/dL (32.0-36.0); MEAN CORPUSCULAR VOLUME 98 fl (80-97); PLATELET COUNT 387 10^3/uL (150-450); RED BLOOD COUNT 5.09 10^6/uL (3.72-5.28); RED CELL DISTRIBUTION WIDTH 14.9 % (11.5-14.0); WHITE BLOOD COUNT 26.4 10^3/uL (4.0-10.5)
[2018-10-20] MEDS: NORMAL SALINE 1000 ML 1,000 ML IV PRN ×2 (15:34→16:34)
[2018-10-20 15:42] LABS: VENOUS BLOOD BASE EXCESS -24.5 mmol/L; VENOUS BLOOD HCO3 7.7 mmol/L (20-32); VENOUS BLOOD PCO2 37.8 mmHg (35-63)
[2018-10-20 16:02] LABS: VENOUS BLOOD PH 6.93 (7.30-7.42)
[2018-10-20 16:09] LABS: ABSOLUTE LYMPHOCYTES# (MANUAL) 1.3 10^3/uL (0.5-4.7); ABSOLUTE MONOCYTES # (MANUAL) 1.8 10^3/uL (0.1-1.4); ABSOLUTE NEUTROPHILS# (MANUAL) 23.2 10^3/uL (1.7-8.2); BASOPHILS % (MANUAL) 0 % (0-2); EOSINOPHILS % (MANUAL) 0 % (0-6); LYMPHOCYTES % (MANUAL) 5 % (13-45); MONOCYTES % (MANUAL) 7 % (3-13); SEGMENTED NEUTROPHILS % (MAN) 88 % (42-78); TOTAL CELLS COUNTED 100
[2018-10-20 16:10] LABS: ANISOCYTOSIS SLIGHT; PLATELET COMMENT ADEQUATE; TOXIC GRANULATION SLIGHT
[2018-10-20 16:26] LABS: ALANINE AMINOTRANSFERASE 26 U/L (9-52); ALKALINE PHOSPHATASE 213 U/L (38-126); ASPARTATE AMINO TRANSFERASE 24 U/L (14-36); BILIRUBIN,DIRECT 0.4 mg/dL (0.0-0.4); BILIRUBIN,TOTAL 0.5 mg/dL (0.2-1.3); BLOOD UREA NITROGEN 26 mg/dL (7-20); CALCIUM 10.2 mg/dL (8.4-10.2); POTASSIUM 5.7 mmol/L (3.6-5.0); TOTAL PROTEIN 7.7 g/dL (6.3-8.2)
[2018-10-20 16:32] LABS: CHLORIDE 93 mmol/L (98-107); SODIUM 137.7 mmol/L (137-145)
[2018-10-20 16:35] LABS: ANION GAP 37 (5-19)
[2018-10-20 16:37] LABS: CARBON DIOXIDE 8 mmol/L (22-30); GLUCOSE 627 mg/dL (75-110)
[2018-10-20] MEDS ORDERED: NORMAL SALINE 100 ML with INSULIN REGULAR, HUMAN 100 UNIT IV PRN ×4 (16:43→17:21)
[2018-10-20] MEDS ORDERED: GLUCAGON,HUMAN RECOMB 1 MG INJ IM PRN ×2 (16:43→17:19)
[2018-10-20] MEDS ORDERED: DEXTROSE 40% GEL 15 GM TUBE PO PRN ×4 (16:43→17:19)
[2018-10-20] MEDS ORDERED: DEXTROSE 50%-WATER 25 GM/50 ML DISP.SYRIN IV PRN ×4 (16:43→17:19)
[2018-10-20] MEDS ORDERED: DEXTROSE 5%-WATER 1000 ML 1,000 ML with SODIUM BICARBONATE 50 MEQ IV ONE ×2 (16:44)
[2018-10-20] MEDS ORDERED: DEXTROSE 5%-WATER 1000 ML 1,000 ML with SODIUM BICARBONATE 150 MEQ IV PRN ×4 (16:45→20:52)
[2018-10-20] MEDS ORDERED: INSULIN REG, HUMAN 100 UNIT/ML 3 ML VIAL (PYX) IV ONE (16:46)
[2018-10-20] MEDS ORDERED: NORMAL SALINE 1000 ML 2,000 ML IV ONE (17:14)
[2018-10-20] MEDS ORDERED: INSULIN REG, HUMAN 100 UNIT/ML 3 ML VIAL (PYX) ONE (17:23)
[2018-10-20] MEDS ORDERED: PROMETHAZINE HCL INJ 25 MG/1 ML VIAL IV PRN (17:41)
[2018-10-20 18:21] LABS: BLOOD UREA NITROGEN 24 mg/dL (7-20); CALCIUM 8.8 mg/dL (8.4-10.2); CHLORIDE 101 mmol/L (98-107); POTASSIUM 5.8 mmol/L (3.6-5.0)
[2018-10-20 18:35] LABS: SODIUM 137.3 mmol/L (137-145)
[2018-10-20 18:39] LABS: APPEARANCE,URINE CLEAR; BILIRUBIN,URINE NEGATIVE (NEGATIVE); COLOR,URINE STRAW; GLUCOSE, URINE >=500 mg/dL (NEGATIVE); KETONES,URINE 80 mg/dL (NEGATIVE); LEUKOCYTE ESTERASE,URINE NEGATIVE (NEGATIVE); NITRITE,URINE NEGATIVE (NEGATIVE); PROTEIN,URINE 30 mg/dL (NEGATIVE); URINE SPECIFIC GRAVITY 1.017; UROBILINOGEN,URINE NEGATIVE mg/dL (<2.0)
[2018-10-20 18:40] LABS: ANION GAP 31 (5-19)
[2018-10-20 18:43] LABS: CARBON DIOXIDE 5 mmol/L (22-30); GLUCOSE 577 mg/dL (75-110)
[2018-10-20] MEDS: FAMOTIDINE INJ/PF 20 MG/2 ML SDV IV SCH (18:44)
[2018-10-20] MEDS ORDERED: NORMAL SALINE 1000 ML 1,000 ML IV ONE (19:00)
[2018-10-20] MEDS: INSULIN, REGULAR 100 UNIT/100 ML NORMAL SALINE IV PRN ×4 (20:58→23:09)
[2018-10-20] MEDS: HEPARIN SOD (PORCINE) 5,000 UNIT/ML 1 ML SYRINGE SUBCUT SCH (21:07)
[2018-10-20 22:22] LABS: BLOOD UREA NITROGEN 20 mg/dL (7-20); CALCIUM 7.9 mg/dL (8.4-10.2); GLUCOSE 311 mg/dL (75-110)
[2018-10-20 22:27] LABS: CHLORIDE 106 mmol/L (98-107); SODIUM 136.5 mmol/L (137-145)
[2018-10-20 22:33] LABS: ANION GAP 24 (5-19); POTASSIUM 4.3 mmol/L (3.6-5.0)
[2018-10-20 22:34] LABS: CARBON DIOXIDE 7 mmol/L (22-30)
[2018-10-20] MEDS ORDERED: POTASSI CL 20 MEQ/D5-1/2NS 1L 1,000 ML IV ONE (23:08)
[2018-10-20] MEDS: POTASSI CL 20 MEQ/D5-1/2NS 1L 1,000 ML IV PRN (23:11)
[2018-10-21 02:38] LABS: ANION GAP 14 (5-19); BLOOD UREA NITROGEN 16 mg/dL (7-20); CALCIUM 7.5 mg/dL (8.4-10.2); CARBON DIOXIDE 13 mmol/L (22-30); CHLORIDE 111 mmol/L (98-107); GLUCOSE 280 mg/dL (75-110); SODIUM 137.9 mmol/L (137-145)
[2018-10-21] MEDS: POTASSI CL 20 MEQ/D5-1/2NS 1L 1,000 ML IV PRN ×2 (03:00→07:38)
[2018-10-21] MEDS ORDERED: INSULIN REG, HUMAN 100 UNIT/ML 3 ML VIAL (PYX) ONE (03:32)
[2018-10-21] MEDS: HEPARIN SOD (PORCINE) 5,000 UNIT/ML 1 ML SYRINGE SUBCUT SCH ×3 (05:15→21:54)
[2018-10-21] MEDS: INSULIN, REGULAR 100 UNIT/100 ML NORMAL SALINE IV PRN ×2 (05:18)
[2018-10-21 06:42] LABS: ABSOLUTE LYMPHOCYTES (AUTO) 2.4 10^3/uL (0.5-4.7); ABSOLUTE MONOCYTES (AUTO) 1.4 10^3/uL (0.1-1.4); BASOPHILS % (AUTO) 0.1 % (0-2); HEMATOCRIT 35.5 % (36.0-47.0); LYMPHOCYTES % (AUTO) 15.2 % (13-45); MEAN CORPUSCULAR HEMOGLOBIN 29.6 pg (27.0-33.4); MEAN CORPUSCULAR HGB CONC 33.5 g/dL (32.0-36.0); MONOCYTES % (AUTO) 8.9 % (3-13); PLATELET COUNT 287 10^3/uL (150-450); RED BLOOD COUNT 4.02 10^6/uL (3.72-5.28); RED CELL DISTRIBUTION WIDTH 14.1 % (11.5-14.0); SEGMENTED NEUTROPHILS % (AUTO) 75.8 % (42-78); TOTAL CELLS COUNTED % (AUTO) 100 %; WHITE BLOOD COUNT 15.8 10^3/uL (4.0-10.5)
[2018-10-21 06:43] LABS: HEMOGLOBIN 11.9 g/dL (12.0-15.5); MEAN CORPUSCULAR VOLUME 88 fl (80-97)
[2018-10-21 06:57] LABS: ANION GAP 7 (5-19); BLOOD UREA NITROGEN 14 mg/dL (7-20); CALCIUM 7.5 mg/dL (8.4-10.2); CARBON DIOXIDE 22 mmol/L (22-30); CHLORIDE 107 mmol/L (98-107); GLUCOSE 220 mg/dL (75-110); POTASSIUM 3.6 mmol/L (3.6-5.0); SODIUM 135.7 mmol/L (137-145)
--- NOTE | 2018-10-21 08:34 | PDOC H&P ---
History of Present Illness Admission Date/PCP: TAM LOPEZ DO Patient complains of: nausea, vomiting History of Present Illness: SEAN FELIPE is a 33 year old female with a PMH of type 1 DM with multiple admissions due to severe DKA, uncontrolled DM and poor compliance who presented with nausea and vomiting. Patient says she ran out of her insulin regimen 4 days ago on her birthday and has not had any insulin since then. She says her glucometer has been reading "high" in the past 2 days. She says she has been having worsening nausea and had multiple episodes of nonbloody, nonbilious vomiting in the past 2 days. Denies abdominal pain. She complains of severe thirst and generalized weakness. Denies fever or chills. She denies lower urinary tract symptoms. Upon encounter , patient is slightly lethargic but easily arousable. She is oriented x 3. She says she feels really thirsty and wants to drink more water. Past Medical History Cardiac Medical History: Denies: Myocardial Infarction, Hypertension Neurological Medical History: Denies: Seizures Endocrine Medical History: Reports: Diabetes Mellitus Type 1 GI Medical History: Reports: Gastroesophageal Reflux Disease Denies: Hepatitis, Hiatal Hernia Psychiatric Medical History: Denies: Depression Hematology: Denies: Anemia, Sickle Cell Disease Past Surgical History Past Surgical History: Reports: Tonsillectomy - &adenoids Denies: Amputation, Mastectomy, Pacemaker Social History Smoking Status: Unknown if Ever Smoked Frequency of Alcohol Use: Social Hx Recreational Drug Use: Yes Drugs: Marijuana, Other Hx Prescription Drug Abuse: No Family History Family History: DM, Other - Mother described as an asthmatic, father had hepatitis C Parental Family History Reviewed: Yes - no premature CAD Children Family History Reviewed: No Sibling(s) Family History Reviewed.: No Medication/Allergy Home Medications: Insulin Aspart [Novolog Flexpen] 0 unit SQ .SLIDING SCALE 06/29/18 Insulin Aspart [Novolog Flexpen] 7 units SQ AC 06/29/18 Insulin Glargine,Hum.rec.anlog [Lantus Insulin 100 Unit/mL] 15 unit SUBCUT Q12 insuln.pen 07/02/18 Cephalexin Monohydrate [Keflex 500 mg Capsule] 500 mg PO TID #21 capsule Fluconazole [Diflucan] 150 mg PO ONCE PRN #1 tablet 08/16/18 Allergies/Adverse Reactions: No Known Allergies Allergy (Verified 06/28/18 14:03) Review of Systems All systems: reviewed and no additional remarkable complaints except as stated - as mentioned in HPI Physical Exam Vital Signs: Temp Pulse Resp BP Pulse Ox 97.7 F 18 124/66 100 10/20/18 15:27 10/20/18 16:20 10/20/18 16:20 10/20/18 16:20 Intake & Output 10/19/18 10/20/18 10/21/18 06:59 06:59 06:59 Intake Total 999 Balance 999 Weight 135 lb 5.821 oz General appearance: PRESENT: mild distress - from thirst and weakness, other - appears severely dehydrated Eye exam: PRESENT: conjunctiva pink, EOMI, PERRLA. ABSENT: scleral icterus Ear exam: PRESENT: normal external ear exam Mouth exam: PRESENT: dry mucosa Neck exam: ABSENT: carotid bruit, JVD, lymphadenopathy, thyromegaly Respiratory exam: PRESENT: clear to auscultation black. ABSENT: rales, rhonchi, wheezes Cardiovascular exam: PRESENT: RRR. ABSENT: diastolic murmur, rubs, systolic murmur Pulses: PRESENT: normal dorsalis pedis pul GI/Abdominal exam: PRESENT: normal bowel sounds, soft. ABSENT: distended, guarding, mass, organolmegaly, rebound, tenderness Rectal exam: PRESENT: deferred Neurological exam: PRESENT: awake, oriented to person, oriented to place, oriented to time, oriented to situation Results Laboratory Results: 10/20/18 15:14 10/20/18 10/20/18 10/20/18 15:14 15:14 15:14 WBC 26.4 H RBC 5.09 Hgb 15.3 Hct 50.0 H MCV 98 H MCH 30.0 MCHC 30.6 L RDW 14.9 H Plt Count 387 Seg Neutrophils % Not Reportable Lymphocytes % Not Reportable Monocytes % Not Reportable Eosinophils % Not Reportable Basophils % Not Reportable Absolute Neutrophils Not Reportable Absolute Lymphocytes Not Reportable Absolute Monocytes Not Reportable Absolute Eosinophils Not Reportable Absolute Basophils Not Reportable VBG pH 6.93 L* VBG pCO2 37.8 VBG HCO3 7.7 L VBG Base Excess -24.5 Sodium 137.7 Potassium 5.7 H Chloride 93 L Carbon Dioxide 8 L* Anion Gap 37 H BUN 26 H Creatinine 1.16 Est GFR ( Amer) > 60 Est GFR (Non-Af Amer) 54 L Glucose 627 H* Calcium 10.2 Total Bilirubin 0.5 AST 24 ALT 26 Alkaline Phosphatase 213 H Total Protein 7.7 Albumin 5.0 Assessment & Plan - Diagnosis (1) Diabetic ketoacidosis associated with type 1 diabetes mellitus Qualifiers: Diabetes mellitus complication detail: with coma Qualified Code(s): E10.11 - Type 1 diabetes mellitus with ketoacidosis with coma Is this a current diagnosis for this admission?: Yes Plan: In the ER, she was found to be in severe DKA with a HCO of 7, elevated gap and venous pH of 6.9. She has been given 2L of IV fluids. She also got 6 u of insulin bolus and has been started on insulin and bicarb infusion. Will get another BMP. Sugar checks qhourly. Will give another 2L of fluid bolus. Continue insulin drip. Discontinue and consume first liter of bicarb drip. DKA is likely secondary to noncompliance to insulin. Patient reports she ran out of insulin 4 days ago due to issues with medicaid. (2) Severe dehydration Is this a current diagnosis for this admission?: Yes Plan: Due to severe DKA. IV fluids as mentioned. - Time Time Spent: 30 to 50 Minutes
[2018-10-21] MEDS: FAMOTIDINE INJ/PF 20 MG/2 ML SDV IV SCH ×2 (09:34→17:54)
[2018-10-21 11:39] LABS: ANION GAP 8 (5-19); BLOOD UREA NITROGEN 12 mg/dL (7-20); CALCIUM 7.5 mg/dL (8.4-10.2); CARBON DIOXIDE 24 mmol/L (22-30); CHLORIDE 105 mmol/L (98-107); GLUCOSE 134 mg/dL (75-110); POTASSIUM 3.5 mmol/L (3.6-5.0); SODIUM 136.5 mmol/L (137-145)
[2018-10-21 12:45] LABS: APPEARANCE,URINE CLEAR; BILIRUBIN,URINE NEGATIVE (NEGATIVE); COLOR,URINE COLORLESS; GLUCOSE, URINE NEGATIVE (NEGATIVE); KETONES,URINE NEGATIVE (NEGATIVE); LEUKOCYTE ESTERASE,URINE NEGATIVE (NEGATIVE); NITRITE,URINE NEGATIVE (NEGATIVE); PROTEIN,URINE NEGATIVE (NEGATIVE); URINE SPECIFIC GRAVITY 1.003; UROBILINOGEN,URINE NEGATIVE mg/dL (<2.0)
[2018-10-21] MEDS ORDERED: DEXTROSE 40% GEL 15 GM TUBE PO PRN (12:54)
[2018-10-21] MEDS ORDERED: DEXTROSE 50%-WATER SYRINGE 25 GM/50 ML DOSE IV PRN (12:54)
[2018-10-21] MEDS ORDERED: DEXTROSE 50%-WATER SYRINGE 12.5 GM/25 ML DOSE IV PRN (12:54)
[2018-10-21] MEDS ORDERED: DEXTROSE 40% GEL 15 GM TUBE X 2 PO PRN (12:54)
[2018-10-21] MEDS ORDERED: GLUCAGON,HUMAN RECOMB 1 MG INJ IM PRN (12:54)
--- NOTE | 2018-10-21 13:12 | EKG REPORT ---
SEVERITY:- NORMAL ECG - SINUS RHYTHM : Confirmed by: Lisette Arellano MD 21-Oct-2018 13:10:51
[2018-10-21] MEDS: POTASSI CL 20 MEQ/NS 1L 1000 ML IV PRN (13:56)
--- NOTE | 2018-10-21 14:46 | PDOC PROGRESS REPORT ---
Subjective Progress Note for:: 10/21/18 Subjective:: DKA resolved. Anion gap is closed. Glucose levels are below 200. Patient feels better but she still feels tired. Reason For Visit: SEVERE DKA Physical Exam Vital Signs: Temp Pulse Resp BP Pulse Ox 97.6 F 82 19 106/71 100 10/21/18 14:00 10/21/18 14:00 10/21/18 14:00 10/21/18 14:00 10/21/18 14:00 Intake & Output 10/20/18 10/21/18 10/22/18 06:59 06:59 06:59 Intake Total 3116 1797 Output Total 1645 1210 Balance 1471 587 Weight 151 lb 10.848 oz General appearance: PRESENT: no acute distress, cooperative Head exam: PRESENT: atraumatic, normocephalic Eye exam: ABSENT: conjunctival injection Respiratory exam: PRESENT: clear to auscultation black. ABSENT: accessory muscle use, crackles, wheezes Cardiovascular exam: PRESENT: RRR. ABSENT: diastolic murmur, systolic murmur GI/Abdominal exam: PRESENT: normal bowel sounds, soft. ABSENT: ascites, tenderness Rectal exam: PRESENT: deferred Neurological exam: PRESENT: alert, awake, oriented to person, oriented to place , oriented to time, oriented to situation Psychiatric exam: PRESENT: anxious Results Laboratory Results: 10/21/18 06:04 10/21/18 10:24 10/20/18 10/20/18 10/20/18 17:53 18:15 20:00 WBC RBC Hgb Hct MCV MCH MCHC RDW Plt Count Seg Neutrophils % Lymphocytes % Monocytes % Eosinophils % Basophils % Absolute Neutrophils Absolute Lymphocytes Absolute Monocytes Absolute Eosinophils Absolute Basophils Sodium 137.3 Potassium 5.8 H Chloride 101 Carbon Dioxide 5 L* Anion Gap 31 H BUN 24 H Creatinine 1.00 Est GFR ( Amer) > 60 Est GFR (Non-Af Amer) > 60 Glucose 577 H* 397 H Calcium 8.8 Magnesium Urine Color STRAW Urine Appearance CLEAR Urine pH 5.0 Ur Specific [place] 1.017 Urine Protein 30 H Urine Glucose (UA) >=500 H Urine Ketones 80 H Urine Blood SMALL H Urine Nitrite NEGATIVE Ur Leukocyte Esterase NEGATIVE Urine WBC (Auto) 0 Urine RBC (Auto) 0 12/10/18 12/11/18 12/11/18 21:50 02:01 06:04 WBC RBC Hgb Hct MCV MCH MCHC RDW Plt Count Seg Neutrophils % Lymphocytes % Monocytes % Eosinophils % Basophils % Absolute Neutrophils Absolute Lymphocytes Absolute Monocytes Absolute Eosinophils Absolute Basophils Sodium 136.5 L 137.9 135.7 L Potassium 4.3 D 4.0 3.6 Chloride 106 111 H 107 Carbon Dioxide 7 L* 13 L 22 Anion Gap 24 H 14 7 BUN 20 16 14 Creatinine 0.74 0.62 0.62 Est GFR ( Amer) > 60 > 60 > 60 Est GFR (Non-Af Amer) > 60 > 60 > 60 Glucose 311 H 280 H 220 H Calcium 7.9 L 7.5 L 7.5 L Magnesium Urine Color Urine Appearance Urine pH Ur Specific [place] Urine Protein Urine Glucose (UA) Urine Ketones Urine Blood Urine Nitrite Ur Leukocyte Esterase Urine WBC (Auto) Urine RBC (Auto) 10/21/18 10/21/18 10/21/18 06:04 10:24 10:24 WBC 15.8 H RBC 4.02 Hgb 11.9 L D Hct 35.5 L MCV 88 D MCH 29.6 MCHC 33.5 RDW 14.1 H Plt Count 287 Seg Neutrophils % 75.8 Lymphocytes % 15.2 Monocytes % 8.9 Eosinophils % 0.0 Basophils % 0.1 Absolute Neutrophils 12.0 H Absolute Lymphocytes 2.4 Absolute Monocytes 1.4 Absolute Eosinophils 0.0 Absolute Basophils 0.0 Sodium 136.5 L Potassium 3.5 L Chloride 105 Carbon Dioxide 24 Anion Gap 8 BUN 12 Creatinine 0.47 L Est GFR ( Amer) > 60 Est GFR (Non-Af Amer) > 60 Glucose 134 H Calcium 7.5 L Magnesium 1.6 Urine Color Urine Appearance Urine pH Ur Specific [place] Urine Protein Urine Glucose (UA) Urine Ketones Urine Blood Urine Nitrite Ur Leukocyte Esterase Urine WBC (Auto) Urine RBC (Auto) 10/21/18 12:15 WBC RBC Hgb Hct MCV MCH MCHC RDW Plt Count Seg Neutrophils % Lymphocytes % Monocytes % Eosinophils % Basophils % Absolute Neutrophils Absolute Lymphocytes Absolute Monocytes Absolute Eosinophils Absolute Basophils Sodium Potassium Chloride Carbon Dioxide Anion Gap BUN Creatinine Est GFR ( Amer) Est GFR (Non-Af Amer) Glucose Calcium Magnesium Urine Color COLORLESS Urine Appearance CLEAR Urine pH 6.0 Ur Specific [place] 1.003 Urine Protein NEGATIVE Urine Glucose (UA) NEGATIVE Urine Ketones NEGATIVE Urine Blood NEGATIVE Urine Nitrite NEGATIVE Ur Leukocyte Esterase NEGATIVE Urine WBC (Auto) 1 Urine RBC (Auto) 0 Assessment & Plan - Plan Summary Plan Summary: (1) Diabetic ketoacidosis associated with type 1 diabetes mellitus Qualifiers: Diabetes mellitus complication detail: with coma Qualified Code(s): E10.11 - Type 1 diabetes mellitus with ketoacidosis with coma Is this a current diagnosis for this admission?: Yes Plan: DKA resolved. Anion gap is closed. Glucose levels below 200. DC insulin drip and bicarb drip. Start subcutaneous insulin and diabetic diet. (2) Severe dehydration Is this a current diagnosis for this admission?: Yes Plan: Resolved after IV fluid hydration. Okay to transfer to the floor.
[2018-10-21] MEDS: INSULIN LISPRO 100 UNIT/ML 3 ML VIAL SUBCUT PRN (17:03)
[2018-10-21] MEDS: INSULIN LISPRO 100 UNIT/ML 3 ML VIAL SUBCUT SCH (18:46)
[2018-10-21] MEDS ORDERED: INSULIN GLARGINE,HUM.REC.ANLOG 1,000 UNIT/10 ML UNIT SUBCUT SCH (22:00)
[2018-10-21] MEDS ORDERED: INSULIN GLARGINE,HUM.REC.ANLOG 300 UNIT/3 ML INSULN.PEN SUBCUT SCH (22:00)
[2018-10-22] MEDS: POTASSI CL 20 MEQ/NS 1L 1000 ML IV PRN (03:19)
[2018-10-22 04:07] LABS: HEMATOCRIT 33.6 % (36.0-47.0); HEMOGLOBIN 11.4 g/dL (12.0-15.5); MEAN CORPUSCULAR HEMOGLOBIN 29.9 pg (27.0-33.4); MEAN CORPUSCULAR HGB CONC 34.1 g/dL (32.0-36.0); MEAN CORPUSCULAR VOLUME 88 fl (80-97); PLATELET COUNT 220 10^3/uL (150-450); RED BLOOD COUNT 3.82 10^6/uL (3.72-5.28); RED CELL DISTRIBUTION WIDTH 14.2 % (11.5-14.0); WHITE BLOOD COUNT 11.3 10^3/uL (4.0-10.5)
[2018-10-22 04:20] LABS: BLOOD UREA NITROGEN 12 mg/dL (7-20); CALCIUM 7.8 mg/dL (8.4-10.2); GLUCOSE 135 mg/dL (75-110); POTASSIUM 3.4 mmol/L (3.6-5.0)
[2018-10-22 04:26] LABS: CARBON DIOXIDE 28 mmol/L (22-30); CHLORIDE 107 mmol/L (98-107); SODIUM 138.3 mmol/L (137-145)
[2018-10-22 04:29] LABS: ANION GAP 3 (5-19)
[2018-10-22] MEDS: HEPARIN SOD (PORCINE) 5,000 UNIT/ML 1 ML SYRINGE SUBCUT SCH ×3 (05:55→21:41)
[2018-10-22] MEDS: INSULIN LISPRO 100 UNIT/ML 3 ML VIAL SUBCUT SCH ×2 (08:03→11:27)
[2018-10-22] MEDS: FAMOTIDINE INJ/PF 20 MG/2 ML SDV IV SCH ×2 (09:13→17:02)
[2018-10-22 12:53] LABS: APPEARANCE,URINE CLEAR; BILIRUBIN,URINE NEGATIVE (NEGATIVE); COLOR,URINE COLORLESS; GLUCOSE, URINE 50 mg/dL (NEGATIVE); KETONES,URINE NEGATIVE (NEGATIVE); LEUKOCYTE ESTERASE,URINE TRACE (NEGATIVE); NITRITE,URINE NEGATIVE (NEGATIVE); PROTEIN,URINE NEGATIVE (NEGATIVE); URINE SPECIFIC GRAVITY 1.004; UROBILINOGEN,URINE NEGATIVE mg/dL (<2.0)
--- NOTE | 2018-10-22 15:41 | PDOC PROGRESS REPORT ---
Subjective Progress Note for:: 10/22/18 Subjective:: DKA resolved. Anion gap is closed. Glucose levels are below 200. Patient was switched to subcutaneous insulin yesterday. She continued to be stable. She currently has no insurance and cannot afford Levemir Lantus or NovoLog or Humalog. Will start on NPH 70/30 insulin and monitor glucose levels. Reason For Visit: SEVERE DKA Physical Exam Vital Signs: Temp Pulse Resp BP Pulse Ox 98.4 F 73 16 130/94 H 100 10/22/18 13:12 10/22/18 13:12 10/22/18 13:12 10/22/18 13:12 10/22/18 13:12 Intake & Output 10/21/18 10/22/18 10/23/18 06:59 06:59 06:59 Intake Total 3116 3037 880 Output Total 1645 2170 3700 Balance 1471 867 -2820 Weight 151 lb 10.848 oz 168 lb 10.458 oz General appearance: PRESENT: no acute distress, cooperative Head exam: PRESENT: atraumatic, normocephalic Eye exam: PRESENT: EOMI. ABSENT: conjunctival injection Mouth exam: PRESENT: neck supple Neck exam: ABSENT: meningismus Respiratory exam: PRESENT: clear to auscultation black. ABSENT: accessory muscle use Cardiovascular exam: PRESENT: RRR. ABSENT: diastolic murmur, systolic murmur Pulses: PRESENT: normal carotid pulses GI/Abdominal exam: PRESENT: normal bowel sounds, soft. ABSENT: ascites Rectal exam: PRESENT: deferred Musculoskeletal exam: PRESENT: ambulatory Neurological exam: PRESENT: alert, awake, oriented to person, oriented to place , oriented to time, oriented to situation Psychiatric exam: ABSENT: agitated, homicidal ideation, suicidal ideation Results Laboratory Results: 10/22/18 03:54 10/22/18 03:54 10/22/18 10/22/18 10/22/18 03:54 03:54 12:35 WBC 11.3 H RBC 3.82 Hgb 11.4 L Hct 33.6 L MCV 88 MCH 29.9 MCHC 34.1 RDW 14.2 H Plt Count 220 Sodium 138.3 Potassium 3.4 L Chloride 107 Carbon Dioxide 28 Anion Gap 3 L BUN 12 Creatinine 0.59 Est GFR ( Amer) > 60 Est GFR (Non-Af Amer) > 60 Glucose 135 H Calcium 7.8 L Magnesium 1.9 Urine Color COLORLESS Urine Appearance CLEAR Urine pH 8.0 Ur Specific [place] 1.004 Urine Protein NEGATIVE Urine Glucose (UA) 50 H Urine Ketones NEGATIVE Urine Blood NEGATIVE Urine Nitrite NEGATIVE Ur Leukocyte Esterase TRACE H Urine WBC (Auto) 1 Urine RBC (Auto) 0 10/20/18 18:15 Clean Catch Midstream Urine Culture - Final C.albicans/C.dubliniensis Mixed Urogenital Ana Assessment & Plan - Plan Summary Plan Summary: (1) Diabetic ketoacidosis associated with type 1 diabetes mellitus Qualifiers: Diabetes mellitus complication detail: with coma Qualified Code(s): E10.11 - Type 1 diabetes mellitus with ketoacidosis with coma Is this a current diagnosis for this admission?: Yes Plan: DKA has resolved. Anion gap is closed. Glucose levels below 200. Glucose levels are appropriate on Levemir and NovoLog. Patient cannot afford these medications. We will switch to NPH 70/30 and monitor blood glucose. (2) Severe dehydration Is this a current diagnosis for this admission?: Yes Plan: Resolved after IV fluid hydration.
[2018-10-22] MEDS: HUM INSULIN NPH/REG INSULIN HM 100 UNIT/1 ML 3 ML SUBCUT SCH (16:10)
[2018-10-22] MEDS ORDERED: POTASSIUM CHLORIDE 10 MEQ CAPSULE.ER PO ONE (17:00)
[2018-10-22] MEDS ORDERED: DIPHENHYDRAMINE HCL 25 MG CAPSULE PO PRN (18:28)
[2018-10-22] MEDS: INSULIN LISPRO 100 UNIT/ML 3 ML VIAL SUBCUT PRN (21:41)
[2018-10-22] MEDS ORDERED: DIAZEPAM 5 MG TABLET PO ONE (22:00)
[2018-10-23] MEDS: HEPARIN SOD (PORCINE) 5,000 UNIT/ML 1 ML SYRINGE SUBCUT SCH (05:31)
[2018-10-23 07:10] LABS: HEMATOCRIT 36.7 % (36.0-47.0); HEMOGLOBIN 12.3 g/dL (12.0-15.5); MEAN CORPUSCULAR HEMOGLOBIN 29.7 pg (27.0-33.4); MEAN CORPUSCULAR HGB CONC 33.4 g/dL (32.0-36.0); MEAN CORPUSCULAR VOLUME 89 fl (80-97); PLATELET COUNT 219 10^3/uL (150-450); RED BLOOD COUNT 4.12 10^6/uL (3.72-5.28); RED CELL DISTRIBUTION WIDTH 14.3 % (11.5-14.0); WHITE BLOOD COUNT 6.1 10^3/uL (4.0-10.5)
[2018-10-23 07:13] LABS: ANION GAP 7 (5-19); BLOOD UREA NITROGEN 13 mg/dL (7-20); CALCIUM 8.9 mg/dL (8.4-10.2); CARBON DIOXIDE 28 mmol/L (22-30); CHLORIDE 103 mmol/L (98-107); GLUCOSE 222 mg/dL (75-110); POTASSIUM 3.8 mmol/L (3.6-5.0); SODIUM 138.3 mmol/L (137-145)
[2018-10-23 08:01] VITALS: BP 121/88
[2018-10-23] MEDS: HUM INSULIN NPH/REG INSULIN HM 100 UNIT/1 ML 3 ML SUBCUT SCH (10:15)
[2018-10-23] MEDS: FAMOTIDINE INJ/PF 20 MG/2 ML SDV IV SCH (10:19)
[2018-10-23] MEDS ORDERED: HUM INSULIN NPH/REG INSULIN HM 100 UNIT/1 ML 3 ML SUBCUT SCH (11:00)
[2018-10-23] MEDS: INSULIN LISPRO 100 UNIT/ML 3 ML VIAL SUBCUT PRN (11:06)
--- NOTE | 2018-10-23 11:21 | PDOC DISCHARGE SUMMARY ---
General - Admit/Disc Date/PCP Admission Date/Primary Care Provider: 10/20/18 17:33 TAM LOPEZ, Discharge Date: 10/23/18 - Discharge Diagnosis (2) Severe dehydration Is this a current diagnosis for this admission?: Yes - Additional Information Discharge Diet: Diabetic Discharge Activity: Activity As Tolerated Prescriptions: Hum Insulin NPH/Reg Insulin Hm [Insulin 70-30 (NPH/Reg) 100 unit/mL] 35 unit SUBCUT BIDACBS #2 vial Home Medications: Insulin Aspart [Novolog Flexpen] 0 unit SQ .SLIDING SCALE MDD 100 UNITS Hum Insulin NPH/Reg Insulin Hm [Insulin 70-30 (NPH/Reg) 100 unit/mL] 35 unit SUBCUT BIDACBS #2 vial 10/23/18 History of Present Illness History of Present Illness: SEAN FELIPE is a 33 year old female with a PMH of type 1 DM with multiple admissions due to severe DKA, uncontrolled DM and poor compliance who presented with nausea and vomiting. Patient says she ran out of her insulin regimen 4 days ago on her birthday and has not had any insulin since then. She says her glucometer has been reading "high" in the past 2 days. She says she has been having worsening nausea and had multiple episodes of nonbloody, nonbilious vomiting in the past 2 days. Denies abdominal pain. She complains of severe thirst and generalized weakness. Denies fever or chills. She denies lower urinary tract symptoms. Upon encounter , patient is slightly lethargic but easily arousable. She is oriented x 3. She says she feels really thirsty and wants to drink more water. Hospital Course Hospital Course: (1) Diabetic ketoacidosis associated with type 1 diabetes mellitus she received aggressive IVF and insulin drip. DKA has resolved. Anion gap is closed. Glucose levels improved below 200. was restarted on Levemir and NovoLog. Patient cannot afford these medications. We switched to NPH 70/30. she is stable for discharge. she should get her medicaid back within 20-30 days per patient and rn case management. (2) Severe dehydration Resolved after IV fluid hydration. Physical Exam Vital Signs: Temp Pulse Resp BP Pulse Ox 98.3 F 60 15 121/88 H 97 10/23/18 08:00 10/23/18 08:00 10/23/18 08:00 10/23/18 08:00 10/23/18 08:00 Intake & Output 10/22/18 10/23/18 10/24/18 06:59 06:59 06:59 Intake Total 3037 2997 Output Total 2170 5500 Balance 867 -2503 Weight 168 lb 10.458 oz 145 lb 4.554 oz General appearance: PRESENT: no acute distress, cooperative Head exam: PRESENT: atraumatic, normocephalic Eye exam: PRESENT: EOMI. ABSENT: conjunctival injection Mouth exam: PRESENT: neck supple Neck exam: ABSENT: meningismus Respiratory exam: PRESENT: clear to auscultation black. ABSENT: accessory muscle use Cardiovascular exam: PRESENT: RRR Pulses: PRESENT: normal carotid pulses GI/Abdominal exam: PRESENT: normal bowel sounds, soft Neurological exam: PRESENT: alert, awake, oriented to person, oriented to place , oriented to time, oriented to situation Results Laboratory Results: 10/23/18 05:44 10/23/18 05:44 10/22/18 10/23/18 10/23/18 12:35 05:44 05:44 WBC 6.1 RBC 4.12 Hgb 12.3 Hct 36.7 MCV 89 MCH 29.7 MCHC 33.4 RDW 14.3 H Plt Count 219 Sodium 138.3 Potassium 3.8 Chloride 103 Carbon Dioxide 28 Anion Gap 7 BUN 13 Creatinine 0.56 Est GFR ( Amer) > 60 Est GFR (Non-Af Amer) > 60 Glucose 222 H Calcium 8.9 Urine Color COLORLESS Urine Appearance CLEAR Urine pH 8.0 Ur Specific [place] 1.004 Urine Protein NEGATIVE Urine Glucose (UA) 50 H Urine Ketones NEGATIVE Urine Blood NEGATIVE Urine Nitrite NEGATIVE Ur Leukocyte Esterase TRACE H Urine WBC (Auto) 1 Urine RBC (Auto) 0 10/20/18 18:15 Clean Catch Midstream Urine Culture - Final C.albicans/C.dubliniensis Mixed Urogenital Ana Qualifiers - * PATIENT BEING DISCHARGED WITH ANY OF THE FOLLOWING DIAGNOSIS: No
== END 2018-10-23 12:00 | disposition home or self-care (01) | DRG 639 ==
LOC: ER 14:53 → EH 17:33 → ICU 18:36 → 4W 10-22 20:25
PROVIDERS: ADMIT Internal Medicine; ATTEND Internal Medicine
DX: E10.10 Type 1 diabetes mellitus with ketoacidosis without coma (principal); E86.0 Dehydration; T38.3X6A Underdosing of insulin and oral hypoglycemic [antidiabetic] drugs, initial encounter; K21.9 Gastro-esophageal reflux disease without esophagitis; Z83.3 Family history of diabetes mellitus; Z79.4 Long term (current) use of insulin; Z91.120 Patient's intentional underdosing of medication regimen due to financial hardship
CPT/HCPCS: 36415; 80048; 80053; 81001; 81025; 82803; 82947; 82962; 83036; 83735; 85025; 85027; 87040; 87086; 87088; 87186; 93005; 93010; 96360; 96361; 99285; J1644; J1815; J3480; J3490; J7030; J7060; S0028

== ENCOUNTER 2019-01-06 17:12 | Inpatient (IN) | payer SELFPAY ==
[2019-01-06 17:53] LABS: ALANINE AMINOTRANSFERASE 25 U/L (9-52); ALBUMIN 5.4 g/dL (3.5-5.0); ALKALINE PHOSPHATASE 271 U/L (38-126); ASPARTATE AMINO TRANSFERASE 33 U/L (14-36); BILIRUBIN,DIRECT 0.5 mg/dL (0.0-0.4); BILIRUBIN,TOTAL 0.5 mg/dL (0.2-1.3); BLOOD UREA NITROGEN 22 mg/dL (7-20); CALCIUM 10.2 mg/dL (8.4-10.2); TOTAL PROTEIN 8.6 g/dL (6.3-8.2)
[2019-01-06 17:58] LABS: CHLORIDE 106 mmol/L (98-107); SODIUM 142.7 mmol/L (137-145)
[2019-01-06 18:02] LABS: VENOUS BLOOD BASE EXCESS -27.9 mmol/L; VENOUS BLOOD HCO3 5.2 mmol/L (20-32); VENOUS BLOOD PCO2 30.2 mmHg (35-63)
[2019-01-06 18:04] LABS: HEMATOCRIT 51.6 % (36.0-47.0); HEMOGLOBIN 16.1 g/dL (12.0-15.5); MEAN CORPUSCULAR HEMOGLOBIN 30.4 pg (27.0-33.4); MEAN CORPUSCULAR HGB CONC 31.1 g/dL (32.0-36.0); MEAN CORPUSCULAR VOLUME 98 fl (80-97); PLATELET COUNT 351 10^3/uL (150-450); RED BLOOD COUNT 5.28 10^6/uL (3.72-5.28)
[2019-01-06 18:12] LABS: ANION GAP 29 (5-19)
[2019-01-06 18:13] LABS: VENOUS BLOOD PH 6.86 (7.30-7.42)
[2019-01-06 18:14] LABS: CARBON DIOXIDE 8 mmol/L (22-30); GLUCOSE 592 mg/dL (75-110); POTASSIUM 6.4 mmol/L (3.6-5.0)
[2019-01-06] MEDS ORDERED: RINGERS SOLUTION,LACTATED 1,000 ML IV ONE (18:17)
[2019-01-06] MEDS ORDERED: NORMAL SALINE 100 ML with INSULIN REGULAR, HUMAN 100 UNIT IV PRN ×2 (18:18)
[2019-01-06] MEDS ORDERED: GLUCAGON,HUMAN RECOMB 1 MG INJ IM PRN ×2 (18:18→21:26)
[2019-01-06] MEDS ORDERED: DEXTROSE 40% GEL 15 GM TUBE PO PRN ×4 (18:18→21:26)
[2019-01-06] MEDS ORDERED: DEXTROSE 50%-WATER 25 GM/50 ML DISP.SYRIN IV PRN ×4 (18:18→21:26)
[2019-01-06 18:22] LABS: WHITE BLOOD COUNT 31.4 10^3/uL (4.0-10.5)
[2019-01-06 18:24] LABS: ABSOLUTE LYMPHOCYTES# (MANUAL) 0.6 10^3/uL (0.5-4.7); ABSOLUTE MONOCYTES # (MANUAL) 0.6 10^3/uL (0.1-1.4); ABSOLUTE NEUTROPHILS# (MANUAL) 30.1 10^3/uL (1.7-8.2); BASOPHILS % (MANUAL) 0 % (0-2); EOSINOPHILS % (MANUAL) 0 % (0-6); LYMPHOCYTES % (MANUAL) 2 % (13-45); MONOCYTES % (MANUAL) 2 % (3-13); SEGMENTED NEUTROPHILS % (MAN) 96 % (42-78); TOTAL CELLS COUNTED 100
[2019-01-06] MEDS ORDERED: DEXTROSE 5%-WATER 1000 ML 1,000 ML with SODIUM BICARBONATE 150 MEQ IV PRN ×2 (18:24)
[2019-01-06 18:26] LABS: ANISOCYTOSIS SLIGHT; PLATELET COMMENT ADEQUATE; TOXIC VACUOLATION PRESENT
[2019-01-06] MEDS: RINGERS SOLUTION,LACTATED 1,000 ML IV PRN ×2 (18:27→21:13)
[2019-01-06 18:29] LABS: PLATELET LARGE PRESENT
[2019-01-06 18:36] LABS: APPEARANCE,URINE CLOUDY; BILIRUBIN,URINE NEGATIVE (NEGATIVE); COLOR,URINE YELLOW; GLUCOSE, URINE >=500 mg/dL (NEGATIVE); KETONES,URINE 80 mg/dL (NEGATIVE); LEUKOCYTE ESTERASE,URINE NEGATIVE (NEGATIVE); NITRITE,URINE NEGATIVE (NEGATIVE); PROTEIN,URINE 30 mg/dL (NEGATIVE); UROBILINOGEN,URINE NEGATIVE mg/dL (<2.0)
[2019-01-06] MEDS ORDERED: INSULIN REG, HUMAN 100 UNIT/ML 3 ML VIAL (PYX) ONE (18:48)
[2019-01-06 18:55] LABS: URINE AMPHETAMINES SCREEN UNCONFIRMED POSITIVE; URINE BARBITURATES SCREEN NEGATIVE; URINE BENZODIAZEPINES SCREEN NEGATIVE; URINE COCAINE SCREEN NEGATIVE; URINE MARIJUANA (THC) SCREEN NEGATIVE; URINE METHADONE SCREEN NEGATIVE; URINE PHENCYCLIDINE SCREEN NEGATIVE
--- NOTE | 2019-01-06 19:14 | RADIOLOGY REPORT (SQ) ---
EXAM DESCRIPTION: CHEST SINGLE VIEW COMPLETED DATE/TIME: 01/06/2019 6:58 pm REASON FOR STUDY: dka wbc elevation COMPARISON: 07/02/2015 EXAM PARAMETERS: NUMBER OF VIEWS: One view. TECHNIQUE: Single frontal radiographic view of the chest acquired. RADIATION DOSE: NA LIMITATIONS: None. FINDINGS: LUNGS AND PLEURA: No opacities, masses or pneumothorax. No pleural effusion. MEDIASTINUM AND HILAR STRUCTURES: No masses. Contour normal. HEART AND VASCULAR STRUCTURES: Heart normal in size. Normal vasculature. BONES: No acute findings. HARDWARE: None in the chest. OTHER: No other significant finding. IMPRESSION: NO ACUTE RADIOGRAPHIC FINDING IN THE CHEST. TECHNICAL DOCUMENTATION: JOB ID: [id number] [employer]- All Rights Reserved Reading location - IP/workstation name: [email or web address]
[2019-01-06 20:02] LABS: VENOUS BLOOD BASE EXCESS -28.7 mmol/L; VENOUS BLOOD HCO3 4.7 mmol/L (20-32)
[2019-01-06 20:06] LABS: VENOUS BLOOD PH 6.84 (7.30-7.42)
[2019-01-06] MEDS ORDERED: MAG HYDROX/AL HYDROX/SIMETH SUSP 30 ML UDCUP PO PRN (21:26)
[2019-01-06] MEDS ORDERED: ZOLPIDEM TARTRATE 5 MG TABLET PO PRN (21:26)
[2019-01-06] MEDS ORDERED: IPRATROPIUM/ALBUTEROL 0.5-2.5 MG/3 ML AMPUL NEB ONE (21:26)
[2019-01-06] MEDS ORDERED: MAGNESIUM HYDROXIDE SUSP 30 ML UDCUP PO PRN (21:26)
[2019-01-06] MEDS ORDERED: ACETAMINOPHEN 325 MG TABLET PO PRN (21:26)
[2019-01-06] MEDS ORDERED: IPRATROPIUM/ALBUTEROL 0.5-2.5 MG/3 ML AMPUL NEB PRN (21:26)
--- NOTE | 2019-01-06 21:28 | ER Document Report ---
ED General - General Chief Complaint: High Blood Sugar Stated Complaint: ALTERED MENTAL STATUS Time Seen by Provider: 01/06/19 17:39 TRAVEL OUTSIDE OF THE [place] IN LAST 30 DAYS: No - HPI Patient complains to provider of: Altered mental status elevated blood sugars Notes: Patient coming in for altered mental status elevated blood sugars. According to EMS the patient's son stated that he left this morning with the patient with a normal mental status came home found her altered. Patient has a history of polysubstance abuse and noncompliance with her diabetic medication regiment and has had an multiple admissions for DKA. Upon my evaluation patient vital signs are otherwise stable slightly tachycardic patient is arousable to voice however makes mumbling sounds. Patient is unable to give any valuable information at this time. My [employer] review - Related Data Allergies/Adverse Reactions: No Known Allergies Allergy (Verified 10/20/18 19:31) Past Medical History - Social History Smoking Status: Unknown if Ever Smoked Family History: DM, Other - Mother described as an asthmatic, father had hepatitis C Patient has suicidal ideation: No Patient has homicidal ideation: No - Past Medical History Cardiac Medical History: Denies: Hx Heart Attack, Hx Hypertension Neurological Medical History: Denies: Hx Cerebrovascular Accident, Hx Seizures Endocrine Medical History: Reports: Hx Diabetes Mellitus Type 1 Renal/ Medical History: Denies: Hx Peritoneal Dialysis GI Medical History: Reports: Hx Gastroesophageal Reflux Disease. Denies: Hx H epatitis, Hx Hiatal Hernia, Hx Ulcer Skin Medical History: Reports Hx Cellulitis Psychiatric Medical History: Denies: Hx Depression Infectious Medical History: Denies: Hx Hepatitis Past Surgical History: Reports: Hx Tonsillectomy - &adenoids. Denies: Hx Mastectomy, Hx Open Heart Surgery, Hx Pacemaker - Immunizations Hx Diphtheria, Pertussis, Tetanus Vaccination: Yes Review of Systems - Review of Systems -: Yes ROS unobtainable due to patient's medical condition - Altered mental state Physical Exam - Vital signs Vitals: Temp Pulse Resp BP 98.4 F 87 14 141/81 H 01/06/19 17:25 01/06/19 17:25 01/06/19 17:25 01/06/19 17:25 Interpretation: Normal - General General appearance: Appears well, Alert - HEENT Head: Normocephalic, Atraumatic Eyes: Normal Pupils: PERRL Notes: Diffuse dental disease - Respiratory Respiratory status: No respiratory distress Chest status: Nontender Breath sounds: Normal Chest palpation: Normal - Cardiovascular Rhythm: Regular Heart sounds: Normal auscultation Murmur: No - Abdominal Inspection: Normal Distension: No distension Bowel sounds: Normal Tenderness: Nontender Organomegaly: No organomegaly - Back Back: Normal, Nontender - Extremities General upper extremity: Normal inspection, Nontender, Normal color, Normal ROM, Normal temperature General lower extremity: Normal inspection, Nontender, Normal ROM, Normal temperature, Normal weight bearing. No: Normal color - mottled legs bilaterally pulses intact, Herber's sign - Neurological Neuro grossly intact: Yes Meli Coma Scale Eye Opening: To Voice Meli Coma Scale Verbal: Confused [place] Coma Scale Motor: Obeys Commands Meli Coma Scale Total: 13 Motor strength normal: LUE, RUE, LLE, RLE Sensory: Normal - Psychological Associated symptoms: Normal affect, Normal mood - Skin Skin Temperature: Warm Skin Moisture: Dry Skin Color: Normal Course - Re-evaluation Re-evalutation: 01/06/19 22:25 Laboratory studies are consistent with DKA with a pH of 6.8. Patient was started on a bicarb drip along with IV fluids 2 L lactated Ringer followed by a insulin drip per protocol. Patient mental state did improve patient upon reevaluation complaining that her mouth is dry requesting swabs and ice chips. Patient denies any sores on her body denies any trauma denies any pain. Patient will be admitted to the hospitalist. Initially hospitalist requesting insulin drip be increased to 10 units however feel this time with improvement of her ion gap improvement of the potassium and improvement of the sugar I am hesitant to increase the insulin drip to such elevated rate until she can be managed appropriately in the ICU - Vital Signs Vital signs: Temp Pulse Resp BP Pulse Ox 98.4 F 87 14 141/81 H 01/06/19 17:25 01/06/19 17:25 01/06/19 17:25 01/06/19 17:25 - Laboratory Result Diagrams: 01/06/19 17:20 01/06/19 21:30 Laboratory results interpreted by me: 01/06/19 01/06/19 01/06/19 17:15 17:20 17:20 WBC 31.4 H* Hgb 16.1 H Hct 51.6 H MCV 98 H MCHC 31.1 L RDW 15.0 H Seg Neuts % (Manual) 96 H Lymphocytes % (Manual) 2 L Monocytes % (Manual) 2 L Abs Neuts (Manual) 30.1 H VBG pH VBG pCO2 VBG HCO3 Sodium Potassium 6.4 H* Chloride Carbon Dioxide 8 L* Anion Gap 29 H BUN 22 H Est GFR (Non-Af Amer) 53 L Glucose 592 H* POC Glucose 516 H* Phosphorus Direct Bilirubin 0.5 H Alkaline Phosphatase 271 H Total Protein 8.6 H Albumin 5.4 H Urine Protein Urine Glucose (UA) Urine Ketones Urine Blood Salicylates Acetaminophen 01/06/19 01/06/19 01/06/19 17:52 18:09 19:31 WBC Hgb Hct MCV MCHC RDW Seg Neuts % (Manual) Lymphocytes % (Manual) Monocytes % (Manual) Abs Neuts (Manual) VBG pH 6.86 L* VBG pCO2 30.2 L VBG HCO3 5.2 L Sodium Potassium Chloride Carbon Dioxide Anion Gap BUN Est GFR (Non-Af Amer) Glucose POC Glucose 447 H* Phosphorus Direct Bilirubin Alkaline Phosphatase Total Protein Albumin Urine Protein 30 H Urine Glucose (UA) >=500 H Urine Ketones 80 H Urine Blood SMALL H Salicylates Acetaminophen 01/06/19 01/06/19 01/06/19 19:40 20:47 21:30 WBC Hgb Hct MCV MCHC RDW Seg Neuts % (Manual) Lymphocytes % (Manual) Monocytes % (Manual) Abs Neuts (Manual) VBG pH 6.84 L* VBG pCO2 28.0 L VBG HCO3 4.7 L Sodium 146.5 H Potassium 5.6 H Chloride 113 H Carbon Dioxide 8 L* Anion Gap 26 H BUN Est GFR (Non-Af Amer) Glucose 424 H* POC Glucose 402 H* Phosphorus 5.5 H Direct Bilirubin Alkaline Phosphatase Total Protein Albumin Urine Protein Urine Glucose (UA) Urine Ketones Urine Blood Salicylates < 1.0 L Acetaminophen < 10 L Critical Care Note - Critical Care Note Total time excluding time spent on procedures (mins): 40 Comments: Multiple evaluation patient with DKA requiring management of bicarb drip insulin drip. Discharge - Discharge Clinical Impression: Hyperkalemia, Methamphetamine abuse Diabetic ketoacidosis associated with type 1 diabetes mellitus Qualifiers: Diabetes mellitus complication detail: without coma Qualified Code(s): E10.10 - Type 1 diabetes mellitus with ketoacidosis without coma Leukocytosis Qualifiers: Leukocytosis type: unspecified Qualified Code(s): D72.829 - Elevated white blood cell count, unspecified Condition: Good Disposition: ADMITTED INPATIENT Admitting Provider: [facility]ist [facility] Unit Admitted: ICU
[2019-01-06] MEDS ORDERED: 1/2 NORMAL SALINE 1,000 ML IV SCH (21:30)
[2019-01-06 21:50] LABS: BLOOD UREA NITROGEN 20 mg/dL (7-20); CALCIUM 9.3 mg/dL (8.4-10.2); PHOSPHORUS 5.5 mg/dL (2.5-4.5); POTASSIUM 5.6 mmol/L (3.6-5.0)
[2019-01-06 21:55] LABS: CHLORIDE 113 mmol/L (98-107); SODIUM 146.5 mmol/L (137-145)
[2019-01-06 21:57] LABS: ACETAMINOPHEN < 10 ug/mL (10-30); ALCOHOL < 10 mg/dL (NONE DETECTED); ANION GAP 26 (5-19); SALICYLATE < 1.0 mg/dL (2.0-20.0)
[2019-01-06 21:58] LABS: CARBON DIOXIDE 8 mmol/L (22-30); GLUCOSE 424 mg/dL (75-110)
[2019-01-06] MEDS: HEPARIN SOD (PORCINE) 5,000 UNIT/ML 1 ML SYRINGE SUBCUT SCH (22:29)
--- NOTE | 2019-01-06 23:02 | PDOC H&P ---
History of Present Illness Admission Date/PCP: 01/06/19 21:45 TAM LOPEZ DO Patient complains of: Altered mental status History of Present Illness: SEAN FELIPE is a 33 year old female with a past medical history of polysubstance abuse and insulin-dependent diabetes requiring 6 admissions over the last 7 months in severe DKA. Patient was initially unable to provide history obtunded but is somewhat improved admitting difficulty obtaining short acting insulin but admits continued smoking of methamphetamine. In the emergency room she is found to have severe DKA with a bicarb of 8,, pH by VBG is 6.8, potassium of 6.5 with peak T waves. She started on IV bicarb and insulin then referred to the hospitalist for admission. Past Medical History Cardiac Medical History: Denies: Myocardial Infarction, Hypertension Neurological Medical History: Denies: Seizures Endocrine Medical History: Reports: Diabetes Mellitus Type 1 GI Medical History: Reports: Gastroesophageal Reflux Disease Denies: Hepatitis, Hiatal Hernia Psychiatric Medical History: Reports: Substance Abuse Denies: Depression Hematology: Denies: Anemia, Sickle Cell Disease Past Surgical History Past Surgical History: Reports: Tonsillectomy - &adenoids Denies: Amputation, Mastectomy, Pacemaker Social History Information Source: Patient Lives with: Family Smoking Status: Unknown if Ever Smoked Frequency of Alcohol Use: Social Hx Recreational Drug Use: Yes Drugs: Marijuana, Other Hx Prescription Drug Abuse: No - Advance Directive Resuscitation Status: Full Code Family History Family History: DM, Other - Mother described as an asthmatic, father had hepatitis C Parental Family History Reviewed: Yes Children Family History Reviewed: Yes Sibling(s) Family History Reviewed.: Yes Medication/Allergy Home Medications: Insulin Aspart [Novolog Flexpen] 0 unit SQ .SLIDING SCALE MDD 100 UNITS 06/29/18 Hum Insulin NPH/Reg Insulin Hm [Insulin 70-30 (NPH/Reg) 100 unit/mL] 35 unit SUBCUT BIDACBS #2 vial 10/23/18 Allergies/Adverse Reactions: No Known Allergies Allergy (Verified 10/20/18 19:31) Review of Systems ROS unobtainable: Due to mental status Physical Exam Vital Signs: Temp Pulse Resp BP Pulse Ox 98.9 F 87 16 163/89 H 100 01/06/19 22:01 01/06/19 17:25 01/06/19 22:01 01/06/19 22:01 01/06/19 22:01 Intake & Output 01/05/19 01/06/19 01/07/19 11:59 11:59 11:59 Intake Total 2019 Balance 2019 Weight 66.224 kg General appearance: PRESENT: disheveled, severe distress, well-developed, well- nourished. ABSENT: cooperative Head exam: PRESENT: atraumatic, normocephalic Eye exam: PRESENT: conjunctiva pink, EOMI, PERRLA. ABSENT: scleral icterus Ear exam: PRESENT: normal external ear exam Mouth exam: PRESENT: dry mucosa, tongue midline. ABSENT: laceration Neck exam: ABSENT: carotid bruit, JVD, lymphadenopathy, thyromegaly Respiratory exam: PRESENT: accessory muscle use, symmetrical, tachypnea. ABSENT: crackles Cardiovascular exam: PRESENT: tachycardia. ABSENT: diastolic murmur, rubs, s ystolic murmur Pulses: PRESENT: normal dorsalis pedis pul Vascular exam: PRESENT: normal capillary refill GI/Abdominal exam: PRESENT: normal bowel sounds, soft. ABSENT: distended, guarding, mass, organolmegaly, rebound, tenderness Rectal exam: PRESENT: deferred Extremities exam: PRESENT: full ROM. ABSENT: calf tenderness, clubbing, pedal edema Neurological exam: PRESENT: altered Psychiatric exam: PRESENT: appropriate affect, normal mood. ABSENT: homicidal ideation, suicidal ideation Focused psych exam: PRESENT: other - Angry affect Skin exam: PRESENT: dry, intact, warm. ABSENT: cyanosis, rash Results Laboratory Results: 01/06/19 17:20 01/06/19 21:30 01/06/19 01/06/19 01/06/19 17:20 17:20 17:20 WBC 31.4 H* RBC 5.28 Hgb 16.1 H Hct 51.6 H MCV 98 H MCH 30.4 MCHC 31.1 L RDW 15.0 H Plt Count 351 Seg Neutrophils % Not Reportable Lymphocytes % Not Reportable Monocytes % Not Reportable Eosinophils % Not Reportable Basophils % Not Reportable Absolute Neutrophils Not Reportable Absolute Lymphocytes Not Reportable Absolute Monocytes Not Reportable Absolute Eosinophils Not Reportable Absolute Basophils Not Reportable VBG pH VBG pCO2 VBG HCO3 VBG Base Excess Sodium 142.7 Potassium 6.4 H* Chloride 106 Carbon Dioxide 8 L* Anion Gap 29 H BUN 22 H Creatinine 1.17 Est GFR ( Amer) > 60 Est GFR (Non-Af Amer) 53 L Glucose 592 H* Calcium 10.2 Phosphorus Total Bilirubin 0.5 AST 33 ALT 25 Alkaline Phosphatase 271 H Total Protein 8.6 H Albumin 5.4 H Lipase 45.3 Urine Color Urine Appearance Urine pH Ur Specific [place] Urine Protein Urine Glucose (UA) Urine Ketones Urine Blood Urine Nitrite Ur Leukocyte Esterase Urine WBC (Auto) Urine RBC (Auto) 01/06/19 01/06/19 01/06/19 17:52 18:09 19:40 WBC RBC Hgb Hct MCV MCH MCHC RDW Plt Count Seg Neutrophils % Lymphocytes % Monocytes % Eosinophils % Basophils % Absolute Neutrophils Absolute Lymphocytes Absolute Monocytes Absolute Eosinophils Absolute Basophils VBG pH 6.86 L* VBG pCO2 30.2 L VBG HCO3 5.2 L VBG Base Excess -27.9 Sodium Cancelled Potassium Cancelled Chloride Cancelled Carbon Dioxide Cancelled Anion Gap Cancelled BUN Cancelled Creatinine Cancelled Est GFR ( Amer) Cancelled Est GFR (Non-Af Amer) Cancelled Glucose Cancelled Calcium Cancelled Phosphorus Total Bilirubin AST ALT Alkaline Phosphatase Total Protein Albumin Lipase Urine Color YELLOW Urine Appearance CLOUDY Urine pH 5.0 Ur Specific [place] 1.020 Urine Protein 30 H Urine Glucose (UA) >=500 H Urine Ketones 80 H Urine Blood SMALL H Urine Nitrite NEGATIVE Ur Leukocyte Esterase NEGATIVE Urine WBC (Auto) 1 Urine RBC (Auto) 0 01/06/19 01/06/19 01/06/19 19:40 20:37 21:30 WBC RBC Hgb Hct MCV MCH MCHC RDW Plt Count Seg Neutrophils % Lymphocytes % Monocytes % Eosinophils % Basophils % Absolute Neutrophils Absolute Lymphocytes Absolute Monocytes Absolute Eosinophils Absolute Basophils VBG pH 6.84 L* VBG pCO2 28.0 L VBG HCO3 4.7 L VBG Base Excess -28.7 Sodium Cancelled 146.5 H Potassium Cancelled 5.6 H Chloride Cancelled 113 H Carbon Dioxide Cancelled 8 L* Anion Gap Cancelled 26 H BUN Cancelled 20 Creatinine Cancelled 0.96 Est GFR ( Amer) Cancelled > 60 Est GFR (Non-Af Amer) Cancelled > 60 Glucose Cancelled 424 H* Calcium Cancelled 9.3 Phosphorus 5.5 H Total Bilirubin AST ALT Alkaline Phosphatase Total Protein Albumin Lipase Urine Color Urine Appearance Urine pH Ur Specific [place] Urine Protein Urine Glucose (UA) Urine Ketones Urine Blood Urine Nitrite Ur Leukocyte Esterase Urine WBC (Auto) Urine RBC (Auto) Impressions: Chest X-Ray 01/06/19 18:37 IMPRESSION: NO ACUTE RADIOGRAPHIC FINDING IN THE CHEST. Assessment & Plan - Diagnosis (1) Diabetic ketoacidosis associated with type 1 diabetes mellitus Qualifiers: Diabetes mellitus complication detail: without coma Qualified Code(s): E10.10 - Type 1 diabetes mellitus with ketoacidosis without coma Is this a current diagnosis for this admission?: Yes Plan: Diabetic ketoacidosis patient has had some degree of polyuria polydipsia with nausea and uncontrolled hyperglycemia with supporting labs. Patient will receive IV fluids IV insulin serial chemistries every 6 hours for evaluation for electrolyte repletion. Continued evaluation for underlying cause if not found Patient will require diabetic education and consideration of mental health evaluation. (2) Hyperkalemia Is this a current diagnosis for this admission?: Yes Plan: Insulin and albuterol, follow-up chemistry (3) Methamphetamine abuse Is this a current diagnosis for this admission?: Yes Plan: Consider psychiatric consult when mental status improves - Time Time Spent: 50 to 70 Minutes - Inpatient Certification Medical Necessity: Need Close Monitoring Due to Risk of Patient Decompensation
[2019-01-06] MEDS ORDERED: 1/2 NORMAL SALINE 1,000 ML IV PRN (23:41)
[2019-01-07 01:41] LABS: ANION GAP 16 (5-19); BLOOD UREA NITROGEN 17 mg/dL (7-20); CALCIUM 8.8 mg/dL (8.4-10.2); CARBON DIOXIDE 15 mmol/L (22-30); CHLORIDE 110 mmol/L (98-107); GLUCOSE 252 mg/dL (75-110); SODIUM 141.3 mmol/L (137-145)
[2019-01-07 02:01] LABS: POTASSIUM 4.5 mmol/L (3.6-5.0)
[2019-01-07] MEDS ORDERED: POTASSI CL 20 MEQ/D5-1/2NS 1L 1,000 ML IV ONE (02:27)
[2019-01-07] MEDS ORDERED: POTASSI CL 20 MEQ/D5-1/2NS 1L 1,000 ML IV PRN (02:30)
[2019-01-07] MEDS: HEPARIN SOD (PORCINE) 5,000 UNIT/ML 1 ML SYRINGE SUBCUT SCH ×3 (05:44→22:11)
[2019-01-07 06:02] LABS: ANION GAP 8 (5-19); BLOOD UREA NITROGEN 14 mg/dL (7-20); CALCIUM 8.5 mg/dL (8.4-10.2); CARBON DIOXIDE 20 mmol/L (22-30); CHLORIDE 111 mmol/L (98-107); GLUCOSE 197 mg/dL (75-110); POTASSIUM 4.3 mmol/L (3.6-5.0); SODIUM 138.8 mmol/L (137-145)
[2019-01-07 06:37] LABS: ABSOLUTE BASOPHILS # (AUTO) 0.1 10^3/uL (0.0-0.2); ABSOLUTE LYMPHOCYTES (AUTO) 2.6 10^3/uL (0.5-4.7); ABSOLUTE MONOCYTES (AUTO) 1.1 10^3/uL (0.1-1.4); BASOPHILS % (AUTO) 0.6 % (0-2); HEMATOCRIT 38.1 % (36.0-47.0); LYMPHOCYTES % (AUTO) 15.7 % (13-45); MEAN CORPUSCULAR HGB CONC 33.6 g/dL (32.0-36.0); MONOCYTES % (AUTO) 6.3 % (3-13); PLATELET COUNT 224 10^3/uL (150-450); RED BLOOD COUNT 4.25 10^6/uL (3.72-5.28); RED CELL DISTRIBUTION WIDTH 14.5 % (11.5-14.0); SEGMENTED NEUTROPHILS % (AUTO) 77.4 % (42-78); TOTAL CELLS COUNTED % (AUTO) 100 %; WHITE BLOOD COUNT 16.8 10^3/uL (4.0-10.5)
[2019-01-07 06:38] LABS: HEMOGLOBIN 12.8 g/dL (12.0-15.5); MEAN CORPUSCULAR VOLUME 90 fl (80-97)
[2019-01-07] MEDS: INSULIN LISPRO 100 UNIT/ML 3 ML VIAL SUBCUT SCH ×3 (08:47→17:11)
--- NOTE | 2019-01-07 10:18 | EKG REPORT ---
SEVERITY:- OTHERWISE NORMAL ECG - SINUS TACHYCARDIA : Confirmed by: Aldo Patino 07-Jan-2019 10:17:26
[2019-01-07 10:23] LABS: PATH REVIEW PATHOLOGIST REVIEWED
[2019-01-07 10:43] LABS: ANION GAP 18 (5-19); BLOOD UREA NITROGEN 13 mg/dL (7-20); CALCIUM 8.6 mg/dL (8.4-10.2); CARBON DIOXIDE 12 mmol/L (22-30); CHLORIDE 109 mmol/L (98-107); GLUCOSE 242 mg/dL (75-110); POTASSIUM 4.1 mmol/L (3.6-5.0); SODIUM 138.8 mmol/L (137-145)
--- NOTE | 2019-01-07 10:52 | PSYCHOLOGICAL NOTE ---
Psych Note - Psych Note Date seen by psych provider: 01/07/19 Time seen by psych provider: 07:40 - Chart review 0742. Discussion with Hospitalist 1041. Attempted consult at 1109. Psych Note: Reason for Consult: SA Contact Permissions: Mother Lisette Arrington [phone] listed as EC Patient is a 33 year old female who presented to the ED 01/06/19 for AMS and was a direct admit to hospitalist services due to DKA associated with type I diabetes mellitus, hyperkalemia and methamphetamine abuse (UDS positive for this and nothing else). Medical documentation noted a history of polysubstance use, noncompliance with diabetic medications and multiple DKA admissions (6 in the last 7 months). The only psychiatric medication being administered in the hospital is Ambien 5MG QHS PRN. Patient was sleeping when this clinician entered the room. When this clinician introduced herself patient said "I'm not ready to do paperwork." She sluggishly opened her heavy eyelids. When asked if she had any current providers for MH and/or SA she commented "No providers and I don't want to thank you" in a direct/assertive manner. She then closed her eyes and went back to sleep. Attending Hospitalist reported patient is lethargic this morning. She admitted to the nurse she was coming down off a meth binger. It was her school aged child that noticed decreased responsiveness before going to school and then called 9-1-1 after school. Need to make a DSS/CPS report. Attending Hospitalist noted she consulted Discharge Planning and they will be making the report (through their research and chart review indicated patient had 4 live births and whereabouts for all children is unknown). Discharge Planning tried to assess patient and made a DSS/CPS report to [facility] at [facility] per documentation. Diagnosis: DKA 304.40 (F15.20) Methamphetamine Use Disorder, Severe Medication recommendations made by the psychiatric medical provider, Dr. Nicole MD, includes: Add Effexor 37.5MG twice a day for depression/to curb substance cravings /increased energy Add Buspar 5MG twice a day for anxiety/calming effect/withdrawal/depression/sleep Impression/Plan: Patient is cleared from acute psychiatric services. There was no concern for SI/HI. Patient denied SA linkage a this time. Medication recommendations provided to assist patient with coming down from drugs and will address depression/anxiety (ongoing MH symptoms that accompany coming down/withdrawal). If patient changes her mind about linkage the behavioral health team will discuss options and schedule appointments. Discharge Planning made a DSS/CPS report. Consulted with Dr. Park regarding the management and care of patient. Attending Hospitalist made aware of recommendations.
[2019-01-07 15:06] LABS: BLOOD UREA NITROGEN 13 mg/dL (7-20); CALCIUM 8.9 mg/dL (8.4-10.2); GLUCOSE 301 mg/dL (75-110); POTASSIUM 4.2 mmol/L (3.6-5.0)
[2019-01-07 15:11] LABS: CHLORIDE 108 mmol/L (98-107); SODIUM 137.5 mmol/L (137-145)
[2019-01-07 15:14] LABS: CARBON DIOXIDE 9 mmol/L (22-30)
[2019-01-07] MEDS ORDERED: NORMAL SALINE 1000 ML 1,000 ML IV PRN (15:16)
[2019-01-07] MEDS ORDERED: ONDANSETRON HCL INJ/PF 4 MG/2 ML SDV IV PRN (15:23)
[2019-01-07 15:27] LABS: ANION GAP 21 (5-19)
[2019-01-07] MEDS ORDERED: ONDANSETRON HCL INJ/PF 4 MG/2 ML SDV ONE (15:31)
[2019-01-07 16:11] LABS: URINE AMPHETAMINES SCREEN NEGATIVE; URINE BARBITURATES SCREEN NEGATIVE; URINE BENZODIAZEPINES SCREEN NEGATIVE; URINE COCAINE SCREEN NEGATIVE; URINE METHADONE SCREEN NEGATIVE; URINE PHENCYCLIDINE SCREEN NEGATIVE
[2019-01-07 16:28] LABS: URINE MARIJUANA (THC) SCREEN UNCONFIRMED POSITIVE
[2019-01-07] MEDS ORDERED: DEXTROSE 40% GEL 15 GM TUBE PO PRN ×2 (16:30)
[2019-01-07] MEDS ORDERED: DEXTROSE 50%-WATER 25 GM/50 ML DISP.SYRIN IV PRN ×2 (16:30)
[2019-01-07] MEDS ORDERED: GLUCAGON,HUMAN RECOMB 1 MG INJ SUBCUT PRN (16:30)
[2019-01-07] MEDS: NORMAL SALINE 100 ML with INSULIN REGULAR, HUMAN 100 UNIT IV PRN ×2 (17:33)
[2019-01-07 18:03] LABS: BLOOD UREA NITROGEN 13 mg/dL (7-20); CALCIUM 9.1 mg/dL (8.4-10.2); POTASSIUM 4.7 mmol/L (3.6-5.0)
[2019-01-07 18:09] LABS: CHLORIDE 106 mmol/L (98-107); SODIUM 138.5 mmol/L (137-145)
--- NOTE | 2019-01-07 18:22 | PDOC PROGRESS REPORT ---
Subjective Progress Note for:: 01/07/19 Subjective:: The patient is a 33-year-old female with a past medical history of polysubstance abuse and insulin-dependent diabetes requiring 6 admissions over the last several months for severe DKA and admitted 01/06/2019 for DKA and unknown amphetamine abuse. The patient was seen on morning rounds while still in the ICU. She was arousable and oriented to name, but lethargic and would quickly fall back to sleep. She was able to answer a few questions and follow commands. Per nursing, the patient inform them that she is "coming off of a meth houser" and so just excessively fatigued. She denied headache, chest pain, dyspnea, abdominal pain but did not answer any further questions. Per nursing, the patient developed nausea and vomiting this afternoon when advanced to a clear liquid diet. Unfortunately repeat BMP this afternoon revealed that she has slipped back into DKA. Reason For Visit: AMS DKA Physical Exam Vital Signs: Temp Pulse Resp BP Pulse Ox 99.1 F 85 15 128/77 H 97 01/07/19 11:00 01/07/19 14:35 01/07/19 14:35 01/07/19 11:00 01/07/19 14:35 Intake & Output 01/06/19 01/07/19 01/08/19 06:59 06:59 06:59 Intake Total 4045 2940 Output Total 1200 1200 Balance 2845 1740 Weight 67.5 kg General appearance: PRESENT: no acute distress, disheveled, well-developed, well-nourished - Overweight Head exam: PRESENT: atraumatic, normocephalic Eye exam: PRESENT: conjunctiva pink, EOMI, PERRLA. ABSENT: scleral icterus Mouth exam: PRESENT: dry mucosa, tongue midline Respiratory exam: PRESENT: clear to auscultation black, symmetrical, unlabored. ABSENT: rales, rhonchi, wheezes Cardiovascular exam: PRESENT: RRR. ABSENT: diastolic murmur, rubs, systolic murmur Pulses: PRESENT: normal dorsalis pedis pul Vascular exam: PRESENT: normal capillary refill GI/Abdominal exam: PRESENT: normal bowel sounds, soft. ABSENT: distended, guarding, mass, organolmegaly, rebound, tenderness Rectal exam: PRESENT: deferred Extremities exam: PRESENT: full ROM. ABSENT: calf tenderness, clubbing, pedal edema Neurological exam: PRESENT: alert, awake, CN II-XII grossly intact, other - Arousable; lethargic. ABSENT: motor sensory deficit Psychiatric exam: PRESENT: appropriate affect, normal mood. ABSENT: homicidal ideation, suicidal ideation Skin exam: PRESENT: dry, intact, warm. ABSENT: cyanosis, rash Results Laboratory Results: 01/07/19 06:30 01/06/19 01/06/19 01/06/19 17:20 17:20 17:20 WBC 31.4 H* RBC 5.28 Hgb 16.1 H Hct 51.6 H MCV 98 H MCH 30.4 MCHC 31.1 L RDW 15.0 H Plt Count 351 Seg Neutrophils % Not Reportable Lymphocytes % Not Reportable Monocytes % Not Reportable Eosinophils % Not Reportable Basophils % Not Reportable Absolute Neutrophils Not Reportable Absolute Lymphocytes Not Reportable Absolute Monocytes Not Reportable Absolute Eosinophils Not Reportable Absolute Basophils Not Reportable VBG pH VBG pCO2 VBG HCO3 VBG Base Excess Sodium 142.7 Potassium 6.4 H* Chloride 106 Carbon Dioxide 8 L* Anion Gap 29 H BUN 22 H Creatinine 1.17 Est GFR ( Amer) > 60 Est GFR (Non-Af Amer) 53 L Glucose 592 H* Calcium 10.2 Phosphorus Total Bilirubin 0.5 AST 33 ALT 25 Alkaline Phosphatase 271 H Total Protein 8.6 H Albumin 5.4 H Lipase 45.3 Urine Color Urine Appearance Urine pH Ur Specific [address] Urine Protein Urine Glucose (UA) Urine Ketones Urine Blood Urine Nitrite Ur Leukocyte Esterase Urine WBC (Auto) Urine RBC (Auto) 01/06/19 01/06/19 01/06/19 17:52 18:09 19:40 WBC RBC Hgb Hct MCV MCH MCHC RDW Plt Count Seg Neutrophils % Lymphocytes % Monocytes % Eosinophils % Basophils % Absolute Neutrophils Absolute Lymphocytes Absolute Monocytes Absolute Eosinophils Absolute Basophils VBG pH 6.86 L* VBG pCO2 30.2 L VBG HCO3 5.2 L VBG Base Excess -27.9 Sodium Cancelled Potassium Cancelled Chloride Cancelled Carbon Dioxide Cancelled Anion Gap Cancelled BUN Cancelled Creatinine Cancelled Est GFR ( Amer) Cancelled Est GFR (Non-Af Amer) Cancelled Glucose Cancelled Calcium Cancelled Phosphorus Total Bilirubin AST ALT Alkaline Phosphatase Total Protein Albumin Lipase Urine Color YELLOW Urine Appearance CLOUDY Urine pH 5.[address] 1.020 Urine Protein 30 H Urine Glucose (UA) >=500 H Urine Ketones 80 H Urine Blood SMALL H Urine Nitrite NEGATIVE Ur Leukocyte Esterase NEGATIVE Urine WBC (Auto) 1 Urine RBC (Auto) 0 01/06/19 01/06/19 01/06/19 19:40 20:37 21:30 WBC RBC Hgb Hct MCV MCH MCHC RDW Plt Count Seg Neutrophils % Lymphocytes % Monocytes % Eosinophils % Basophils % Absolute Neutrophils Absolute Lymphocytes Absolute Monocytes Absolute Eosinophils Absolute Basophils VBG pH 6.84 L* VBG pCO2 28.0 L VBG HCO3 4.7 L VBG Base Excess -28.7 Sodium Cancelled 146.5 H Potassium Cancelled 5.6 H Chloride Cancelled 113 H Carbon Dioxide Cancelled 8 L* Anion Gap Cancelled 26 H BUN Cancelled 20 Creatinine Cancelled 0.96 Est GFR ( Amer) Cancelled > 60 Est GFR (Non-Af Amer) Cancelled > 60 Glucose Cancelled 424 H* Calcium Cancelled 9.3 Phosphorus 5.5 H Total Bilirubin AST ALT Alkaline Phosphatase Total Protein Albumin Lipase Urine Color Urine Appearance Urine pH Ur Specific [address] Urine Protein Urine Glucose (UA) Urine Ketones Urine Blood Urine Nitrite Ur Leukocyte Esterase Urine WBC (Auto) Urine RBC (Auto) 01/07/19 01/07/19 01/07/19 01:16 05:20 05:20 WBC Cancelled RBC Cancelled Hgb Cancelled Hct Cancelled MCV Cancelled MCH Cancelled MCHC Cancelled RDW Cancelled Plt Count Cancelled Seg Neutrophils % Cancelled Lymphocytes % Cancelled Monocytes % Cancelled Eosinophils % Cancelled Basophils % Cancelled Absolute Neutrophils Cancelled Absolute Lymphocytes Cancelled Absolute Monocytes Cancelled Absolute Eosinophils Cancelled Absolute Basophils Cancelled VBG pH VBG pCO2 VBG HCO3 VBG Base Excess Sodium 141.3 138.8 Potassium 4.5 D 4.3 Chloride 110 H 111 H Carbon Dioxide 15 L 20 L Anion Gap 16 8 BUN 17 14 Creatinine 0.84 0.58 Est GFR ( Amer) > 60 > 60 Est GFR (Non-Af Amer) > 60 > 60 Glucose 252 H 197 H Calcium 8.8 8.5 Phosphorus Total Bilirubin AST ALT Alkaline Phosphatase Total Protein Albumin Lipase Urine Color Urine Appearance Urine pH Ur Specific [address] Urine Protein Urine Glucose (UA) Urine Ketones Urine Blood Urine Nitrite Ur Leukocyte Esterase Urine WBC (Auto) Urine RBC (Auto) 0201/07/19 01/07/19 06:30 10:00 14:37 WBC 16.8 H RBC 4.25 Hgb 12.8 D Hct 38.1 MCV 90 D MCH 30.0 MCHC 33.6 RDW 14.5 H Plt Count 224 Seg Neutrophils % 77.4 Lymphocytes % 15.7 Monocytes % 6.3 Eosinophils % 0.0 Basophils % 0.6 Absolute Neutrophils 13.0 H Absolute Lymphocytes 2.6 Absolute Monocytes 1.1 Absolute Eosinophils 0.0 Absolute Basophils 0.1 VBG pH VBG pCO2 VBG HCO3 VBG Base Excess Sodium 138.8 137.5 Potassium 4.1 4.2 Chloride 109 H 108 H Carbon Dioxide 12 L 9 L* Anion Gap 18 21 H BUN 13 13 Creatinine 0.61 0.61 Est GFR ( Amer) > 60 > 60 Est GFR (Non-Af Amer) > 60 > 60 Glucose 242 H 301 H Calcium 8.6 8.9 Phosphorus Total Bilirubin AST ALT Alkaline Phosphatase Total Protein Albumin Lipase Urine Color Urine Appearance Urine pH Ur Specific [address] Urine Protein Urine Glucose (UA) Urine Ketones Urine Blood Urine Nitrite Ur Leukocyte Esterase Urine WBC (Auto) Urine RBC (Auto) Impressions: Chest X-Ray 01/06/19 18:37 IMPRESSION: NO ACUTE RADIOGRAPHIC FINDING IN THE CHEST. Assessment & Plan - Diagnosis (1) Diabetic ketoacidosis associated with type 1 diabetes mellitus Qualifiers: Diabetes mellitus complication detail: without coma Qualified Code(s): E10.10 - Type 1 diabetes mellitus with ketoacidosis without coma Is this a current diagnosis for this admission?: Yes Plan: Patient was initially admitted to the ICU for DKA with anion gap of 8 and VBG pH of 6.86 on admission. Her anion gap quickly closed overnight and she was placed on subcutaneous insulin with advancement of her diet. Unfortunately this afternoon, the patient developed nausea and vomiting and chemistry demonstrated elevated anion gap of 21 and bicarb of 9 with associated hyperglycemia of 301. She has been downgraded to the medical floor and continuous cardiac telemetry. Have resumed insulin drip. Continue aggressive IV fluids; currently on normal saline at 200 mls/hr. Resume n.p.o. status with the exception of ice chips and sips of water. Continue serial chemistries. Communication order placed for overnight management of DKA; nursing to continue insulin drip per protocol with hourly Accu-Cheks. Once glucose is less than 150; change IV fluids to D5NS at 150mls/hr and continue insulin gtt per protoco l. If BMP demonstrates closed anion gap AND bicarb greater than 17; administer Lantus 20 units, stop insulin drip 1 hour later, change IV fluids back to normal saline at 150/h, and resume Accu-Cheks every 6 hours with Humalog for sliding scale coverage. (2) Hyperkalemia Is this a current diagnosis for this admission?: Yes Plan: Resolved; secondary to DKA. Possible total body deficit. We will continue to monitor serial chemistries and replace as necessary. (3) Leukocytosis Qualifiers: Leukocytosis type: unspecified Qualified Code(s): D72.829 - Elevated white blood cell count, unspecified Is this a current diagnosis for this admission?: Yes Plan: Likely secondary to DKA and amphetamine use. Trending down; 31.4-> 16.8 Urinalysis negative for UTI. Chest x-ray is benign. Patient with low-grade temp today; 99.1. Only symptomatic complaint is nausea and vomiting which may also be related to DKA. Will monitor closely for development of pancreatitis, or evidence of other focal infection. No indication for antibiotics at this time. (4) Methamphetamine abuse Is this a current diagnosis for this admission?: Yes Plan: Mental health services consulted; have recommended Effexor and BuSpar. Discharge planning is consulted. - Time Time Spent with patient: 25-34 minutes Medications reviewed and adjusted accordingly: Yes Anticipated discharge: Home Within: within 48 hours - Inpatient Certification Based on my medical assessment, after consideration of the patient's comorbidities, presenting symptoms, or acuity I expect that the services needed warrant INPATIENT care.: Yes I certify that my determination is in accordance with my understanding of Medicare's requirements for reasonable and necessary INPATIENT services [42 CFR 412.3e].: Yes Medical Necessity: Need Close Monitoring Due to Risk of Patient Decompensation, Need For IV Fluids, Risk of Complication if Not Cared For in Hospital
[2019-01-07 18:31] LABS: ANION GAP 26 (5-19); CARBON DIOXIDE 7 mmol/L (22-30); GLUCOSE 441 mg/dL (75-110)
[2019-01-07] MEDS: BUSPIRONE HCL 10 MG TABLET PO SCH (22:11)
[2019-01-07] MEDS: VENLAFAXINE HCL 37.5 MG CAP.SR.24H PO SCH (22:11)
[2019-01-08] MEDS ORDERED: DEXTROSE 5%-NORMAL SALINE 1,000 ML IV PRN (00:36)
[2019-01-08 00:45] LABS: ANION GAP 16 (5-19); BLOOD UREA NITROGEN 12 mg/dL (7-20); CALCIUM 8.8 mg/dL (8.4-10.2); CHLORIDE 113 mmol/L (98-107); GLUCOSE 120 mg/dL (75-110); POTASSIUM 4.2 mmol/L (3.6-5.0); SODIUM 138.9 mmol/L (137-145)
[2019-01-08 00:59] LABS: CARBON DIOXIDE 10 mmol/L (22-30)
[2019-01-08] MEDS ORDERED: POTASSI CL 20 MEQ/D5-1/2NS 1L 1000 ML IV PRN (01:40)
[2019-01-08] MEDS: POTASSI CL 20 MEQ/D5-1/2NS 1L 1,000 ML IV PRN ×2 (02:04→06:09)
[2019-01-08] MEDS: HEPARIN SOD (PORCINE) 5,000 UNIT/ML 1 ML SYRINGE SUBCUT SCH ×2 (05:33→13:34)
[2019-01-08] MEDS: NORMAL SALINE 100 ML with INSULIN REGULAR, HUMAN 100 UNIT IV PRN ×2 (06:13)
[2019-01-08 07:14] LABS: HEMATOCRIT 36.1 % (36.0-47.0); HEMOGLOBIN 12.2 g/dL (12.0-15.5); MEAN CORPUSCULAR HEMOGLOBIN 30.2 pg (27.0-33.4); MEAN CORPUSCULAR HGB CONC 33.8 g/dL (32.0-36.0); MEAN CORPUSCULAR VOLUME 89 fl (80-97); PLATELET COUNT 242 10^3/uL (150-450); RED BLOOD COUNT 4.05 10^6/uL (3.72-5.28); RED CELL DISTRIBUTION WIDTH 14.1 % (11.5-14.0); WHITE BLOOD COUNT 10.2 10^3/uL (4.0-10.5)
[2019-01-08 07:41] LABS: ANION GAP 7 (5-19); BLOOD UREA NITROGEN 11 mg/dL (7-20); CALCIUM 8.6 mg/dL (8.4-10.2); CARBON DIOXIDE 18 mmol/L (22-30); CHLORIDE 114 mmol/L (98-107); GLUCOSE 97 mg/dL (75-110); POTASSIUM 3.8 mmol/L (3.6-5.0); SODIUM 138.6 mmol/L (137-145)
[2019-01-08] MEDS ORDERED: INSULIN GLARGINE,HUM.REC.ANLOG 300 UNIT/3 ML INSULN.PEN SUBCUT ONE (08:37)
[2019-01-08] MEDS: INSULIN GLARGINE,HUM.REC.ANLOG 1,000 UNIT/10 ML UNIT SUBCUT ONE ×2 (09:12→09:21)
[2019-01-08] MEDS: BUSPIRONE HCL 10 MG TABLET PO SCH (09:38)
[2019-01-08] MEDS: VENLAFAXINE HCL 37.5 MG CAP.SR.24H PO SCH (09:38)
[2019-01-08] MEDS: INSULIN LISPRO 100 UNIT/ML 3 ML VIAL SUBCUT SCH ×2 (11:46→16:47)
[2019-01-08 15:14] LABS: ANION GAP 11 (5-19); BLOOD UREA NITROGEN 10 mg/dL (7-20); CALCIUM 8.8 mg/dL (8.4-10.2); CARBON DIOXIDE 18 mmol/L (22-30); CHLORIDE 106 mmol/L (98-107); GLUCOSE 261 mg/dL (75-110); POTASSIUM 4.1 mmol/L (3.6-5.0); SODIUM 135.1 mmol/L (137-145)
[2019-01-08 16:25] VITALS: BP 116/60
--- NOTE | 2019-01-08 21:24 | PDOC DISCHARGE SUMMARY ---
General - Admit/Disc Date/PCP Admission Date/Primary Care Provider: 01/06/19 21:45 TAM LOPEZ, Discharge Date: 01/08/19 - Discharge Diagnosis (1) Diabetic ketoacidosis associated with type 1 diabetes mellitus Is this a current diagnosis for this admission?: Yes Summary: Patient was initially admitted to the ICU for DKA with anion gap of 8 and VBG pH of 6.86 on admission. Secondary to report of recent URI viral illness (no symptoms currently) and use of "uppers [amphetamines] to get my energy back." Patient was admitted and monitored closely on telemetry. She was supported with standard care set of aggressive IVF and an insulin drip. Once her gap was closed and acidosis normalized, she was placed on subcutaneous insulin and diet advanced. At time of discharge, she was tolerating a consistent carb diet with adequately controlled bloog glucose utilizing sliding scale insulin. She declined to opportunity to meet with the family dentist or registered diet technician. She was discharged to home in stable condition with recommendations to follow up with her primary care provider within 1 week. She is instructed to follow dietary recommendations and to take her medications as prescribed. She is encouraged to return tot emergency department as needed for concerning symptoms. (2) Hyperkalemia Is this a current diagnosis for this admission?: Yes Summary: Resolved; secondary to DKA. (3) Leukocytosis Is this a current diagnosis for this admission?: Yes Summary: Resolved; Likely secondary to DKA and amphetamine use. Urinalysis negative for UTI. Chest x-ray is benign. (4) Methamphetamine abuse Is this a current diagnosis for this admission?: Yes Summary: Patient admits to recent amphetamine use. She declines outpatient mental health or substance abuse counselling referral. In-house Mental health services were consulted; have recommended Effexor and BuSpar. Patient is provided prescriptions for each at discharge. - Additional Information Resuscitation Status: Full Code Discharge Diet: Diabetic Discharge Activity: Activity As Tolerated, Balance Activity w/Rest Prescriptions: Buspirone HCl [Buspar 10 mg Tablet] 5 mg PO Q12 #60 tablet Hum Insulin NPH/Reg Insulin Hm [Insulin 70-30 (NPH/Reg) 100 unit/mL] 35 unit SUBCUT BIDACBS #2 vial Insulin Lispro [Humalog Insulin 100 Unit/1 ml 3 ml Vial] 0 - 12 unit SUBCUT ACHSP PRN #10 ml PRN Reason: Venlafaxine HCl ER [Effexor Xr 37.5 mg Cap.sr] 37.5 mg PO Q12 #60 cap.sr.24h Home Medications: Acetaminophen [Tylenol 325 mg Tablet] 650 mg PO Q4HP PRN tablet 01/08/19 Buspirone HCl [Buspar 10 mg Tablet] 5 mg PO Q12 #60 tablet 01/08/19 Hum Insulin NPH/Reg Insulin Hm [Insulin 70-30 (NPH/Reg) 100 unit/mL] 35 unit SUBCUT BIDACBS #2 vial 01/08/19 Insulin Lispro [Humalog Insulin 100 Unit/1 ml 3 ml Vial] 0 - 12 unit SUBCUT ACHSP PRN #10 ml 01/08/19 Venlafaxine HCl ER [Effexor Xr 37.5 mg Cap.sr] 37.5 mg PO Q12 #60 cap.sr.24h 01/08/19 History of Present Illness History of Present Illness: Per H&P by Dr. Dean: SEAN FELIPE is a 33 year old female with a past medical history of polysubstance abuse and insulin-dependent diabetes requiring 6 admissions over the last 7 months in severe DKA. Patient was initially unable to provide history obtunded but is somewhat improved admitting difficulty obta ining short acting insulin but admits continued smoking of methamphetamine. In the emergency room she is found to have severe DKA with a bicarb of 8,, pH by VBG is 6.8, potassium of 6.5 with peak T waves. She started on IV bicarb and insulin then referred to the hospitalist for admission. Physical Exam Vital Signs: Temp Pulse Resp BP Pulse Ox 97.6 F 86 14 116/60 98 01/08/19 16:23 01/08/19 16:23 01/08/19 16:23 01/08/19 16:23 01/08/19 16:23 Intake & Output 01/07/19 01/08/19 01/09/19 06:59 06:59 06:59 Intake Total 4045 5898 1929 Output Total 1200 1200 1000 Balance 2845 4698 929 Weight 67.5 kg 68.7 kg General appearance: PRESENT: no acute distress, disheveled, well-developed, well-nourished - overweight Head exam: PRESENT: atraumatic, normocephalic Eye exam: PRESENT: conjunctiva pink, EOMI, PERRLA. ABSENT: scleral icterus Ear exam: PRESENT: normal external ear exam Mouth exam: PRESENT: moist, tongue midline Neck exam: ABSENT: carotid bruit, JVD, lymphadenopathy, thyromegaly Respiratory exam: PRESENT: clear to auscultation black. ABSENT: rales, rhonchi, wheezes Cardiovascular exam: PRESENT: RRR. ABSENT: diastolic murmur, rubs, systolic murmur Pulses: PRESENT: normal dorsalis pedis pul Vascular exam: PRESENT: normal capillary refill GI/Abdominal exam: PRESENT: normal bowel sounds, soft. ABSENT: distended, guarding, mass, organolmegaly, rebound, tenderness Rectal exam: PRESENT: deferred Extremities exam: PRESENT: full ROM. ABSENT: calf tenderness, clubbing, pedal edema Neurological exam: PRESENT: alert, awake, oriented to person, oriented to place, oriented to time, oriented to situation, CN II-XII grossly intact. ABSENT: motor sensory deficit Psychiatric exam: PRESENT: appropriate affect, normal mood. ABSENT: homicidal ideation, suicidal ideation Skin exam: PRESENT: dry, intact, warm. ABSENT: cyanosis, rash Results Laboratory Results: 01/08/19 06:40 01/08/19 14:31 01/08/19 01/08/19 01/08/19 00:12 06:40 06:40 WBC 10.2 RBC 4.05 Hgb 12.2 Hct 36.1 MCV 89 MCH 30.2 MCHC 33.8 RDW 14.1 H Plt Count 242 Sodium 138.9 138.6 Potassium 4.2 3.8 Chloride 113 H 114 H Carbon Dioxide 10 L* 18 L Anion Gap 16 7 BUN 12 11 Creatinine 0.66 0.50 L Est GFR ( Amer) > 60 > 60 Est GFR (Non-Af Amer) > 60 > 60 Glucose 120 H 97 Calcium 8.8 8.6 01/08/19 14:31 WBC RBC Hgb Hct MCV MCH MCHC RDW Plt Count Sodium 135.1 L Potassium 4.1 Chloride 106 Carbon Dioxide 18 L Anion Gap 11 BUN 10 Creatinine 0.49 L Est GFR ( Amer) > 60 Est GFR (Non-Af Amer) > 60 Glucose 261 H Calcium 8.8 Impressions: Chest X-Ray 01/06/19 18:37 IMPRESSION: NO ACUTE RADIOGRAPHIC FINDING IN THE CHEST. Qualifiers - * PATIENT BEING DISCHARGED WITH ANY OF THE FOLLOWING DIAGNOSIS: No Plan Discharge Plan: Discharge to home. Follow up with primary care provider within 1 week. Take insulin as prescribed. Drink plenty of water. STOP illicit drug use. Return to the emergency department as needed for concerning symptoms. Time Spent: Less than 30 Minutes
== END 2019-01-08 17:26 | disposition home or self-care (01) | DRG 639 ==
LOC: ER 17:12 → EH 21:45 → ICU 23:14 → 4S 01-07 11:08
PROVIDERS: ADMIT Internal Medicine; ATTEND Internal Medicine
DX: E10.10 Type 1 diabetes mellitus with ketoacidosis without coma (principal); E87.5 Hyperkalemia; F15.10 Other stimulant abuse, uncomplicated; D72.829 Elevated white blood cell count, unspecified; K21.9 Gastro-esophageal reflux disease without esophagitis; F41.8 Other specified anxiety disorders; F12.90 Cannabis use, unspecified, uncomplicated; Z79.4 Long term (current) use of insulin; Z91.14 Patient's other noncompliance with medication regimen
CPT/HCPCS: 36415; 71045; 80048; 80053; 80307; 81001; 82803; 82962; 83690; 84100; 84702; 85025; 85027; 93005; 93010; 96360; 96361; 99291; J1644; J1815; J2405; J3480; J3490; J7030; J7060; J7120; J7620

== ENCOUNTER 2019-05-25 19:49 | Inpatient (IN) | payer SELFPAY ==
[2019-05-25] MEDS ORDERED: LIDOCAINE 1% INJ-PF (10 MG/ML) 30 ML SDV INJ ONE (20:23)
[2019-05-25] MEDS ORDERED: NORMAL SALINE 1000 ML 1,000 ML IV ONE ×2 (20:23→21:02)
--- NOTE | 2019-05-25 20:29 | ER Document Report ---
ED General - General Stated Complaint: NOT FEELING WELL Time Seen by Provider: 05/25/19 20:16 TRAVEL OUTSIDE OF THE [place] IN LAST 30 DAYS: No - HPI Notes: Patient is a 33-year-old female that presents to the emergency department for chief complaint of increased fatigue. Patient presented by EMS for increased somnolence. She reports not feeling well recently and states she is going into "keto". Patient is an insulin-dependent diabetic. She states she has not had any change in her medication or missed any doses. Patient has had ketoacidosis multiple times in the past. She states she feels similar to when that happens. Patient also complaining of an abscess in her right armpit which she is unsure how long it has been there or if it has drained. She denies any fevers or chills. She states she is nauseated without vomiting or diarrhea. She denies any abdominal discomfort. Past Medical History: Diabetes Past Surgical History: Reviewed in chart Social History: Occasional tobacco. Denies drug and alcohol use Family History: Reviewed and noncontributory for presenting illness Allergies: Reviewed, see documented allergy list. REVIEW OF SYSTEMS: CONSTITUTIONAL : No fever No chills diaphoresis No recent illness EENT: No vision changes No congestion No sore throat CARDIOVASCULAR: No chest pain No palpitations RESPIRATORY: No shortness of breath No cough No difficulty breathing GASTROINTESTINAL: No abdominal pain nausea No vomiting No diarrhea GENITOURINARY: No dysuria No hematuria No difficulty urinating MUSCULOSKELETAL: No back pain No leg pain No arm pain SKIN: No rashes lesions LYMPHATIC: No swollen, enlarged glands. NEUROLOGICAL: No lightheadedness No headache No weakness No paresthesias PSYCHIATRIC: No anxiety No depression PHYSICAL EXAMINATION: Vital signs reviewed, nursing noted reviewed. GENERAL: Ill-appearing, mildly diaphoretic HEAD: Atraumatic, normocephalic. EYES: Eyes appear normal, extraocular movements intact, sclera anicteric, conjunctiva are normal. ENT: Upper lip edema that extends through nasolabial fold, no dental tenderness to percussion, nares patent, oropharynx clear without exudates. Moist mucous membranes. NECK: Normal range of motion, supple without lymphadenopathy LUNGS: Tachypneic, no accessory muscle use, breath sounds clear to auscultation bilaterally and equal. No wheezes rales or rhonchi. HEART: Regular rate and rhythm without murmurs ABDOMEN: Soft, nontender, normoactive bowel sounds. No rebound, guarding, or rigidity. No masses appreciated. EXTREMITIES: Nontender, good range of motion, no pitting or edema. NEUROLOGICAL: Somnolent but wakes to verbal stimuli. Moves all extremities spontaneously Motor and sensory grossly intact on exam. PSYCH: Agitated mood. SKIN: Warm, Dry, normal turgor, 2.0 cm x 1.0 cm right axillary abscess without spontaneous drainage or surrounding erythema - Related Data Allergies/Adverse Reactions: No Known Allergies Allergy (Verified 10/20/18 19:31) Past Medical History - Social History Smoking Status: Unknown if Ever Smoked Family History: DM, Other - Mother described as an asthmatic, father had hepat itis C - Past Medical History Cardiac Medical History: Denies: Hx Heart Attack, Hx Hypertension Neurological Medical History: Denies: Hx Cerebrovascular Accident, Hx Seizures Endocrine Medical History: Reports: Hx Diabetes Mellitus Type 1 Renal/ Medical History: Denies: Hx Peritoneal Dialysis GI Medical History: Reports: Hx Gastroesophageal Reflux Disease. Denies: Hx Hepatitis, Hx Hiatal Hernia, Hx Ulcer Skin Medical History: Reports Hx Cellulitis Psychiatric Medical History: Denies: Hx Depression Infectious Medical History: Denies: Hx Hepatitis Past Surgical History: Reports: Hx Tonsillectomy - &adenoids. Denies: Hx Mastectomy, Hx Open Heart Surgery, Hx Pacemaker - Immunizations Hx Diphtheria, Pertussis, Tetanus Vaccination: Yes Physical Exam - Vital signs Vitals: Resp 21 H 05/25/19 20:02 Course - Re-evaluation Re-evalutation: 05/25/19 20:28 Vitals reviewed. Nursing notes reviewed. Patient is somnolent but easily awakes with verbal stimuli. She is oriented. Patient has told me that she is a "bad patient" and will not answer any more of my questions until she receives ice chips. It is difficult to ascertain history from this patient since she is answering in one-word answers and telling me she will not answer any further questions until she receives ice chips. Yaqvl-[id number]-tgae glucose is 302. Patient is tachypneic and mildly diaphoretic. She was placed on telemetry monitoring. She has no focal neurologic deficits or fever. Patient started on IV hydration. Patient is denied missing any doses of her insulin and did give herself a bolus prior to EMS arrival. Patient also denying history of drug abuse. Chart review shows a diagnosis of polysubstance abuse, methamphetamine abuse and noncompliance with medical treatments. 05/25/19 22:18 Patient's lab work shows a metabolic acidosis with a pH of 7.1. She has a elevated anion gap and decreased bicarb. Patient has ketosis on urinalysis. She is meeting criteria for diabetic ketoacidosis and was started on insulin infusion. Urinalysis is negative for infection. I suspect her DKA is secondary to noncompliance. Patient has remained awake to verbal stimuli although she is somnolent. Patient's care discussed with Dr. Kyle who accepts admission. Laboratory 05/25/19 05/25/19 05/25/19 08:28 20:00 20:00 WBC 16.4 H RBC 4.30 Hgb 12.4 Hct 39.0 MCV 91 MCH 28.9 MCHC 31.9 L RDW 13.8 Plt Count 298 Seg Neutrophils % 88.0 H Lymphocytes % 6.2 L Monocytes % 5.4 Eosinophils % 0.0 Basophils % 0.4 Absolute Neutrophils 14.4 H Absolute Lymphocytes 1.0 Absolute Monocytes 0.9 Absolute Eosinophils 0.0 Absolute Basophils 0.1 PT 15.2 INR 1.19 VBG pH VBG pCO2 VBG HCO3 VBG Base Excess Sodium Potassium Chloride Carbon Dioxide Anion Gap BUN Creatinine Est GFR ( Amer) Est GFR (Non-Af Amer) Glucose POC Glucose Lactic Acid Calcium Total Bilirubin Direct Bilirubin Neonat Total Bilirubin Neonat Direct Bilirubin Neonat Indirect Bili AST ALT Alkaline Phosphatase Total Protein Albumin Urine Color YELLOW Urine Appearance SLIGHTLY-CLOUDY Urine pH 5.0 Ur Specific [place] 1.024 Urine Protein 30 H Urine Glucose (UA) >=500 H Urine Ketones 80 H Urine Blood NEGATIVE Urine Nitrite NEGATIVE Urine Bilirubin NEGATIVE Urine Urobilinogen NEGATIVE Ur Leukocyte Esterase NEGATIVE Urine WBC (Auto) 2 Urine RBC (Auto) 1 Urine Bacteria (Auto) TRACE Squamous Epi Cells Auto 1 Urine Mucus (Auto) RARE Urine Ascorbic Acid NEGATIVE Serum Alcohol 05/25/19 05/25/19 05/25/19 20:01 20:09 20:09 WBC RBC Hgb Hct MCV MCH MCHC RDW Plt Count Seg Neutrophils % Lymphocytes % Monocytes % Eosinophils % Basophils % Absolute Neutrophils Absolute Lymphocytes Absolute Monocytes Absolute Eosinophils Absolute Basophils PT INR VBG pH VBG pCO2 VBG HCO3 VBG Base Excess Sodium 133.5 L Potassium 5.1 H Chloride 102 Carbon Dioxide 9 L* Anion Gap 23 H BUN 16 Creatinine 0.86 Est GFR ( Amer) > 60 Est GFR (Non-Af Amer) > 60 Glucose 342 H POC Glucose 302 H Lactic Acid 1.1 Calcium 9.1 Total Bilirubin 0.5 Direct Bilirubin 0.3 Neonat Total Bilirubin Not Reportable Neonat Direct Bilirubin Not Reportable Neonat Indirect Bili Not Reportable AST 16 ALT 25 Alkaline Phosphatase 221 H Total Protein 7.2 Albumin 4.3 Urine Color Urine Appearance Urine pH Ur Specific [place] Urine Protein Urine Glucose (UA) Urine Ketones Urine Blood Urine Nitrite Urine Bilirubin Urine Urobilinogen Ur Leukocyte Esterase Urine WBC (Auto) Urine RBC (Auto) Urine Bacteria (Auto) Squamous Epi Cells Auto Urine Mucus (Auto) Urine Ascorbic Acid Serum Alcohol < 10 05/25/19 20:35 WBC RBC Hgb Hct MCV MCH MCHC RDW Plt Count Seg Neutrophils % Lymphocytes % Monocytes % Eosinophils % Basophils % Absolute Neutrophils Absolute Lymphocytes Absolute Monocytes Absolute Eosinophils Absolute Basophils PT INR VBG pH 7.12 L* VBG pCO2 21.2 L VBG HCO3 6.7 L VBG Base Excess -20.7 Sodium Potassium Chloride Carbon Dioxide Anion Gap BUN Creatinine Est GFR ( Amer) Est GFR (Non-Af Amer) Glucose POC Glucose Lactic Acid Calcium Total Bilirubin Direct Bilirubin Neonat Total Bilirubin Neonat Direct Bilirubin Neonat Indirect Bili AST ALT Alkaline Phosphatase Total Protein Albumin Urine Color Urine Appearance Urine pH Ur Specific [place] Urine Protein Urine Glucose (UA) Urine Ketones Urine Blood Urine Nitrite Urine Bilirubin Urine Urobilinogen Ur Leukocyte Esterase Urine WBC (Auto) Urine RBC (Auto) Urine Bacteria (Auto) Squamous Epi Cells Auto Urine Mucus (Auto) Urine Ascorbic Acid Serum Alcohol - Vital Signs Vital signs: Temp Pulse Resp BP Pulse Ox 99.2 F 19 146/91 H 97 05/25/19 20:04 05/25/19 20:04 05/25/19 20:04 05/25/19 20:04 - Laboratory Result Diagrams: 05/25/19 20:00 05/25/19 20:09 Laboratory results interpreted by me: 05/25/19 05/25/19 05/25/19 20:00 20:00 20:01 WBC 16.4 H MCHC 31.9 L Seg Neutrophils % 88.0 H Lymphocytes % 6.2 L Absolute Neutrophils 14.4 H VBG pH VBG pCO2 VBG HCO3 Sodium Potassium Carbon Dioxide Anion Gap Glucose POC Glucose 302 H Alkaline Phosphatase Urine Protein 30 H Urine Glucose (UA) >=500 H Urine Ketones 80 H 05/25/19 05/25/19 20:09 20:35 WBC MCHC Seg Neutrophils % Lymphocytes % Absolute Neutrophils VBG pH 7.12 L* VBG pCO2 21.2 L VBG HCO3 6.7 L Sodium 133.5 L Potassium 5.1 H Carbon Dioxide 9 L* Anion Gap 23 H Glucose 342 H POC Glucose Alkaline Phosphatase 221 H Urine Protein Urine Glucose (UA) Urine Ketones - EKG Interpretation by Me Additional EKG results interpreted by me: 05/25/19 21:10 Interpreted by myself 2033: Normal sinus rhythm, rate 89, normal axis, no ectopy, no peak T waves, no STEMI Procedures - Incision and Drainage Right axilla Time completed: 21:04 Type: Simple Anesthetic type: 1% Lidocaine mL's of anesthetic: 3 Blade size: 11 I&D procedure: Betadine prep applied Incision Method: Incision made by scalpel Amount/type of drainage: moderate Notes: 05/25/19 21:06 Patient right axilla cleaned with Betadine. 3 mL's of lidocaine was infiltrated into right axilla. Spontaneous drainage of purulent material was initially obtained after numbing. Patient was moving her arm around and demanding that I stop the procedure. After redirection and calming she did allow me to incised with an 11 blade scalpel. Linear incision was made. Moderate amount of purulence was expressed. loculations were broken up with a curvilinear clamp. After breaking up loculations patient has refused any further management of her abscess. I was not able to irrigate or place packing. The abscess was covered with bulky gauze dressing. Critical Care Note - Critical Care Note Total time excluding time spent on procedures (mins): 40 Comments: Critical care time 40 exclusive from separate billable procedures for a patient requiring complex medical decision making, and high potential for clinical deterioration. Time spent obtaining history from patient or surrogate, discussions with consultants, development of treatment plan with patient or surrogate, evaluation of patient's response to treatment, examination of patient, ordering and performing treatments and interventions, ordering and review of laboratory studies, re-evaluation of patient's condition, ordering and review of radiographic studies and review of old charts Discharge - Discharge Clinical Impression: Metabolic encephalopathy, Abscess of right axilla, Metabolic acidosis, Hyperkalemia, Hyponatremia DKA (diabetic ketoacidoses) Qualifiers: Diabetes mellitus type: type 1 Diabetes mellitus complication detail: without coma Qualified Code(s): E10.10 - Type 1 diabetes mellitus with ketoacidosis without coma Condition: Good Disposition: ADMITTED INPATIENT Admitting Provider: Anabella (Hospitalist) Unit Admitted: ICU
[2019-05-25 20:51] LABS: VENOUS BLOOD BASE EXCESS -20.7 mmol/L; VENOUS BLOOD HCO3 6.7 mmol/L (20-32); VENOUS BLOOD PCO2 21.2 mmHg (35-63)
[2019-05-25 20:52] LABS: ALANINE AMINOTRANSFERASE 25 U/L (9-52); ALBUMIN 4.3 g/dL (3.5-5.0); ALKALINE PHOSPHATASE 221 U/L (38-126); ASPARTATE AMINO TRANSFERASE 16 U/L (14-36); BILIRUBIN,DIRECT 0.3 mg/dL (0.0-0.4); BILIRUBIN,TOTAL 0.5 mg/dL (0.2-1.3); BLOOD UREA NITROGEN 16 mg/dL (7-20); CALCIUM 9.1 mg/dL (8.4-10.2); GLUCOSE 342 mg/dL (75-110); POTASSIUM 5.1 mmol/L (3.6-5.0); TOTAL PROTEIN 7.2 g/dL (6.3-8.2)
[2019-05-25 20:53] LABS: INTERNATIONAL RATION (INR) 1.19; PROTHROMBIN TIME 15.2 SEC (11.4-15.4)
[2019-05-25 20:57] LABS: CHLORIDE 102 mmol/L (98-107); SODIUM 133.5 mmol/L (137-145)
[2019-05-25 20:59] LABS: VENOUS BLOOD PH 7.12 (7.30-7.42)
[2019-05-25 20:59] LABS: ALCOHOL < 10 mg/dL (NONE DETECTED); CARBON DIOXIDE 9 mmol/L (22-30)
[2019-05-25 21:00] LABS: ANION GAP 23 (5-19)
[2019-05-25] MEDS ORDERED: NORMAL SALINE 100 ML with INSULIN REGULAR, HUMAN 100 UNIT IV PRN ×4 (21:01→22:36)
[2019-05-25] MEDS ORDERED: INSULIN REG, HUMAN 100 UNIT/ML 3 ML VIAL (PYX) ONE (21:38)
[2019-05-25 22:01] LABS: APPEARANCE,URINE SLIGHTLY-CLOUDY; BILIRUBIN,URINE NEGATIVE (NEGATIVE); COLOR,URINE YELLOW; GLUCOSE, URINE >=500 mg/dL (NEGATIVE); KETONES,URINE 80 mg/dL (NEGATIVE); LEUKOCYTE ESTERASE,URINE NEGATIVE (NEGATIVE); NITRITE,URINE NEGATIVE (NEGATIVE); PROTEIN,URINE 30 mg/dL (NEGATIVE); URINE SPECIFIC GRAVITY 1.024; UROBILINOGEN,URINE NEGATIVE mg/dL (<2.0)
[2019-05-25 22:07] LABS: ABSOLUTE BASOPHILS # (AUTO) 0.1 10^3/uL (0.0-0.2); ABSOLUTE MONOCYTES (AUTO) 0.9 10^3/uL (0.1-1.4); ABSOLUTE NEUT (AUTO) 14.4 10^3/uL (1.7-8.2); BASOPHILS % (AUTO) 0.4 % (0-2); HEMOGLOBIN 12.4 g/dL (12.0-15.5); LYMPHOCYTES % (AUTO) 6.2 % (13-45); MEAN CORPUSCULAR HEMOGLOBIN 28.9 pg (27.0-33.4); MEAN CORPUSCULAR HGB CONC 31.9 g/dL (32.0-36.0); MEAN CORPUSCULAR VOLUME 91 fl (80-97); MONOCYTES % (AUTO) 5.4 % (3-13); PLATELET COUNT 298 10^3/uL (150-450); RED CELL DISTRIBUTION WIDTH 13.8 % (11.5-14.0); TOTAL CELLS COUNTED % (AUTO) 100 %; WHITE BLOOD COUNT 16.4 10^3/uL (4.0-10.5)
[2019-05-25 22:21] LABS: URINE BARBITURATES SCREEN NEGATIVE; URINE BENZODIAZEPINES SCREEN NEGATIVE; URINE COCAINE SCREEN NEGATIVE; URINE MARIJUANA (THC) SCREEN NEGATIVE; URINE METHADONE SCREEN NEGATIVE; URINE PHENCYCLIDINE SCREEN NEGATIVE
[2019-05-25] MEDS ORDERED: ONDANSETRON HCL INJ/PF 4 MG/2 ML SDV IV PRN (22:36)
[2019-05-25] MEDS ORDERED: MAG HYDROX/AL HYDROX/SIMETH SUSP 30 ML UDCUP PO PRN (22:36)
[2019-05-25] MEDS ORDERED: DEXTROSE 40% GEL 15 GM TUBE PO PRN ×2 (22:36)
[2019-05-25] MEDS ORDERED: DEXTROSE 50%-WATER 25 GM/50 ML DISP.SYRIN IV PRN ×2 (22:36)
[2019-05-25] MEDS ORDERED: MAGNESIUM HYDROXIDE SUSP 30 ML UDCUP PO PRN (22:36)
[2019-05-25] MEDS ORDERED: RINGERS SOLUTION,LACTATED 1,000 ML IV PRN (22:36)
[2019-05-25] MEDS ORDERED: GLUCAGON,HUMAN RECOMB 1 MG INJ IM PRN (22:36)
[2019-05-25] MEDS ORDERED: NALBUPHINE HCL INJ 10 MG/1 ML AMPULE IV PRN (22:47)
[2019-05-25] MEDS ORDERED: HYDRALAZINE HCL INJ/PF 20 MG/1 ML SDV IV PRN (22:47)
[2019-05-25] MEDS ORDERED: LEVALBUTEROL HCL NEB 0.63 MG/3 ML AMPUL NEB PRN (22:47)
[2019-05-25] MEDS ORDERED: NICOTINE 21 MG/24 HR PATCH.TD24 TD PRN (22:47)
[2019-05-25] MEDS ORDERED: ACETAMINOPHEN 325 MG TABLET PO PRN (22:47)
[2019-05-25] MEDS ORDERED: METOPROLOL TARTRATE PF/INJ 5 MG/5 ML SDV IV PRN (22:47)
[2019-05-26] MEDS ORDERED: SODIUM BICARBONATE 8.4% INJ 50 MEQ/50 ML DISP.SYRIN ONE ×3 (00:05→06:03)
[2019-05-26] MEDS: DEXTROSE 5%-WATER 1000 ML 1,000 ML with SODIUM BICARBONATE 150 MEQ IV PRN ×6 (00:30→06:05)
[2019-05-26 03:05] LABS: ANION GAP 18 (5-19); BLOOD UREA NITROGEN 14 mg/dL (7-20); CALCIUM 8.2 mg/dL (8.4-10.2); CARBON DIOXIDE 11 mmol/L (22-30); CHLORIDE 106 mmol/L (98-107); GLUCOSE 291 mg/dL (75-110); POTASSIUM 4.5 mmol/L (3.6-5.0); SODIUM 135.1 mmol/L (137-145)
[2019-05-26] MEDS ORDERED: INSULIN REG, HUMAN 100 UNIT/ML 3 ML VIAL (PYX) ONE (03:52)
[2019-05-26] MEDS ORDERED: CEFAZOLIN 2 GM/D5W RTU 2 GM/50 ML RTUPB IV ONE (04:15)
[2019-05-26] MEDS ORDERED: SULFAMETHOX/TRIMETH 800-160 MG/10 ML VIAL IV ONE (04:15)
--- NOTE | 2019-05-26 04:15 | PDOC H&P ---
History of Present Illness Admission Date/PCP: 05/25/19 22:01 TAM LOPEZ DO Patient complains of: Fatigue History of Present Illness: SEAN FELIPE is a 33 year old female who presents the emergency room with a 2-day history of increasing fatigue. She admits gradually worsening fatigue which has now become severe over the last 2 days. The fatigue is been accompanied by somnolence and progressively worsening nausea. Additionally she has noted a red swollen tender abscess in her right armpit there is been present for several days and a red and swollen area under her right nare involving her right upper lip. She denies other associated or accompanying signs and symptoms. She admits prior similar episodes associated with diabetic ketoacidosis. She has not identified any aggravating or ameliorating factors for her fatigue. In the emergency room she was found to have a pH of 7.1, a blood sugar of 342, ketosis on her urinalysis and a severe anion gap. She was subsequently admitted to the ICU for further evaluation and treatment. Past Medical History Cardiac Medical History: Denies: Atrial Fibrillation, Congestive Heart Failure, Coronary Artery Disease, DVT, Myocardial Infarction, Hyperlipidema, Hypertension, Peripheral Vascular Disease, Pulmonary Embolism Pulmonary Medical History: Denies: Asthma, Chronic Obstructive Pulmonary Disease (COPD) EENT Medical History: Denies: Cataracts, Ears - Hearing aids Neurological Medical History: Denies: Hemorrhagic CVA, Ischemic CVA, Multiple Sclerosis, Seizures Endocrine Medical History: Reports: Diabetes Mellitus Type 1 Denies: Hyperthyroidism, Hypothyroidism Renal/ Medical History: Denies: Chronic Kidney Disease, Nephrolithiasis Malignancy Medical History: Reports: None GI Medical History: Reports: Gastroesophageal Reflux Disease Denies: Cirrhosis, Crohn's Disease, Hepatitis, Hiatal Hernia, Peptic Ulcer Disease, Ulcerative Colitis Musculoskeltal Medical History: Denies: Arthritis, Fibromyalgia, Gout Skin Medical History: Denies: Eczema, Psoriasis Psychiatric Medical History: Denies: Alcohol Dependency, Substance Abuse, Tobacco Dependency Traumatic Medical History: Reports: None Hematology: Denies: Anemia, Bleeding Tendencies Infectious Medical History: Reports: None Past Surgical History Past Surgical History: Reports: Adenoidectomy, Tonsillectomy Social History Information Source: Patient Smoking Status: Current Some Day Smoker Frequency of Alcohol Use: Occasional Hx Recreational Drug Use: Yes Drugs: Marijuana, Other - Methamphetamine Hx Prescription Drug Abuse: No - Advance Directive Resuscitation Status: Full Code Surrogate healthcare decision maker:: Lisette Arrington Family History Family History: DM, Other - Asthma, hepatitis C Parental Family History Reviewed: Yes Children Family History Reviewed: No Sibling(s) Family History Reviewed.: Yes Medication/Allergy Home Medications: Acetaminophen [Tylenol 325 mg Tablet] 650 mg PO Q4HP PRN tablet 01/08/19 Buspirone HCl [Buspar 10 mg Tablet] 5 mg PO Q12 #60 tablet 01/08/19 Hum Insulin NPH/Reg Insulin Hm [Insulin 70-30 (NPH/Reg) 100 unit/mL] 35 unit SUBCUT BIDACBS #2 vial 01/08/19 Insulin Lispro [Humalog Insulin 100 Unit/1 ml 3 ml Vial] 0 - 12 unit SUBCUT ACHSP PRN #10 ml 01/08/19 Venlafaxine HCl ER [Effexor Xr 37.5 mg Cap.sr] 37.5 mg PO Q12 #60 cap.sr.24h 01/08/19 Allergies/Adverse Reactions: No Known Allergies Allergy (Verified 10/20/18 19:31) Review of Systems Constitutional: PRESENT: fatigue. ABSENT: chills, fever(s) Eyes: ABSENT: visual disturbances, other - Eye pain Ears: ABSENT: hearing changes, other - Ear pain Nose, Mouth, and Throat: ABSENT: mouth pain, sore throat Cardiovascular: ABSENT: chest pain, palpitations Respiratory: ABSENT: cough, dyspnea Gastrointestinal: PRESENT: nausea. ABSENT: abdominal pain, constipation, diarrhea, vomiting Genitourinary: ABSENT: dysuria, hematuria Musculoskeletal: ABSENT: back pain, joint swelling, muscle weakness Integumentary: ABSENT: pruritus, rash Neurological: PRESENT: other - Somnolence. ABSENT: confusion, convulsions, focal weakness, memory loss, syncope Psychiatric: ABSENT: anxiety, depression Endocrine: ABSENT: cold intolerance, heat intolerance Hematologic/Lymphatic: ABSENT: easy bleeding, easy bruising Physical Exam Vital Signs: Temp Pulse Resp BP Pulse Ox 99.2 F 19 146/91 H 97 05/25/19 20:04 05/25/19 20:04 05/25/19 20:04 05/25/19 20:04 Intake & Output 05/23/19 05/24/19 05/25/19 23:59 23:59 23:59 Weight 66.6 kg General appearance: PRESENT: no acute distress. ABSENT: cooperative - Poorly cooperative, reluctant to answer questions, inattentive Head exam: PRESENT: atraumatic, normocephalic Eye exam: PRESENT: conjunctiva pink. ABSENT: conjunctival injection, scleral icterus Ear exam: PRESENT: normal external ear exam. ABSENT: bleeding, drainage Mouth exam: PRESENT: dry mucosa, neck supple, tongue midline, other - Minimal edema of the right upper lip with mild tenderness and a 2 mm superficial pustule present at the lateral aspect of the right nare. Neck exam: ABSENT: JVD, thyromegaly, tracheal deviation Respiratory exam: PRESENT: clear to auscultation blakc, symmetrical, unlabored Cardiovascular exam: PRESENT: RRR. ABSENT: clicks, gallop, rubs Pulses: PRESENT: normal radial pulses, normal dorsalis pedis pul Vascular exam: PRESENT: normal capillary refill. ABSENT: pallor GI/Abdominal exam: PRESENT: normal bowel sounds, soft Rectal exam: PRESENT: deferred Extremities exam: PRESENT: tenderness - Right axilla with erythema and edema and local tenderness status post incision and drainage.. ABSENT: joint swelling, pedal edema Musculoskeletal exam: PRESENT: full ROM, normal inspection Neurological exam: PRESENT: alert, oriented to person, oriented to place, oriented to time, oriented to situation, CN II-XII grossly intact. ABSENT: motor sensory deficit Psychiatric exam: PRESENT: flat affect, normal mood, other - Somnolent Skin exam: PRESENT: dry, intact, warm, other - Erythema and edema in the right axilla S/P acute incision and drainage by ER physician. Minimal edema of the right upper lip with mild tenderness and a 2 mm superficial pustule present at the lateral aspect of the right nare.. ABSENT: jaundice, rash, urticaria Results Laboratory Results: 05/25/19 20:00 05/25/19 20:09 05/25/19 05/25/19 05/25/19 20:00 20:00 20:09 WBC 16.4 H RBC 4.30 Hgb 12.4 Hct 39.0 MCV 91 MCH 28.9 MCHC 31.9 L RDW 13.8 Plt Count 298 Seg Neutrophils % 88.0 H Lymphocytes % 6.2 L Monocytes % 5.4 Eosinophils % 0.0 Basophils % 0.4 Absolute Neutrophils 14.4 H Absolute Lymphocytes 1.0 Absolute Monocytes 0.9 Absolute Eosinophils 0.0 Absolute Basophils 0.1 VBG pH VBG pCO2 VBG HCO3 VBG Base Excess Sodium 133.5 L Potassium 5.1 H Chloride 102 Carbon Dioxide 9 L* Anion Gap 23 H BUN 16 Creatinine 0.86 Est GFR ( Amer) > 60 Est GFR (Non-Af Amer) > 60 Glucose 342 H Lactic Acid Calcium 9.1 Total Bilirubin 0.5 AST 16 ALT 25 Alkaline Phosphatase 221 H Total Protein 7.2 Albumin 4.3 Urine Color YELLOW Urine Appearance SLIGHTLY-CLOUDY Urine pH 5.0 Ur Specific [place] 1.024 Urine Protein 30 H Urine Glucose (UA) >=500 H Urine Ketones 80 H Urine Blood NEGATIVE Urine Nitrite NEGATIVE Ur Leukocyte Esterase NEGATIVE Urine WBC (Auto) 2 Urine RBC (Auto) 1 05/25/19 05/25/19 20:09 20:35 WBC RBC Hgb Hct MCV MCH MCHC RDW Plt Count Seg Neutrophils % Lymphocytes % Monocytes % Eosinophils % Basophils % Absolute Neutrophils Absolute Lymphocytes Absolute Monocytes Absolute Eosinophils Absolute Basophils VBG pH 7.12 L* VBG pCO2 21.2 L VBG HCO3 6.7 L VBG Base Excess -20.7 Sodium Potassium Chloride Carbon Dioxide Anion Gap BUN Creatinine Est GFR ( Amer) Est GFR (Non-Af Amer) Glucose Lactic Acid 1.1 Calcium Total Bilirubin AST ALT Alkaline Phosphatase Total Protein Albumin Urine Color Urine Appearance Urine pH Ur Specific [place] Urine Protein Urine Glucose (UA) Urine Ketones Urine Blood Urine Nitrite Ur Leukocyte Esterase Urine WBC (Auto) Urine RBC (Auto) Assessment and Plan - Diagnosis (1) Hyperkalemia Is this a current diagnosis for this admission?: Yes Plan: The patient's hypokalemia will be treated with balanced electrolyte solution replacement and an IV insulin infusion. Patient's metabolic profile will be monitored frequently for further adjustments to her serum potassium. As her blood sugar is corrected and her anion gap closes she may become hypokalemic. (2) Diabetic ketoacidosis associated with type 1 diabetes mellitus Qualifiers: Diabetes mellitus complication detail: without coma Qualified Code(s): E10.10 - Type 1 diabetes mellitus with ketoacidosis without coma Is this a current diagnosis for this admission?: Yes Plan: Patient is admitted to the ICU and will be treated with an insulin infusion per protocol and a sodium bicarbonate infusion. Her CBC, metabolic profile and magnesium levels will be followed closely throughout her hospital course. Hemoglobin A1c will be obtained to assess her recent diabetic therapies efficacy. (3) Metabolic encephalopathy Is this a current diagnosis for this admission?: Yes Plan: Patient be treated with IV fluids and observe closely in the ICU. If her encephalopathic changes have not resolved within 24 hours, further evaluation will be undertaken. (4) Abscess of right axilla Is this a current diagnosis for this admission?: Yes Plan: Patient be treated with oral antibiotics using Bactrim DS and Keflex as no wound culture was obtained by the ER physician. Daily CBCs will be monitored and the patient's wound will be observed closely with twice daily wet-to-dry dressing changes. (5) Facial cellulitis Is this a current diagnosis for this admission?: Yes Plan: Patient is a small area of cellulitis involving the lateral aspect of her right nare and what would appear to be an acne type pustule or some other superficial pustule. There is minimal edema noted involving the area under the right near and the right upper lip. There is no induration or fluctuance present. The patient will receive same antibiotic therapy for this infection as she is receiving for her right axillary abscess. - Time Time Spent with patient: 15-24 minutes Medications reviewed and adjusted accordingly: Yes Anticipated discharge: Home - Inpatient Certification Based on my medical assessment, after consideration of the patient's comorbidities, presenting symptoms, or acuity I expect that the services needed warrant INPATIENT care.: Yes I certify that my determination is in accordance with my understanding of Medicare's requirements for reasonable and necessary INPATIENT services [42 CFR 412.3e].: Yes Medical Necessity: Need Close Monitoring Due to Risk of Patient Decompensation, Need For IV Fluids, Need For Continuous Telemetry Monitoring, Need for Neurological Checks, Need for IV Antibiotics, Risk of Complication if Not Cared For in Hospital
[2019-05-26] MEDS ORDERED: CEFAZOLIN 1 GM/D5W RTU 2 GM/100 ML RTUPB IV ONE (04:53)
[2019-05-26] MEDS: HEPARIN SOD (PORCINE) 5,000 UNIT/ML 1 ML SYRINGE SUBCUT SCH ×3 (05:16→23:08)
[2019-05-26] MEDS ORDERED: CEPHALEXIN 500 MG CAPSULE PO SCH (06:00)
[2019-05-26 06:10] LABS: HEMATOCRIT 38.6 % (36.0-47.0); HEMOGLOBIN 12.8 g/dL (12.0-15.5); MEAN CORPUSCULAR HGB CONC 33.1 g/dL (32.0-36.0); PLATELET COUNT 286 10^3/uL (150-450); RED BLOOD COUNT 4.42 10^6/uL (3.72-5.28); RED CELL DISTRIBUTION WIDTH 13.3 % (11.5-14.0); WHITE BLOOD COUNT 13.5 10^3/uL (4.0-10.5)
[2019-05-26 06:30] LABS: MEAN CORPUSCULAR VOLUME 87 fl (80-97)
[2019-05-26 06:40] LABS: ANION GAP 11 (5-19); BLOOD UREA NITROGEN 11 mg/dL (7-20); CALCIUM 7.8 mg/dL (8.4-10.2); CHLORIDE 100 mmol/L (98-107); GLUCOSE 264 mg/dL (75-110); SODIUM 132.9 mmol/L (137-145)
[2019-05-26 06:55] LABS: FREE T3 2.4 pg/mL (2.77-5.27)
[2019-05-26 07:01] LABS: ARTERIAL BLOOD BASE EXCESS -1.1 mmol/L; ARTERIAL BLOOD H2CO3 0.95 mmol/L (1.05-1.35); ARTERIAL BLOOD HCO3 21.9 mmol/L (20-24); ARTERIAL BLOOD O2 SATURATION 97.8 % (94-98); ARTERIAL BLOOD PCO2 31.7 mmHg (35-45); ARTERIAL BLOOD PH 7.46 (7.35-7.45); ARTERIAL BLOOD PO2 98.5 mmHg (80-100); ARTERIAL BLOOD TOTAL CO2 22.9 mmol/L (21-25)
[2019-05-26 07:08] LABS: THYROID STIMULATING HORMONE 0.39 uIU/mL (0.47-4.68)
[2019-05-26 07:09] LABS: ARTERIAL BLOOD FIO2 ROOM AIR
[2019-05-26 07:14] LABS: CARBON DIOXIDE 22 mmol/L (22-30); POTASSIUM 3.4 mmol/L (3.6-5.0)
[2019-05-26] MEDS ORDERED: SULFAMETHOXAZOLE/TRIMETHOPRIM 800-160 MG TABLET PO SCH (10:00)
[2019-05-26] MEDS: INSULIN REG, HUMAN 100 UNIT/ML 3 ML VIAL (PYX) SUBCUT SCH ×3 (10:58→22:38)
[2019-05-26] MEDS: FAMOTIDINE INJ/PF 20 MG/2 ML SDV IV SCH ×2 (11:08→23:08)
[2019-05-26] MEDS: SULFAMETHOXAZOLE/TRIMETHOPRIM 800-160 MG TABLET PO SCH ×2 (11:08→23:08)
[2019-05-26] MEDS: DOCUSATE SODIUM 100 MG CAPSULE PO SCH ×2 (11:08→17:16)
[2019-05-26] MEDS: CEPHALEXIN 500 MG CAPSULE PO SCH ×3 (11:08→23:08)
[2019-05-26 11:41] LABS: ANION GAP 8 (5-19); BLOOD UREA NITROGEN 7 mg/dL (7-20); CARBON DIOXIDE 28 mmol/L (22-30); CHLORIDE 99 mmol/L (98-107); GLUCOSE 159 mg/dL (75-110); POTASSIUM 3.2 mmol/L (3.6-5.0); SODIUM 135.3 mmol/L (137-145)
[2019-05-26 14:39] LABS: ARTERIAL BLOOD BASE EXCESS 1.2 mmol/L; ARTERIAL BLOOD H2CO3 1.08 mmol/L (1.05-1.35); ARTERIAL BLOOD HCO3 24.8 mmol/L (20-24); ARTERIAL BLOOD O2 SATURATION 97.6 % (94-98); ARTERIAL BLOOD PH 7.46 (7.35-7.45); ARTERIAL BLOOD PO2 94.4 mmHg (80-100); ARTERIAL BLOOD TOTAL CO2 25.9 mmol/L (21-25)
[2019-05-26 14:42] LABS: ARTERIAL BLOOD FIO2 ROOM AIR
[2019-05-26] MEDS ORDERED: HUM INSULIN NPH/REG INSULIN HM 100 UNIT/1 ML 3 ML SUBCUT SCH (16:00)
--- NOTE | 2019-05-26 19:14 | EKG REPORT ---
SEVERITY:- NORMAL ECG - SINUS RHYTHM : Confirmed by: David Wells MD 26-May-2019 19:13:25
[2019-05-27 05:31] LABS: ANION GAP 6 (5-19); BLOOD UREA NITROGEN 7 mg/dL (7-20); CALCIUM 8.3 mg/dL (8.4-10.2); CARBON DIOXIDE 28 mmol/L (22-30); CHLORIDE 104 mmol/L (98-107); GLUCOSE 117 mg/dL (75-110); POTASSIUM 3.3 mmol/L (3.6-5.0); SODIUM 137.6 mmol/L (137-145)
--- NOTE | 2019-05-27 05:31 | PDOC PROGRESS REPORT ---
Subjective Progress Note for:: 05/26/19 Subjective:: The patient's significant other was sleeping on the floor. The patient is quite sleepy. It took several prompts to get her to even respond. She never kept her eyes open. Reason For Visit: DIABETIC KETOACIDOSIS Physical Exam Vital Signs: Temp Pulse Resp BP Pulse Ox 98.7 F 16 154/73 H 99 05/26/19 08:01 05/26/19 08:00 05/26/19 08:00 05/26/19 08:01 Intake & Output 05/25/19 05/26/19 05/27/19 06:59 06:59 06:59 Intake Total 4427 1000 Output Total 1000 Balance 3427 1000 Weight 91.626 kg General appearance: PRESENT: no acute distress. ABSENT: cooperative - Sleepy Head exam: PRESENT: atraumatic, normocephalic Ear exam: PRESENT: normal external ear exam Mouth exam: PRESENT: moist, tongue midline, other - Swelling across the upper lip, No erythema or draining wound. Respiratory exam: PRESENT: clear to auscultation black, symmetrical, unlabored. ABSENT: rales, rhonchi, tachypnea, wheezes Cardiovascular exam: PRESENT: RRR, +S1, +S2, systolic murmur - 2/6 GI/Abdominal exam: PRESENT: normal bowel sounds, soft. ABSENT: tenderness Rectal exam: PRESENT: deferred Gentrourinary exam: PRESENT: indwelling catheter Extremities exam: ABSENT: pedal edema, tenderness Musculoskeletal exam: PRESENT: normal inspection Neurological exam: ABSENT: awake - Awakens very briefly to verbal but falls back asleep quickly Psychiatric exam: PRESENT: other - somnolent. ABSENT: agitated Focused psych exam: ABSENT: restlessness Results Laboratory Results: 05/26/19 05:55 05/26/19 05:55 05/25/19 05/25/19 05/25/19 20:00 20:00 20:09 WBC 16.4 H RBC 4.30 Hgb 12.4 Hct 39.0 MCV 91 MCH 28.9 MCHC 31.9 L RDW 13.8 Plt Count 298 Seg Neutrophils % 88.0 H Lymphocytes % 6.2 L Monocytes % 5.4 Eosinophils % 0.0 Basophils % 0.4 Absolute Neutrophils 14.4 H Absolute Lymphocytes 1.0 Absolute Monocytes 0.9 Absolute Eosinophils 0.0 Absolute Basophils 0.1 Carbonic Acid HCO3/H2CO3 Ratio ABG pH ABG pCO2 ABG pO2 ABG HCO3 ABG O2 Saturation ABG Base Excess VBG pH VBG pCO2 VBG HCO3 VBG Base Excess FiO2 Sodium 133.5 L Potassium 5.1 H Chloride 102 Carbon Dioxide 9 L* Anion Gap 23 H BUN 16 Creatinine 0.86 Est GFR ( Amer) > 60 Est GFR (Non-Af Amer) > 60 Glucose 342 H Lactic Acid Calcium 9.1 Magnesium Total Bilirubin 0.5 AST 16 ALT 25 Alkaline Phosphatase 221 H Total Protein 7.2 Albumin 4.3 TSH Free T4 Free T3 pg/mL Urine Color YELLOW Urine Appearance SLIGHTLY-CLOUDY Urine pH 5.0 Ur Specific [place] 1.024 Urine Protein 30 H Urine Glucose (UA) >=500 H Urine Ketones 80 H Urine Blood NEGATIVE Urine Nitrite NEGATIVE Ur Leukocyte Esterase NEGATIVE Urine WBC (Auto) 2 Urine RBC (Auto) 1 05/25/19 05/25/19 05/26/19 20:09 20:35 02:21 WBC RBC Hgb Hct MCV MCH MCHC RDW Plt Count Seg Neutrophils % Lymphocytes % Monocytes % Eosinophils % Basophils % Absolute Neutrophils Absolute Lymphocytes Absolute Monocytes Absolute Eosinophils Absolute Basophils Carbonic Acid HCO3/H2CO3 Ratio ABG pH ABG pCO2 ABG pO2 ABG HCO3 ABG O2 Saturation ABG Base Excess VBG pH 7.12 L* VBG pCO2 21.2 L VBG HCO3 6.7 L VBG Base Excess -20.7 FiO2 Sodium 135.1 L Potassium 4.5 Chloride 106 Carbon Dioxide 11 L Anion Gap 18 BUN 14 Creatinine 0.56 Est GFR ( Amer) > 60 Est GFR (Non-Af Amer) > 60 Glucose 291 H Lactic Acid 1.1 Calcium 8.2 L Magnesium Total Bilirubin AST ALT Alkaline Phosphatase Total Protein Albumin TSH Free T4 Free T3 pg/mL Urine Color Urine Appearance Urine pH Ur Specific [place] Urine Protein Urine Glucose (UA) Urine Ketones Urine Blood Urine Nitrite Ur Leukocyte Esterase Urine WBC (Auto) Urine RBC (Auto) 05/26/19 05/26/19 05/26/19 05:55 05:55 05:55 WBC 13.5 H RBC 4.42 Hgb 12.8 Hct 38.6 MCV 87 D MCH 29.0 MCHC 33.1 RDW 13.3 Plt Count 286 Seg Neutrophils % Lymphocytes % Monocytes % Eosinophils % Basophils % Absolute Neutrophils Absolute Lymphocytes Absolute Monocytes Absolute Eosinophils Absolute Basophils Carbonic Acid HCO3/H2CO3 Ratio ABG pH ABG pCO2 ABG pO2 ABG HCO3 ABG O2 Saturation ABG Base Excess VBG pH VBG pCO2 VBG HCO3 VBG Base Excess FiO2 Sodium 132.9 L Potassium 3.4 L D Chloride 100 Carbon Dioxide 22 D Anion Gap 11 BUN 11 Creatinine 0.47 L Est GFR ( Amer) > 60 Est GFR (Non-Af Amer) > 60 Glucose 264 H Lactic Acid Calcium 7.8 L Magnesium 1.6 Total Bilirubin AST ALT Alkaline Phosphatase Total Protein Albumin TSH 0.39 L Free T4 1.00 Free T3 pg/mL 2.40 L Urine Color Urine Appearance Urine pH Ur Specific [place] Urine Protein Urine Glucose (UA) Urine Ketones Urine Blood Urine Nitrite Ur Leukocyte Esterase Urine WBC (Auto) Urine RBC (Auto) 05/26/19 06:35 WBC RBC Hgb Hct MCV MCH MCHC RDW Plt Count Seg Neutrophils % Lymphocytes % Monocytes % Eosinophils % Basophils % Absolute Neutrophils Absolute Lymphocytes Absolute Monocytes Absolute Eosinophils Absolute Basophils Carbonic Acid 0.95 L HCO3/H2CO3 Ratio 23:1 ABG pH 7.46 H ABG pCO2 31.7 L ABG pO2 98.5 ABG HCO3 21.9 ABG O2 Saturation 97.8 ABG Base Excess -1.1 VBG pH VBG pCO2 VBG HCO3 VBG Base Excess FiO2 ROOM AIR Sodium Potassium Chloride Carbon Dioxide Anion Gap BUN Creatinine Est GFR ( Amer) Est GFR (Non-Af Amer) Glucose Lactic Acid Calcium Magnesium Total Bilirubin AST ALT Alkaline Phosphatase Total Protein Albumin TSH Free T4 Free T3 pg/mL Urine Color Urine Appearance Urine pH Ur Specific [place] Urine Protein Urine Glucose (UA) Urine Ketones Urine Blood Urine Nitrite Ur Leukocyte Esterase Urine WBC (Auto) Urine RBC (Auto) Assessment and Plan - Diagnosis (1) Hyperkalemia Is this a current diagnosis for this admission?: Yes Plan: The patient's hypokalemia will be treated with balanced electrolyte solution replacement and an IV insulin infusion. Patient's metabolic profile will be monitored frequently for further adjustments to her serum potassium. As her blood sugar is corrected and her anion gap closes she may become hypokalemic. 05/26/2019-the patient's serum potassium will be monitored. Laboratory studies are ordered for later today. With the insulin infusion and aggressive IV fluids her serum potassium should normalize. She may require potassium supplementation. (2) Diabetic ketoacidosis associated with type 1 diabetes mellitus Qualifiers: Diabetes mellitus complication detail: without coma Qualified Code(s): E10.10 - Type 1 diabetes mellitus with ketoacidosis without coma Is this a current diagnosis for this admission?: Yes Plan: Patient is admitted to the ICU and will be treated with an insulin infusion per protocol and a sodium bicarbonate infusion. Her CBC, metabolic profile and magnesium levels will be followed closely throughout her hospital course. Hemoglobin A1c will be obtained to assess her recent diabetic therapies efficacy. 05/26/2019-the patient is on insulin infusion. Her glucoses are improved. I was planning to let her eat and change her back to her 70/30 insulin regimen but she is quite somnolent. We will keep the infusion going at 1 unit/h check her fingersticks hourly. Once she awakens and is able to eat (hopefully at lunch) we will stop the infusion and utilize 70/30 twice daily with sliding scale coverage. Fingersticks will change to AC at bedtime. (3) Metabolic encephalopathy Is this a current diagnosis for this admission?: Yes Plan: Patient be treated with IV fluids and observe closely in the ICU. If her encephalopathic changes have not resolved within 24 hours, further evaluation will be undertaken. 05/26/2019-other than being tired the patient's encephalopathy appears to have improved according to her significant other. We will continue to monitor. (4) Abscess of right axilla Is this a current diagnosis for this admission?: Yes Plan: Patient be treated with oral antibiotics using Bactrim DS and Keflex as no wound culture was obtained by the ER physician. Daily CBCs will be monitored and the patient's wound will be observed closely with twice daily wet-to-dry dressing changes. 05/26/2019-the abscess was incised and drained. No cultures were obtained. The patient will be covered with Bactrim and cephalexin. (5) Facial cellulitis Is this a current diagnosis for this admission?: Yes Plan: Patient is a small area of cellulitis involving the lateral aspect of her right nare and what would appear to be an acne type pustule or some other superficial pustule. There is minimal edema noted involving the area under the right near and the right upper lip. There is no induration or fluctuance present. The patient will receive same antibiotic therapy for this infection as she is receiving for her right axillary abscess. 05/26/2019-the upper lip is still swollen but there is no further evidence of any pustule or drainage. Continue antibiotics for abscess and cellulitis. - Time Time Spent with patient: 15-24 minutes Medications reviewed and adjusted accordingly: Yes Anticipated discharge: Home Within: within 48 hours
[2019-05-27] MEDS: HEPARIN SOD (PORCINE) 5,000 UNIT/ML 1 ML SYRINGE SUBCUT SCH (06:10)
[2019-05-27] MEDS: CEPHALEXIN 500 MG CAPSULE PO SCH (06:10)
[2019-05-27 06:35] LABS: ARTERIAL BLOOD BASE EXCESS 2.6 mmol/L; ARTERIAL BLOOD H2CO3 1.16 mmol/L (1.05-1.35); ARTERIAL BLOOD HCO3 26.5 mmol/L (20-24); ARTERIAL BLOOD O2 SATURATION 97.3 % (94-98); ARTERIAL BLOOD PCO2 38.4 mmHg (35-45); ARTERIAL BLOOD PH 7.46 (7.35-7.45); ARTERIAL BLOOD PO2 90.5 mmHg (80-100); ARTERIAL BLOOD TOTAL CO2 27.6 mmol/L (21-25)
[2019-05-27 06:40] LABS: ARTERIAL BLOOD FIO2 ROOM AIR
[2019-05-27] MEDS: INSULIN REG, HUMAN 100 UNIT/ML 3 ML VIAL (PYX) SUBCUT SCH (08:26)
[2019-05-27] MEDS: SULFAMETHOXAZOLE/TRIMETHOPRIM 800-160 MG TABLET PO SCH (09:01)
--- NOTE | 2019-05-27 10:25 | PDOC DISCHARGE SUMMARY ---
General - Admit/Disc Date/PCP Admission Date/Primary Care Provider: 05/25/19 22:01 TAM JESSICA, Discharge Date: 05/27/19 - Discharge Diagnosis (1) Diabetic ketoacidosis associated with type 1 diabetes mellitus Is this a current diagnosis for this admission?: Yes Summary: 05/27/2019-the patient had an increased anion gap and hyperglycemia on admission. She was placed on insulin infusion. We tapered off the infusion yesterday. I resumed her 70/30 insulin at 35 units twice daily (as opposed to her 40 units twice daily normally) since her appetite was just starting to improve. Her Accu-Cheks were very well controlled at this dose. I did tell her that she should check at least twice a day (because she generally does not do fingerstick glucoses at home) as her diet improves that she may need to gradually increase her dose back to 40 units twice daily. I asked her who writes her insulin prescriptions. She states that nobody does because she buys it [id number] . I think this is incorrect. I told the nurse that if this is an issue to let me know and I will send a prescription to the [facility] in [facility]. We did set her up for follow-up at the [facility]. (2) Metabolic encephalopathy Is this a current diagnosis for this admission?: Yes Summary: Metabolic encephalopathy due to the diabetic ketoacidosis. This has resolved. (3) Abscess of right axilla Is this a current diagnosis for this admission?: Yes Summary: The patient has an abscess of the right axilla as well as nasolabial cellulitis on the right side of her face. She will be discharged on Bactrim double strength 2 tabs twice daily for 10 days as well as cephalexin 500 mg 4 times a day for 10 days. Moist saline dressings to the right axilla daily. Follow-up with [facility]. (4) Hyperkalemia Is this a current diagnosis for this admission?: Yes Summary: Patient initially had hyperkalemia. As is common with the insulin infusion her potassium dropped. Now that she is off of the infusion and eating a regular diabetic diet her serum potassium should normalize easily. (5) Facial cellulitis Is this a current diagnosis for this admission?: Yes Summary: The patient still has swelling of the nasolabial area on the right as well as extending to the right side of her face. She stated that "this is not right. I need surgery to drain this." I explained to her that it is generalized swelling from the infection. It is not like there is a big abscess that I could tell. My exam the inside of her nares. There was small discharge and some inflammation but there is no constantly draining lesion. The "small pustule "right at the base of the right ala is not actively draining. There is no significant erythema on the face. There is some erythema at the opening of the nares consistent with the cellulitis. As noted above she will be discharged on high-dose Bactrim and cephalexin. Both will be prescribed for 10 days. [facility]. - Additional Information Resuscitation Status: Full Code Discharge Diet: Diabetic Discharge Activity: Activity As Tolerated Prescriptions: Cephalexin Monohydrate [Keflex 500 mg Capsule] 500 mg PO Q6 10 Days #40 capsule Sulfamethoxazole/Trimethoprim [Septra-Ds 800-160 mg Tablet] 2 tab PO Q12 10 Days #40 tablet Home Medications: Cephalexin Monohydrate [Keflex 500 mg Capsule] 500 mg PO Q6 10 Days #40 capsule 05/27/19 Hum Insulin NPH/Reg Insulin Hm [Insulin 70-30 (NPH/Reg) 100 unit/mL] 35 unit SUBCUT ACSUPPER unit 05/27/19 Hum Insulin NPH/Reg Insulin Hm [Novolin 70-30 100 Unit/ml Vial] 35 unit SQ BID #0 05/27/19 Nicotine [Nicoderm 21 mg/24 Hr Transderm Patch] 1 each TD DAILYP PRN patch.td24 05/27/19 Sulfamethoxazole/Trimethoprim [Septra-Ds 800-160 mg Tablet] 2 tab PO Q12 10 Days #40 tablet 05/27/19 History of Present Illness Patient complains of: Increasing fatigue with somnolence and worsening nausea. History of Present Illness: SEAN FELIPE is a 33 year old female with type 1 diabetes mellitus. Over the last several days she has been exhibiting increased weakness and fatigue. She noted a pustule on the right nasolabial fold and she had an abscess in the right axilla. It is likely this caused a spike in her glucose. Upon evaluation the abscess was incised and drained by the emergency department physician. The diabetic ketoacidosis revealed a pH of 7.1 with glucose 342 and positive urine for ketones. She had an elevated INR gap. She was placed on insulin infusion with frequent Accu-Cheks and blood work. She was referred to the hospital service for admission. Hospital Course Hospital Course: The patient had a relatively benign hospital course. She will be discharged on high-dose Bactrim and cephalexin for the abscess and facial cellulitis. The abscess was drained but unfortunately no culture was obtained. I explained to her that the facial swelling will take days before it improves. I reminded her that she is on high-dose Bactrim as well as cephalexin. Her concern is that her roommate had an abscess on her elbow that required surgery and debridement of necrotic tissue. I told her we would set her up with a follow-up appointment at [facility] to ensure resolution of the cellulitis. Physical Exam Vital Signs: Temp Pulse Resp BP Pulse Ox 99.0 F 76 20 125/65 100 05/27/19 03:07 05/27/19 03:07 05/27/19 03:07 05/27/19 03:07 05/27/19 03:07 Intake & Output 05/26/19 05/27/19 05/28/19 06:59 06:59 06:59 Intake Total 4427 2719 Output Total 1000 900 Balance 3427 1819 Weight 91.626 kg 68.1 kg General appearance: PRESENT: cooperative, severe distress - Patient extremely upset about pending discharge because her right cheek upper lip and right side of her nose are swollen, well-developed Head exam: PRESENT: atraumatic, normocephalic Eye exam: PRESENT: conjunctiva pink. ABSENT: scleral icterus Ear exam: PRESENT: normal external ear exam Mouth exam: PRESENT: other - The right side of her nose and right side of her lip are swollen. There is a remnant of a small pustule at the base of the right nares. There is small discharge in the right nares. There is blood-tinged mucus when she blows her nose. Musculoskeletal exam: PRESENT: ambulatory, full ROM, normal inspection Neurological exam: PRESENT: alert, awake, oriented to person, oriented to place, oriented to time, oriented to situation, CN II-XII grossly intact Psychiatric exam: PRESENT: agitated, anxious - The patient was very upset. She was worried about her facial cellulitis. She jumped out of bed and try to expre ss purulent drainage from her nose. Her roommate had an abscess in her elbow and had to have surgery to remove necrotic tissue. She is worried that it will happen to her face. I spent time reassuring her as noted above. Focused psych exam: ABSENT: delusional, restlessness Skin exam: PRESENT: other - Swelling of the face, right side of her nose and right upper lip. Slight erythema at the right nasal ala. She was blowing her nose with paper towels and this could be quite irritating as well. Results Laboratory Results: 05/26/19 05:55 05/27/19 04:42 05/26/19 05/26/19 05/27/19 11:12 14:15 04:42 Carbonic Acid 1.08 HCO3/H2CO3 Ratio 22:1 ABG pH 7.46 H ABG pCO2 36.0 ABG pO2 94.4 ABG HCO3 24.8 H ABG O2 Saturation 97.6 ABG Base Excess 1.2 FiO2 ROOM AIR Sodium 135.3 L 137.6 Potassium 3.2 L 3.3 L Chloride 99 104 Carbon Dioxide 28 28 Anion Gap 8 6 BUN 7 7 Creatinine 0.39 L 0.45 L Est GFR ( Amer) > 60 > 60 Est GFR (Non-Af Amer) > 60 > 60 Glucose 159 H 117 H Calcium 8.0 L 8.3 L Magnesium 1.8 2.1 05/27/19 06:19 Carbonic Acid 1.16 HCO3/H2CO3 Ratio 22:1 ABG pH 7.46 H ABG pCO2 38.4 ABG pO2 90.5 ABG HCO3 26.5 H ABG O2 Saturation 97.3 ABG Base Excess 2.6 FiO2 ROOM AIR Sodium Potassium Chloride Carbon Dioxide Anion Gap BUN Creatinine Est GFR ( Amer) Est GFR (Non-Af Amer) Glucose Calcium Magnesium Qualifiers - * PATIENT BEING DISCHARGED WITH ANY OF THE FOLLOWING DIAGNOSIS: No Acute Heart Failure - Is this a Heart Failure Patient?: No Plan Discharge Plan: Complete antibiotics at home as ordered. Resume 70/30 at 35 units twice daily and monitor fingerstick glucose checks as she may need to increase the dose as her oral intake increases. [facility]. Time Spent: Greater than 30 Minutes
[2019-05-27 10:28] VITALS: BP 127/84
== END 2019-05-27 10:06 | disposition home or self-care (01) | DRG 637 ==
LOC: ER 19:49 → EH 22:01 → 3S 05-26 20:29
PROVIDERS: ADMIT Emergency Medicine; ATTEND Emergency Medicine
PROC: 0X940ZZ Drainage of Right Axilla, Open Approach (ICD-10-PCS; principal; 2019-05-25)
DX: E10.10 Type 1 diabetes mellitus with ketoacidosis without coma (principal); G93.41 Metabolic encephalopathy; L03.111 Cellulitis of right axilla; E87.1 Hypo-osmolality and hyponatremia; L03.211 Cellulitis of face; K21.9 Gastro-esophageal reflux disease without esophagitis; E87.5 Hyperkalemia; Z79.4 Long term (current) use of insulin; Z83.3 Family history of diabetes mellitus
CPT/HCPCS: 36415; 36600; 80048; 80053; 80307; 81001; 82803; 82962; 83036; 83605; 83735; 84439; 84443; 84481; 85025; 85027; 85610; 87040; 87086; 93005; 93010; 96360; 99291; J0690; J1644; J1815; J3490; J7030; J7060; J7120; S0028

== ENCOUNTER 2019-09-08 14:02 | Inpatient (IN) | payer MEDICAID ==
[2019-09-08] MEDS ORDERED: ONDANSETRON HCL INJ/PF 4 MG/2 ML SDV IV ONE (14:20)
[2019-09-08] MEDS ORDERED: NORMAL SALINE 1000 ML 1,000 ML IV ONE ×2 (14:20→15:00)
--- NOTE | 2019-09-08 14:21 | ER Document Report ---
ED Medical Screen (RME) - General Stated Complaint: BLOOD SUGAR ISSUES Time Seen by Provider: 09/08/19 14:18 Primary Care Provider: TAM LOPEZ DO [Primary Care Provider] - Follow up as needed Mode of Arrival: Wheelchair Information source: Patient Notes: This 33-year-old female with history of type 1 diabetes presents emergency department with reports of vomiting all day. Reports she feels like she is in DKA. Accu-Chek completed 581. Patient reports she has been admitted many times for this. I have greeted and performed a rapid initial assessment of this patient. A comprehensive ED assessment and evaluation of the patient, analysis of test results and completion of the medical decision making process will be conducted by additional ED providers. Dictation of this chart was performed using voice recognition software; therefore, there may be some unintended grammatical errors. TRAVEL OUTSIDE OF THE [place] IN LAST 30 DAYS: No - Related Data Allergies/Adverse Reactions: No Known Allergies Allergy (Verified 10/20/18 19:31) Past Medical History - Past Medical History Cardiac Medical History: Denies: Hx Atrial Fibrillation, Hx Congestive Heart Failure, Hx Coronary Artery Disease, Hx DVT, Hx Heart Attack, Hx Hypercholesterolemia, Hx Hypertension, Hx Peripheral Vascular Disease, Hx Pulmonary Embolism Pulmonary Medical History: Denies: Hx Asthma, Hx COPD Neurological Medical History: Denies: Hx Cerebrovascular Accident, Hx Seizures Endocrine Medical History: Reports: Hx Diabetes Mellitus Type 1. Denies: Hx Hyperthyroidism, Hx Hypothyroidism Renal/ Medical History: Denies: Hx Peritoneal Dialysis GI Medical History: Reports: Hx Gastroesophageal Reflux Disease. Denies: Hx Cirrhosis, Hx Crohn's Disease, Hx Hepatitis, Hx Hiatal Hernia, Hx Ulcer, Hx Ulcerative Colitis Musculoskeltal Medical History: Denies Hx Arthritis, Denies Hx Fibromyalgia, Denies Hx Gout Skin Medical History: Reports Hx Cellulitis, Denies Hx Eczema, Denies Hx Psoriasis Psychiatric Medical History: Denies: Hx Depression Infectious Medical History: Denies: Hx Hepatitis Past Surgical History: Reports: Hx Adenoidectomy, Hx Tonsillectomy. Denies: Hx Mastectomy, Hx Open Heart Surgery, Hx Pacemaker - Immunizations Hx Diphtheria, Pertussis, Tetanus Vaccination: Yes Physical Exam - Vital signs Vitals: Temp Pulse Resp BP Pulse Ox 98.6 F 84 19 116/74 100 09/08/19 14:14 09/08/19 14:14 09/08/19 14:14 09/08/19 14:14 09/08/19 14:14 Course - Vital Signs Vital signs: Temp Pulse Resp BP Pulse Ox 98.6 F 84 19 116/74 100 09/08/19 14:14 09/08/19 14:14 09/08/19 14:14 09/08/19 14:14 09/08/19 14:14 Doctor's Discharge - Discharge Referrals: TAM LOPEZ DO [Primary Care Provider] - Follow up as needed
--- NOTE | 2019-09-08 15:09 | ER Document Report ---
ED General - General Chief Complaint: Altered Mental Status Stated Complaint: BLOOD SUGAR ISSUES Time Seen by Provider: 09/08/19 14:18 Primary Care Provider: TAM LOPEZ DO [Primary Care Provider] - Follow up as needed Mode of Arrival: Wheelchair TRAVEL OUTSIDE OF THE [place] IN LAST 30 DAYS: No - HPI Notes: Patient is a 33-year-old insulin-dependent diabetic who presents with boyfriend complaining of elevated glucose, decreased p.o. intake, nausea/vomiting, fatigue that began last night. Patient states that she feels like she is in DKA. Patient has been in DKA multiple times. Boyfriend states that they have not been using the insulin properly as they have been guessing on her dose because they have been out of test strips. She has not been eating or drinking much for the last 24 hours. Denies or other drug use. Denies drug allergies. Denies any headache, fever, neck pain, URI, sore throat, chest pain, palpitations, syncope, cough, shortness of breath, wheeze, dyspnea, abdominal pain, nausea/vomiting/diarrhea, urinary retention, dysuria, hematuria, loss of control of bowel or bladder, numbness/tingling, saddle anesthesia, muscle paralysis/weakness, or rash. - Related Data Allergies/Adverse Reactions: No Known Allergies Allergy (Verified 10/20/18 19:31) Past Medical History - General Information source: Patient - Social History Smoking Status: Current Every Day Smoker Chew tobacco use (# tins/day): No Frequency of alcohol use: None Drug Abuse: Marijuana Family History: DM, Other - Asthma, hepatitis C Patient has suicidal ideation: No Patient has homicidal ideation: No - Past Medical History Cardiac Medical History: Denies: Hx Atrial Fibrillation, Hx Congestive Heart Failure, Hx Coronary Artery Disease, Hx DVT, Hx Heart Attack, Hx Hypercholesterolemia, Hx Hypertensi on, Hx Peripheral Vascular Disease, Hx Pulmonary Embolism Pulmonary Medical History: Denies: Hx Asthma, Hx COPD Neurological Medical History: Denies: Hx Cerebrovascular Accident, Hx Seizures Endocrine Medical History: Reports: Hx Diabetes Mellitus Type 1. Denies: Hx Hyperthyroidism, Hx Hypothyroidism Renal/ Medical History: Denies: Hx Peritoneal Dialysis GI Medical History: Reports: Hx Gastroesophageal Reflux Disease. Denies: Hx Cirrhosis, Hx Crohn's Disease, Hx Hepatitis, Hx Hiatal Hernia, Hx Ulcer, Hx Ulcerative Colitis Musculoskeletal Medical History: Denies Hx Arthritis, Denies Hx Fibromyalgia, Denies Hx Gout Skin Medical History: Reports Hx Cellulitis, Denies Hx Eczema, Denies Hx Psoriasis Psychiatric Medical History: Denies: Hx Depression Infectious Medical History: Denies: Hx Hepatitis Past Surgical History: Reports: Hx Adenoidectomy, Hx Tonsillectomy. Denies: Hx Mastectomy, Hx Open Heart Surgery, Hx Pacemaker - Immunizations Hx Diphtheria, Pertussis, Tetanus Vaccination: Yes Review of Systems - Review of Systems -: Yes All other systems reviewed and negative Physical Exam - Vital signs Vitals: Temp Pulse Resp BP Pulse Ox 98.6 F 84 19 116/74 100 09/08/19 14:14 09/08/19 14:14 09/08/19 14:14 09/08/19 14:14 09/08/19 14:14 - Notes Notes: PHYSICAL EXAMINATION: GENERAL: appears somnolent, but responds and answers questions appropriately otherwise. No acute distress. A&Ox3. HEAD: Atraumatic, normocephalic. Non-tender. EYES: Pupils equal round and reactive to light, extraocular movements intact, sclera anicteric, conjunctiva are normal. No nystagmus. ENT: Nares patent and without discharge. oropharynx clear without exudates. No tonsilar hypertrophy or erythema. Dry mucous membranes/lips. NECK: Normal range of motion, supple without lymphadenopathy. No rigidity/meningismus. No midline tenderness. LUNGS: Breath sounds clear to auscultation bilaterally and equal. No wheezes rales or rhonchi. HEART: Regular rate and rhythm without murmurs, rubs, gallops. ABDOMEN: Soft, nontender, nondistended abdomen. No guarding, no rebound. Normal bowel sounds present. No CVA tenderness bilaterally. Musculoskeletal: Ext b/l: FROM to passive/active. Strength 5+/5. No deficits noted. No bony tenderness of extremities. Extremities: No cyanosis, clubbing, or edema b/l. Peripheral pulses 2+. Capillary refill less than 2 seconds. NEUROLOGICAL: GCS 15. Cranial nerves grossly intact. Normal speech. Normal sensory, motor exams. PSYCH: flat, somnolent SKIN: Warm, Dry, normal turgor, no rashes or lesions noted. Course - Re-evaluation Re-evalutation: 09/08/19 15:08 Patient is an afebrile, 33-year-old female who I suspect is in DKA. We initiated IV hydration and labs are pending. Patient is otherwise alert and oriented x3. She is somnolent on exam, but easily arousable. 09/08/19 16:28 Patient is an afebrile, 33-year-old female who presents in DKA. Vitals are currently acceptable. Patient has been receiving IV fluids. pH is 7.01 with a low bicarb. Insulin infusion order set ordered as well as 1 amp of bicarb. I did call and speak with Dr. Maurer who accepted pt to [facility]. - Vital Signs Vital signs: Temp Pulse Resp BP Pulse Ox 98.6 F 84 15 116/74 100 09/08/19 14:14 09/08/19 14:14 09/08/19 15:03 09/08/19 14:14 09/08/19 14:14 - Laboratory Result Diagrams: 09/08/19 14:52 09/08/19 14:52 Laboratory results interpreted by me: 09/08/19 09/08/19 09/08/19 14:19 14:52 14:52 WBC 22.8 H Hct 48.8 H MCHC 30.3 L RDW 15.4 H Seg Neuts % (Manual) 87 H Lymphocytes % (Manual) 8 L Abs Neuts (Manual) 19.8 H VBG pH VBG pCO2 VBG HCO3 Sodium 136.6 L Potassium 5.7 H Carbon Dioxide 7 L* Glucose 636 H* POC Glucose > 550 H* Alkaline Phosphatase 218 H 09/08/19 14:52 WBC Hct MCHC RDW Seg Neuts % (Manual) Lymphocytes % (Manual) Abs Neuts (Manual) VBG pH 7.01 L* VBG pCO2 26.2 L VBG HCO3 6.4 L Sodium Potassium Carbon Dioxide Glucose POC Glucose Alkaline Phosphatase Discharge - Discharge Clinical Impression: DKA (diabetic ketoacidoses) Qualifiers: Diabetes mellitus type: type 1 Diabetes mellitus complication detail: without coma Qualified Code(s): E10.10 - Type 1 diabetes mellitus with ketoacidosis without coma Condition: Stable Disposition: ADMITTED INPATIENT Admitting Provider: Erasto (Hospitalist) Unit Admitted: [facility] Referrals: TAM LOPEZ DO [Primary Care Provider] - Follow up as needed
[2019-09-08 15:20] LABS: VENOUS BLOOD BASE EXCESS -23.7 mmol/L; VENOUS BLOOD HCO3 6.4 mmol/L (20-32); VENOUS BLOOD PCO2 26.2 mmHg (35-63)
[2019-09-08 15:25] LABS: VENOUS BLOOD PH 7.01 (7.30-7.42)
[2019-09-08 15:31] LABS: HEMATOCRIT 48.8 % (36.0-47.0); HEMOGLOBIN 14.8 g/dL (12.0-15.5); MEAN CORPUSCULAR HEMOGLOBIN 28.3 pg (27.0-33.4); MEAN CORPUSCULAR HGB CONC 30.3 g/dL (32.0-36.0); MEAN CORPUSCULAR VOLUME 94 fl (80-97); PLATELET COUNT 378 10^3/uL (150-450); RED BLOOD COUNT 5.22 10^6/uL (3.72-5.28); RED CELL DISTRIBUTION WIDTH 15.4 % (11.5-14.0); WHITE BLOOD COUNT 22.8 10^3/uL (4.0-10.5)
[2019-09-08 15:47] LABS: ALBUMIN 4.6 g/dL (3.5-5.0); ALKALINE PHOSPHATASE 218 U/L (38-126); ASPARTATE AMINO TRANSFERASE 30 U/L (14-36); BILIRUBIN,DIRECT 0.4 mg/dL (0.0-0.4); BILIRUBIN,TOTAL 0.4 mg/dL (0.2-1.3); BLOOD UREA NITROGEN 19 mg/dL (7-20); CALCIUM 9.4 mg/dL (8.4-10.2); POTASSIUM 5.7 mmol/L (3.6-5.0); TOTAL PROTEIN 7.8 g/dL (6.3-8.2)
[2019-09-08 15:52] LABS: CHLORIDE 100 mmol/L (98-107)
[2019-09-08 15:58] LABS: GLUCOSE 636 mg/dL (75-110)
[2019-09-08 15:59] LABS: CARBON DIOXIDE 7 mmol/L (22-30)
[2019-09-08 16:19] LABS: ABSOLUTE LYMPHOCYTES# (MANUAL) 1.8 10^3/uL (0.5-4.7); ABSOLUTE MONOCYTES # (MANUAL) 0.9 10^3/uL (0.1-1.4); BASOPHILS % (MANUAL) 1 % (0-2); EOSINOPHILS % (MANUAL) 0 % (0-6); LYMPHOCYTES % (MANUAL) 8 % (13-45); MONOCYTES % (MANUAL) 4 % (3-13); SEGMENTED NEUTROPHILS % (MAN) 87 % (42-78); TOTAL CELLS COUNTED 100
[2019-09-08 16:20] LABS: PLATELET COMMENT ADEQUATE; PLATELET LARGE PRESENT
[2019-09-08 16:21] LABS: POLYCHROMASIA SLIGHT; TEAR DROP CELLS SLIGHT
[2019-09-08] MEDS ORDERED: SODIUM BICARBONATE 8.4% INJ 50 MEQ/50 ML DISP.SYRIN IV ONE (16:23)
[2019-09-08] MEDS ORDERED: GLUCAGON,HUMAN RECOMB 1 MG INJ IM PRN ×2 (16:24→17:21)
[2019-09-08] MEDS ORDERED: NORMAL SALINE 100 ML with INSULIN REGULAR, HUMAN 100 UNIT IV PRN ×4 (16:24→17:21)
[2019-09-08] MEDS ORDERED: DEXTROSE 40% GEL 15 GM TUBE PO PRN ×5 (16:24→17:21)
[2019-09-08] MEDS ORDERED: DEXTROSE 50%-WATER 25 GM/50 ML DISP.SYRIN IV PRN ×5 (16:24→17:21)
[2019-09-08 16:29] LABS: APPEARANCE,URINE CLEAR; BILIRUBIN,URINE NEGATIVE (NEGATIVE); COLOR,URINE YELLOW; GLUCOSE, URINE >=500 mg/dL (NEGATIVE); KETONES,URINE 80 mg/dL (NEGATIVE); PROTEIN,URINE 30 mg/dL (NEGATIVE); URINE SPECIFIC GRAVITY 1.021; UROBILINOGEN,URINE NEGATIVE mg/dL (<2.0)
[2019-09-08 17:19] LABS: ANION GAP 30 (5-19)
[2019-09-08] MEDS ORDERED: ONDANSETRON HCL INJ/PF 4 MG/2 ML SDV IV PRN (17:36)
[2019-09-08] MEDS ORDERED: ACETAMINOPHEN 325 MG TABLET PO PRN (17:36)
[2019-09-08] MEDS ORDERED: INSULIN REG, HUMAN 100 UNIT/ML 3 ML VIAL (PYX) ONE (17:40)
--- NOTE | 2019-09-08 17:54 | CRITICAL CARE ADMISSION REPORT ---
HPI Date:: 09/08/19 Time:: 17:28 Reason for ICU Reason:: DKA HPI: Pt is a 33 yo woman with type I DM and multiple admissions for DKA. She presents to the ED today c/o a one day history of nausea vomiting. Pt states that she ran out of her long acting insulin and was trying to manage her DM with her short acting insulin. She also reports that she was unable to check her blood sugars because she ran out of her test strips.. In the ED, she was found to be in DKA with a blood sugar of 636 and a bicabonate level on 7. An insulin drip was ordered and she was given IVF. She denies F/C/CP/SOA. C/o being extremely thirsty. Home meds: Lantus 40 units sq BID Novolog 9 units TIDM SSI - Diagnosis/Plan (1) DKA, type 1 Qualifiers: Diabetes mellitus complication detail: without coma Qualified Code(s): E10.10 - Type 1 diabetes mellitus with ketoacidosis without coma Is this a current diagnosis for this admission?: Yes (2) Leukocytosis Qualifiers: Leukocytosis type: unspecified Qualified Code(s): D72.829 - Elevated white blood cell count, unspecified Is this a current diagnosis for this admission?: Yes Past Medical History Cardiac Medical History: Denies: Atrial Fibrillation, Congestive Heart Failure, Coronary Artery Disease, DVT, Myocardial Infarction, Hyperlipidema, Hypertension, Peripheral Vascular Disease, Pulmonary Embolism Pulmonary Medical History: Denies: Asthma, Chronic Obstructive Pulmonary Disease (COPD) Neurological Medical History: Denies: Seizures Endocrine Medical History: Reports: Diabetes Mellitus Type 1 Denies: Hyperthyroidism, Hypothyroidism GI Medical History: Reports: Gastroesophageal Reflux Disease Denies: Cirrhosis, Crohn's Disease, Hepatitis, Hiatal Hernia, Ulcerative Col itis Musculoskeltal Medical History: Denies: Arthritis, Fibromyalgia, Gout Skin Medical History: Denies: Eczema, Psoriasis Psychiatric Medical History: Denies: Depression Hematology: Denies: Anemia, Sickle Cell Disease, Bleeding Tendencies Past Surgical History Past Surgical History: Reports: Adenoidectomy, Tonsillectomy Denies: Amputation, Mastectomy, Pacemaker Social/Family History - Social History Smoking Status: Current Every Day Smoker Frequency of Alcohol Use: Occasional Hx Recreational Drug Use: Yes Drugs: Marijuana, Other Hx Prescription Drug Abuse: No - Medication/Allergies Home Medications: Cephalexin Monohydrate [Keflex 500 mg Capsule] 500 mg PO Q6 10 Days #40 capsule 05/27/19 Hum Insulin NPH/Reg Insulin Hm [Insulin 70-30 (NPH/Reg) 100 unit/mL] 35 unit SUBCUT ACSUPPER unit 05/27/19 Hum Insulin NPH/Reg Insulin Hm [Novolin 70-30 100 Unit/ml Vial] 35 unit SQ BID #0 05/27/19 Nicotine [Nicoderm 21 mg/24 Hr Transderm Patch] 1 each TD DAILYP PRN patch.td24 05/27/19 Sulfamethoxazole/Trimethoprim [Septra-Ds 800-160 mg Tablet] 2 tab PO Q12 10 Days #40 tablet 05/27/19 Allergies/Adverse Reactions: No Known Allergies Allergy (Verified 10/20/18 19:31) Review of Systems Review of Systems: per HPI Physical Exam Vital Signs: Temp Pulse Resp BP Pulse Ox 98.6 F 84 15 116/74 100 09/08/19 14:14 09/08/19 14:14 09/08/19 15:03 09/08/19 14:14 09/08/19 14:14 Intake & Output 09/07/19 09/08/19 09/09/19 06:59 06:59 06:59 Intake Total 1000 Balance 1000 Weight 62.4 kg Weight/Height Weight 62.4 kg Height 5 ft 2 in General appearance: PRESENT: mild distress - diaphoretic and mildy tachypneic, well-developed, well-nourished Respiratory exam: PRESENT: clear to auscultation black, tachypnea Cardiovascular exam: PRESENT: RRR GI/Abdominal exam: PRESENT: soft, other - non-tender, non-distended Extremities exam: PRESENT: other - no edema Laboratory/Radiographs Laboratory Results: 09/08/19 14:52 09/08/19 14:52 09/08/19 09/08/19 09/08/19 14:52 14:52 14:52 WBC 22.8 H RBC 5.22 Hgb 14.8 Hct 48.8 H MCV 94 MCH 28.3 MCHC 30.3 L RDW 15.4 H Plt Count 378 Seg Neutrophils % Not Reportable VBG pH VBG pCO2 VBG HCO3 VBG Base Excess Sodium 136.6 L Potassium 5.7 H Chloride 100 Carbon Dioxide 7 L* Anion Gap 30 H BUN 19 Creatinine 1.01 Est GFR ( Amer) > 60 Glucose 636 H* Calcium 9.4 Total Bilirubin 0.4 AST 30 Alkaline Phosphatase 218 H Total Protein 7.8 Albumin 4.6 Lipase Serum HCG, Qual NEGATIVE Urine Color Urine Appearance Urine pH Ur Specific [place] Urine Protein Urine Glucose (UA) Urine Ketones Urine Blood Urine RBC (Auto) 09/08/19 09/08/19 09/08/19 14:52 14:52 15:54 WBC RBC Hgb Hct MCV MCH MCHC RDW Plt Count Seg Neutrophils % VBG pH 7.01 L* VBG pCO2 26.2 L VBG HCO3 6.4 L VBG Base Excess -23.7 Sodium Potassium Chloride Carbon Dioxide Anion Gap BUN Creatinine Est GFR ( Amer) Glucose Calcium Total Bilirubin AST Alkaline Phosphatase Total Protein Albumin Lipase 48.9 Serum HCG, Qual Urine Color YELLOW Urine Appearance CLEAR Urine pH 5.0 Ur Specific [place] 1.021 Urine Protein 30 H Urine Glucose (UA) >=500 H Urine Ketones 80 H Urine Blood SMALL H Urine RBC (Auto) 1 Critical Time Critical Time (minutes): 40 -: The care of a critically ill patient is dynamic. This note represents a static moment in the admission process. orders and treatments may be given simul ataneously and urgentl, and time is not sales representative [place] power of the treatment process. This patient requires Critical Care secondary to life threating organ or limb dysfunction. Without the need for Critical Care services, the patient is at risk for increasid mortality and morbidity. Provider Note Provider Note: Assessment: critically ill 33 yo woman with type I DM and DKA. Plan: 1. Respiratory: stable on room air. Monitor respiratory status closely 2. CV: heart rate and BP acceptable. Check EKG and troponins 3. Endocrine: type I DM, and DKA, medication non-adherence. Continue IVF, insulin drip. Check frequent BMPs 4. ID: leukocytosis, probably reactive. Will check CXR, blood cultures. Check for influenza. Will start rocephin empirically 5. Nutrition: NPO 6. Prophylaxis: scds, lovenox Critical care time=40 min, excluding procedures
--- NOTE | 2019-09-08 18:21 | RADIOLOGY REPORT (SQ) ---
EXAM DESCRIPTION: CHEST SINGLE VIEW COMPLETED DATE/TIME: 09/08/2019 5:42 pm REASON FOR STUDY: leukocytosis COMPARISON: 01/06/2019 TECHNIQUE: Single frontal radiographic view of the chest acquired. NUMBER OF VIEWS: One view. LIMITATIONS: None. FINDINGS: LUNGS AND PLEURA: No pneumothorax. No consolidation or pleural effusion. MEDIASTINUM AND HILAR STRUCTURES: Stable. HEART AND VASCULAR STRUCTURES: Stable. BONES: No acute findings. HARDWARE: None in the chest. OTHER: No other significant finding. IMPRESSION: NO ACUTE FINDINGS. TECHNICAL DOCUMENTATION: JOB ID: [id number] [id number] 2010 [employer]- All Rights Reserved Reading location - IP/workstation name: [employer] [email or web address]
[2019-09-08] MEDS: CEFTRIAXONE 1 GM/D5W RTU 1 GM/50 ML RTUPB IV SCH (18:38)
--- NOTE | 2019-09-08 18:50 | EKG REPORT ---
SEVERITY:- NORMAL ECG - SINUS RHYTHM : Confirmed by: David Wells MD 08-Sep-2019 18:49:34
[2019-09-08] MEDS: NORMAL SALINE 1000 ML 1,000 ML IV PRN (19:00)
[2019-09-08] MEDS ORDERED: INFLUENZA QUAD (6MOS+) 2019-20 VAC 0.5 ML SYR IM ONE (19:58)
[2019-09-08 20:29] LABS: BLOOD UREA NITROGEN 18 mg/dL (7-20); CALCIUM 8.8 mg/dL (8.4-10.2); CHLORIDE 106 mmol/L (98-107); POTASSIUM 5.7 mmol/L (3.6-5.0)
[2019-09-08 21:04] LABS: GLUCOSE 552 mg/dL (75-110)
[2019-09-08 21:05] LABS: CARBON DIOXIDE < 5 mmol/L (22-30)
[2019-09-09 00:25] LABS: BLOOD UREA NITROGEN 16 mg/dL (7-20); CALCIUM 8.7 mg/dL (8.4-10.2); GLUCOSE 233 mg/dL (75-110)
[2019-09-09 00:30] LABS: CHLORIDE 114 mmol/L (98-107)
[2019-09-09 00:34] LABS: ANION GAP 22 (5-19); POTASSIUM 4.6 mmol/L (3.6-5.0)
[2019-09-09 00:35] LABS: CARBON DIOXIDE 7 mmol/L (22-30)
[2019-09-09] MEDS: NORMAL SALINE 1000 ML 1,000 ML IV PRN (00:59)
[2019-09-09 06:25] LABS: HEMOGLOBIN 12.8 g/dL (12.0-15.5); MEAN CORPUSCULAR HEMOGLOBIN 28.4 pg (27.0-33.4); MEAN CORPUSCULAR HGB CONC 32.9 g/dL (32.0-36.0); PLATELET COUNT 326 10^3/uL (150-450); RED BLOOD COUNT 4.52 10^6/uL (3.72-5.28); RED CELL DISTRIBUTION WIDTH 14.5 % (11.5-14.0); WHITE BLOOD COUNT 15.2 10^3/uL (4.0-10.5)
[2019-09-09 06:48] LABS: ANION GAP 12 (5-19); BLOOD UREA NITROGEN 15 mg/dL (7-20); CALCIUM 8.3 mg/dL (8.4-10.2); CARBON DIOXIDE 16 mmol/L (22-30); CHLORIDE 112 mmol/L (98-107); GLUCOSE 146 mg/dL (75-110); POTASSIUM 4.3 mmol/L (3.6-5.0)
[2019-09-09 07:06] LABS: MEAN CORPUSCULAR VOLUME 86 fl (80-97)
[2019-09-09 07:11] LABS: A TYPE INFLUENZA AG NEGATIVE (NEGATIVE); B INFLUENZA AG NEGATIVE (NEGATIVE)
--- NOTE | 2019-09-09 08:45 | PDOC PROGRESS REPORT ---
Subjective Progress Note for:: 09/09/19 Subjective:: Critical Care Progress Note. Pt remains on insulin drip. Complains of being thirsty. Reason For Visit: DKA Physical Exam Vital Signs: Temp Pulse Resp BP Pulse Ox 98.6 F 101 H 16 126/79 H 100 09/09/19 04:00 09/08/19 19:47 09/09/19 06:09 09/09/19 06:09 09/09/19 06:09 Intake & Output 09/08/19 09/09/19 09/10/19 06:59 06:59 06:59 Intake Total 2997 125 Output Total 1600 Balance 1397 125 Weight 64.2 kg General appearance: PRESENT: no acute distress, well-developed, well-nourished Head exam: PRESENT: atraumatic, normocephalic Respiratory exam: PRESENT: clear to auscultation black, unlabored Cardiovascular exam: PRESENT: RRR GI/Abdominal exam: PRESENT: soft Extremities exam: PRESENT: other - no edema Neurological exam: PRESENT: alert, awake Results Laboratory Results: 09/09/19 06:00 09/09/19 06:00 09/08/19 09/08/19 09/08/19 14:52 14:52 14:52 WBC 22.8 H RBC 5.22 Hgb 14.8 Hct 48.8 H MCV 94 MCH 28.3 MCHC 30.3 L RDW 15.4 H Plt Count 378 Seg Neutrophils % Not Reportable VBG pH VBG pCO2 VBG HCO3 VBG Base Excess Sodium 136.6 L Potassium 5.7 H Chloride 100 Carbon Dioxide 7 L* Anion Gap 30 H BUN 19 Creatinine 1.01 Est GFR ( Amer) > 60 Est GFR (Non-Af Amer) Glucose 636 H* Calcium 9.4 Total Bilirubin 0.4 AST 30 Alkaline Phosphatase 218 H Total Protein 7.8 Albumin 4.6 Lipase Serum HCG, Qual NEGATIVE Urine Color Urine Appearance Urine pH Ur Specific [place] Urine Protein Urine Glucose (UA) Urine Ketones Urine Blood Urine RBC (Auto) 09/08/19 09/08/19 09/08/19 14:52 14:52 15:54 WBC RBC Hgb Hct MCV MCH MCHC RDW Plt Count Seg Neutrophils % VBG pH 7.01 L* VBG pCO2 26.2 L VBG HCO3 6.4 L VBG Base Excess -23.7 Sodium Potassium Chloride Carbon Dioxide Anion Gap BUN Creatinine Est GFR ( Amer) Est GFR (Non-Af Amer) Glucose Calcium Total Bilirubin AST Alkaline Phosphatase Total Protein Albumin Lipase 48.9 Serum HCG, Qual Urine Color YELLOW Urine Appearance CLEAR Urine pH 5.0 Ur Specific [place] 1.021 Urine Protein 30 H Urine Glucose (UA) >=500 H Urine Ketones 80 H Urine Blood SMALL H Urine RBC (Auto) 1 09/08/19 09/08/19 09/08/19 18:47 19:58 23:09 WBC RBC Hgb Hct MCV MCH MCHC RDW Plt Count Seg Neutrophils % VBG pH VBG pCO2 VBG HCO3 VBG Base Excess Sodium Cancelled 139.6 142.6 Potassium Cancelled 5.7 H 4.6 D Chloride Cancelled 106 114 H Carbon Dioxide Cancelled < 5 L* 7 L* Anion Gap Cancelled Not Reportable 22 H BUN Cancelled 18 16 Creatinine Cancelled 0.87 0.82 Est GFR ( Amer) Cancelled > 60 > 60 Est GFR (Non-Af Amer) Cancelled Glucose Cancelled 552 H* 233 H Calcium Cancelled 8.8 8.7 Total Bilirubin AST Alkaline Phosphatase Total Protein Albumin Lipase Serum HCG, Qual Urine Color Urine Appearance Urine pH Ur Specific [place] Urine Protein Urine Glucose (UA) Urine Ketones Urine Blood Urine RBC (Auto) 09/09/19 09/09/19 06:00 06:00 WBC 15.2 H RBC 4.52 Hgb 12.8 Hct 39.0 MCV 86 D MCH 28.4 MCHC 32.9 RDW 14.5 H Plt Count 326 Seg Neutrophils % VBG pH VBG pCO2 VBG HCO3 VBG Base Excess Sodium 139.8 Potassium 4.3 Chloride 112 H Carbon Dioxide 16 L Anion Gap 12 BUN 15 Creatinine 0.63 Est GFR ( Amer) > 60 Est GFR (Non-Af Amer) Glucose 146 H Calcium 8.3 L Total Bilirubin AST Alkaline Phosphatase Total Protein Albumin Lipase Serum HCG, Qual Urine Color Urine Appearance Urine pH Ur Specific [place] Urine Protein Urine Glucose (UA) Urine Ketones Urine Blood Urine RBC (Auto) 09/08/19 09/08/19 09/09/19 16:52 23:09 06:00 Troponin I < 0.012 < 0.012 < 0.012 Impressions: Chest X-Ray 09/08/19 00:00 IMPRESSION: NO ACUTE FINDINGS. Assessment & Plan - Diagnosis (1) DKA, type 1 Qualifiers: Diabetes mellitus complication detail: without coma Qualified Code(s): E10.10 - Type 1 diabetes mellitus with ketoacidosis without coma Is this a current diagnosis for this admission?: Yes (2) Leukocytosis Qualifiers: Leukocytosis type: unspecified Qualified Code(s): D72.829 - Elevated white blood cell count, unspecified Is this a current diagnosis for this admission?: Yes - Time Time Spent with patient: 15-24 minutes Level of Care: ICU Provider Note Provider Note: Assessment: 33 yo woman with type I DM and DKA. Plan: 1. Respiratory: stable on room air. 2. CV: heart rate and BP acceptable. 3. Endocrine: type I DM, and DKA, resolved, medication non-adherence. D/C insulin drip and start home dose of lantus 40 units BID 4. ID: leukocytosis, probably reactive, resolving. Day 2 Rocephin. Cultures pending. 5. Nutrition: diabetic diet 6. Prophylaxis: scds, lovenox 7. Disposition: will transfer out of ICU later today.
[2019-09-09] MEDS ORDERED: DEXTROSE 5%-NORMAL SALINE 1,000 ML IV PRN (08:48)
[2019-09-09] MEDS ORDERED: FAMOTIDINE 20 MG TABLET PO SCH (10:00)
[2019-09-09] MEDS: ENOXAPARIN SODIUM INJ 40 MG/0.4 ML DISP.SYRIN SUBCUT SCH ×2 (10:14→12:52)
[2019-09-09] MEDS: CEFTRIAXONE 1 GM/D5W RTU 1 GM/50 ML RTUPB IV SCH (10:14)
[2019-09-09] MEDS: INSULIN LISPRO 100 UNIT/ML 3 ML VIAL SUBCUT SCH ×3 (11:01→21:39)
[2019-09-09] MEDS: INSULIN GLARGINE,HUM.REC.ANLOG 1,000 UNIT/10 ML VIAL SUBCUT SCH ×2 (11:01→21:38)
[2019-09-09 14:27] LABS: ANION GAP 15 (5-19); BLOOD UREA NITROGEN 13 mg/dL (7-20); CALCIUM 8.4 mg/dL (8.4-10.2); CARBON DIOXIDE 13 mmol/L (22-30); CHLORIDE 108 mmol/L (98-107); GLUCOSE 241 mg/dL (75-110); POTASSIUM 4.3 mmol/L (3.6-5.0)
[2019-09-09] MEDS ORDERED: MICONAZOLE NITRATE 2% VAGINAL CREAM 45 GM TUBE PV PRN (14:46)
[2019-09-09 19:15] LABS: BLOOD UREA NITROGEN 11 mg/dL (7-20); CALCIUM 8.4 mg/dL (8.4-10.2); CARBON DIOXIDE 18 mmol/L (22-30)
[2019-09-09 20:03] LABS: ANION GAP 12 (5-19); CHLORIDE 104 mmol/L (98-107); GLUCOSE 291 mg/dL (75-110); POTASSIUM 4.4 mmol/L (3.6-5.0)
[2019-09-10 01:16] LABS: ANION GAP 8 (5-19); BLOOD UREA NITROGEN 9 mg/dL (7-20); CALCIUM 8.4 mg/dL (8.4-10.2); CARBON DIOXIDE 21 mmol/L (22-30); CHLORIDE 109 mmol/L (98-107); GLUCOSE 127 mg/dL (75-110); POTASSIUM 3.5 mmol/L (3.6-5.0)
[2019-09-10] MEDS: INSULIN LISPRO 100 UNIT/ML 3 ML VIAL SUBCUT SCH ×3 (07:59→12:53)
[2019-09-10] MEDS ORDERED: POTASSIUM CHLORIDE 10 MEQ CAPSULE.ER PO ONE (08:00)
[2019-09-10 08:26] LABS: ABSOLUTE BASOPHILS # (AUTO) 0.1 10^3/uL (0.0-0.2); ABSOLUTE LYMPHOCYTES (AUTO) 2.2 10^3/uL (0.5-4.7); ABSOLUTE MONOCYTES (AUTO) 0.4 10^3/uL (0.1-1.4); ABSOLUTE NEUT (AUTO) 4.4 10^3/uL (1.7-8.2); BASOPHILS % (AUTO) 1.2 % (0-2); EOSINOPHILS % (AUTO) 0.4 % (0-6); HEMATOCRIT 38.3 % (36.0-47.0); HEMOGLOBIN 12.8 g/dL (12.0-15.5); LYMPHOCYTES % (AUTO) 30.2 % (13-45); MEAN CORPUSCULAR HEMOGLOBIN 28.6 pg (27.0-33.4); MEAN CORPUSCULAR HGB CONC 33.4 g/dL (32.0-36.0); MEAN CORPUSCULAR VOLUME 86 fl (80-97); MONOCYTES % (AUTO) 6.2 % (3-13); PLATELET COUNT 249 10^3/uL (150-450); RED BLOOD COUNT 4.48 10^6/uL (3.72-5.28); RED CELL DISTRIBUTION WIDTH 14.4 % (11.5-14.0); TOTAL CELLS COUNTED % (AUTO) 100 %; WHITE BLOOD COUNT 7.2 10^3/uL (4.0-10.5)
[2019-09-10 08:47] LABS: ANION GAP 10 (5-19); BLOOD UREA NITROGEN 8 mg/dL (7-20); CALCIUM 8.3 mg/dL (8.4-10.2); CARBON DIOXIDE 21 mmol/L (22-30); CHLORIDE 105 mmol/L (98-107); POTASSIUM 3.5 mmol/L (3.6-5.0)
[2019-09-10 08:59] LABS: GLUCOSE 60 mg/dL (75-110)
[2019-09-10] MEDS: ENOXAPARIN SODIUM INJ 40 MG/0.4 ML DISP.SYRIN SUBCUT SCH (09:10)
[2019-09-10] MEDS: CEFTRIAXONE 1 GM/D5W RTU 1 GM/50 ML RTUPB IV SCH (09:12)
[2019-09-10] MEDS: INSULIN GLARGINE,HUM.REC.ANLOG 1,000 UNIT/10 ML VIAL SUBCUT SCH (09:26)
[2019-09-10] MEDS ORDERED: GLUCAGON,HUMAN RECOMB 1 MG INJ IM PRN (09:49)
[2019-09-10] MEDS ORDERED: DEXTROSE 50%-WATER 25 GM/50 ML DISP.SYRIN IV PRN ×2 (09:49)
[2019-09-10] MEDS ORDERED: DEXTROSE 40% GEL 15 GM TUBE PO PRN ×2 (09:49)
[2019-09-10] MEDS ORDERED: INSULIN LISPRO 100 UNIT/ML 3 ML VIAL SUBCUT SCH (11:00)
--- NOTE | 2019-09-10 16:37 | PDOC DISCHARGE SUMMARY ---
Impression - Admit/DC Date/PCP Admission Date/Primary Care Provider: 09/08/19 16:48 TAM LOPEZ DO Discharge Date: 09/10/19 - Discharge Diagnosis (1) DKA (diabetic ketoacidoses) Is this a current diagnosis for this admission?: Yes (2) UTI (urinary tract infection) Is this a current diagnosis for this admission?: Yes (3) Leukocytosis Is this a current diagnosis for this admission?: Yes - Additional Information Resuscitation Status: Full Code Referrals: TAM LOPEZ DO [Primary Care Provider] - 09/16/19 4:00 pm Prescriptions: Insulin Lispro [Humalog Insulin (Lispro) 100 unit/mL] 9 unit SUBCUT AC 30 Days #3 unit Insulin Lispro [Humalog Insulin (Lispro) 100 unit/mL] 0 - 12 unit SUBCUT ACHS 30 Days #3 unit Cephalexin Monohydrate [Keflex 500 mg Capsule] 500 mg PO BID 3 Days #6 capsule Insulin Glargine,Hum.rec.anlog [Lantus Insulin 100 Unit/1 ml 10 ml] 40 unit SUBCUT QHS 30 Days #3 unit Home Medications: Insulin Aspart [Novolog Insulin (Aspart) 100 unit/mL] 9 unit SQ MEALS 09/08/19 Insulin Glargine,Hum.rec.anlog [Lantus Insulin 100 Unit/1 ml 10 ml] 40 units SQ QHS 09/08/19 Cephalexin Monohydrate [Keflex 500 mg Capsule] 500 mg PO BID 3 Days #6 capsule 09/10/19 Insulin Glargine,Hum.rec.anlog [Lantus Insulin 100 Unit/1 ml 10 ml] 40 unit SUBCUT QHS 30 Days #3 unit 09/10/19 Insulin Lispro [Humalog Insulin (Lispro) 100 unit/mL] 0 - 12 unit SUBCUT ACHS 30 Days #3 unit 09/10/19 Insulin Lispro [Humalog Insulin (Lispro) 100 unit/mL] 9 unit SUBCUT AC 30 Days #3 unit 09/10/19 History of Present Illiness History of Present Illness: SEAN FELIPE is a 33 year old female past medical history of type 1 diabetes with multiple admissions for DKA, presented to ED complaining of nausea and vomiting. Stating that she ran out of her long-acting insulin and was trying to manage her diabetes with her short acting insulin. In ED she was found to be in severe DKA with blood glucose level of more than 600 and pH of 7, was transferred to ICU and subsequently transferred to floor was anion gap closed. Hospital Course Hospital Course: (1) DKA (diabetic ketoacidoses) Due to noncompliance. Presented severely dehydrated, with glucose level of more than 600 and pH of 7 on VBG. Was transferred to ICU, started on DKA protocol, transition to regular floor after anion gap closed. Patient was discharged on long-acting insulin, sliding scale insulin, and pre- meal insulin. Prescription was provided for diabetic supplies. Contacted elementary school social worker to see if we could help with her insulin supply. I was contacted by elementary school social worker that she has Medicare and she assured me that she will be able to follow up her prescriptions. Please refer to note. (2) UTI (urinary tract infection) Likely due to gram-negative rods including E. coli. Received 2 days of IV ceftriaxone and patient. Discharged on Keflex 500 p.o. twice daily for 3 days. Urine cultures no growth x24 hours at the time of discharge. (3) Leukocytosis Resolved. Likely reactive versus UTI. Was started on empiric IV antibiotics. Received 2 days of IV ceftriaxone. Was discharged on Keflex 500 twice daily for another 3 days. Urine cultures no growth x24 hours at the time of discharge. Physical Exam Vital Signs: Temp Pulse Resp BP Pulse Ox 98.0 F 86 16 107/69 99 09/10/19 12:22 09/10/19 12:22 09/10/19 12:22 09/10/19 12:22 09/10/19 12:22 Intake & Output 09/09/19 09/10/19 09/11/19 06:59 06:59 06:59 Intake Total 2997 901 570 Output Total 1600 1000 Balance 1397 -99 570 Weight 64.2 kg 64.6 kg Results Laboratory Results: WBC 7.2 10^3/uL (4.0-10.5) 09/10/19 07:33 RBC 4.48 10^6/uL (3.72-5.28) 09/10/19 07:33 Hgb 12.8 g/dL (12.0-15.5) 09/10/19 07:33 Hct 38.3 % (36.0-47.0) 09/10/19 07:33 MCV 86 fl (80-97) 09/10/19 07:33 MCH 28.6 pg (27.0-33.4) 09/10/19 07:33 MCHC 33.4 g/dL (32.0-36.0) 09/10/19 07:33 RDW 14.4 % (11.5-14.0) H 09/10/19 07:33 Plt Count 249 10^3/uL (150-450) 09/10/19 07:33 Lymph % (Auto) 30.2 % (13-45) 09/10/19 07:33 [place] % (Auto) 6.2 % (3-13) 09/10/19 07:33 Eos % (Auto) 0.4 % (0-6) 09/10/19 07:33 Baso % (Auto) 1.2 % (0-2) 09/10/19 07:33 Absolute Neuts (auto) 4.4 10^3/uL (1.7-8.2) 09/10/19 07:33 Absolute Lymphs (auto) 2.2 10^3/uL (0.5-4.7) 09/10/19 07:33 Absolute Monos (auto) 0.4 10^3/uL (0.1-1.4) 09/10/19 07:33 Absolute Eos (auto) 0.0 10^3/uL (0.0-0.6) 09/10/19 07:33 Absolute Basos (auto) 0.1 10^3/uL (0.0-0.2) 09/10/19 07:33 Total Counted 100 09/08/19 14:52 Seg Neutrophils % 62.0 % (42-78) 09/10/19 07:33 Seg Neuts % (Manual) 87 % (42-78) H 09/08/19 14:52 Lymphocytes % (Manual) 8 % (13-45) L 09/08/19 14:52 Monocytes % (Manual) 4 % (3-13) 09/08/19 14:52 Eosinophils % (Manual) 0 % (0-6) 09/08/19 14:52 Basophils % (Manual) 1 % (0-2) 09/08/19 14:52 Abs Neuts (Manual) 19.8 10^3/uL (1.7-8.2) H 09/08/19 14:52 Abs Lymphs (Manual) 1.8 10^3/uL (0.5-4.7) 09/08/19 14:52 Abs Monocytes (Manual) 0.9 10^3/uL (0.1-1.4) 09/08/19 14:52 Absolute Eos (Manual) 0.0 10^3/uL (0.0-0.6) 09/08/19 14:52 Abs Basophils (Manual) 0.2 10^3/uL (0.0-0.2) 09/08/19 14:52 Large Platelets PRESENT 09/08/19 14:52 Platelet Comment ADEQUATE 09/08/19 14:52 Polychromasia SLIGHT 09/08/19 14:52 Tear Drop Cells SLIGHT 09/08/19 14:52 VBG pH 7.01 (7.30-7.42) L* 09/08/19 14:52 VBG pCO2 26.2 mmHg (35-63) L 09/08/19 14:52 VBG HCO3 6.4 mmol/L (20-32) L 09/08/19 14:52 VBG Base Excess -23.7 mmol/L 09/08/19 14:52 Sodium 136.0 mmol/L (137-145) L 09/10/19 07:33 Potassium 3.5 mmol/L (3.6-5.0) L 09/10/19 07:33 Chloride 105 mmol/L (98-107) 09/10/19 07:33 Carbon Dioxide 21 mmol/L (22-30) L 09/10/19 07:33 Anion Gap 10 (5-19) 09/10/19 07:33 BUN 8 mg/dL (7-20) 09/10/19 07:33 Creatinine 0.45 mg/dL (0.52-1.25) L 09/10/19 07:33 Est GFR ( Amer) > 60 (>60) 09/10/19 07:33 Est GFR (Non-Af Amer) Cancelled 09/09/19 12:57 Est GFR (MDRD) Non-Af > 60 (>60) 09/10/19 07:33 Glucose 60 mg/dL (75-110) L 09/10/19 07:33 POC Glucose 85 mg/dL (70-110) 09/10/19 16:16 Calcium 8.3 mg/dL (8.4-10.2) L 09/10/19 07:33 Total Bilirubin 0.4 mg/dL (0.2-1.3) 09/08/19 14:52 Direct Bilirubin 0.4 mg/dL (0.0-0.4) 09/08/19 14:52 Neonat Total Bilirubin Not Reportable 09/08/19 14:52 Neonat Direct Bilirubin Not Reportable 09/08/19 14:52 Neonat Indirect Bili Not Reportable 09/08/19 14:52 AST 30 U/L (14-36) 09/08/19 14:52 ALT 26 U/L (<35) 09/08/19 14:52 Alkaline Phosphatase 218 U/L (38-126) H 09/08/19 14:52 Troponin I < 0.012 ng/mL 09/09/19 06:00 Total Protein 7.8 g/dL (6.3-8.2) 09/08/19 14:52 Albumin 4.6 g/dL (3.5-5.0) 09/08/19 14:52 Lipase 48.9 U/L (23-300) 09/08/19 14:52 EGFR Cancelled 09/09/19 12:57 Serum HCG, Qual NEGATIVE (NEGATIVE) 09/08/19 14:52 Urine Color YELLOW 09/08/19 15:54 Urine Appearance CLEAR 09/08/19 15:54 Urine pH 5.0 (5.0-9.0) 09/08/19 15:54 Ur Specific [place] 1.021 09/08/19 15:54 Urine Protein 30 mg/dL (NEGATIVE) H 09/08/19 15:54 Urine Glucose (UA) >=500 mg/dL (NEGATIVE) H 09/08/19 15:54 Urine Ketones 80 mg/dL (NEGATIVE) H 09/08/19 15:54 Urine Blood SMALL (NEGATIVE) H 09/08/19 15:54 Urine Nitrite (Reflex) NEGATIVE (NEGATIVE) 09/08/19 15:54 Urine Bilirubin NEGATIVE (NEGATIVE) 09/08/19 15:54 Urine Urobilinogen NEGATIVE mg/dL (<2.0) 09/08/19 15:54 Leukocyte Esterase Rfl NEGATIVE (NEGATIVE) 09/08/19 15:54 Urine RBC (Auto) 1 /HPF 09/08/19 15:54 Urine WBC (Reflex) 1 /HPF 09/08/19 15:54 Squamous Epi Cells Auto 6 /HPF 09/08/19 15:54 Urine Mucus (Auto) OCC /LPF 09/08/19 15:54 Urine Ascorbic Acid NEGATIVE (NEGATIVE) 09/08/19 15:54 Influenza A (Rapid) NEGATIVE (NEGATIVE) 09/09/19 06:40 Influenza B (Rapid) NEGATIVE (NEGATIVE) 09/09/19 06:40 09/08/19 09/08/19 09/09/19 16:52 23:09 06:00 Troponin I < 0.012 < 0.012 < 0.012 Impressions: Chest X-Ray 09/08/19 00:00 IMPRESSION: NO ACUTE FINDINGS. Stroke Is this a Stroke Patient?: No Acute Heart Failure - Is this a Heart Failure Patient?: No
[2019-09-10 16:46] VITALS: BP 135/80
[2019-09-10] MEDS ORDERED: INSULIN GLARGINE,HUM.REC.ANLOG 1,000 UNIT/10 ML VIAL SUBCUT SCH (22:00)
== END 2019-09-10 17:14 | disposition home or self-care (01) | DRG 638 ==
LOC: ER 14:02 → EH 16:48 → ICU 18:02 → 5 09-09 23:22
PROVIDERS: ADMIT Internal Medicine; ATTEND Hospitalist
DX: E10.10 Type 1 diabetes mellitus with ketoacidosis without coma (principal); N39.0 Urinary tract infection, site not specified; B96.20 Unspecified Escherichia coli [E. coli] as the cause of diseases classified elsewhere; D72.829 Elevated white blood cell count, unspecified; T38.3X6A Underdosing of insulin and oral hypoglycemic [antidiabetic] drugs, initial encounter; Z91.128 Patient's intentional underdosing of medication regimen for other reason; E86.0 Dehydration; K21.9 Gastro-esophageal reflux disease without esophagitis; F17.200 Nicotine dependence, unspecified, uncomplicated; Z79.4 Long term (current) use of insulin; Z83.3 Family history of diabetes mellitus
CPT/HCPCS: 36415; 71045; 80048; 80053; 81001; 82803; 82962; 83690; 84484; 84703; 85025; 85027; 87040; 87804; 93005; 93010; 96361; 96374; 99285; J0696; J1650; J1815; J2405; J3490; J7030; J7042; J7050

== ENCOUNTER 2020-04-18 17:10 | Inpatient (IN) | payer MEDICAID ==
[2020-04-18] MEDS: NORMAL SALINE 1000 ML 1,000 ML IV PRN ×2 (17:25→18:58)
[2020-04-18 18:01] LABS: APPEARANCE,URINE CLEAR; BILIRUBIN,URINE NEGATIVE (NEGATIVE); COLOR,URINE STRAW; GLUCOSE, URINE >=500 mg/dL (NEGATIVE); KETONES,URINE 80 mg/dL (NEGATIVE); LEUKOCYTE ESTERASE,URINE NEGATIVE (NEGATIVE); NITRITE,URINE NEGATIVE (NEGATIVE); PROTEIN,URINE NEGATIVE (NEGATIVE); URINE SPECIFIC GRAVITY 1.024; UROBILINOGEN,URINE NEGATIVE mg/dL (<2.0)
[2020-04-18 18:16] LABS: URINE AMPHETAMINES SCREEN NEGATIVE; URINE BARBITURATES SCREEN NEGATIVE; URINE BENZODIAZEPINES SCREEN NEGATIVE; URINE COCAINE SCREEN NEGATIVE; URINE MARIJUANA (THC) SCREEN NEGATIVE; URINE METHADONE SCREEN NEGATIVE; URINE PHENCYCLIDINE SCREEN NEGATIVE
[2020-04-18 18:43] LABS: ABSOLUTE LYMPHOCYTES (AUTO) 1.4 10^3/uL (0.5-4.7); ABSOLUTE MONOCYTES (AUTO) 0.3 10^3/uL (0.1-1.4); BASOPHILS % (AUTO) 0.2 % (0-2); EOSINOPHILS % (AUTO) 0.2 % (0-6); HEMATOCRIT 48.2 % (36.0-47.0); HEMOGLOBIN 15.9 g/dL (12.0-15.5); LYMPHOCYTES % (AUTO) 13.3 % (13-45); MEAN CORPUSCULAR HEMOGLOBIN 29.8 pg (27.0-33.4); MEAN CORPUSCULAR HGB CONC 32.9 g/dL (32.0-36.0); MEAN CORPUSCULAR VOLUME 90 fl (80-97); MONOCYTES % (AUTO) 3.2 % (3-13); PLATELET COUNT 300 10^3/uL (150-450); RED BLOOD COUNT 5.33 10^6/uL (3.72-5.28); RED CELL DISTRIBUTION WIDTH 13.5 % (11.5-14.0); SEGMENTED NEUTROPHILS % (AUTO) 83.1 % (42-78); TOTAL CELLS COUNTED % (AUTO) 100 %; WHITE BLOOD COUNT 10.8 10^3/uL (4.0-10.5)
[2020-04-18 18:51] LABS: ALBUMIN 4.9 g/dL (3.5-5.0); ALKALINE PHOSPHATASE 191 U/L (38-126); ASPARTATE AMINO TRANSFERASE 23 U/L (14-36); BILIRUBIN,DIRECT 0.1 mg/dL (0.0-0.4); BILIRUBIN,TOTAL 0.8 mg/dL (0.2-1.3); BLOOD UREA NITROGEN 15 mg/dL (7-20); CALCIUM 9.7 mg/dL (8.4-10.2); CARBON DIOXIDE 13 mmol/L (22-30); CHLORIDE 94 mmol/L (98-107); GLUCOSE 363 mg/dL (75-110); POTASSIUM 4.7 mmol/L (3.6-5.0); TOTAL PROTEIN 8.1 g/dL (6.3-8.2)
--- NOTE | 2020-04-18 18:54 | ER Document Report ---
ED General - General Chief Complaint: Nausea/Vomiting Stated Complaint: NAUSEA,VOMITING,ABDOMINAL PAIN Time Seen by Provider: 04/18/20 18:19 Primary Care Provider: TAM LOPEZ DO [Primary Care Provider] - Follow up as needed Notes: 34-year-old female presents emergency department with concerns that she may be , she may be in opiate withdrawal or she may be in DKA. Patient states she is a type I diabetic who was diagnosed at 28 years old, ran out of her insulin yesterday, started having sweats, waves of heat and nausea and vomiting yesterday morning. It is associated with mild epigastric pain and a small amount of diarrhea. Also complains of increased thirst and increased urinary frequency but denies dysuria. States that she usually uses methamphetamine however for the past 2 weeks she has been snorting heroin because she cannot find any methamphetamine anywhere. States last time she used heroin was yesterday morning. She is afraid she may be in narcotic withdrawal. Denies contact with any coronavirus patient. TRAVEL OUTSIDE OF THE [place] IN LAST 30 DAYS: No - Related Data Allergies/Adverse Reactions: No Known Allergies Allergy (Verified 10/20/18 19:31) Past Medical History - General Information source: Patient - Social History Smoking Status: Current Every Day Smoker Chew tobacco use (# tins/day): No Frequency of alcohol use: Occasional Drug Abuse: Heroin, Marijuana, Methamphetamine Family History: DM, Other - Asthma, hepatitis C Patient has homicidal ideation: No - Past Medical History Cardiac Medical History: Denies: Hx Atrial Fibrillation, Hx Congestive Heart Failure, Hx Coronary Artery Disease, Hx DVT, Hx Heart Attack, Hx Hypercholesterolemia, Hx Hypertension, Hx Peripheral Vascular Disease, Hx Pulmonary Embolism Pulmonary Medical History: Denies: Hx Asthma, Hx COPD Neurological Medical History: Denies: Hx Cerebrovascular Accident, Hx Seizures Endocrine Medical History: Reports: Hx Diabetes Mellitus Type 1. Denies: Hx Hyperthyroidism, Hx Hypothyroidism Renal/ Medical History: Denies: Hx Peritoneal Dialysis GI Medical History: Reports: Hx Gastroesophageal Reflux Disease. Denies: Hx Cirrhosis, Hx Crohn's Disease, Hx Hepatitis, Hx Hiatal Hernia, Hx Ulcer, Hx Ulcerative Colitis Musculoskeletal Medical History: Denies Hx Arthritis, Denies Hx Fibromyalgia, Denies Hx Gout Skin Medical History: Reports Hx Cellulitis, Denies Hx Eczema, Denies Hx Psoriasis Psychiatric Medical History: Denies: Hx Depression Infectious Medical History: Denies: Hx Hepatitis Past Surgical History: Reports: Hx Adenoidectomy, Hx Tonsillectomy. Denies: Hx Mastectomy, Hx Open Heart Surgery, Hx Pacemaker - Immunizations Hx Diphtheria, Pertussis, Tetanus Vaccination: Yes Review of Systems - Review of Systems Constitutional: Chills, Diaphoresis. denies: Fever EENT: No symptoms reported. denies: Blurred vision Cardiovascular: No symptoms reported Respiratory: No symptoms reported Gastrointestinal: See HPI, Abdominal pain, Nausea, Vomiting Genitourinary: See HPI, Frequency -: Yes All other systems reviewed and negative Physical Exam - Vital signs Vitals: Temp 97.6 F 04/18/20 17:11 Interpretation: Normal - Notes Notes: GENERAL: Alert, interacts well. No acute distress. HEAD: Normocephalic, atraumatic EYES: Pupils equal, round and reactive to light, extraocular movements intact. ENT: Oral mucosa moist, tongue midline. NECK: Full range of motion, supple, trachea midline. LUNGS: Clear to auscultation bilaterally, no wheezes, rales or rhonchi, no respiratory distress. HEART: Regular rate and rhythm, no murmurs, gallops, rubs. ABDOMEN: Soft, nontender, nondistended, bowel sounds present in all 4 quadrants. EXTREMITIES: Moves all 4 extremities spontaneously, no edema, radial and dorsalis pedis pulses 2/4 bilaterally. No cyanosis. NEUROLOGICAL: Alert and oriented x3, normal speech. PSYCH: Normal mood, normal affect. SKIN: Warm, diaphoretic, normal turgor, no rashes or lesions noted. Flushed. Course - Re-evaluation Re-evalutation: 04/18/20 19:26 CBC shows some hemoconcentration with white blood cell count of 10.3, venous blood gas shows acidosis with a pH of 7.21, chemistries show hyponatremia with sodium 129.1, potassium is normal at 4.7, CO2 is low at 13, anion gap is elevated at 22, fingerstick was 210, based on this I was going to start some glucose with the insulin drip however the blood work shows a glucose of 363 which is elevated. Discussed patient with Dr. Dean, he agrees with starting insulin, would like to start his own fluid orders at this point to cover potassi um and glucose needs. Urinalysis does also show greater than 500 glucose and 80 of ketones. Patient is not , she does not have a UTI. Patient has minimal signs of opiate withdrawal at this time. Vital signs are stable. Patient only has some apheresis, nausea and mild abdominal pain which could be from the DKA or from narcotic withdrawal. As previously stated discussed with Dr. Dean, agrees to admit patient to his service on the IMCU. - Vital Signs Vital signs: Temp Pulse Resp BP Pulse Ox 97.5 F 75 17 134/78 H 100 04/18/20 17:25 04/18/20 17:25 04/18/20 17:25 04/18/20 17:25 04/18/20 17:25 - Laboratory Result Diagrams: 04/18/20 17:40 04/18/20 17:40 Laboratory results interpreted by me: 04/18/20 04/18/20 04/18/20 17:40 17:40 17:45 WBC 10.8 H RBC 5.33 H Hgb 15.9 H Hct 48.2 H Absolute Neuts (auto) 9.0 H Seg Neutrophils % 83.1 H VBG pH VBG HCO3 Sodium 129.1 L Chloride 94 L Carbon Dioxide 13 L Anion Gap 22 H Glucose 363 H POC Glucose Alkaline Phosphatase 191 H Urine Glucose (UA) >=500 H Urine Ketones 80 H 04/18/20 04/18/20 18:46 18:50 WBC RBC Hgb Hct Absolute Neuts (auto) Seg Neutrophils % VBG pH 7.21 L VBG HCO3 14.5 L Sodium Chloride Carbon Dioxide Anion Gap Glucose POC Glucose 210 H Alkaline Phosphatase Urine Glucose (UA) Urine Ketones Critical Care Note - Critical Care Note Total time excluding time spent on procedures (mins): 35 Discharge - Discharge Clinical Impression: Polysubstance abuse, Noncompliance w/medication treatment due to intermit use of medication Diabetic ketoacidosis associated with type 1 diabetes mellitus Qualifiers: Diabetes mellitus complication detail: without coma Qualified Code(s): E10.10 - Type 1 diabetes mellitus with ketoacidosis without coma Condition: Fair Disposition: ADMITTED INPATIENT Admitting Provider: Jermaine (Hospitalist) Unit Admitted: IMCU Referrals: TAM LOPEZ DO [Primary Care Provider] - Follow up as needed
[2020-04-18 18:59] LABS: ANION GAP 22 (5-19)
[2020-04-18 19:07] LABS: VENOUS BLOOD BASE EXCESS -12.4 mmol/L; VENOUS BLOOD HCO3 14.5 mmol/L (20-32); VENOUS BLOOD PCO2 36.7 mmHg (35-63); VENOUS BLOOD PH 7.21 (7.30-7.42)
[2020-04-18] MEDS ORDERED: DEXTROSE 5%-NORMAL SALINE 1,000 ML IV ONE (19:20)
[2020-04-18] MEDS ORDERED: MAG HYDROX/AL HYDROX/SIMETH SUSP 30 ML UDCUP PO PRN (19:25)
[2020-04-18] MEDS ORDERED: NORMAL SALINE 100 ML with INSULIN REGULAR, HUMAN 100 UNIT IV PRN ×2 (19:25)
[2020-04-18] MEDS ORDERED: GLUCAGON,HUMAN RECOMB 1 MG INJ IM PRN (19:25)
[2020-04-18] MEDS ORDERED: DEXTROSE 50%-WATER 25 GM/50 ML DISP.SYRIN IV PRN ×2 (19:25)
[2020-04-18] MEDS ORDERED: DEXTROSE 40% GEL 15 GM TUBE PO PRN ×2 (19:25)
[2020-04-18] MEDS ORDERED: ACETAMINOPHEN 325 MG TABLET PO PRN (19:25)
[2020-04-18] MEDS ORDERED: NORMAL SALINE 1000 ML 1,000 ML IV SCH (19:30)
[2020-04-18 21:12] LABS: ANION GAP 9 (5-19); BLOOD UREA NITROGEN 12 mg/dL (7-20); CALCIUM 8.4 mg/dL (8.4-10.2); CARBON DIOXIDE 17 mmol/L (22-30); CHLORIDE 106 mmol/L (98-107); GLUCOSE 220 mg/dL (75-110); POTASSIUM 4.3 mmol/L (3.6-5.0)
[2020-04-18] MEDS: HEPARIN SOD (PORCINE) 5,000 UNIT/ML 1 ML VIAL SUBCUT SCH (21:50)
[2020-04-19 00:15] LABS: ANION GAP 11 (5-19); BLOOD UREA NITROGEN 10 mg/dL (7-20); CALCIUM 8.7 mg/dL (8.4-10.2); CARBON DIOXIDE 14 mmol/L (22-30); CHLORIDE 107 mmol/L (98-107); GLUCOSE 254 mg/dL (75-110); POTASSIUM 4.4 mmol/L (3.6-5.0)
[2020-04-19] MEDS: POTASSI CL 20 MEQ/D5-1/2NS 1L 1,000 ML IV PRN ×2 (00:45→06:35)
[2020-04-19] MEDS: NORMAL SALINE 1000 ML 1,000 ML IV PRN ×2 (00:48→03:14)
--- NOTE | 2020-04-19 04:06 | PDOC H&P ---
History of Present Illness Admission Date/PCP: 04/18/20 19:41 TAM LOPEZ DO Patient complains of: Nausea and abdominal pain History of Present Illness: SEAN FELIPE is a 34 year old female with a past medical history of poorly controlled insulin dependent diabetes, smoking and intranasal ingestion of cannabis, methamphetamine and heroin. She presents with 24 hours of abdominal pain, nausea and polydipsia. In the emergency department she is found to have diabetes ketoacidosis admits to no insulin use over at least 24 hours. She is started on IV fluids, insulin and referred to the hospitalist for admission. Past Medical History Cardiac Medical History: Denies: Atrial Fibrillation, Congestive Heart Failure, Coronary Artery Disease, DVT, Myocardial Infarction, Hyperlipidema, Hypertension, Peripheral Vascular Disease, Pulmonary Embolism Pulmonary Medical History: Denies: Asthma, Chronic Obstructive Pulmonary Disease (COPD) Neurological Medical History: Denies: Seizures Endocrine Medical History: Reports: Diabetes Mellitus Type 1 Denies: Hyperthyroidism, Hypothyroidism GI Medical History: Reports: Gastroesophageal Reflux Disease Denies: Cirrhosis, Crohn's Disease, Hepatitis, Hiatal Hernia, Ulcerative Colitis Musculoskeltal Medical History: Denies: Arthritis, Fibromyalgia, Gout Skin Medical History: Denies: Eczema, Psoriasis Psychiatric Medical History: Reports: Substance Abuse, Tobacco Dependency Denies: Alcohol Dependency, Attention Deficit Hyperactivity Disorder, Bipolar Disorder, Depression, General Anxiety Disorder Hematology: Denies: Anemia, Sickle Cell Disease, Bleeding Tendencies Past Surgical History Past Surgical History: Reports: Adenoidectomy, Tonsillectomy Denies: Amputation, Mastectomy, Pacemaker Social History Information Source: Patient Lives with: Alone Smoking Status: Current Some Day Smoker Electronic Cigarette use?: No Frequency of Alcohol Use: Social Hx Recreational Drug Use: Yes Drugs: Heroin, Marijuana, Other Hx Prescription Drug Abuse: No - Advance Directive Resuscitation Status: Full Code Family History Family History: DM, Other - Asthma, hepatitis C Parental Family History Reviewed: Yes Children Family History Reviewed: Yes Sibling(s) Family History Reviewed.: Yes Medication/Allergy Home Medications: Cephalexin Monohydrate [Keflex 500 mg Capsule] 500 mg PO BID 3 Days #6 capsule 09/10/19 Insulin Aspart [Novolog Insulin (Aspart) 100 unit/mL] 9 unit SQ MEALS 30 Days #3 unit 09/11/19 Insulin Aspart [Novolog Insulin 100 Unit/1 ml 10 ml] 0 - 12 unit SUBCUT .SLD SCALE 30 Days #3 ml 09/11/19 Insulin Glargine,Hum.rec.anlog [Lantus Insulin 100 Unit/1 ml 10 ml] 40 units SQ QHS 30 Days #3 unit 09/11/19 Allergies/Adverse Reactions: No Known Allergies Allergy (Verified 10/20/18 19:31) Review of Systems Constitutional: ABSENT: chills, fever(s), headache(s), weight gain, weight loss Eyes: ABSENT: visual disturbances Ears: ABSENT: hearing changes Cardiovascular: ABSENT: chest pain, dyspnea on exertion, edema, orthropnea, palpitations Respiratory: ABSENT: cough, hemoptysis Gastrointestinal: ABSENT: abdominal pain, constipation, diarrhea, hematemesis, hematochezia, nausea, vomiting Genitourinary: ABSENT: dysuria, hematuria Musculoskeletal: ABSENT: joint swelling Integumentary: ABSENT: rash, wounds Neurological: ABSENT: abnormal gait, abnormal speech, confusion, dizziness, focal weakness, syncope Psychiatric: ABSENT: anxiety, depression, homidical ideation, suicidal ideation Endocrine: ABSENT: cold intolerance, heat intolerance, polydipsia, polyuria Hematologic/Lymphatic: ABSENT: easy bleeding, easy bruising Physical Exam Vital Signs: Temp Pulse Resp BP Pulse Ox 98.7 F 73 17 155/76 H 99 04/18/20 23:39 04/19/20 02:00 04/18/20 23:39 04/18/20 23:39 04/18/20 23:39 Intake & Output 04/17/20 04/18/20 04/19/20 11:59 11:59 11:59 Intake Total 3271 Balance 3271 Weight 74.84 kg General appearance: PRESENT: disheveled, mild distress, well-developed. ABSENT: cooperative, well-nourished Head exam: PRESENT: atraumatic, normocephalic Eye exam: PRESENT: conjunctiva pink, EOMI, PERRLA. ABSENT: scleral icterus Ear exam: PRESENT: normal external ear exam Mouth exam: PRESENT: moist, tongue midline Neck exam: ABSENT: carotid bruit, JVD, lymphadenopathy, thyromegaly Respiratory exam: PRESENT: clear to auscultation black. ABSENT: rales, rhonchi, wheezes Cardiovascular exam: PRESENT: RRR. ABSENT: diastolic murmur, rubs, systolic murmur Pulses: PRESENT: normal dorsalis pedis pul Vascular exam: PRESENT: normal capillary refill GI/Abdominal exam: PRESENT: hyperactive bowel sounds, normal bowel sounds, soft. ABSENT: distended, guarding, mass, organolmegaly, rebound, tenderness Rectal exam: PRESENT: deferred Extremities exam: PRESENT: full ROM. ABSENT: calf tenderness, clubbing, pedal edema Neurological exam: PRESENT: alert, awake, oriented to person, oriented to place, oriented to time, oriented to situation, CN II-XII grossly intact. ABSENT: motor sensory deficit Psychiatric exam: PRESENT: appropriate affect, normal mood. ABSENT: homicidal ideation, suicidal ideation Skin exam: PRESENT: dry, intact, warm. ABSENT: cyanosis, rash Results Laboratory Results: 04/18/20 17:40 04/18/20 04/18/20 04/18/20 17:40 17:40 17:45 WBC 10.8 H RBC 5.33 H Hgb 15.9 H Hct 48.2 H MCV 90 MCH 29.8 MCHC 32.9 RDW 13.5 Plt Count 300 Seg Neutrophils % 83.1 H VBG pH VBG pCO2 VBG HCO3 VBG Base Excess Sodium 129.1 L Potassium 4.7 Chloride 94 L Carbon Dioxide 13 L Anion Gap 22 H BUN 15 Creatinine 0.69 Est GFR ( Amer) > 60 Glucose 363 H Calcium 9.7 Total Bilirubin 0.8 AST 23 Alkaline Phosphatase 191 H Total Protein 8.1 Albumin 4.9 Urine Color STRAW Urine Appearance CLEAR Urine pH 5.0 Ur Specific [place] 1.024 Urine Protein NEGATIVE Urine Glucose (UA) >=500 H Urine Ketones 80 H Urine Blood NEGATIVE Urine Nitrite NEGATIVE Ur Leukocyte Esterase NEGATIVE Urine WBC (Auto) 0 Urine RBC (Auto) 0 04/18/20 04/18/20 04/18/20 18:50 20:25 23:51 WBC RBC Hgb Hct MCV MCH MCHC RDW Plt Count Seg Neutrophils % VBG pH 7.21 L VBG pCO2 36.7 VBG HCO3 14.5 L VBG Base Excess -12.4 Sodium 132.3 L 131.8 L Potassium 4.3 4.4 Chloride 106 107 Carbon Dioxide 17 L 14 L Anion Gap 9 11 BUN 12 10 Creatinine 0.53 0.51 L Est GFR ( Amer) > 60 > 60 Glucose 220 H 254 H Calcium 8.4 8.7 Total Bilirubin AST Alkaline Phosphatase Total Protein Albumin Urine Color Urine Appearance Urine pH Ur Specific [place] Urine Protein Urine Glucose (UA) Urine Ketones Urine Blood Urine Nitrite Ur Leukocyte Esterase Urine WBC (Auto) Urine RBC (Auto) Assessment and Plan - Diagnosis (1) Diabetic ketoacidosis associated with type 1 diabetes mellitus Qualifiers: Diabetes mellitus complication detail: without coma Qualified Code(s): E10.10 - Type 1 diabetes mellitus with ketoacidosis without coma Is this a current diagnosis for this admission?: Yes Plan: Telemetry admission, IV insulin, IV fluid with electrolyte repletion guided by chemistry every 4 hours. Education (2) Noncompliance w/medication treatment due to intermit use of medication Is this a current diagnosis for this admission?: Yes Plan: Education, patient declines rehab for substance abuse. (3) Polysubstance abuse Is this a current diagnosis for this admission?: Yes Plan: Patient declines rehab for polysubstance abuse, supportive measures - Time Time Spent with patient: 25-34 minutes - Inpatient Certification Medical Necessity: Need Close Monitoring Due to Risk of Patient Decompensation
[2020-04-19 04:20] LABS: CHOLESTEROL 123.15 mg/dL (0-200); TRIGLYCERIDES 152 mg/dL (<150)
[2020-04-19 04:21] LABS: ANION GAP 8 (5-19); BLOOD UREA NITROGEN 9 mg/dL (7-20); CARBON DIOXIDE 17 mmol/L (22-30); CHLORIDE 107 mmol/L (98-107); GLUCOSE 277 mg/dL (75-110); POTASSIUM 3.9 mmol/L (3.6-5.0)
[2020-04-19 04:31] LABS: DIRECT LDL 55 mg/dL (<100)
[2020-04-19 04:36] LABS: VLDL CHOLESTEROL 30.4 mg/dL (10-31)
[2020-04-19] MEDS: HEPARIN SOD (PORCINE) 5,000 UNIT/ML 1 ML VIAL SUBCUT SCH ×3 (06:19→22:51)
[2020-04-19 08:34] LABS: ANION GAP 7 (5-19); BLOOD UREA NITROGEN 7 mg/dL (7-20); CARBON DIOXIDE 16 mmol/L (22-30); CHLORIDE 109 mmol/L (98-107); GLUCOSE 282 mg/dL (75-110)
[2020-04-19] MEDS ORDERED: INSULIN GLARGINE,HUM.REC.ANLOG 1,000 UNIT/10 ML VIAL (PYX) SUBCUT ONE (08:49)
[2020-04-19] MEDS: DOCUSATE SODIUM 100 MG CAPSULE PO SCH ×2 (09:17→17:02)
[2020-04-19] MEDS ORDERED: NORMAL SALINE 1000 ML 1,000 ML IV PRN (09:58)
[2020-04-19] MEDS ORDERED: INSULIN GLARGINE,HUM.REC.ANLOG 1,000 UNIT/10 ML VIAL SUBCUT SCH (10:00)
--- NOTE | 2020-04-19 10:02 | PDOC PROGRESS REPORT ---
Subjective Progress Note for:: 04/19/20 Subjective:: Patient is feeling better this morning. She has no nausea or vomiting. She in fact is hungry. Breakfast has been ordered. Reason For Visit: DKA Physical Exam Vital Signs: Temp Pulse Resp BP Pulse Ox 98.5 F 75 16 157/84 H 100 04/19/20 07:39 04/19/20 07:39 04/19/20 07:39 04/19/20 07:39 04/19/20 07:39 Intake & Output 04/18/20 04/19/20 04/20/20 06:59 06:59 06:59 Intake Total 5071 1575 Balance 5071 1575 Weight 74.84 kg General appearance: PRESENT: no acute distress, cooperative, well-developed, well-nourished Head exam: PRESENT: atraumatic, normocephalic Ear exam: PRESENT: normal external ear exam. ABSENT: bleeding, drainage Mouth exam: PRESENT: moist, tongue midline Respiratory exam: PRESENT: clear to auscultation black, symmetrical, unlabored. ABSENT: accessory muscle use, prolonged expiratory phas, rales, rhonchi, tachypnea, wheezes Cardiovascular exam: PRESENT: RRR, +S1, +S2. ABSENT: diastolic murmur, gallop, irregular rhythm, systolic murmur GI/Abdominal exam: PRESENT: normal bowel sounds, soft. ABSENT: distended, firm, guarding, tenderness Rectal exam: PRESENT: deferred Gentrourinary exam: ABSENT: indwelling catheter Extremities exam: ABSENT: pedal edema Musculoskeletal exam: PRESENT: ambulatory, normal inspection Neurological exam: PRESENT: alert, awake, oriented to person, oriented to place, oriented to time, oriented to situation, CN II-XII grossly intact. ABSENT: altered Psychiatric exam: PRESENT: appropriate affect. ABSENT: agitated, anxious Focused psych exam: ABSENT: delusional, paranoid, restlessness Skin exam: PRESENT: dry, normal color, warm. ABSENT: rash Results Laboratory Results: 04/18/20 17:40 04/19/20 07:43 04/18/20 04/18/20 04/18/20 17:40 17:40 17:45 WBC 10.8 H RBC 5.33 H Hgb 15.9 H Hct 48.2 H MCV 90 MCH 29.8 MCHC 32.9 RDW 13.5 Plt Count 300 Seg Neutrophils % 83.1 H VBG pH VBG pCO2 VBG HCO3 VBG Base Excess Sodium 129.1 L Potassium 4.7 Chloride 94 L Carbon Dioxide 13 L Anion Gap 22 H BUN 15 Creatinine 0.69 Est GFR ( Amer) > 60 Glucose 363 H Calcium 9.7 Total Bilirubin 0.8 AST 23 Alkaline Phosphatase 191 H Total Protein 8.1 Albumin 4.9 Triglycerides Cholesterol LDL Cholesterol Direct VLDL Cholesterol HDL Cholesterol Urine Color STRAW Urine Appearance CLEAR Urine pH 5.0 Ur Specific [place] 1.024 Urine Protein NEGATIVE Urine Glucose (UA) >=500 H Urine Ketones 80 H Urine Blood NEGATIVE Urine Nitrite NEGATIVE Ur Leukocyte Esterase NEGATIVE Urine WBC (Auto) 0 Urine RBC (Auto) 0 04/18/20 04/18/20 04/18/20 18:50 20:25 23:51 WBC RBC Hgb Hct MCV MCH MCHC RDW Plt Count Seg Neutrophils % VBG pH 7.21 L VBG pCO2 36.7 VBG HCO3 14.5 L VBG Base Excess -12.4 Sodium 132.3 L 131.8 L Potassium 4.3 4.4 Chloride 106 107 Carbon Dioxide 17 L 14 L Anion Gap 9 11 BUN 12 10 Creatinine 0.53 0.51 L Est GFR ( Amer) > 60 > 60 Glucose 220 H 254 H Calcium 8.4 8.7 Total Bilirubin AST Alkaline Phosphatase Total Protein Albumin Triglycerides Cholesterol LDL Cholesterol Direct VLDL Cholesterol HDL Cholesterol Urine Color Urine Appearance Urine pH Ur Specific [place] Urine Protein Urine Glucose (UA) Urine Ketones Urine Blood Urine Nitrite Ur Leukocyte Esterase Urine WBC (Auto) Urine RBC (Auto) 04/19/20 04/19/20 04/19/20 03:39 03:39 07:43 WBC RBC Hgb Hct MCV MCH MCHC RDW Plt Count Seg Neutrophils % VBG pH VBG pCO2 VBG HCO3 VBG Base Excess Sodium 131.6 L 132.1 L Potassium 3.9 4.0 Chloride 107 109 H Carbon Dioxide 17 L 16 L Anion Gap 8 7 BUN 9 7 Creatinine 0.48 L 0.47 L Est GFR ( Amer) > 60 > 60 Glucose 277 H 282 H Calcium 8.0 L 8.0 L Total Bilirubin AST Alkaline Phosphatase Total Protein Albumin Triglycerides 152 H Cholesterol 123.15 LDL Cholesterol Direct 55 VLDL Cholesterol 30.4 HDL Cholesterol 56 Urine Color Urine Appearance Urine pH Ur Specific [place] Urine Protein Urine Glucose (UA) Urine Ketones Urine Blood Urine Nitrite Ur Leukocyte Esterase Urine WBC (Auto) Urine RBC (Auto) Assessment and Plan - Diagnosis (1) Diabetic ketoacidosis associated with type 1 diabetes mellitus Qualifiers: Diabetes mellitus complication detail: without coma Qualified Code(s): E10.10 - Type 1 diabetes mellitus with ketoacidosis without coma Is this a current diagnosis for this admission?: Yes Plan: Telemetry admission, IV insulin, IV fluid with electrolyte repletion guided by chemistry every 4 hours. Education 04/19/2020 Oral diet started. Off of insulin drip. Off of dextrose solution. I will restart her Lantus and continue the sliding scale. We will hold off on her scheduled Humalog dose before meals. (2) Noncompliance w/medication treatment due to intermit use of medication Is this a current diagnosis for this admission?: Yes Plan: Education, patient declines rehab for substance abuse. 04/19/2020 The patient freely admits that she does not check her sugars or take her medicine as she is supposed to. Encourage compliance (3) Polysubstance abuse Is this a current diagnosis for this admission?: Yes Plan: Patient declines rehab for polysubstance abuse, supportive measures 04/19/2020 As above (4) Hyperglycemia due to type 1 diabetes mellitus Is this a current diagnosis for this admission?: Yes Plan: 04/19/2020 I will resume her Lantus schedule but decrease the dose to 35 units twice daily. If she maintains a good appetite then I will increase the dose. - Plan Summary Summary: 04/19/2020 Physical exam limited due to COVID isolation. - Time Time Spent with patient: 15-24 minutes Medications reviewed and adjusted accordingly: Yes Anticipated discharge: Home Within: within 48 hours
[2020-04-19] MEDS: INSULIN GLARGINE,HUM.REC.ANLOG 1,000 UNIT/10 ML VIAL SUBCUT SCH ×2 (10:25→22:50)
[2020-04-19] MEDS: INSULIN LISPRO 100 UNIT/ML 3 ML VIAL SUBCUT SCH ×3 (11:43→22:50)
[2020-04-19 13:23] LABS: ANION GAP 11 (5-19); BLOOD UREA NITROGEN 6 mg/dL (7-20); CALCIUM 8.5 mg/dL (8.4-10.2); CARBON DIOXIDE 16 mmol/L (22-30); CHLORIDE 105 mmol/L (98-107); GLUCOSE 339 mg/dL (75-110); POTASSIUM 4.2 mmol/L (3.6-5.0)
[2020-04-19 20:09] LABS: ANION GAP 10 (5-19); BLOOD UREA NITROGEN 10 mg/dL (7-20); CALCIUM 8.8 mg/dL (8.4-10.2); CARBON DIOXIDE 20 mmol/L (22-30); CHLORIDE 103 mmol/L (98-107); GLUCOSE 320 mg/dL (75-110); POTASSIUM 4.3 mmol/L (3.6-5.0)
[2020-04-20] MEDS: HEPARIN SOD (PORCINE) 5,000 UNIT/ML 1 ML VIAL SUBCUT SCH (06:50)
[2020-04-20 08:17] LABS: ANION GAP 8 (5-19); BLOOD UREA NITROGEN 10 mg/dL (7-20); CALCIUM 8.9 mg/dL (8.4-10.2); CARBON DIOXIDE 23 mmol/L (22-30); CHLORIDE 104 mmol/L (98-107); GLUCOSE 178 mg/dL (75-110); POTASSIUM 3.4 mmol/L (3.6-5.0)
[2020-04-20] MEDS: INSULIN LISPRO 100 UNIT/ML 3 ML VIAL SUBCUT SCH ×3 (08:39→12:23)
[2020-04-20] MEDS: DOCUSATE SODIUM 100 MG CAPSULE PO SCH (10:40)
[2020-04-20] MEDS: INSULIN GLARGINE,HUM.REC.ANLOG 1,000 UNIT/10 ML VIAL SUBCUT SCH (10:53)
--- NOTE | 2020-04-20 11:43 | CDI QUERY ---
CDI Query CDI Review: Good morning! Please clarify and document in progress notes and D/C summary if you agree with the clinical data: HYPONATREMIA? NOT APPLICABLE? OTHER? Clinical findings: Na+ 131.7 / 132.5 / 135.3 IVF's Normal Saline continuous Thanks, Maria De Jesus Umanzor [phone]
[2020-04-20 12:32] VITALS: BP 128/80
--- NOTE | 2020-04-20 18:21 | Left Against Medical Advice ---
Against Medical Advice Admission Date/Time: 04/18/20 19:41 Primary Care Provider: TAM LOPEZ DO Date of Patient Emigration: 04/20/20 - Diagnosis: (1) Diabetic ketoacidosis associated with type 1 diabetes mellitus Is this a current diagnosis for this admission?: Yes (2) Noncompliance w/medication treatment due to intermit use of medication Is this a current diagnosis for this admission?: Yes (3) Polysubstance abuse Is this a current diagnosis for this admission?: Yes (4) Hyperglycemia due to type 1 diabetes mellitus Is this a current diagnosis for this admission?: Yes (5) Hyponatremia Is this a current diagnosis for this admission?: Yes - Summary: Summary: Please see Admission and Progress Notes as well. SEAN FELIPE is a 34 F, who LEFT AGAINST MEDICAL ADVICE. The Patient was admitted on 04/18/20 19:41. The patient is a self-admitted noncompliant patient. She told me that she does not take her insulin as directed. She takes very poor care of herself. I told her that I would be discharging her today but she insisted on leaving. The DKA had resolved. Her Accu-Cheks were improving. In addition the hyponatremia from the elevated glucose was improving. Unfortunately she felt that she could not wait for me to discharge her and left AGAINST MEDICAL ADVICE
== END 2020-04-20 13:53 | disposition left against medical advice (07) | DRG 638 ==
LOC: ER 17:10 → EH 19:41 → 5 22:38
PROVIDERS: ADMIT Internal Medicine; ATTEND Hospitalist
DX: E10.10 Type 1 diabetes mellitus with ketoacidosis without coma (principal); E87.1 Hypo-osmolality and hyponatremia; F15.10 Other stimulant abuse, uncomplicated; F12.10 Cannabis abuse, uncomplicated; F11.10 Opioid abuse, uncomplicated; T38.3X6A Underdosing of insulin and oral hypoglycemic [antidiabetic] drugs, initial encounter; Z91.138 Patient's unintentional underdosing of medication regimen for other reason; Z79.4 Long term (current) use of insulin; Z83.3 Family history of diabetes mellitus
CPT/HCPCS: 36415; 80048; 80053; 80061; 80307; 81001; 81025; 82803; 82962; 83036; 83735; 85025; 87635; 96360; 96361; 99291; C9803; J1644; J1815; J3480; J7030; J7050